=== PATIENT | female | born 2000 | race Caucasian/White ===

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

== ENCOUNTER 2021-03-23 13:09 | Outpatient (CLI) | payer OTHER, MEDICAID, SELFPAY ==
[2021-03-23 13:30] LABS: Basophils Absolute Auto 0.03 K/mm3 (0.00-0.10); Basophils Percent Auto 0.4 % (0.0-1.0); Eosinophils Percent Auto 1.5 % (1.0-6.0); Hematocrit 41.9 % (35.0-49.0); Hemoglobin 14.2 g/dL (12.0-15.0); Immature Granulocyte Absolute 0.02 K/mm3 (0.00-0.00); Immature Granulocyte Percent A 0.3 % (0.0-0.0); Lymphocytes Absolute Auto 1.56 K/mm3 (1.10-4.50); Lymphocytes Percent Auto 22.9 % (18.0-42.0); Mean Corpuscular HGB Conc 33.9 g/dL (32.0-36.0); Mean Corpuscular Hemoglobin 30.7 pg (27.0-31.0); Mean Corpuscular Volume 90.5 fL (78.0-102.0); Mean Platelet Volume 11.2 fl (9.2-11.8); Monocytes Absolute Auto 0.47 K/mm3 (0.10-0.90); Monocytes Percent Auto 6.9 % (2.0-11.0); Neutrophils Absolute Auto 4.6 K/mm3 (1.7-7.2); Platelet Count Result 198 K/mm3 (150-420); Red Blood Count 4.63 M/mm3 (4.20-5.40); Red Cell Distribution Width 12.5 % (11.6-14.4); White Blood Count 6.8 K/mm3 (4.8-10.8)
[2021-03-23 15:42] LABS: Alanine Aminotransferase 19 U/L (14-59); Albumin Level 4.2 g/dL (3.4-5.0); Alkaline Phosphatase 91 U/L (46-116); Anion Gap 11 mmol/L (8-16); Aspartate Amino Transferase 10 U/L (15-37); Bilirubin,Total 0.3 mg/dL (0.00-1.00); Blood Urea Nitrogen 8 mg/dL (7-18); Calcium 8.9 mg/dL (8.5-10.1); Carbon Dioxide 26 mmol/L (21-32); Chloride 103 mmol/L (98-108); Cholesterol 144 mg/dL (0-200); Estimated Glomerular Filt Rate > 60; Free T4 Free Thyroxine 0.88 ng/dL (0.76-1.46); Glucose 93 mg/dL (70-99); HDL Direct 43 mg/dL (40-60); LDL Cholesterol Calculated 93 mg/dL (<130); Osmolality Calculated 288 mOsm/kg (285-295); Potassium 4.1 mmol/L (3.5-5.1); Sodium 140 mmol/L (136-145); Thyroid Stimulating Hormone 1.42 uIU/mL (0.36-3.74); Total Protein 7.2 g/dL (6.4-8.2); Triglycerides 41 mg/dL (0-150); Vitamin B12 376 pg/mL (193-986)
== END 2021-03-23 13:10 | disposition home or self-care (01) ==
LOC: CHSLAB 13:14
DX: N91.2 Amenorrhea, unspecified (principal); R53.83 Other fatigue
CPT/HCPCS: 36415; 80053; 80061; 82607; 82746; 84439; 84443; 84702; 85025

== ENCOUNTER 2021-03-30 12:52 | Outpatient (CLI) | payer OTHER, MEDICAID, SELFPAY | END 2021-03-30 12:53 | disposition home or self-care (01) | LOC: CHSLAB 12:57 | DX: Z32.01 Encounter for pregnancy test, result positive (principal) | CPT/HCPCS: 36415; 84702 ==

== ENCOUNTER 2021-04-10 16:56 | Emergency (ER) | payer OTHER, MEDICAID, SELFPAY ==
[2021-04-10 17:05] VITALS: BP 132/88; PULSE 100; RESP 16; TEMP 36.9; O2SAT 100
--- NOTE | 2021-04-10 17:49 | ED.BACK ---
HPI - Back Pain/Injury General Chief Complaint: Back Pain/Injury Stated Complaint: vaginal and back pain/ unknown weeks Time Seen by Provider: 04/10/21 17:49 Source: patient Mode of arrival: ambulatory Limitations: no limitations History of Present Illness HPI Narrative: 20-year-old woman in the 1st trimester of her 1st comes in today complaining of low back pain and vaginal discomfort with itching. Patient states that she has had no fever, vomiting, discharge, dysuria, hematuria, or frequent urination. She denies vaginal bleeding and abdominal pain. Records from [facility] states that her quantitative hCG on 03/23/2021 was 75 and 1090 on 03/30. elicited complaint: back pain Onset (ago): week(s) (2) Timing: constant Severity: moderate Similar Symptoms Previously: No Quality: aching Location: left lower back Radiation: none Exacerbating factors: none Relieving factors: none Related Data Home Medications Medication Instructions Recorded Confirmed sertraline 50 mg PO DAILY 11/16/19 04/10/21 Allergies Allergy/AdvReac Type Severity Reaction Status Date / Time No Known Allergies Allergy Verified 04/10/21 17:11 Review of Systems Review of Systems: All systems reviewed & are unremarkable except as noted in HPI and below Constitutional: Constitutional: Denies chills, Denies fatigue, Denies fever(s) and Denies weakness Eyes: Eyes: Denies change in vision and Denies photophobia ENT: Denies nasal congestion and Denies sore throat Cardiovascular: Cardiovascular: Denies chest pain and Denies radiating jaw, neck or arm pain Respiratory: Respiratory: Denies cough and Denies dyspnea Gastrointestinal: Gastrointestinal: Denies abdominal pain, Denies diarrhea, Reports nausea (AM) and Denies vomiting Genitourinary: Genitourinary: Denies hematuria, Denies nocturia, Denies dysuria and Reports pelvic pain Musculoskeletal: Musculoskeletal: Denies back pain, Denies arthralgias and Denies joint swelling Integumentary/Breasts: Skin/Breast: Denies pruritus, Denies erythema and Denies rash Neurologic: Denies vertigo, Denies dizziness and Denies syncope Hematologic/Lymphatic: Hematologic/Lymphatic: Denies easy bleeding and Denies easy bruising Allergic/Immunologic: Allergic/Immunologic: Denies lip swelling and Denies throat swelling [facility] Past Medical History Medical History (Updated 04/10/21 @ 22:04 by Duane Lima MD) Depression Social History Social History Smoking status: Never smoker Alcohol intake: never Substance use: never Exam Const: General: healthy appearing, no acute distress and alert Orientation/consciousness: patient oriented x3 Limitations: no limitations HENMT: Head: normal to inspection Mouth: Yes moist mucous membranes Throat: posterior oropharynx normal Eyes: Conjunctivae: conjunctivae normal Pupils: Equal, round and reactive pupils present EOM: EOMs intact bilaterally Resp: Effort & Inspection: normal respiratory effort and not labored Auscultation: clear to auscultation bilaterally, no rales, no rhonchi and no wheezes Cardio: Rate: regular rate Rhythm: regular rhythm Heart sounds: no murmurs GI: GI Palp: Yes Soft to palpation, No Tenderness to palpation present (GI) and No Palpable mass present Auscultation: normal bowel sounds : Speculum Exam - Vagina: abnormal vaginal discharge white and caseous and No vaginal bleeding Speculum Exam - Cervix: normal appearance of the cervix Bimanual exam- vagina & uterus: no cervical motion tenderness Bimanual Exam- Adnexa, other: adnexal mass and no tenderness Skin: General skin exam: normal color, no jaundice and no pallor Rashes: no rashes Neuro: General: patient oriented x3, moves all extremities and no focal motor deficits Speech: normal speech Gait exam (Neuro): Normal gait present Extrem: General: normal to inspection and no clubbing, cyanosis or
[2021-04-10 18:13] LABS: Add Urine Microscopic? YES; Appearance Urine Clear (Clear); Bilirubin Urine Negative (Negative); Blood Urine Negative (Negative); Color Urine Light Yellow (Yellow); Glucose Urine UA Negative (Negative); Ketones Urine Negative (Negative); Leukocyte Esterase Ur 1+ (Negative); Nitrate Urine Negative (Negative); Protein Urine Negative (Negative); Specific Grav Ur 1.015 (1.010-1.020); Urobilinogen Urine 0.2 mg/dL (0.2-1.0)
[2021-04-10 18:19] LABS: Bacteria Urine Trace /hpf; RBC Urine 0-2 /hpf (0-2); Squamous Epithelial Cell Urine Few /hpf (Few); WBC Urine 0-3 /hpf (0-3)
[2021-04-10 19:57] LABS: Basophils Absolute Auto 0.05 K/mm3 (0.00-0.10); Basophils Percent Auto 0.4 % (0.0-1.0); Eosinophils Absolute Auto 0.11 K/mm3 (0.02-0.50); Eosinophils Percent Auto 0.9 % (1.0-6.0); Hematocrit 37.6 % (35.0-49.0); Hemoglobin 12.8 g/dL (12.0-15.0); Immature Granulocyte Absolute 0.04 K/mm3 (0.00-0.00); Immature Granulocyte Percent A 0.3 % (0.0-0.0); Lymphocytes Absolute Auto 2.29 K/mm3 (1.10-4.50); Lymphocytes Percent Auto 18.5 % (18.0-42.0); Mean Corpuscular Hemoglobin 30.4 pg (27.0-31.0); Mean Corpuscular Volume 89.3 fL (78.0-102.0); Mean Platelet Volume 11.1 fl (9.2-11.8); Monocytes Absolute Auto 0.71 K/mm3 (0.10-0.90); Monocytes Percent Auto 5.7 % (2.0-11.0); Neutrophils Absolute Auto 9.2 K/mm3 (1.7-7.2); Neutrophils Percent Auto 74.2 % (50.0-70.0); Platelet Count Result 266 K/mm3 (150-420); Red Blood Count 4.21 M/mm3 (4.20-5.40); Red Cell Distribution Width 12.2 % (11.6-14.4); White Blood Count 12.4 K/mm3 (4.8-10.8)
[2021-04-10 20:13] VITALS: BP 128/88; PULSE 68; RESP 16; O2SAT 98
--- NOTE | 2021-04-10 20:14 | PC.NURSE ---
Albin esparza in [facility] called, labs unable to run. Pelvic exam done with RN supervised
--- NOTE | 2021-04-10 21:13 | PC.NURSE ---
had to call lab & remind to result out Chem & Beta HCG
[2021-04-10 21:48] LABS: Alanine Aminotransferase 16 U/L (14-59); Albumin Level 3.6 g/dL (3.4-5.0); Alkaline Phosphatase 79 U/L (46-116); Anion Gap 8 mmol/L (8-16); Aspartate Amino Transferase 10 U/L (15-37); Bilirubin,Total 0.1 mg/dL (0.00-1.00); Blood Urea Nitrogen 8 mg/dL (7-18); Calcium 8.7 mg/dL (8.5-10.1); Carbon Dioxide 26 mmol/L (21-32); Chloride 103 mmol/L (98-108); Estimated CRCL calculation 96 ml/min; Estimated Glomerular Filt Rate > 60; Glucose 92 mg/dL (70-99); Osmolality Calculated 282 mOsm/kg (285-295); Potassium 3.8 mmol/L (3.5-5.1); Sodium 137 mmol/L (136-145)
== END 2021-04-10 22:17 | disposition home or self-care (01) ==
PROVIDERS: Emergency Provider Emergency Medicine
DX: B37.3 Candidiasis of vulva and vagina (principal); N30.00 Acute cystitis without hematuria
CPT/HCPCS: 36415; 80053; 81001; 84702; 85025; 87077; 87086; 87088; 87186; 87210; 99283; 99284

== ENCOUNTER 2021-06-09 10:35 | Emergency (ER) | payer OTHER, MEDICAID, SELFPAY ==
[2021-06-09 10:42] VITALS: BP 119/88; PULSE 103; RESP 20; TEMP 36.4; O2SAT 100
--- NOTE | 2021-06-09 10:58 | ED.NAVMDI ---
HPI - Nausea/Vomiting/Diarrhea General Chief complaint: Nausea/Vomiting/Diarrhea Stated complaint: 15-16 wks ob, coughed up blood Source: patient Mode of arrival: ambulatory Limitations: no limitations History of Present Illness HPI Narrative: Pt had single episode of emesis this morning. Afterward she spit some saliva that was mixed with bright red blood. Pt has had no further emesis or bleeding and denies abdominal pain. MD elicited complaint: nausea and vomiting Pertinent past history: other () Description of vomiting: food contents Associated nausea: Yes Associated abdominal pain: No Exacerbating factors: none Relieving factors: none Associated symptoms: denies other symptoms Related Data Home Medications Medication Instructions Recorded Confirmed No Home Medications 06/09/21 06/09/21 Allergies Allergy/AdvReac Type Severity Reaction Status Date / Time No Known Allergies Allergy Verified 06/09/21 10:58 Review of Systems Review of Systems: All systems reviewed & are unremarkable except as noted in HPI and below (HPI) PMFSH Past Medical History Medical History (Updated 06/09/21 @ 11:07 by Ivan Dorsey III, DO) Depression Social History Social History Smoking status: Never smoker Alcohol intake: never Substance use: never Exam Const: General: cooperative, healthy appearing, comfortable and no acute distress Orientation/consciousness: patient oriented x3 Limitations: no limitations HENMT: Head: normal to inspection Mouth: Yes Normal oral and palatal mucosa present, Yes oropharynx normal and Yes moist mucous membranes Teeth and gingiva: dentition normal Throat: posterior oropharynx normal Neck: Neck: normal visual inspection and full ROM Resp: Effort & Inspection: normal respiratory effort and able to speak in complete sentences Cardio: Jugular venous distension: no JVD Rate: regular rate Rhythm: regular rhythm GI: Inspection: normal to inspection GI Palp: Yes abdominal tenderness (no tenderness) Auscultation: normal bowel sounds Other: FHT 151 Skin: General skin exam: normal color and no rashes or lesions noted Neuro: General: patient oriented x3 Cognition (Neuro): normal cognition Speech: normal speech Gait exam (Neuro): Normal gait present Extrem: General: normal to inspection, full ROM and no pedal edema Psych: Appearance: grossly normal Mental Status: mental status grossly normal Speech and movement: Normal speech and movement present Affect: normal affect Attitude: cooperative Discharge Plan Discharge Clinical Impression: Hematemesis of fresh blood Patient Disposition: Home, Self-Care Condition: Stable Instructions: Antibiotic Form, Hyperemesis Gravidarum (ED) Prescriptions: No Action No Home Medications RF: 0 Follow-up/Referrals: Shi More MD [Primary Care Provider] - Time of Disposition: 11:07
== END 2021-06-09 11:11 | disposition home or self-care (01) ==
PROVIDERS: Emergency Provider Emergency Medicine; PCP Obstetrics & Gynecology
DX: K92.0 Hematemesis (principal)
CPT/HCPCS: 99281

== ENCOUNTER 2021-08-12 13:54 | Observation (INO) | payer OTHER, MEDICAID, SELFPAY ==
[2021-08-12] VITALS (10 sets, daily range): BP systolic 93–104; BP diastolic 63–68; PULSE 92–105; RESP 16; TEMP 36.9; O2SAT 93–99; BMI 26.6
--- NOTE | 2021-08-12 14:28 | OBADM ---
This patient, Ninfa Rojas, admitted to the OB room 113 for observation for migraine. Patient/family oriented to hospital policies and general routines including ID bracelet, bed and alarms, visiting hours, pain management, procedures, bathroom and other care routines, personal items, smoking policy, room service/diet, and visiting hours. Patient/Family are encouraged to report perceived risks to care and to ask questions if they do not understand what they are told or what they should do.
--- NOTE | 2021-08-12 14:29 | PC.NURSE ---
Desmond Washington CNM informed of pt's arrival with c/o migraine since Tuesday and was unable to keep her Fioricet down this morning when she took it.
--- NOTE | 2021-08-12 14:31 | PC.NURSE ---
Pt denies vaginal leakage of fluid, vaginal bleeding, and abdominal pain, tightening, cramping or pressure. Pt has had back pain for weeks dependent on the position she is in.
[2021-08-12] MEDS: ONDANSETRON HCL ODT 4 MG TABLET PO (15:00)
--- NOTE | 2021-08-12 15:35 | PC.NURSE ---
Nausea has improved.
[2021-08-12] MEDS: ACETAMINOPHEN/BUTALBITAL/CAFFEINE 325-50-40 MG TABLET (FIORICET) 1 TAB PO ×2 (15:41→16:51)
--- NOTE | 2021-08-12 16:51 | PC.NURSE ---
Headache a little better. Minimal nausea. Water and ramona crackers given with Fioricet.
--- NOTE | 2021-08-12 18:20 | PC.NURSE ---
Desmond Washington CNM on unit and informed pt's headache has totally resolved. She had turned her room light on, opened the drapes, and watching TV. OK to discharge to home and may send script for Wan.
--- NOTE | 2021-08-14 07:24 | PM.OBTRLD ---
OB - Triage/Final Diagnosis Visit Information Date of evaluation: 08/12/21 Reason for evaluation: other (nausea ) Comments/Additional reasons for admission: I have assessed the risk for this patient, Ninfa Rojas, and determined that she would benefit from observation care.
== END 2021-08-12 18:40 | disposition home or self-care (01) ==
PROVIDERS: Admitting Provider Obstetrics & Gynecology; Visit Provider Obstetrics & Gynecology
DX: O21.0 Mild hyperemesis gravidarum (principal); Z3A.00 Weeks of gestation of pregnancy not specified
CPT/HCPCS: A9270; G0378; G0379

== ENCOUNTER 2021-11-02 14:07 | Observation (INO) | payer OTHER, MEDICAID, SELFPAY ==
--- NOTE | 2021-11-02 14:07 | OBADM ---
This patient, Ninfa Rojas, admitted to the OB room OB Post 115 for observation. Patient/family oriented to hospital policies and general routines including ID bracelet, bed and alarms, visiting hours, pain management, procedures, bathroom and other care routines, personal items, smoking policy, room service/diet, and visiting hours. Patient/Family are encouraged to report perceived risks to care and to ask questions if they do not understand what they are told or what they should do.
[2021-11-02 14:31] VITALS: BP 105/72; PULSE 115
[2021-11-02 14:45] VITALS: BP 100/59; PULSE 132
[2021-11-02 15:01] VITALS: BP 96/65; PULSE 114
[2021-11-02 15:15] VITALS: BP 105/81; PULSE 111
[2021-11-02 16:26] VITALS: BMI 29.8
--- NOTE | 2021-11-06 06:56 | PM.OBTRLD ---
OB - Triage/Final Diagnosis Visit Information Comments/Additional reasons for admission: I have assessed the risk for this patient, Ninfa Rojas, and determined that she would benefit from observation care. Final Diagnosis (1) Back pain affecting : Code(s): O99.891 - Other specified diseases and conditions complicating ; M54.9 - Dorsalgia, unspecified Status: Acute (2) Decreased movement: Code(s): O36.8190 - Decreased movements, unspecified trimester, not applicable or unspecified Status: Acute
== END 2021-11-02 16:25 | disposition home or self-care (01) ==
PROVIDERS: Admitting Provider Obstetrics & Gynecology; Visit Provider Obstetrics & Gynecology
DX: O99.891 Other specified diseases and conditions complicating pregnancy (principal); M54.9 Dorsalgia, unspecified; O36.8130 Decreased fetal movements, third trimester, not applicable or unspecified; Z3A.35 35 weeks gestation of pregnancy
CPT/HCPCS: G0378; G0379

== ENCOUNTER 2021-11-29 15:57 | Inpatient (IN) | payer OTHER, MEDICAID, SELFPAY ==
[2021-11-29] VITALS (13 sets, daily range): BP systolic 70–143; BP diastolic 33–86; PULSE 77–122; BMI 30.4
--- OUTSIDE RECORDS SUMMARY | 2021-11-29 16:04 | XMS_ITS ---
:2000 Author Care Team Providers Name Role Phone Padmini Debi Mariano Primary Care Provider Unavailable Allergies Code Code System Name Reaction Severity Status Onset NKDA ? Medications Name Status Start Date Stop Date ? ? amoxicillin 500 mg capsule Completed ? 09/17 TAKE 1 CAPSULE BY MOUTH TWICE A DAY FOR 10 DAYS aripiprazole 10 mg tablet Completed ? 2021 aripiprazole 5 mg tablet Completed ? 022 benzonatate 100 mg capsule Completed ? 04/29 buspirone 10 mg tablet Completed ? glartzpbgh-ugmvgdcsxvhqq-wpuzlgxl 50 mg-300 mg-40 mg Completed ? 09/17/2021 capsule clotrimazole 1 % vaginal cream Completed ? 0 04/29/2021 INSERT 1 APPLICATORFUL VAGINALLY AT BEDTIME FOR 7 DAYS FreeStyle [place] Lite kit Active ? Not a vailable CHECK BLOOD SUGAR 4 TIMES A DAY FreeStyle Lancets 28 gauge Active ? Not a vailable FreeStyle Lite Strips Active ? Not availa ble hydrocortisone 1 % topical cream with perineal Active ? Not available applicator methylprednisolone 4 mg tablets in a dose pack Active ? Not available metoclopramide 5 mg tablet Active ? Not a vailable Karen 0.25 mg-35 mcg tablet Completed ? 04/29 nitrofurantoin monohydrate/macrocrystals 100 mg capsule Complete d ? 09/17/2021 ondansetron 4 mg disintegrating tablet Completed ? 04/29/2021 DISSOLVE 1 TABLET ON TONGUE FOLLOWED BY A SIP OF WATER NEEDED EVERY 8 HOURS FOR NAUSEA ondansetron 8 mg disintegrating tablet Completed ? 09/17/2021 Active ? Not available Preparation H Hydrocortisone 1 % topical cream Active ?
--- OUTSIDE RECORDS SUMMARY | 2021-11-29 16:04 | XMS_ITS | Encounter Summary ---
:2000 Author Reason for Visit None recorded. Assessment and Plan 1. Gestational diabetes mellitus, class A>1< ? US, obstetric, biophysical profile + non-stress test Discussion Note: None recorded.Patient educational handouts: No information available. Plan of Care Reminders Provider Appointments Post 12/25/2021 Debi Washington CNM 2:00PM Lab None recorded. ? ? Referral None recorded. ? ? Procedures None recorded. ? ? Surgeries None recorded. ? ? Imaging US, Obstetric, Biophysical 11/18/2021 [facility] Profile + Non-stress Test Medications Name Start Date ? ? FreeStyle [place] Lite kit ? CHECK BLOOD SUGAR 4 TIMES A DAY FreeStyle Lancets 28 gauge ? CHECK BLOOD SUGAR 4 TIMES A DAY FreeStyle Lite Strips ? TEST SUGAR 4 TIMES A DAY hydrocortisone 1 % topical cream with perineal applica tor ? methylprednisolone 4 mg tablets in a dose pack ? metoclopramide 5 mg tablet ? Take 1 tablet every 6 hours by oral route as needed. ? Preparation H Hydrocortisone 1 % topical cream ? APPLY A THIN LAYER TO THE AFFECTED AREA(S) BY TOPICAL ROUTE 2 TIMES PER DAY sertraline 100 mg tablet ? TAKE 2 TABLETS BY MOUTH EVERY DAY Medications Administered None recorded. Vitals None recorded. Results Lab Results None recorded. Allergies Code Code System Name Reaction Severity Onset NKDA ? ? ? Problems Name Status Onset Date Source ? Active 05/26/2021 ? Mixed Anxiety and Depressive Disorder Active ? ?
--- OUTSIDE RECORDS SUMMARY | 2021-11-29 16:04 | XMS_ITS | Encounter Summary ---
:2000 Author Reason for Visit None recorded. Assessment and Plan 1. Gestational diabetes mellitus, class A>1< ? non-stress test Discussion Note: None recorded.Patient educational handouts: No information available. Plan of Care Reminders Provider Appointments Post 12/25/2021 2:00PM Debi vaca CNM Lab None recorded. ? ? Referral None recorded. ? ? Procedures None recorded. ? ? Surgeries None recorded. ? ? Imaging Non-stress Test 11/25/2021 [place] Medications Name Start Date ? ? FreeStyle [place] Lite kit ? CHECK BLOOD SUGAR 4 [...] Anxiety and Depressive Disorder Active ? ? Tobacco User Active ? ? Procedures Date Name Performed by ?
--- OUTSIDE RECORDS SUMMARY | 2021-11-29 16:04 | XMS_ITS | Encounter Summary ---
[...] recorded. ? ? Imaging US, Obstetric, Biophysical 11/11/2021 [facility] Profile + Non-stress Test Medications Name Start Date ? ? FreeStyle [place] Lite kit ? CHECK BLOOD SUGAR 4 [...]
--- OUTSIDE RECORDS SUMMARY | 2021-11-29 16:04 | XMS_ITS | Encounter Summary ---
[...] None recorded. ? ? Imaging Non-stress Test 11/18/2021 [place] Medications Name Start Date ? ? FreeStyle [place] Lite kit ? CHECK BLOOD SUGAR 4 [...]
--- OUTSIDE RECORDS SUMMARY | 2021-11-29 16:04 | XMS_ITS | Encounter Summary ---
:2000 Author Reason for Visit None recorded. Assessment and Plan 1. Gestational diabetes mellitus, class A>1< ? US, obstetric, biophysical profile Discussion Note: None recorded.Patient educational handouts: No information available. Plan of Care Reminders Provider Appointments Post 12/25/2021 Debi Washington CNM 2:00PM Lab None recorded. ? ? Referral None recorded. ? ? Procedures None recorded. ? ? Surgeries None recorded. ? ? Imaging US, Obstetric, Biophysical 11/03/2021 [facility] Profile Medications Name Start Date ? ? FreeStyle [place] Lite kit ? CHECK BLOOD SUGAR 4 [...]
--- OUTSIDE RECORDS SUMMARY | 2021-11-29 16:04 | XMS_ITS | Encounter Summary ---
[...] None recorded. ? ? Imaging Non-stress Test 11/11/2021 [place] Medications Name Start Date ? ? FreeStyle [place] Lite kit ? CHECK BLOOD SUGAR 4 [...]
--- OUTSIDE RECORDS SUMMARY | 2021-11-29 16:04 | XMS_ITS | Encounter Summary ---
[...] None recorded. ? ? Imaging Non-stress Test 11/03/2021 [employer] Medications Name Start Date ? ? FreeStyle [place] Lite kit ? CHECK BLOOD SUGAR 4 [...]
--- OUTSIDE RECORDS SUMMARY | 2021-11-29 16:04 | XMS_ITS | Encounter Summary ---
:2000 Author Reason for Visit OB visit OB [id number] EDC 12/04/2021 LMP 02/22/2021 Assessment and Plan Assessment Note Patient is _38__weeks . Discuss ed plan. 1. Routine care Discussion Note: None recorded.Patient educational handouts: No information available. Plan of Care Reminders Provider Appointments Post 12/25/2021 2:00PM Debi vaca CNM Lab None recorded. ? ? Referral None recorded. ? ? Procedures None recorded. ? ? Surgeries None recorded. ? ? Imaging None recorded. ? ? Medications Name Start Date ? ? FreeStyle [place] Lite kit ? CHECK BLOOD SUGAR 4 [...] EVERY DAY Medications Administered None recorded. Vitals Height Weight BMI Blood Pressure 5 ft 7 in 195 lbs 30.5 kg/m2 114/70 mm[Hg] Results Lab Results None recorded. Allergies Code Code System Name Reaction Severity Onset NKDA ? ? ? Problems Name Status Onset Date Source ? Active
--- OUTSIDE RECORDS SUMMARY | 2021-11-29 16:04 | XMS_ITS | Encounter Summary ---
:2000 Author Reason for Visit OB visit Assessment and Plan Assessment Note Patient is ___weeks . Discussed plan. 1. Routine care Discussion Note: None recorded.Patient educational handouts: No information available. Plan of Care Reminders Provider Appointments Post 12/25/2021 2:00PM Debi vaca CNM Lab None recorded. ? ? Referral None recorded. ? ? Procedures None recorded. ? ? Surgeries None recorded. ? ? Imaging None recorded. ? ? Medications Name Start Date ? ? FreeStyle [place] Lite kit ? CHECK BLOOD SUGAR 4 [...] BMI Blood Pressure 5 ft 7 in 188 lbs 29.4 kg/m2 131/89 mm[Hg] Results Lab Results None recorded. Allergies Code Code System Name Reaction Severity Onset NKDA ? ? ? Problems Name Status Onset Date Source ? Active 05/26/2021 ? Mixed Anxiety and Depressive Disorder Act
--- OUTSIDE RECORDS SUMMARY | 2021-11-29 16:04 | XMS_ITS | Encounter Summary ---
:2000 Author Reason for Visit OB visit OB [id number] EDC 12/04/2021 LMP 02/22/2021 Assessment and Plan Assessment Note Patient is _37__weeks . Discuss ed plan. 1. Routine care Discussion Note: None recorded.Patient educational handouts: No information available. Plan of Care Reminders Provider Appointments Post 12/25/2021 2:00PM Debi vaca CNM Lab None recorded. ? ? Referral None recorded. ? ? Procedures None recorded. ? ? Surgeries None recorded. ? ? Imaging None recorded. ? ? Medications Name Start Date ? ? FreeStyle [place] Lite kit ? CHECK BLOOD SUGAR 4 [...] BMI Blood Pressure 5 ft 7 in 194 lbs 30.4 kg/m2 118/75 mm[Hg] Results Lab Results None recorded. Allergies Code Code System Name Reaction Severity Onset NKDA ? ? ? Problems Name Status Onset Date Source ? Active
--- OUTSIDE RECORDS SUMMARY | 2021-11-29 16:04 | XMS_ITS | Encounter Summary ---
:2000 Author Reason for Visit None recorded. Assessment and Plan 1. COVID-19 ? US, obstetric, follow-up ? US, obstetric, biophysical profile + non-stress test Discussion Note: None recorded.Patient educational handouts: No information available. Plan of Care Reminders Provider Appointments Post 12/25/2021 Debi [place] CNM 2:00PM Lab None recorded. ? ? Referral None recorded. ? ? Procedures None recorded. ? ? Surgeries None recorded. ? ? Imaging US, Obstetric, Follow-up 10/29/2021 [place] ? US, Obstetric, Biophysical 10/29/2021 [place] Profile + Non-stress Test Medications Name Start Date ? ? FreeStyle [place] Lite kit ? CHECK BLOOD SUGAR 4 [...] Problems Name Status Onset Date Source ? Ac
--- OUTSIDE RECORDS SUMMARY | 2021-11-29 16:04 | XMS_ITS | Encounter Summary ---
:2000 Author Reason for Visit OB visit OB [id number] EDC 12/04/2021 LMP 02/22/2021 Assessment and Plan Assessment Note Patient is _34__weeks . Discuss ed plan. 1. Routine care Discussion Note: None recorded.Patient educational handouts: No information available. Plan of Care Reminders Provider Appointments Post 12/25/2021 2:00PM Debi vaca CNM Lab None recorded. ? ? Referral None recorded. ? ? Procedures None recorded. ? ? Surgeries None recorded. ? ? Imaging None recorded. ? ? Medications Name Start Date ? ? FreeStyle [place] Lite kit ? CHECK BLOOD SUGAR 4 [...] BMI Blood Pressure 5 ft 7 in 192 lbs 30.1 kg/m2 125/81 mm[Hg] Results Lab Results None recorded. Allergies Code Code System Name Reaction Severity Onset NKDA ? ? ? Problems Name Status Onset Date Source ? Active
--- OUTSIDE RECORDS SUMMARY | 2021-11-29 16:04 | XMS_ITS | Encounter Summary ---
:2000 Author Reason for Visit None recorded. Assessment and Plan 1. Gestational diabetes mellitus ? non-stress test Discussion Note: None recorded.Patient educational handouts: No information available. Plan of Care Reminders Provider Appointments Post 12/25/2021 2:00PM Debi vaca CNM Lab None recorded. ? ? Referral None recorded. ? ? Procedures None recorded. ? ? Surgeries None recorded. ? ? Imaging Non-stress Test 11/13/2021 [place] Medications Name Start Date ? ? FreeStyle [place] Lite kit ? CHECK BLOOD SUGAR 4 [...]
--- OUTSIDE RECORDS SUMMARY | 2021-11-29 16:04 | XMS_ITS | Encounter Summary ---
[...] recorded. ? ? Imaging US, Obstetric, Biophysical 11/25/2021 [facility] Profile + Non-stress Test Medications Name Start Date ? ? FreeStyle [place] Lite kit ? CHECK BLOOD SUGAR 4 [...]
--- OUTSIDE RECORDS SUMMARY | 2021-11-29 16:04 | XMS_ITS | Encounter Summary ---
:2000 Author Reason for Visit OB visit OB [id number] EDC 12/04/2021 LMP 02/22/2021 Assessment and Plan Assessment Note Patient is _36__weeks . Discuss ed plan. 1. Routine care Discussion Note: None recorded.Patient educational handouts: No information available. Plan of Care Reminders Provider Appointments Post 12/25/2021 2:00PM Debi vaca CNM Lab None recorded. ? ? Referral None recorded. ? ? Procedures None recorded. ? ? Surgeries None recorded. ? ? Imaging None recorded. ? ? Medications Name Start Date ? ? FreeStyle [place] Lite kit ? CHECK BLOOD SUGAR 4 [...] BMI Blood Pressure 5 ft 7 in 191 lbs 29.9 kg/m2 121/83 mm[Hg] Results Lab Results None recorded. Allergies Code Code System Name Reaction Severity Onset NKDA ? ? ? Problems Name Status Onset Date Source ? Active
--- OUTSIDE RECORDS SUMMARY | 2021-11-29 16:05 | XMS_ITS | Encounter Summary ---
:2000 Author Reason for Visit NST [id number] EDC 12/04/2021 Assessment and Plan 1. Gestational diabetes mellitus, class A>1< ? non-stress test Discussion Note: None recorded.Patient educational handouts: No information available. Plan of Care Reminders Provider Appointments Post 12/25/2021 2:00PM Debi vaca CNM Lab None recorded. ? ? Referral None recorded. ? ? Procedures None recorded. ? ? Surgeries None recorded. ? ? Imaging Non-stress Test 10/14/2021 [place] Medications Name Start Date ? ? FreeStyle [place] Lite kit ? CHECK BLOOD SUGAR 4 [...] BMI Blood Pressure 5 ft 7 in 186 lbs 29.1 kg/m2 123/84 mm[Hg] Results Lab Results None recorded. Allergies Code Code System Name Reaction Severity Onset NKDA ? ? ? Problems Name Status Onset Date Source ? Active 05/26/2021 ? Mixed Anxiety and Depressive Disorder Active ? ? [place]
--- OUTSIDE RECORDS SUMMARY | 2021-11-29 16:05 | XMS_ITS | Encounter Summary ---
:2000 Author Reason for Visit None recorded. Assessment and Plan 1. Placental condition affecting manage ment of mother ? US, obstetric, follow-up Discussion Note: None recorded.Patient educational handouts: No information available. Plan of Care Reminders Provider Appointments Post 12/25/2021 2:00PM Debi vaca, KEITH Lab None recorded. ? ? Referral None recorded. ? ? Procedures None recorded. ? ? Surgeries None recorded. ? ? Imaging US, Obstetric, Follow-up 09/30/2021 [place] Medications Name Start Date ? ? FreeStyle [place] Lite kit ? CHECK BLOOD SUGAR 4 [...]
--- OUTSIDE RECORDS SUMMARY | 2021-11-29 16:05 | XMS_ITS | Encounter Summary ---
:2000 Author Reason for Visit None recorded. Assessment and Plan 1. COVID-19 ? US, obstetric, follow-up Discussion Note: None recorded.Patient educational handouts: No information available. Plan of Care Reminders Provider Appointments Post 12/25/2021 2:00PM Debi vaca CNM Lab None recorded. ? ? Referral None recorded. ? ? Procedures None recorded. ? ? Surgeries None recorded. ? ? Imaging US, Obstetric, Follow-up 09/01/2021 [place] Medications Name Start Date ? ? FreeStyle [place] Lite kit ? CHECK BLOOD SUGAR 4 [...]
--- OUTSIDE RECORDS SUMMARY | 2021-11-29 16:05 | XMS_ITS | Encounter Summary ---
:2000 Author Reason for Visit OB visit OB [id number] EDC 12/04/2021 LMP 02/22/2021 Assessment and Plan Assessment Note Patient is 32___weeks . Discuss ed plan. 1. Routine care Discussion Note: None recorded.Patient educational handouts: No information available. Plan of Care Reminders Provider Appointments Post 12/25/2021 2:00PM Debi vaca CNM Lab None recorded. ? ? Referral None recorded. ? ? Procedures None recorded. ? ? Surgeries None recorded. ? ? Imaging None recorded. ? ? Medications Name Start Date ? ? FreeStyle [place] Lite kit ? CHECK BLOOD SUGAR 4 [...]
--- OUTSIDE RECORDS SUMMARY | 2021-11-29 16:05 | XMS_ITS | Encounter Summary ---
[...] recorded. ? ? Imaging US, Obstetric, Biophysical 10/14/2021 [facility] Profile + Non-stress Test Medications Name Start Date ? ? FreeStyle [place] Lite kit ? CHECK BLOOD SUGAR 4 [...]
--- OUTSIDE RECORDS SUMMARY | 2021-11-29 16:05 | XMS_ITS | Encounter Summary ---
:2000 Author Reason for Visit OB visit OB [id number] EDC 12/04/2021 LMP 02/22/2021 Assessment and Plan Assessment Note Patient is _31__weeks . Discuss ed plan. 1. Routine care Discussion Note: None recorded.Patient educational handouts: No information available. Plan of Care Reminders Provider Appointments Post 12/25/2021 2:00PM Debi vaca CNM Lab None recorded. ? ? Referral None recorded. ? ? Procedures None recorded. ? ? Surgeries None recorded. ? ? Imaging None recorded. ? ? Medications Name Start Date ? ? FreeStyle [place] Lite kit ? CHECK BLOOD SUGAR 4 [...] BMI Blood Pressure 5 ft 7 in 183 lbs 28.7 kg/m2 111/74 mm[Hg] Results Lab Results None recorded. Allergies Code Code System Name Reaction Severity Onset NKDA ? ? ? Problems Name Status Onset Date Source ? Active
--- OUTSIDE RECORDS SUMMARY | 2021-11-29 16:05 | XMS_ITS | Encounter Summary ---
[...] None recorded. ? ? Imaging Non-stress Test 10/29/2021 [place] Medications Name Start Date ? ? FreeStyle [place] Lite kit ? CHECK BLOOD SUGAR 4 [...]
--- OUTSIDE RECORDS SUMMARY | 2021-11-29 16:05 | XMS_ITS | Encounter Summary ---
:2000 Author Reason for Visit OB visit OB [id number] EDC 12/04/2021 LMP 02/22/2021 Assessment and Plan Assessment Note Patient is _28__weeks . Discuss ed plan. 1. Routine care 2. Depressive disorder ? Zoloft 100 mg tablet Discussion Note: None recorded.Patient educational handouts: No information available. Plan of Care Reminders Provider Appointments Post 12/25/2021 2:00PM Debi vaca CNM Lab None recorded. ? ? Referral None recorded. ? ? Procedures None recorded. ? ? Surgeries None recorded. ? ? Imaging None recorded. ? ? Medications Name Start Date ? ? FreeStyle [place] Lite kit ? CHECK BLOOD SUGAR 4 [...] BMI Blood Pressure 5 ft 7 in 181 lbs 28.3 kg/m2 (1) 132/92 mm[H g] (2) 128/82 mm[Hg ] Results Lab Results None recorded. Allergies Code Code System Name Reaction Severity Onset
--- OUTSIDE RECORDS SUMMARY | 2021-11-29 16:05 | XMS_ITS ---
:2000 Author Care Team Providers Name Role Phone Nacho Hadley Primary Care Provider Unavailable Allergies Code Code System Name Reaction Severity Status Onset NKDA ? Medications Name Status Start Date Stop Date ? ? amoxicillin 400 mg/5 mL oral suspension Unknown ? Not available amoxicillin 875 mg-potassium clavulanate 125 mg tablet Completed ? 04/23/2019 aripiprazole 10 mg tablet Active ? Not av ailable TAKE 1 TABLET BY MOUTH EVERYDAY AT BEDTIME aripiprazole 5 mg tablet Completed ? 022 azithromycin 500 mg tablet Completed ? 04/23 benzonatate 100 mg capsule Completed ? 03/18 xgnjjdhynj-ubgftuwviykmf-juboeoab 50 mg-300 mg-40 mg capsule Act agus ? Not available TAKE 1 CAPSULE BY MOUTH EVERY 8 HOURS NEEDED cephalexin 500 mg capsule Completed ? 2018 citalopram 20 mg tablet Completed ? 10/21/19 18 clotrimazole 1 % vaginal cream Active ? N ot available INSERT 1 APPLICATORFUL VAGINALLY AT BEDTIME FOR 7 DAYS cyclobenzaprine 10 mg tablet Completed ? dicyclomine 10 mg capsule Completed ? 2020 TAKE 1 CAPSULE BY MOUTH THREE TIMES A DAY NEEDED FOR ABDOMIN AL DISCOMFORT escitalopram 10 mg tablet Completed ? 2017 fluoxetine 20 mg capsule Completed ? 019 guanfacine 1 mg tablet Completed ? 9 ibuprofen 600 mg tablet Completed ? 06/16/19 19 Karen 0.25 mg-35 mcg tablet Completed ? 03/18 naproxen 500 mg tablet Completed ? 9 nitrofurantoin monohydrate/macrocrystals 100 mg capsule Active ? Not available TAKE 1 CAPSULE BY MOUTH EVERY 12 HOURS WITH FOOD FOR 7 DAYS olanzapine 2.5 mg tablet Completed ?
--- OUTSIDE RECORDS SUMMARY | 2021-11-29 16:05 | XMS_ITS | Encounter Summary ---
:2000 Author Reason for Visit OB visit OB [id number] EDC 12/07/2021 LMP 02/22/2021 Assessment and Plan Assessment Note Patient is _33__weeks . Discuss ed plan. 1. Routine care Discussion Note: None recorded.Patient educational handouts: No information available. Plan of Care Reminders Provider Appointments Post 12/25/2021 2:00PM Debi vaca CNM Lab None recorded. ? ? Referral None recorded. ? ? Procedures None recorded. ? ? Surgeries None recorded. ? ? Imaging None recorded. ? ? Medications Name Start Date ? ? FreeStyle [place] Lite kit ? CHECK BLOOD SUGAR 4 [...] ft 7 in 188 lbs 29.4 kg/m2 123/82 mm[Hg] Results Lab Results None recorded. Allergies Code Code System Name Reaction Severity Onset NKDA ? ? ? Problems Name Status Onset Date Source ? Active
--- OUTSIDE RECORDS SUMMARY | 2021-11-29 16:05 | XMS_ITS | Encounter Summary ---
[...] recorded. ? ? Imaging US, Obstetric, Biophysical 10/21/2021 [facility] Profile + Non-stress Test Medications Name Start Date ? ? FreeStyle [place] Lite kit ? CHECK BLOOD SUGAR 4 [...]
--- OUTSIDE RECORDS SUMMARY | 2021-11-29 16:05 | XMS_ITS | Encounter Summary ---
:2000 Author Reason for Visit None recorded. Assessment and Plan 1. Blood glucose abnormal Per SP pt needs diet teaching r/t abnor mal levels while checking BS to see if she rules in for GDM or not. Pts diet teachi ng completed over phone. Went over ideal ranges for FBS and pp BS. Went over carb counting and carb ranges for each meal/snack. Gave ideas for foods to eat for meals/snacks. Discussed drink options and to avoid soda and juice. Pt drinks Dr. Emilee jones with each meal and drinks a lot of milk. Told pt she needs to cut out Dr. Emilee jones and limit milk intake. Mainly water and sugar free water flavors. Told pt to con tinue checking BS QID and adjusting diet to follow low carb diet to try to keep BS w ithin normal range. Pt aware if sugars aren't controlled by diet we would discuss star ting insulin. Will discuss with SP tomorrow to see if we should start NSTs with her sugar levels. Pts questions were answered and pt verbalized understanding. JENNY rutledge Discussion Note: None recorded.Patient educational handouts: No information available. Plan of Care Reminders Provider Appointments Post 12/25/2021 2:00PM Debi vaca CNM Lab None recorded. ? ? Referral None recorded. ? ? Procedures None recorded. ? ? Surgeries None recorded. ? ? Imaging None recorded. ? ? Medications Name Start Date ? ? FreeStyle [place] Lite kit ? CHECK BLOOD SUGAR 4 TIMES A DAY FreeStyle Lancets 28 gauge ? CHECK BLOOD SUGAR 4 TIMES A DAY FreeStyle Lite Strips ? TEST SUGAR 4 TIMES A DAY hydrocortisone 1 % topical cream with perineal applica tor ? methylprednisolone 4 mg tablets in a dose pack ? metoclopramide 5 mg tablet ? Take 1 tablet elizabeth
--- OUTSIDE RECORDS SUMMARY | 2021-11-29 16:05 | XMS_ITS | Encounter Summary ---
[...] None recorded. ? ? Imaging Non-stress Test 10/21/2021 [place] Medications Name Start Date ? ? FreeStyle [place] Lite kit ? CHECK BLOOD SUGAR 4 [...]
--- OUTSIDE RECORDS SUMMARY | 2021-11-29 16:05 | XMS_ITS | Encounter Summary ---
:2000 Author Reason for Visit OB visit OB [id number] EDC 12/04/2021 LMP 02/22/2021 Assessment and Plan Assessment Note Patient is _30__weeks . Discuss ed plan. 1. Routine care Discussion Note: None recorded.Patient educational handouts: No information available. Plan of Care Reminders Provider Appointments Post 12/25/2021 2:00PM Debi vaca CNM Lab None recorded. ? ? Referral None recorded. ? ? Procedures None recorded. ? ? Surgeries None recorded. ? ? Imaging None recorded. ? ? Medications Name Start Date ? ? FreeStyle [place] Lite kit ? CHECK BLOOD SUGAR 4 [...] BMI Blood Pressure 5 ft 7 in 182 lbs 28.5 kg/m2 107/70 mm[Hg] Results Lab Results None recorded. Allergies Code Code System Name Reaction Severity Onset NKDA ? ? ? Problems Name Status Onset Date Source ? Active
--- OUTSIDE RECORDS SUMMARY | 2021-11-29 16:05 | XMS_ITS | Encounter Summary ---
:2000 Author Reason for Visit OB visit Assessment and Plan Assessment Note Patient is ___weeks . Discussed plan. 1. Routine care 2. Umbilical hernia 3. Gestational proteinuria 4. Migraine Discussion Note: None recorded.Patient educational handouts: No information available. Plan of Care Reminders Provider Appointments Post 12/25/2021 2:00PM Debi vaca CNM Lab None recorded. ? ? Referral None recorded. ? ? Procedures None recorded. ? ? Surgeries None recorded. ? ? Imaging None recorded. ? ? Medications Name Start Date ? ? FreeStyle [place] Lite kit ? CHECK BLOOD SUGAR 4 [...] ft 7 in 182 lbs 28.5 kg/m2 121/79 mm[Hg] Results Lab Results None recorded. Allergies Code Code System Name Reaction Severity Onset NKDA ? ? ? Problems
--- NOTE | 2021-11-29 16:20 | LDADM ---
This patient, Ninfa Rojas, was admitted to Labor/Delivery/Recovery 108 on 11/29/21 at 15:57. Plans for labor, pain management and were discussed with patient. Patient/family oriented to hospital policies and general routines including ID bracelet, bed and alarms, visiting hours, pain management, procedures, bathroom and other care routines, personal items, smoking policy, room service/diet and guest tray routines, security routines, and visiting hours. Patient/Family are encouraged to report perceived risks to care and to ask questions if they do not understand what they are told or what they should do. See OBIX for further documentation.
[2021-11-29 16:24] LABS: Basophils Percent Auto 0.3 % (0.2-1.2); Eosinophils Percent Auto 0.4 % (0-4.4); Hematocrit 29.1 % (37.0-47.0); Immature Granulocyte Absolute 0.09 K/mm3 (0.00-0.031); Immature Granulocyte Percent A 1.2 % (0-0.5); Lymphocytes Absolute Auto 1.12 K/mm3 (0.9-3.2); Lymphocytes Percent Auto 14.7 % (18.3-44.2); Mean Corpuscular HGB Conc 34.4 g/dl (32-36); Mean Corpuscular Hemoglobin 31.1 pg (26-34); Mean Corpuscular Volume 90.4 fl (80-100); Mean Platelet Volume 10.8 fl (7.4-10.4); Monocytes Absolute Auto 0.5 K/mm3 (0.1-0.6); Monocytes Percent Auto 6.5 % (2.6-8.5); Neutrophils Absolute Auto 5.9 K/mm3 (1.3-6.7); Neutrophils Percent Auto 76.9 % (45.5-73.1); Platelet Count Result 199 k/mm3 (150-375); Red Blood Count 3.22 M/mm3 (4.2-5.4); Red Cell Distribution Width 12.7 % (11.5-14.5); White Blood Count 7.6 K/mm3 (4.5-10.0)
[2021-11-29 16:49] LABS: Glucose Point of Care 102 mg/dl (65-105)
[2021-11-29] MEDS: DINOPROSTONE 10 MG VAG INSERT VAGINAL (17:02)
--- NOTE | 2021-11-29 18:34 | WPDANESEPP ---
Anes - Eval Pre Procedure Procedure: Labor epidural Date/Time: 11/29/21 18:34 Surgeon: Gabriel Preop Diagnosis: Abd pain with contractions Pre Op Diagnosis: IOL Patient Data Age: 21 Gender: F Height: 1.7 m Weight: 88 kg Last Vital Signs Pulse 98 11/29/21 18:30 BP 98/59 L 11/29/21 18:30 O2 Del Method Room Air 11/29/21 16:15 Allergies Allergy/AdvReac Type Severity Reaction Status Date / Time No Known Allergies Allergy Verified 11/03/21 13:41 Home Medications Medication Instructions Recorded Confirmed Type ondansetron 4 mg disintegrating 4 mg PO Q6H PRN Nausea #30 tabs 08/12/21 11/29/21 Rx tablet sertraline 50 mg tablet 150 mg PO DAILY 08/12/21 11/29/21 History Laboratory Tests 11/29/21 11/29/21 11/29/21 16:12 16:12 16:12 WBC 7.6 K/mm3 K/mm3 (4.5-10.0) RBC 3.22 M/mm3 L M/mm3 (4.2-5.4) Hgb 10.0 g/dL L g/dL (12.0-15.0) Hct 29.1 % L % (37.0-47.0) MCV 90.4 fl fl (80-100) MCH 31.1 pg pg (26-34) MCHC 34.4 g/dl g/dl (32-36) RDW 12.7 % % (11.5-14.5) Plt Count 199 k/mm3 k/mm3 (150-375) MPV 10.8 fl H fl (7.4-10.4) Immature Gran % (Auto) 1.2 % H % (0-0.5) Neut % (Auto) 76.9 % H % (45.5-73.1) Lymph % (Auto) 14.7 % L % (18.3-44.2) Cache % (Auto) 6.5 % % (2.6-8.5) Eos % (Auto) 0.4 % % (0-4.4) Baso % (Auto) 0.3 % % (0.2-1.2) Lymph # (Auto) 1.12 K/mm3 K/mm3 (0.9-3.2) Cache # (Auto) 0.5 K/mm3 K/mm3 (0.1-0.6) Eos # (Auto) 0.0 K/mm3 K/mm3 (0-0.3) Baso # (Auto) 0.0 K/mm3 K/mm3 (0.0-0.1) Abs Immat Gran (auto) 0.09 K/mm3 H K/mm3 (0.00-0.031) Absolute Neuts (auto) 5.9 K/mm3 K/mm3 (1.3-6.7) Absolute Nucleated RBC 0.0 K/mm3 K/mm3 (0.0-0.012) Nucleated RBC % 0.0 % % (0.0-0.2) POC Capillary Glucose RPR Pending Blood Type A Positive Antibody Screen Negative 11/29/21 16:44 WBC RBC Hgb Hct MCV MCH MCHC RDW Plt Count MPV Immature Gran % (Auto) Neut % (Auto) Lymph % (Auto) Cache % (Auto) Eos % (Auto) Baso % (Auto) Lymph # (Auto) Cache # (Auto) Eos # (Auto) Baso # (Auto) Abs Immat Gran (auto) Absolute Neuts (auto) Absolute Nucleated RBC Nucleated RBC % POC Capillary Glucose 102 mg/dl mg/dl (65-105) RPR Blood Type Antibody Screen Patient hx anesthesia problems: none Family hx anesthesia problems: none Results Review: All pre-operative results and documents have been reviewed as part of the pre-operative evaluation. [facility] Past Medical History Medical History Anxiety and depression Depression HTN (hypertension) with goal to be determined Migraines Overweight (BMI 25.0-29.9) and not yet delivered Smoker Family History Family History Grandparent Pneumonia Chronic obstructive pulmonary disease Grandparent Heart attack Social History Social History Smoking packs per day: 2 Smoking cigarettes per day: 40.0 Smoking status: Current every day smoker Tobacco type: cigarettes Alcohol intake: never Substance use: never Spiritual care concerns: No Exam Day of Procedure 11/29/21 18:34 Patient weight: overweight Airway: Mallampati scale class II
[2021-11-29 20:53] LABS: Glucose Point of Care 106 mg/dl (65-105)
[2021-11-29] MEDS: fentaNYL CITRATE INJ (*CRX) 100 MCG/2 ML VIAL 50 MCG IV PUSH (21:58)
[2021-11-29] MEDS: ZOLPIDEM TARTRATE (*CRX) 5 MG TABLET PO (23:44)
[2021-11-29 23:55] LABS: Glucose Point of Care 108 mg/dl (65-105)
[2021-11-30] VITALS (182 sets, daily range): BP systolic 90–142; BP diastolic 52–95; PULSE 55–138; RESP 16–18; TEMP 36.4–37.3; O2SAT 86–100
[2021-11-30] MEDS: fentaNYL CITRATE INJ (*CRX) 100 MCG/2 ML VIAL IV PUSH (00:12)
[2021-11-30 03:16] LABS: Glucose Point of Care 109 mg/dl (65-105)
[2021-11-30] MEDS: ACETAMINOPHEN 500 MG TABLET 1000 MG PO (04:19)
[2021-11-30] MEDS: fentaNYL CITRATE INJ (*CRX) 100 MCG/2 ML VIAL 50 MCG IV PUSH (04:57)
[2021-11-30] MEDS: LACTATED RINGERS 1,000 ML 125 ML IV CONT ×3 (06:29→10:15)
[2021-11-30 07:19] LABS: Glucose Point of Care 93 mg/dl (65-105)
[2021-11-30] MEDS: OXYTOCIN 30 UNITS/NS 500 ML 30 UNITS/500 ML BAG 6 UNITS IV CONT (08:27)
[2021-11-30] MEDS: SERTRALINE HCL 50 MG TABLET 200 MG PO (09:45)
[2021-11-30 11:40] LABS: Glucose Point of Care 93 mg/dl (65-105)
[2021-11-30] MEDS: ONDANSETRON INJ 4 MG/2 ML VIAL IV PUSH ×2 (13:12→16:36)
[2021-11-30 13:48] LABS: Rapid Plasma Reagin Non-Reactive (NonReactive)
[2021-11-30 14:54] LABS: Glucose Point of Care 80 mg/dl (65-105)
--- NOTE | 2021-11-30 17:45 | P.PCNOB_ITS ---
OB - Delivery Note Procedure Delivery date: 11/30/21 Procedure: Events: Gestational Diabetes Induction method: AROM, Per Pitocin Protocol and Per Cervidil Protocol Delivery monitor: External FHT and Internal Uterine Route of delivery: Episiotomy description: None Laceration Description: Labial (left) Delivery repair: vicryl Specimen: Yes Quantitative Blood Loss (ml): 275 Anesthesia type: Epidural Disposition: Floor Narrative: mother and baby skin to skin in stable condition [place] Baby Date of : 11/30/21 Weeks of gestation at delivery: 39 Infant gender: Female Weight (pounds): 7 Weight (ounces): 13 presentation: vertex position: Right Occiput Anterior Placenta delivery description: Spontaneous Cord Vessel Description: 3 Vessels, Clamped/Cut and Delayed Cord Clamping score one minute: 8 score five minutes: 9
--- NOTE | 2021-11-30 17:45 | WPDOBADMIT ---
Obstetrics - Admit Note Admission Note: record reviewed. No pertinent additions to the history and/or any subsequent changes in the physical findings that are not consistent with the expected course of the were found. admit for IOL, GDMA 1, AROM clear fluid Additions to the history and/or subsequent changes in the physical findings follow. None.
[2021-11-30] MEDS: ACETAMINOPHEN 325 MG TABLET 650 MG PO (18:05)
[2021-11-30] MEDS: OXYTOCIN 30 UNITS/NS 500 ML 30 UNITS/500 ML BAG 125 UNITS IV CONT (18:05)
[2021-11-30] MEDS: WITCH HAZEL 40 PADS 1 PAD TOPICAL (20:10)
[2021-11-30] MEDS: BENZOCAINE 20% AER SPR (*SP) 56 GM CAN 1 SPRAY TOPICAL (20:10)
--- NOTE | 2021-11-30 20:33 | OBPPTRN ---
Patient transferred to post room # 281 via wheelchair. Support person present. Oriented to unit, room, information board, rooming in, admission packet and security measures. Patient verbalizes understanding.
[2021-11-30] MEDS: IBUPROFEN 600 MG TABLET PO (20:54)
[2021-12-01] VITALS (7 sets, daily range): BP systolic 109–126; BP diastolic 78–85; PULSE 54–77; RESP 16–18; TEMP 36.4–36.8; O2SAT 98–99
[2021-12-01] MEDS: ACETAMINOPHEN 325 MG TABLET 650 MG PO (04:01)
[2021-12-01] MEDS: IBUPROFEN 600 MG TABLET PO ×4 (04:01→23:27)
[2021-12-01 04:54] LABS: Hematocrit 30.6 % (37.0-47.0); Hemoglobin 9.9 g/dL (12.0-15.0)
--- NOTE | 2021-12-01 08:08 | WPDANLDPN2 ---
Anes-Prog Note L&D Date/Time: 12/01/21 08:08 Comfortable throughout: labor and delivery Neuraxial method: epidural Epidural/Spinal procedure site: tender (localized tenderness at the site) Neuro status: Neuro function grossly intact. Cardiovascular status: normal Respiratory status: normal Airway patency: baseline Mental status: baseline Post-Op hydration status: normal Vital Signs: Last Vital Signs Temp 36.6 C 12/01/21 04:08 Pulse 54 L 12/01/21 04:08 Resp 16 12/01/21 04:08 BP 121/81 12/01/21 04:08 Pulse Ox 99 12/01/21 04:08 O2 Del Method Room Air 11/30/21 20:46 Pain score (VAS): 2/10 I/O: Intake & Output 11/30/21 12/01/21 12/01/21 23:59 07:59 15:59 Intake Total 500 Output Total 275 Balance 225 Post-procedural complaints: none Patient feedback: Patient satisfied with anesthetic care.
--- NOTE | 2021-12-01 08:45 | PC.NURSE ---
[id number] Introductions were made, then consulted with patient to assess needs related to . Mother led the conversation with her?plans to feed?her infant and the?experience so far. Resources provided for inpatient and outpatient services using a resource guide and mom/baby guide. Mother voiced understanding of information and will call if there is a request for assistance. Primary RN is in the room.
--- NOTE | 2021-12-01 08:46 | PC.NURSE ---
[id number] Consulted with patient to assess needs related to . Mother led conversation with her experience with feeding baby so far and has infant latched and effective to the right breast using cross cradle positioning. Educated mother on what signs to watch for to visulized her swallowing and listening for drinking at the breast. Mother denies any pain with . Infant demonstrates mouth opened wide, lips flanged, good rocking motion with sucking, and swallowing frequently. Resources used to facilitate learning were used from the visual handout and mom and baby guide. Mother voiced understanding of the education shared, calling for assistance if the does not latch or if there is discomfort with . Reported to the primary RN.
[2021-12-01] MEDS: POLYSACCHARIDE IRON COMPLEX 150 MG CAPSULE PO ×2 (10:11→16:13)
[2021-12-01] MEDS: MULTIVIT/MIN/PREN/FOL AC/IRON TABLET 1 TAB PO (10:12)
[2021-12-01] MEDS: SERTRALINE HCL 50 MG TABLET 150 MG PO (10:12)
[2021-12-01] MEDS: DOCUSATE SODIUM 100 MG CAPSULE PO ×2 (10:12→16:12)
[2021-12-01] MEDS: HYDROcodone/acetaminophen (*CRX) 5-325 MG TABLET 1 TAB PO ×4 (11:40→23:26)
[2021-12-01] MEDS: SERTRALINE HCL 50 MG TABLET 100 MG PO (20:27)
[2021-12-02] MEDS: HYDROcodone/acetaminophen (*CRX) 5-325 MG TABLET 1 TAB PO (04:52)
[2021-12-02 07:25] VITALS: BP 117/83; PULSE 73; RESP 16; TEMP 36.4; O2SAT 100
[2021-12-02] MEDS: MULTIVIT/MIN/PREN/FOL AC/IRON TABLET 1 TAB PO (07:33)
[2021-12-02] MEDS: IBUPROFEN 600 MG TABLET PO (07:33)
[2021-12-02] MEDS: DOCUSATE SODIUM 100 MG CAPSULE PO (07:34)
[2021-12-02] MEDS: POLYSACCHARIDE IRON COMPLEX 150 MG CAPSULE PO (07:34)
--- NOTE | 2021-12-02 07:34 | PM.OBPNVD ---
OB - PN: Subj Subjective Date/time seen: 12/02/21 07:34 s/p vaginal delivery day 2, c/o zamudio not resolved with ibuprofen or tylenol OB - PN: Obj Data Labs CBC & Chem 7: 12/01/21 04:14 OB - PN A/P Plan day: 2 Plan: routine care and discharge home Comments: if zamudio not resolved with fioricet , please have anesthesia see pt prior to discharge Time Spent With Patient Time: Total time spent is greater than 50% in coordination of care (as documented) at patient's floor/unit and/or counseling patient: Review of Systems Review of Systems: All systems reviewed & are unremarkable except as noted in HPI and below Exam Const: General: cooperative, healthy appearing and comfortable
--- NOTE | 2021-12-02 07:36 | PM.OBDSVD ---
DS: Admitting Diagnosis Discharge Date 12/02/21 Admitting Diagnosis IOL, GDM OB - DS: Summary OB Procedures : None OB Procedures Intrapartum: Spontaneous Vag Delivery OB Procedures: : None Time Spent with Patient Time attestation: Total time spent providing and/or coordinating discharge services: DS: Data Data Completed and Pending Pending studies at discharge: Pending at discharge 11/30/21 18:00 Surgical [PTH] Routine Discharge Plan Discharge Attending physician on discharge: Timothy Rios Discharging Clinician: Debi Washington Patient Disposition: Home, Self-Care Activity: pelvic rest Diet: regular Patient Instructions: Antibiotic Form Stand Alone Forms: General Discharge Information Follow-up/Referrals: Debi Washington, CNM [Certified Nurse Rolling Attendant] - 4 Weeks Discharge Medications: New ibuprofen 600 mg Tablet 600 mg PO Q6H PRN (Reason: Cramping) Qty: 30 0RF Continued sertraline 50 mg Tablet 150 mg PO DAILY Discontinued ondansetron 4 mg Tablet,Disintegrating 4 mg PO Q6H PRN (Reason: Nausea) Qty: 30 0RF Date of admission: 11/29/21 15:57 Primary Care Provider: UNKNOWN,DOCTOR Admitting Provider: Timothy Rios Attending physician on admission: Timothy Rios Condition: Stable
[2021-12-02] MEDS: SERTRALINE HCL 50 MG TABLET 100 MG PO (07:56)
[2021-12-02] MEDS: ACETAMINOPHEN/BUTALBITAL/CAFFEINE 325-50-40 MG TABLET (FIORICET) 2 TAB PO (07:57)
--- NOTE | 2021-12-02 15:09 | PC.NURSE ---
[id number] Mother led the conversation with her experience and plan to feed her so far and her ability to feed infant. Reminded parents to use good handwashing technique to prevent infection. Mother is feeding appropriately for growth of and understands stimulating to eat if needed. Infant has had appropriate feedings in the last 24 hours meets the outcomes for weight, output and jaundice at this time. Mother states she is confident to continue effectively , pumping, supplementing her at home or when to call for assistance and denies any additional assistance or education at this time. Reinforced understanding of milk production, transition of milk, signs of adequate intake, prevention/relief of engorgement, responsive after visualizing feeding cues, the different methods of stimulating to breastfeed 2-3 hours after the start of the last feeding, community resources, medication information reviewed per [employer] and when to call a provider using the resource of the mom and baby guide/[facility] website. Parents voiced understanding of the education shared. Reported to the primary RN.
[2021-12-04 08:59] VITALS: BP 118/76; PULSE 68; RESP 16; TEMP 36.9; O2SAT 99
== END 2021-12-02 11:05 | disposition home or self-care (01) | DRG 807 ==
LOC: ANHLDR 16:01 → ANHOB2 11-30 20:36
PROVIDERS: Advanced Practice Midwife; Admitting Provider Obstetrics & Gynecology; Visit Provider Obstetrics & Gynecology
DX: O24.429 Gestational diabetes mellitus in childbirth, unspecified control (principal); Z37.0 Single live birth; O76 Abnormality in fetal heart rate and rhythm complicating labor and delivery; O70.0 First degree perineal laceration during delivery; Z3A.39 39 weeks gestation of pregnancy
CPT/HCPCS: 36415; 82948; 85014; 85018; 85025; 86592; 86850; 86900; 86901; 88307; A9270; J2405; J2590; J2795; J3010; J7120

== ENCOUNTER 2022-01-26 12:04 | Emergency (ER) | payer OTHER, MEDICAID, SELFPAY ==
[2022-01-26 12:05] VITALS: BP 115/83; PULSE 99; RESP 20; TEMP 36.6; O2SAT 98
[2022-01-26 12:52] LABS: Basophils Absolute Auto 0.03 K/mm3 (0.00-0.10); Basophils Percent Auto 0.5 % (0.0-1.0); Eosinophils Absolute Auto 0.12 K/mm3 (0.02-0.50); Eosinophils Percent Auto 1.9 % (1.0-6.0); Hematocrit 35.3 % (35.0-49.0); Hemoglobin 11.9 g/dL (12.0-15.0); Immature Granulocyte Absolute 0.02 K/mm3 (0.00-0.00); Immature Granulocyte Percent A 0.3 % (0.0-0.0); Lymphocytes Absolute Auto 1.46 K/mm3 (1.10-4.50); Mean Corpuscular HGB Conc 33.7 g/dL (32.0-36.0); Mean Corpuscular Hemoglobin 30.1 pg (27.0-31.0); Mean Corpuscular Volume 89.4 fL (78.0-102.0); Monocytes Absolute Auto 0.39 K/mm3 (0.10-0.90); Monocytes Percent Auto 6.1 % (2.0-11.0); Neutrophils Absolute Auto 4.3 K/mm3 (1.7-7.2); Neutrophils Percent Auto 68.2 % (50.0-70.0); Platelet Count Result 231 K/mm3 (150-420); Red Blood Count 3.95 M/mm3 (4.20-5.40); Red Cell Distribution Width 12.2 % (11.6-14.4); White Blood Count 6.4 K/mm3 (4.8-10.8)
[2022-01-26 13:06] LABS: Partial Thromboplastin Time 25.4 SEC (23.90-30.70)
[2022-01-26 13:07] LABS: Alanine Aminotransferase 62 U/L (14-59); Albumin Level 3.8 g/dL (3.4-5.0); Alkaline Phosphatase 105 U/L (46-116); Anion Gap 9 mmol/L (8-16); Aspartate Amino Transferase 20 U/L (15-37); Bilirubin,Total 0.3 mg/dL (0.00-1.00); Blood Urea Nitrogen 11 mg/dL (7-18); Calcium 8.7 mg/dL (8.5-10.1); Carbon Dioxide 25 mmol/L (21-32); Chloride 109 mmol/L (98-108); Estimated CRCL calculation 77 ml/min; Estimated Glomerular Filt Rate > 60; Glucose 81 mg/dL (70-99); Osmolality Calculated 294 mOsm/kg (285-295); Sodium 143 mmol/L (136-145)
[2022-01-26 13:10] LABS: SPREG INTERNAL CONTROL Positive; Serum Qual hCG Negative
[2022-01-26 13:12] LABS: Lactic Acid Reflex 1.2 mmol/L (0.4-2.0)
[2022-01-26] MEDS: IBUPROFEN 400 MG TABLET 800 MG PO (13:20)
[2022-01-26 13:26] LABS: Add Urine Microscopic? YES; Appearance Urine Slightly Cloudy (Clear); Bilirubin Urine Negative (Negative); Blood Urine 3+ (Negative); Color Urine Yellow (Yellow); Glucose Urine UA Negative (Negative); Ketones Urine Negative (Negative); Leukocyte Esterase Ur Trace LEU/UL (Negative); Nitrate Urine Negative (Negative); Protein Urine Negative (Negative); Specific Grav Ur >= 1.030 (1.010-1.020); Urobilinogen Urine 0.2 mg/dL (0.2-1.0)
[2022-01-26 13:30] LABS: Bacteria Urine Trace /hpf; RBC Urine 51-75 /hpf (0-2); Squamous Epithelial Cell Urine Rare /hpf (Few); WBC Urine 0-3 /hpf (0-3)
--- NOTE | 2022-01-26 13:33 | PC.NURSE ---
PT IS SITTING ON STRETCHER IN EXAM ROOM AT THIS TIME. NAD NOTED. PT DENIES ANY NEEDS OR COMPLAINTS. PT IS AWAITING ERP DECISION AT THIS TIME. WILL CONTINUE TO MONITOR.
--- NOTE | 2022-01-26 13:43 | ED.ABDPAIN ---
HPI - Abdominal Pain General Chief Complaint: Abdominal Pain Stated Complaint: Possible miscarriage Time Seen by Provider: 01/26/22 12:07 Source: patient and RN notes reviewed Mode of arrival: ambulatory Limitations: no limitations History of Present Illness MD elicited complaint: other (vaginal bleeding x 2 weeks, post delivery 3 mos ago.) Onset (ago): week(s) (2) Pain Consistency: constant Location: diffuse Severity: mild Pain scale (0-10): 5 Quality: cramping and aching Radiation: none Migration to: no migration Exacerbating factors: nothing Relieving factors: nothing Related Data Patient : No Home Medications Medication Instructions Recorded Confirmed sertraline 50 mg tablet 200 mg PO DAILY 01/19/22 01/26/22 Allergies Allergy/AdvReac Type Severity Reaction Status Date / Time No Known Allergies Allergy Verified 01/26/22 12:13 Review of Systems Review of Systems: All systems reviewed & are unremarkable except as noted in HPI and below Constitutional: Constitutional: Reports no additional constitutional complaints Eyes: Eyes: Reports no additional eye complaints ENT: Reports system reviewed and no additional complaints, except as documented Cardiovascular: Cardiovascular: Reports no additional cardiovascular complaints Respiratory: Respiratory: Reports no additional respiratory complaints Gastrointestinal: Gastrointestinal: Reports no additional gastrointestinal complaints Genitourinary: Genitourinary: Reports no additional female genitourinary complaints Comments: vaginal bleeding Musculoskeletal: Musculoskeletal: Reports no additional musculoskeletal complaints Integumentary/Breasts: Skin/Breast: Reports system reviewed and no additional complaints, except as docu Neurologic: Reports system reviewed and no additional complaints, except as documented Psychiatric: Psychiatric: Reports no additional psychiatric complaints Endocrine: Endocrine: Reports no additional endocrine complaints Hematologic/Lymphatic: Hematologic/Lymphatic: Reports no additional hematologic/lymphatic complaints Allergic/Immunologic: Allergic/Immunologic: Reports no additional allergic/immunologic complaints [facility] Past Medical History Medical History Anxiety and depression Depression HTN (hypertension) with goal to be determined Menometrorrhagia Migraines Overweight (BMI 25.0-29.9) and not yet delivered Smoker Family History Family History Grandparent Pneumonia Chronic obstructive pulmonary disease Grandparent Heart attack Social History Social History Smoking packs per day: 2 Smoking cigarettes per day: 40.0 Smoking status: Current every day smoker Tobacco type: cigarettes Alcohol intake: never Substance use: never Spiritual care concerns: No Exam Const: General: no acute distress and well nourished Nutritional Appearance: well nourished Orientation/consciousness: patient oriented x3 Limitations: no limitations HENMT: Head: normal to inspection Ears: external ears normal, TM's normal bilaterally and EAC's normal Face/Nose/Sinus: Normal external nose present, Normal nares present, normal facial exam and sinuses nontender Face and sinus: normal facial exam and sinuses nontender Mouth: Yes Normal oral and palatal mucosa present and Yes moist mucous membranes Teeth and gingiva: dentition normal Throat: posterior oropharynx normal Eyes: Conjunctivae: conjunctivae normal Pupils: Equal, round and reactive pupils present EOM: EOMs intact bilaterally Neck: Neck: normal visual inspection, no lymphadenopathy and no meningeal signs Chest: Chest palpation & inspection: normal inspection of the chest Resp: Effort & Inspection: normal respiratory effort Auscultation: clear to auscultation bilaterally Cardio: Rate: regular rate Rhythm: regular rhythm GI:
[2022-01-26 14:00] VITALS: BP 118/62; PULSE 88; RESP 16; TEMP 36.7; O2SAT 98
== END 2022-01-26 14:00 | disposition home or self-care (01) ==
PROVIDERS: Emergency Provider Emergency Medicine; PCP Physician Assistant
DX: N92.1 Excessive and frequent menstruation with irregular cycle (principal)
CPT/HCPCS: 36415; 80053; 81001; 83605; 84703; 85025; 85610; 85730; 99283; A9270

== ENCOUNTER 2022-05-31 01:53 | Emergency (ER) | payer OTHER, MEDICAID, SELFPAY ==
[2022-05-31 01:57] VITALS: BP 120/90; PULSE 89; RESP 20; TEMP 37.1; O2SAT 100
--- NOTE | 2022-05-31 02:23 | ED.DENTAL ---
HPI - Dental/Oral General Chief complaint: Dental/Oral Stated complaint: Right Tooth Pain Source: patient and RN notes reviewed Mode of arrival: ambulatory Limitations: no limitations History of Present Illness Complaint: tooth pain Location: Tooth # (31) Onset (ago): month(s) (2) Duration: intermittent Severity: moderate Relieving factors: prescription analgesics Exacerbating factors: nothing and chewing Context: history of dental caries Treatment prior to arrival: none Related Data Allergies Allergy/AdvReac Type Severity Reaction Status Date / Time No Known Allergies Allergy Verified 01/26/22 12:13 Review of Systems Review of Systems: All systems reviewed & are unremarkable except as noted in HPI and below Constitutional: Constitutional: Denies chills and Denies fever(s) PMFSH Past Medical History Medical History Anxiety and depression Depression HTN (hypertension) with goal to be determined Menometrorrhagia Migraines Overweight (BMI 25.0-29.9) and not yet delivered Smoker Family History Family History Grandparent Pneumonia Chronic obstructive pulmonary disease Grandparent Heart attack Social History Social History Smoking packs per day: 2 Smoking cigarettes per day: 40.0 Smoking status: Current every day smoker Tobacco type: cigarettes Alcohol intake: never Substance use: never Living arrangements: with family Spiritual care concerns: No Exam Const: General: healthy appearing, no acute distress and alert Nutritional Appearance: well nourished Orientation/consciousness: patient oriented x3 Limitations: no limitations Other: Female tech in room during examination HENMT: Head: normal to inspection Ears: external ears normal Face/Nose/Sinus: Normal external nose present Face and sinus: normal facial exam Mouth: Yes moist mucous membranes Teeth image: 1. dental caries with gum swelling tenderness with palpation Throat: posterior oropharynx normal and uvula midline Eyes: Conjunctivae: conjunctivae normal Pupils: Equal, round and reactive pupils present EOM: EOMs intact bilaterally Neck: Neck: normal visual inspection and no lymphadenopathy Resp: Effort & Inspection: normal respiratory effort Auscultation: clear to auscultation bilaterally Cardio: Rate: regular rate Rhythm: regular rhythm GI: GI Palp: Yes Soft to palpation and No Tenderness to palpation present (GI) Auscultation: normal bowel sounds Back/Spine/Pelvis: Cervical Spine: cervical ROM normal Thoracic/Lumbar Spine: thoraco-lumbar ROM normal Skin: General skin exam: normal color Rashes: no rashes Neuro: General: patient oriented x3, moves all extremities, no focal motor deficits and CN's II-XI intact bilaterally Speech: normal speech Gait exam (Neuro): Normal gait present Extrem: General: normal to inspection and no clubbing, cyanosis or edema Psych: Mental Status: mental status grossly normal Affect: normal affect Attitude: cooperative Course Vital Signs Vital signs: Vital Signs Temperature 37.1 C 05/31/22 01:57 Pulse Rate 89 05/31/22 01:57 Respiratory Rate 20 05/31/22 01:57 Blood Pressure 120/90 05/31/22 01:57 Pulse Oximetry 100 05/31/22 01:57 Oxygen Delivery Room Air 05/31/22 01:57 Temperature 36.6 C 05/31/22 02:40 Pulse Rate 100 05/31/22 02:40 Respiratory Rate 20 05/31/22 02:40 Blood Pressure 120/88 05/31/22 02:40 Pulse Oximetry 95 05/31/22 02:40 Oxygen Delivery Room Air 05/31/22 02:40 MDM - Dental/Oral Differential Diagnosis Differential diagnosis: Likely gingival abscess, dental caries, toothache and dental abscess Discharge Plan Discharge Clinical Impression: Toothache Patient Disposition: Home, Self-Care Condition: Stable Instructions: Antibiotic Form, Toothache (ED) Prescriptions: N
--- NOTE | 2022-05-31 02:27 | PC.NURSE ---
Went into the room with Dr. Agosto to examine pt.
[2022-05-31] MEDS: AMOXICILLIN 500 MG CAPSULE PO (02:34)
[2022-05-31] MEDS: KETOROLAC 30 MG/ML VIAL (*BKC) IM (02:35)
[2022-05-31 02:40] VITALS: BP 120/88; PULSE 100; RESP 20; TEMP 36.6; O2SAT 95
== END 2022-05-31 02:43 | disposition home or self-care (01) ==
LOC: CHSED 02:30
PROVIDERS: Emergency Provider Emergency Medicine; PCP Physician Assistant
DX: K08.89 Other specified disorders of teeth and supporting structures (principal); I10 Essential (primary) hypertension; F41.9 Anxiety disorder, unspecified; F32.A Depression, unspecified; F17.210 Nicotine dependence, cigarettes, uncomplicated
CPT/HCPCS: 96372; 99283; A9270; J1885

== ENCOUNTER 2022-11-20 09:15 | Emergency (ER) | payer OTHER, MEDICAID, SELFPAY ==
[2022-11-20 09:18] VITALS: BP 107/77; PULSE 75; RESP 20; TEMP 36.8; O2SAT 96
[2022-11-20 09:19] VITALS: O2SAT 96
--- NOTE | 2022-11-20 09:50 | ED.URI ---
HPI - URI/Sore Throat General Chief Complaint: Upper Respiratory Infection Stated Complaint: Upper resp Time Seen by Provider: 11/20/22 09:50 Source: patient Limitations: no limitations History of Present Illness HPI Narrative: 22-year-old female, smoker presents to the ER with a 3 day history of -- nonproductive cough -- throat pain, sinus pain, ear pain and body ache no fever or chills. MD elicited complaint: cough, sore throat and nasal congestion Onset (ago): day(s) ( Started 3 days ago) Consistency: constant Severity: mild Able to tolerate fluids by mouth: Yes Exacerbating factors: nothing Relieving factors: nothing Associated symptoms: denies other symptoms, myalgias, headache, nasal congestion and sore throat Treatments prior to arrival: none Related Data Allergies Allergy/AdvReac Type Severity Reaction Status Date / Time No Known Allergies Allergy Verified 01/26/22 12:13 Review of Systems Review of Systems: All systems reviewed & are unremarkable except as noted in HPI and below Constitutional: Constitutional: Reports as per HPI, Reports no additional constitutional complaints, Reports fatigue and Reports weakness Eyes: Eyes: Reports as per HPI and Reports no additional eye complaints ENT: Reports system reviewed and no additional complaints, except as documented, Reports as per HPI, Reports nasal congestion and Reports sore throat Cardiovascular: Cardiovascular: Reports as per HPI and Reports no additional cardiovascular complaints Respiratory: Respiratory: Reports as per HPI and Reports no additional respiratory complaints Gastrointestinal: Gastrointestinal: Reports as per HPI and Reports no additional gastrointestinal complaints Genitourinary: Genitourinary: Reports no additional female genitourinary complaints and Reports as per HPI Musculoskeletal: Musculoskeletal: Reports no additional musculoskeletal complaints and Reports as per HPI Integumentary/Breasts: Skin/Breast: Reports system reviewed and no additional complaints, except as docu and Reports as per HPI Neurologic: Reports system reviewed and no additional complaints, except as documented and Reports as per HPI Psychiatric: Psychiatric: Reports no additional psychiatric complaints and Reports as per HPI Endocrine: Endocrine: Reports no additional endocrine complaints and Reports as per HPI Hematologic/Lymphatic: Hematologic/Lymphatic: Reports no additional hematologic/lymphatic complaints and Reports as per HPI PMFSH Past Medical History Medical History Anxiety and depression Depression HTN (hypertension) with goal to be determined Menometrorrhagia Migraines Overweight (BMI 25.0-29.9) and not yet delivered Smoker Family History Family History Grandparent Pneumonia Chronic obstructive pulmonary disease Grandparent Heart attack Social History Social History Smoking packs per day: 2 Smoking cigarettes per day: 40.0 Smoking status: Current every day smoker Tobacco type: cigarettes Alcohol intake: never Substance use: never Living arrangements: with family Spiritual care concerns: No Exam Const: General: no acute distress Nutritional Appearance: well nourished Orientation/consciousness: patient oriented x3 Limitations: no limitations HENMT: Head: normal to inspection Ears: external ears normal Face/Nose/Sinus: Normal external nose present Face and sinus: normal facial exam Mouth: Yes Normal oral and palatal mucosa present Teeth and gingiva: dentition normal Throat: posterior oropharynx normal ( pharyngeal erythema) Eyes: Conjunctivae: conjunctivae normal Pupils: Equal, round and reactive pupils present EOM: EOMs intact bilaterally Direct Ophthalmoscopy: no photophobia Neck: Neck: normal visual inspection, no lymphadenopathy and no meningeal signs Other: tender upper cervi
[2022-11-20 10:03] LABS: Influenza A QL RT-PCR Negative (Negative); Influenza B QL RT-PCR Negative (Negative); RSV RNA, RT-PCR Negative (Negative); SARS-CoV-2 RNA PCR Negative (Negative)
[2022-11-20 10:12] VITALS: BP 110/66; PULSE 84; RESP 20; TEMP 36.8; O2SAT 98
[2022-11-20 11:05] LABS: Appearance Urine Slightly Cloudy (Clear)
[2022-11-20 11:06] LABS: Bilirubin Urine Negative (Negative); Blood Urine 3+ (Negative); Glucose Urine UA Negative (Negative); Ketones Urine Negative (Negative); Leukocyte Esterase Ur Negative LEU/UL (Negative); Nitrate Urine Negative (Negative); Protein Urine Negative (Negative); Specific Grav Ur 1.025 (1.010-1.020); Urobilinogen Urine 0.2 mg/dL (0.2-1.0)
[2022-11-20 11:09] LABS: Pregnancy On Board Control Positive; Urine Pregnancy Test Negative
[2022-11-20 11:13] LABS: Color Urine Dark Yellow (Yellow)
[2022-11-20 11:14] LABS: Add Urine Microscopic? YES; Bacteria Urine 1+ /hpf; Mucus Urine Moderate /lpf; Squamous Epithelial Cell Urine Moderate /hpf (Few); WBC Urine 0-3 /hpf (0-3)
== END 2022-11-20 11:33 | disposition home or self-care (01) ==
PROVIDERS: Emergency Provider Internal Medicine Critical Care Medicine; PCP Physician Assistant
DX: J06.9 Acute upper respiratory infection, unspecified (principal); I10 Essential (primary) hypertension; F17.210 Nicotine dependence, cigarettes, uncomplicated; Z20.822 Contact with and (suspected) exposure to COVID-19
CPT/HCPCS: 81001; 81025; 87637; 99283

== ENCOUNTER 2023-03-15 09:05 | Emergency (ER) | payer OTHER, SELFPAY ==
[2023-03-15 09:05] VITALS: BP 123/83; PULSE 113; RESP 20; O2SAT 98
[2023-03-15 09:14] VITALS: BP 123/83; PULSE 120; RESP 20; TEMP 37.8; O2SAT 99
[2023-03-15 09:16] VITALS: O2SAT 98
--- NOTE | 2023-03-15 09:29 | ED.URI ---
HPI - URI/Sore Throat General Chief Complaint: Upper Respiratory Infection Stated Complaint: URI Time Seen by Provider: 03/15/23 09:21 Source: patient Mode of arrival: ambulatory Limitations: no limitations Related Data Allergies Allergy/AdvReac Type Severity Reaction Status Date / Time No Known Allergies Allergy Verified 03/15/23 09:08 Review of Systems Review of Systems: All systems reviewed & are unremarkable except as noted in HPI and below Constitutional: Constitutional: Reports no additional constitutional complaints Eyes: Eyes: Reports no additional eye complaints ENT: Reports system reviewed and no additional complaints, except as documented Cardiovascular: Cardiovascular: Reports no additional cardiovascular complaints Respiratory: Respiratory: Reports no additional respiratory complaints Gastrointestinal: Gastrointestinal: Reports no additional gastrointestinal complaints Genitourinary: Genitourinary: Reports no additional female genitourinary complaints Musculoskeletal: Musculoskeletal: Reports no additional musculoskeletal complaints Integumentary/Breasts: Skin/Breast: Reports system reviewed and no additional complaints, except as docu Neurologic: Reports system reviewed and no additional complaints, except as documented Psychiatric: Psychiatric: Reports no additional psychiatric complaints Endocrine: Endocrine: Reports no additional endocrine complaints Hematologic/Lymphatic: Hematologic/Lymphatic: Reports no additional hematologic/lymphatic complaints Allergic/Immunologic: Allergic/Immunologic: Reports no additional allergic/immunologic complaints PMFSH Past Medical History Medical History Anxiety and depression Depression HTN (hypertension) with goal to be determined Menometrorrhagia Migraines Overweight (BMI 25.0-29.9) and not yet delivered Smoker Family History Family History Grandparent Pneumonia Chronic obstructive pulmonary disease Grandparent Heart attack Social History Social History Smoking packs per day: 2 Smoking cigarettes per day: 40.0 Smoking status: Current every day smoker Tobacco type: cigarettes Alcohol intake: never Substance use: never Living arrangements: with family Spiritual care concerns: No Exam Const: General: ill appearing Nutritional Appearance: well nourished Orientation/consciousness: patient oriented x3 HENMT: Head: normal to inspection Ears: external ears normal Face/Nose/Sinus: Normal external nose present Eyes: Conjunctivae: conjunctivae normal Pupils: Equal, round and reactive pupils present EOM: EOMs intact bilaterally Neck: Neck: normal visual inspection Chest: Chest palpation & inspection: normal inspection of the chest Resp: Effort & Inspection: normal respiratory effort and not labored Auscultation: clear to auscultation bilaterally and no crackles Cardio: Rate: regular rate Rhythm: regular rhythm Heart sounds: no murmurs GI: Inspection: non-distended GI Palp: Yes Soft to palpation, No Tenderness to palpation present (GI) and No Guarding due to palpation present (GI) Auscultation: normal bowel sounds : General: Yes bladder normal to palpation Back/Spine/Pelvis: Back: no CVA tenderness Skin: General skin exam: normal color Rashes: no rashes Wounds: no wounds Neuro: General: patient oriented x3 Cranial nerves: Yes Nystagmus not present Speech: normal speech Extrem: General: normal to inspection Psych: Mental Status: mental status grossly normal Affect: normal affect Attitude: cooperative Course Vital Signs Vital signs: Vital Signs Pulse Rate 113 H 03/15/23 09:05 Respiratory Rate 20 03/15/23 09:05 Blood Pressure 123/83 03/15/23 09:05 Pulse Oximetry 98 03/15/23 09:05 Oxygen Delivery Room Air 03/15/23 09:05 Temperature 37.8 C H 03/15/23
[2023-03-15 09:56] LABS: SARS-CoV-2 RNA PCR Negative (Negative)
[2023-03-15 09:57] LABS: Influenza A QL RT-PCR Positive (Negative); Influenza B QL RT-PCR Negative (Negative); RSV RNA, RT-PCR Negative (Negative)
[2023-03-15 10:08] LABS: Strep Group A RT-PCR Not Detected (Negative)
[2023-03-15 10:14] VITALS: BP 104/70; PULSE 84; RESP 20; TEMP 37.7; O2SAT 99
== END 2023-03-15 10:17 | disposition home or self-care (01) ==
PROVIDERS: Emergency Provider Emergency Medicine; PCP Physician Assistant
DX: J10.1 Influenza due to other identified influenza virus with other respiratory manifestations (principal); I10 Essential (primary) hypertension; F17.210 Nicotine dependence, cigarettes, uncomplicated; Z20.822 Contact with and (suspected) exposure to COVID-19
CPT/HCPCS: 87637; 87651; 99283

== ENCOUNTER 2023-03-24 15:22 | Outpatient (CLI) | payer OTHER, MEDICAID, SELFPAY ==
--- NOTE | ~2023-03-24 | XR_ITS ---
XR foot LT min 3V DATE: 03/24/2023 15:51 INDICATION: Fall. Dorsal foot pain proximal to ankle TECHNIQUE: 4 views COMPARISON: None FINDINGS: Mild hallux valgus. No fracture or dislocation, periosteal reaction or bone destruction, chilo int space narrowing or erosive change. IMPRESSION: No fracture or dislocation Reviewed, dictated and finalized at location L. 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
== END 2023-03-24 15:23 | disposition home or self-care (01) ==
LOC: CHSIMG 15:26
PROVIDERS: PCP Physician Assistant; Visit Provider Physician Assistant
DX: M79.672 Pain in left foot (principal)
CPT/HCPCS: 73630

== ENCOUNTER 2024-03-18 21:54 | Emergency (ER) | payer OTHER, MEDICAID, SELFPAY ==
--- NOTE | ~2024-03-18 | XR_ITS ---
Portable chest x-ray Comparison: None Clinical History: Cough Findings: Lungs are clear, without focal consolidation or pleural effusion. Cardiomediastinal silho uette is unremarkable. Bones and soft tissues are unremarkable. Impression: Normal chest. Reviewed, dictated and finalized at location . 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
[2024-03-18 22:02] VITALS: BP 133/91; PULSE 80; RESP 20; TEMP 36.9; O2SAT 97
--- NOTE | 2024-03-18 22:02 | ED_ITS ---
HPI - General Adult General Chief complaint: Ear Stated complaint: R Ear Pain Time Seen by Provider: 03/18/24 22:01 Source: patient Mode of arrival: ambulatory Limitations: no limitations History of Present Illness HPI narrative: 23 years old white female came to the ED by private car complaining of right ear pain started yesterday also complaining right upper teeth pain. She denies any fever, chills, nausea, vomiting, trouble breathing or swallowing or headache. Patient reported that her fiance and her 2 kids diagnosed for walking pneumonia and she is concerned about the possibility of having bad pneumonia Related Data Allergies Allergy/AdvReac Type Severity Reaction Status Date / Time No Known Allergies Allergy Verified 03/18/24 22:00 Review of Systems Review of Systems: All systems reviewed & are unremarkable except as noted in HPI and below PMFSH Past Medical History Medical History Menometrorrhagia Anxiety and depression Smoker HTN (hypertension) with goal to be determined Migraines Overweight (BMI 25.0-29.9) and not yet delivered Depression Family History Family History Grandparent Pneumonia Chronic obstructive pulmonary disease Grandparent Heart attack Social History Social History Smoking packs per day: 2 Smoking cigarettes per day: 40.0 Smoking status: Current every day smoker Tobacco type: cigarettes Alcohol intake: never Substance use: never Living arrangements: with family Spiritual care concerns: No Exam Narrative: General appearance: Well-developed, well-nourished Skin: Normal color Head: Normocephalic, nontraumatic Eyes: Clear conjunctiva ENT: Oropharynx normal, ears normal, nose normal dental caries of the right upper teeth, swollen gum, no abscess diffuse tenderness intraoral and externally Neck: Supple, nontender Chest and respiratory: Airway patent, no respiratory distress, no accessory muscle use Heart: Regular rate/rhythm Neurologic: Alert and oriented ?3, SPECIAL EVENTS MANAGER is normal as tested, no gross motor deficit Course Vital Signs Vital signs: Vital Signs Temperature 36.9 C 03/18/24 22:02 Pulse Rate 80 03/18/24 22:02 Respiratory Rate 20 03/18/24 22:02 Blood Pressure 133/91 H 03/18/24 22:02 Pulse Oximetry 97 03/18/24 22:02 Oxygen Delivery Room Air 03/18/24 22:02 Temperature 36.9 C 03/18/24 22:02 Pulse Rate 80 03/18/24 22:02 Respiratory Rate 20 03/18/24 22:02 Blood Pressure 133/91 H 03/18/24 22:02 Pulse Oximetry 97 03/18/24 22:02 Oxygen Delivery Room Air 03/18/24 22:02 Medical Decision Making Vital Signs Vital Signs: Vital Signs Temperature 36.9 C 03/18/24 22:02 Pulse Rate 80 03/18/24 22:02 Respiratory Rate 20 03/18/24 22:02 Blood Pressure 133/91 H 03/18/24 22:02 Pulse Oximetry 97 03/18/24 22:02 Oxygen Delivery Room Air 03/18/24 22:02 Temperature 36.9 C 03/18/24 22:02 Pulse Rate 80 03/18/24 22:02 Respiratory Rate 20 03/18/24 22:02 Blood Pressure 133/91 H 03/18/24 22:02 Pulse Oximetry 97 03/18/24 22:02 Oxygen Delivery Room Air 03/18/24 22:02 Imaging Data Radiologist's impression: chest x-ray showed atelectasis versus pneumonia right lower lobe Critical Care Time Critical Care Time Critical Care Time: No Discharge Plan Discharge Clinical Impression: Pneumonia, Dental infection Patient Disposition: Home, Self-Care Condition: Stable Instructions: Antibiotic Form, Community Acquired Pneumonia (DC), Toothache (ED) Patient Language: French Prescriptions: New amoxicillin 500 mg capsule 1,000 mg PO Q8H Qty: 21 0RF ibuprofen [IBU] 800 mg tablet 800 mg PO TID Qty: 20 0RF No Action oseltamivir [Tamiflu] 75 mg capsule 75 mg PO Q12H 5 Days Qty: 10 0RF Follow-up/Referrals: Betina,BARBARA Moreno [Primary Care Provider] - Stand Alone Forms: Work/School Release IP
[2024-03-18] MEDS: CLINDAMYCIN HCL 150 MG CAP 450 MG PO (22:20)
[2024-03-18] MEDS: IBUPROFEN 400 MG TABLET 800 MG PO (22:20)
[2024-03-18] MEDS: ACETAMINOPHEN 325 MG TABLET 650 MG PO (22:21)
--- NOTE | 2024-03-18 22:24 | PC.NURSE ---
pateint medicated and update provided. patient given crackers to eat with her medication. RN monitoring, patient denies further needs at this time. call light within reach.
[2024-03-18 22:55] VITALS: BP 120/92; PULSE 75; RESP 16
== END 2024-03-18 22:56 | disposition home or self-care (01) ==
LOC: CHSED 22:16
PROVIDERS: Emergency Provider Emergency Medicine; PCP Physician Assistant
DX: J18.9 Pneumonia, unspecified organism (principal); K04.7 Periapical abscess without sinus; I10 Essential (primary) hypertension; F41.8 Other specified anxiety disorders; F17.210 Nicotine dependence, cigarettes, uncomplicated
CPT/HCPCS: 71045; 99283; A9270

== ENCOUNTER 2024-03-29 20:54 | Emergency (ER) | payer OTHER, MEDICAID, SELFPAY ==
[2024-03-29 20:57] VITALS: BP 127/92; PULSE 74; RESP 18; TEMP 36.6; O2SAT 100
--- NOTE | 2024-03-29 21:13 | ED.GENADULT ---
HPI - General Adult General Chief complaint: Unspecified Stated complaint: n/v/d Time Seen by Provider: 03/29/24 21:13 History of Present Illness HPI narrative: Ninfa is a previously healthy 23F that presented to the ED via EMS after an episode of near syncope. She has been having some diarrhea and vomiting. She was having a particularly bad episode of vomiting when she nearly passed out. No CP palpitations Related Data Home Medications ?Medication ?Instructions ?Recorded ?Confirmed ?Last Taken ?Type gabapentin 100 mg capsule mg 03/29/24 Unknown History sumatriptan succinate 50 mg tablet mg PO 03/29/24 Unknown History Allergies Allergy/AdvReac Type Severity Reaction Status Date / Time No Known Allergies Allergy Verified 03/29/24 22:13 Review of Systems Review of Systems: All systems reviewed & are unremarkable except as noted in HPI and below [facility] Past Medical History Medical History Menometrorrhagia Anxiety and depression Smoker HTN (hypertension) with goal to be determined Migraines Overweight (BMI 25.0-29.9) and not yet delivered Depression Family History Family History Grandparent Pneumonia Chronic obstructive pulmonary disease Grandparent Heart attack Social History Social History Smoking packs per day: 2 Smoking cigarettes per day: 40.0 Smoking status: Current every day smoker Tobacco type: cigarettes Alcohol intake: never Substance use: never Living arrangements: with family Spiritual care concerns: No Exam Const: General: cooperative, healthy appearing, comfortable, no acute distress, well developed, alert, awake and Physically active Orientation/consciousness: oriented to person, oriented to place and oriented to time HENMT: Head: normal to inspection, normocephalic and atraumatic Ears: hearing grossly normal bilaterally and external ears normal Face/Nose/Sinus: Normal external nose present Eyes: General: appearance normal, both eyes and all related structures Periorbital: periorbital findings normal Sclera: sclerae normal Pupils: Equal, round and reactive pupils present Neck: Neck: normal visual inspection Chest: Chest palpation & inspection: normal inspection of the chest Resp: Effort & Inspection: normal respiratory effort, able to speak in complete sentences and no respiratory distress Auscultation: clear to auscultation bilaterally Cardio: Jugular venous distension: no JVD Rate: regular rate Rhythm: regular rhythm GI: Inspection: normal to inspection GI Palp: Yes Soft to palpation Auscultation: normal bowel sounds Skin: General skin exam: normal color and no rashes or lesions noted Neuro: General: oriented to person, oriented to place and oriented to time Cranial nerves: Yes Equal, round and reactive pupils present Extrem: General: normal to inspection Course Course Emergency Course: Ordered labs, EKG and fluids EKG showed NSR with a rate of 79, normal axis and no ST elevation/depression Labs are largely unremarkable. Viral testing negative. Vital Signs Vital signs: Vital Signs Oxygen Delivery Room Air 03/29/24 20:54 Temperature 97.9 F 03/29/24 20:57 Pulse Rate 74 03/29/24 20:57 Respiratory Rate 18 03/29/24 20:57 Blood Pressure 127/92 H 03/29/24 20:57 Pulse Oximetry 100 03/29/24 20:57 Oxygen Delivery Room Air 03/29/24 20:57 Medical Decision Making Vital Signs Vital Signs: Vital Signs Oxygen Delivery Room Air 03/29/24 20:54 Temperature 97.9 F 03/29/24 20:57 Pulse Rate 74 03/29/24 20:57 Respiratory Rate 18 03/29/24 20:57 Blood Pressure 127/92 H 03/29/24 20:57 Pulse Oximetry 100 03/29/24 20:57 Oxygen Delivery Room Air 03/29/24 20:57 Lab Data 03/29/24 21:33 03/29/24 21:33 Labs: Lab Results 03/29/24 03/29/24 Range/Units 21:33 21:50 WBC 13.5 H (4.8-10.8) K/mm3 RBC 4.38 (4.20-5.40) M/mm3 Hgb 13.1 (12.0-15.0) g/dL Hct 39.2 (35.0-49.0) % MCV 89.5 (78.0-102.0) fL MCH 29.9 (27.0-31.0) pg MCHC 33.4 (32-36) g/dL RDW 12.2 (11.6-14.4) % Plt Count 236 (150-420) K/mm3 MPV 10.8 (9.2-11.8) fl Immature Gran % (Auto) 1.1 H (0.0-0.0) % Neut % (Auto) 71.7 H (50.0-70.0) % Lymph % (Auto) 19.6 (18.0-42.0) % Mobile % (Auto) 5.5 (2.0-11.0) % Eos % (Auto) 1.7 (1.0-6.0) % Baso % (Auto) 0.4 (0.0-1.0) % Lymph # (Auto) 2.64 (1.10-4.50) K/mm3 Mobile # (Auto) 0.74 (0.10-0.90) K/mm3 Eos # (Auto) 0.23 (0.02-0.50) K/mm3 Baso # (Auto) 0.06 (0.00-0.10) K/mm3 Abs Immat Gran (auto) 0.15 H (0.00-0.00) K/mm3 Absolute Neuts (auto) 9.67 H (1.70-7.20) K/mm3 Absolute Nucleated RBC 0.00 (0.00-0.00) K/mm3 Nucleated RBC % 0.0 (0-0.0) % Sodium 142 (136-145) mmol/L Potassium 4.2 (3.5-5.1) mmol/L Chloride 106 (98-108) mmol/L Carbon Dioxide 27 (21-32) mmol/L Anion Gap 9 (4-12) mmol/L BUN 11 (7-18) mg/dL Creatinine 0.75 (0.55-1.02) mg/dL Estim Creat Clear Calc 117 ml/min Estimated GFR > 60 (59 - ) Glucose 94 (70-99) mg/dL Calculated Osmolality 293 (285-295) mOsm/kg Calcium 8.6 (8.5-10.1) mg/dL Magnesium 2.1 (1.8-2.4) mg/dL Total Bilirubin 0.2 (0.00-1.00) mg/dL AST < 10 L (15-37) U/L ALT 26 (14-59) U/L Alkaline Phosphatase 102 (46-116) U/L Troponin I < 4.0 (0.00-60.4) ng/L NT-Pro-B Natriuret Pep 23 (0-125) pg/mL Total Protein 6.8 (6.4-8.2) g/dL Albumin 3.9 (3.4-5.0) g/dL Influenza A (RT-PCR) Negative (Negative) Influenza B (RT-PCR) Negative (Negative) RSV (RT-PCR) Negative (Negative) SARS-CoV-2 RNA (RT-PCR) Negative (Negative) Discharge Plan Discharge Clinical Impression: Gastroenteritis, Near syncope Patient Disposition: Home, Self-Care Condition: Stable Instructions: Antibiotic Form Patient Language: Beninese Prescriptions: New ondansetron 4 mg tablet,disintegrating 4 mg PO Q8H PRN (Reason: nausea and vomiting) Qty: 20 0RF No Action sumatriptan succinate 50 mg tablet PO gabapentin 100 mg capsule amoxicillin 500 mg capsule 1,000 mg PO Q8H Qty: 21 0RF ibuprofen [IBU] 800 mg tablet 800 mg PO TID Qty: 20 0RF Follow-up/Referrals: Betina,BARBARA Moreno [Primary Care Provider] -
--- NOTE | 2024-03-29 21:15 | ECG_ITS ---
Test Date: 2024-03-29 21:26:39 Measurements Intervals [place] Rate: 79 P: 34 IL: 176 QRS: 31 QRSD: 86 T: 14 QT: 359 QTc: 413 Interpretive Statements SINUS RHYTHM INCOMPLETE RIGHT BUNDLE BRANCH BLOCK NONSPECIFIC T-WAVE ABNORMALITY No previous ECG available for comparison Electronically Signed On 03-30-2024 16:18:33 [employer]ACING [employer] SET UP OPERATOR by Anabel Manzano M.D.
[2024-03-29] MEDS: SODIUM CHLORIDE 0.9% IV 1,000 ML 999 ML IV CONT (21:37)
[2024-03-29 21:38] LABS: Basophils Absolute Auto 0.06 K/mm3 (0.00-0.10); Basophils Percent Auto 0.4 % (0.0-1.0); Eosinophils Absolute Auto 0.23 K/mm3 (0.02-0.50); Eosinophils Percent Auto 1.7 % (1.0-6.0); Hematocrit 39.2 % (35.0-49.0); Hemoglobin 13.1 g/dL (12.0-15.0); Immature Granulocyte Absolute 0.15 K/mm3 (0.00-0.00); Immature Granulocyte Percent A 1.1 % (0.0-0.0); Lymphocytes Absolute Auto 2.64 K/mm3 (1.10-4.50); Lymphocytes Percent Auto 19.6 % (18.0-42.0); Mean Corpuscular HGB Conc 33.4 g/dL (32-36); Mean Corpuscular Hemoglobin 29.9 pg (27.0-31.0); Mean Corpuscular Volume 89.5 fL (78.0-102.0); Mean Platelet Volume 10.8 fl (9.2-11.8); Monocytes Absolute Auto 0.74 K/mm3 (0.10-0.90); Monocytes Percent Auto 5.5 % (2.0-11.0); Neutrophils Absolute Auto 9.67 K/mm3 (1.70-7.20); Neutrophils Percent Auto 71.7 % (50.0-70.0); Platelet Count Result 236 K/mm3 (150-420); Red Blood Count 4.38 M/mm3 (4.20-5.40); Red Cell Distribution Width 12.2 % (11.6-14.4); White Blood Count 13.5 K/mm3 (4.8-10.8)
[2024-03-29 22:00] LABS: Alanine Aminotransferase 26 U/L (14-59); Albumin Level 3.9 g/dL (3.4-5.0); Alkaline Phosphatase 102 U/L (46-116); Anion Gap 9 mmol/L (4-12); Aspartate Amino Transferase < 10 U/L (15-37); Bilirubin,Total 0.2 mg/dL (0.00-1.00); Blood Urea Nitrogen 11 mg/dL (7-18); Calcium 8.6 mg/dL (8.5-10.1); Carbon Dioxide 27 mmol/L (21-32); Chloride 106 mmol/L (98-108); Estimated CRCL calculation 117 ml/min; Estimated Glomerular Filt Rate > 60; Glucose 94 mg/dL (70-99); Magnesium 2.1 mg/dL (1.8-2.4); NT Pro B Type Natriuretic Pept 23 pg/mL (0-125); Osmolality Calculated 293 mOsm/kg (285-295); Potassium 4.2 mmol/L (3.5-5.1); Sodium 142 mmol/L (136-145); Total Protein 6.8 g/dL (6.4-8.2)
[2024-03-29 22:01] LABS: Troponin I < 4.0 ng/L (0.00-60.4)
[2024-03-29 22:29] LABS: SARS-CoV-2 RNA PCR Negative (Negative)
[2024-03-29 22:30] LABS: Influenza A QL RT-PCR Negative (Negative); Influenza B QL RT-PCR Negative (Negative); RSV RNA, RT-PCR Negative (Negative)
--- NOTE | 2024-03-29 22:50 | PC.NURSE ---
ERP attempted to cancel Nitro order. Ordered on wrong pt. Shows cancelled on his screen. Not showing cancelled on MAY. Rejected order as WRONG PATIENT.
[2024-03-29 22:55] VITALS: BP 119/76; PULSE 72; RESP 16; O2SAT 99
== END 2024-03-29 22:55 | disposition home or self-care (01) ==
PROVIDERS: Emergency Provider Family Medicine; PCP Physician Assistant
DX: K52.9 Noninfective gastroenteritis and colitis, unspecified (principal); R55 Syncope and collapse; F17.210 Nicotine dependence, cigarettes, uncomplicated; Z20.822 Contact with and (suspected) exposure to COVID-19
CPT/HCPCS: 36415; 80053; 83735; 83880; 84484; 85025; 87637; 93005; 96360; 99284; J7030

== ENCOUNTER 2024-05-30 13:58 | Emergency (ER) | payer OTHER, MEDICAID, SELFPAY ==
[2024-05-30 14:00] VITALS: BP 128/89; PULSE 93; RESP 16; TEMP 36.3; O2SAT 99
--- NOTE | 2024-05-30 14:01 | ED.DENTAL ---
HPI - Dental/Oral General Chief complaint: Dental/Oral Stated complaint: dental pain Time Seen by Provider: 05/30/24 14:01 Source: patient Mode of arrival: ambulatory Limitations: no limitations History of Present Illness HPI Narrative: 23-year-old female smoker with history of anxiety/ depression, migraine, hypertension presents to the ED with - right upper molar pain. She has had problems with this tooth but could not see a dentist. No fever or chills. MD Complaint: tooth pain Location: Tooth # (2) Onset (ago): day(s) Duration: constant Severity: severe Relieving factors: nothing Exacerbating factors: cold and heat Context: history of dental caries Treatment prior to arrival: none Related Data Home Medications ?Medication ?Instructions ?Recorded ?Confirmed ?Last Taken ?Type gabapentin 100 mg capsule mg 03/29/24 Unknown History sumatriptan succinate 50 mg tablet mg PO 03/29/24 Unknown History Allergies Allergy/AdvReac Type Severity Reaction Status Date / Time No Known Allergies Allergy Verified 05/30/24 14:00 Review of Systems Review of Systems: All systems reviewed & are unremarkable except as noted in HPI and below PMFSH Past Medical History Medical History Menometrorrhagia Anxiety and depression Smoker HTN (hypertension) with goal to be determined Migraines Overweight (BMI 25.0-29.9) and not yet delivered Depression Family History Family History Grandparent Pneumonia Chronic obstructive pulmonary disease Grandparent Heart attack Social History Social History Smoking packs per day: 2 Smoking cigarettes per day: 40.0 Smoking status: Current every day smoker Tobacco type: cigarettes Alcohol intake: never Substance use: never Living arrangements: with family Spiritual care concerns: No Exam Narrative: blood pressure 128/89 Const: General: no acute distress Nutritional Appearance: well nourished Orientation/consciousness: patient oriented x3 Limitations: no limitations HENMT: Head: normal to inspection Ears: external ears normal Face/Nose/Sinus: Normal external nose present Face and sinus: normal facial exam Mouth: Yes Normal oral and palatal mucosa present Teeth and gingiva: dentition normal ( 2. Is carious with erosion) Throat: posterior oropharynx normal Eyes: Conjunctivae: conjunctivae normal Pupils: Equal, round and reactive pupils present EOM: EOMs intact bilaterally Direct Ophthalmoscopy: no photophobia Neck: Neck: normal visual inspection, no lymphadenopathy and no meningeal signs Chest: Chest palpation & inspection: normal inspection of the chest Resp: Effort & Inspection: normal respiratory effort Auscultation: clear to auscultation bilaterally Cardio: Rate: regular rate Rhythm: regular rhythm GI: Auscultation: normal bowel sounds Other: no tenderness/rigidity/rebound. : General: Yes no CVA tenderness Back/Spine/Pelvis: Back: no CVA tenderness Skin: General skin exam: normal color Rashes: no rashes Wounds: no wounds Neuro: General: patient oriented x3, moves all extremities, no meningeal signs, no focal motor deficits and CN's II-XI intact bilaterally Cranial nerves: Yes Nystagmus not present Speech: normal speech Gait exam (Neuro): Normal gait present Extrem: General: normal to inspection and no clubbing, cyanosis or edema Psych: Mental Status: mental status grossly normal Affect: normal affect Attitude: cooperative Course Course Emergency Course: Dental pain dental abscess Vital Signs Vital signs: Vital Signs Temperature 36.3 C L 05/30/24 14:00 Pulse Rate 93 05/30/24 14:00 Respiratory Rate 16 05/30/24 14:00 Blood Pressure 128/89 05/30/24 14:00 Pulse Oximetry 99 05/30/24 14:00 Oxygen Delivery Room Air 05/30/24 14:00 Temperature 36.3 C L 05/30/24 14:00 Pulse Rate 93 05/30/24 14:00 Respiratory Rate 16 05/30/24 14:00 Blood Pressure 128/89 05/30/24 14:00 Pulse Oximetry 99 05/30/24 14:00 Oxygen Delivery Room Air 05/30/24 14:00 MDM - Dental/Oral MDM Narrative Medical decision making narrative: dental pain dental abscess Differential Diagnosis Differential diagnosis: Likely gingival abscess and fracture of tooth Medical Records Attestation: I reviewed the patient's medical records. Discharge Plan Discharge Clinical Impression: Dental caries, Toothache Patient Disposition: Home, Self-Care Condition: Stable Instructions: Antibiotic Form, Dental Abscess (ED), Toothache (ED) Patient Language: Citizen Of [place] Prescriptions: New clindamycin HCl 300 mg capsule 300 mg PO Q8H Qty: 21 0RF hydrocodone-acetaminophen 5-325 mg tablet 1 tablet PO Q12H PRN (Reason: pain) Qty: 5 0RF No Action sumatriptan succinate 50 mg tablet PO gabapentin 100 mg capsule ondansetron 4 mg tablet,disintegrating 4 mg PO Q8H PRN (Reason: nausea and vomiting) Qty: 20 0RF amoxicillin 500 mg capsule 1,000 mg PO Q8H Qty: 21 0RF ibuprofen [IBU] 800 mg tablet 800 mg PO TID Qty: 20 0RF Follow-up/Referrals: UNKNOWN,DOCTOR [Non-Staff] - Stand Alone Forms: Work/School Release IP Time of Disposition: 14:16
[2024-05-30 14:35] VITALS: TEMP 36.7
--- OUTSIDE RECORDS SUMMARY | 2024-05-30 15:46 | XMS_ITS | Data Portability ---
Author Organization [facility] MARCEBeti Address [address] [place] [address] Care Team Providers Care Credit Report Checker Name Role Phone AJ MOFFETT Primary Care Provider Assessment No assessment recorded. Plan of Treatment Reminders Order Date Submit Date Provider Last Modified By Organization Details Last Modified Time Details Appointments None recorded. Lab influenza virus A + B + SARS-CoV-2 (COVID19) Ag panel, rapid IA, upper respirator y specimen 2024 025 [email or web address] In-Office Order, Internal Use Only DO Not Attach Compendium DO Not Attach Compendium, Do Not Delete/merge, [id number] 12:31:08 influenza virus A + B + SARS-CoV-2 (COVID19) Ag panel, rapid IA, upper respirator y specimen 2023 024 [email or web address] In-Office Order, Internal Use Only DO Not Attach Compendium DO Not Attach Compendium, Do Not Delete/merge, [id number] 17:37:32 CBC 2023 024 [facility], [address] [place] [address], [address], 4 10:15:01 CMP, serum or plasma 2023 024 [facility], [address] [place] [address], [place], [address], 4 10:15:00 lipid panel, serum 2023 024 [facility], [address] [place] [address], [address], 4 10:14:59 Referral neurologis t [facility] 2023 [facility] [address] [place], [address], 4 09:56:21 Procedures None recorded. Surgeries None recorded. Imaging None recorded. Medication Orders ondansetro n 4 mg disintegra ting tablet [address] [id number] [address] [place], [address], 5 11:40:45 gabapentin 100 [address] capsule [address] [id number], [address] [place], [address], 5 16:45:07 amoxicilli n 875 mg tablet [address] [id number], [address] [place], [address], 5 11:23:34 sumatripta n 50 mg tablet [address] [id number], [address] [place], [address], 5 16:45:08 azithromyc in 500 mg tablet [address] [id number], [address] [place], [address], 5 16:32:45 Medrol (Mart) 4 mg tablets in a dose pack [address] [id number], [address] [place], [address], 5 16:32:41 medroxypro gesterone 150 mg/mL intramuscu lar suspension 2023 [email or web address] Not available 17:23:46 ondansetro n 4 mg disintegra ting tablet 2023 [facility] #[id number], [address] [place], [address], 18:01:35 sumatripta n 50 mg tablet 2023 [facility] #[id number], [address] [place], [address], 18:01:36 Patient TargetsNo targets recorded. Patient Instructions Encounter Date Encounter Id Patient Instructions Last Modified By Organization Details Last Modified Time 01/10/2024 [id number] nausea and vomiting: care instructions jnanney Not available 01/10/2024 18:01:33 A healthy lifestyle: care instructions jnanney Not available 01/10/2024 17:58:28 03/19/2024 [id number] A healthy lifestyle: care instructions jnanney Not available 03/19/2024 17:37:31 upper respirator y infection (cold): care instructions jnanney Not available 03/19/2024 17:37:31 03/27/2024 [id number] tooth and gum pain: care instructions jnanney Not available 03/27/2024 16:45:01 A healthy lifestyle: care instructions jnanney Not available 03/27/2024 16:45:01 05/11/2024 [id number] A healthy lifestyle: care instructions jnanney Not available 05/11/2024 11:40:44 nausea and vomiting: care instructions jnanney Not available 05/11/2024 12:31:08 Reason for Referral Neurologist 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 Referring Physician: Aj Moffett, Family Medicine, Encounter Date: 01/10/2024 Results Created Date Observation Date Name Description Value Unit Range Abnormal Flag Note LastModifiedBy Organization Detail LastModifiedTime 01/10/2001/12/2024 LIPID PANEL cholesterol, total 164 mg/dL 100-19 9 Not Available [address], [address], 01/12/2024 10:14:59 01/10/2001/12/2024 LIPID PANEL triglyceride s 135 mg/dL 0-149 Not Available [address], [address], 01/12/2024 10:14:59 01/10/2001/12/2024 LIPID PANEL HDL cholesterol 32 mg/dL >39 below low normal Not Available [address], [address], 01/12/2024 10:14:59 01/10/2001/12/2024 LIPID PANEL VLDL cholesterol pierre 24 mg/dL 5-40 Not Available [address], [address], 01/12/2024 10:14:59 01/10/2001/12/2024 LIPID PANEL LDL [facility] 108 mg/dL 0-99 above high normal Not Available [address], [address], 01/12/2024 10:14:59 01/10/2001/12/2024 COMP. METAB OLIC PANEL (14) glucose 86 mg/dL 70-99 Not Available [address], [address], 01/12/2024 10:15:00 01/10/2001/12/2024 COMP. METAB OLIC PANEL (14) BUN 12 mg/dL 6-20 Not Available [address], [address], 01/12/2024 10:15:00 01/10/2001/12/2024 COMP. METAB OLIC PANEL (14) creatinine 0.86 mg/dL 0.57-1 .00 Not Available [address], [address], 01/12/2024 10:15:00 01/10/2001/12/2024 COMP. METAB OLIC PANEL (14) eGFR 97 mL/mi n/1.7 3 >59 Not Available [address], [address], 01/12/2024 10:15:00 01/10/2001/12/2024 COMP. METAB OLIC PANEL (14) BUN/creatini ne ratio 14 9-23 Not Available [address], [facility], 01/12/2024 10:15:00 01/10/2001/12/2024 COMP. METAB OLIC PANEL (14) sodium 141 mmol/ L 134-14 4 Not Available [address], [address], 01/12/2024 10:15:00 01/10/2001/12/2024 COMP. METAB OLIC PANEL (14) potassium 4.1 mmol/ L 3.5-5. 2 Not Available [address], [address], 01/12/2024 10:15:00 01/10/2001/12/2024 COMP. METAB OLIC PANEL (14) chloride 106 mmol/ L 96-106 Not Available [address], [address], 01/12/2024 10:15:00 01/10/2001/12/2024 COMP. METAB OLIC PANEL (14) carbon dioxide, total 22 mmol/ L 20-29 Not Available [address], [address], 01/12/2024 10:15:00 01/10/2001/12/2024 COMP. METAB OLIC PANEL (14) calcium 9.4 mg/dL 8.7-10 .2 Not Available [address], [address], 01/12/2024 10:15:00 01/10/2001/12/2024 COMP. METAB OLIC PANEL (14) protein, total 6.9 g/dL 6.0-8. 5 Not Available [address], [address], 01/12/2024 10:15:00 01/10/2001/12/2024 COMP. METAB OLIC PANEL (14) albumin 4.6 g/dL 4.0-5. 0 Not Available [address], [address], 01/12/2024 10:15:00 01/10/2001/12/2024 COMP. METAB OLIC PANEL (14) globulin, total 2.3 g/dL 1.5-4. 5 Not Available [address], [address], 01/12/2024 10:15:00 01/10/2001/12/2024 COMP. METAB OLIC PANEL (14) bilirubin, total 0.2 mg/dL 0.0-1. 2 Not Available [address], [address], 01/12/2024 10:15:00 01/10/2001/12/2024 COMP. METAB OLIC PANEL (14) alkaline phosphatase 122 IU/L 44-121 above high normal Not Available [address], [address], 01/12/2024 10:15:00 01/10/2001/12/2024 COMP. METAB OLIC PANEL (14) AST (SGOT) 14 IU/L 0-40 Not Available [facility] & [address], [address], 01/12/2024 10:15:00 01/10/2001/12/2024 COMP. METAB OLIC PANEL (14) ALT (SGPT) 16 IU/L 0-32 Not Available [facility] & [address], [address], 01/12/2024 10:15:00 01/10/2001/12/2024 CARDI OVASC ULAR REPOR T interpretati on Note Suppl ement al repor t is avail able. Not Available [address], [address], 01/12/2024 10:15:00 01/10/2001/12/2024 CARDI OVASC ULAR REPOR T pdf . Not Available [facility] & [address], [address], 01/12/2024 10:15:00 01/10/2001/12/2024 CBC, PLATE LET, NO DIFFE RENTI AL WBC 8.0 x10e3 /uL 3.4-10 .8 Not Available [facility] & [address], [address], 01/12/2024 10:15:01 01/10/2001/12/2024 CBC, PLATE LET, NO DIFFE RENTI AL RBC 4.46 x10e6 /uL 3.77-5 .28 Not Available [facility] & [address], [address], 01/12/2024 10:15:01 01/10/2001/12/2024 CBC, PLATE LET, NO DIFFE RENTI AL hemoglobin 13.4 g/dL 11.1-1 5.9 Not Available [facility] & [address], [address], 01/12/2024 10:15:01 01/10/2001/12/2024 CBC, PLATE LET, NO DIFFE RENTI AL hematocrit 40.7 % 34.0-4 6.6 Not Available [address], [address], 01/12/2024 10:15:01 01/10/2001/12/2024 CBC, PLATE LET, NO DIFFE RENTI AL MCV 91 fL 79-97 Not Available [facility] & [address], [address], 01/12/2024 10:15:01 01/10/2001/12/2024 CBC, PLATE LET, NO DIFFE RENTI AL MCH 30.0 pg 26.6-3 3.0 Not Available [address], [address], 01/12/2024 10:15:01 01/10/2001/12/2024 CBC, PLATE LET, NO DIFFE RENTI AL MCHC 32.9 g/dL 31.5-3 5.7 Not Available [address], [address], 01/12/2024 10:15:01 01/10/2001/12/2024 CBC, PLATE LET, NO DIFFE RENTI AL RDW 12.3 % 11.7-1 5.4 Not Available [address], [address], 01/12/2024 10:15:01 01/10/2001/12/2024 CBC, PLATE LET, NO DIFFE RENTI AL platelets 223 x10e3 /uL 150-45 0 Not Available [address], [address], 01/12/2024 10:15:01 03/19/20 24 03/19/2024 influ nehemiah virus A + B + SARS- CoV-2 (COVI D19) Ag panel , rapid IA, upper respi rator y speci men Flu A negati ve Not Available In-Office Order Internal Use Only DO Not Attach Compendium DO Not Attach Compendium, Do Not Delete/merge, [id number] 03/19/2024 17:14:52 03/19/20 24 03/19/2024 influ nehemiah virus A + B + SARS- CoV-2 (COVI D19) Ag panel , rapid IA, upper respi rator y speci men Flu B negati ve Not Available In-Office Order Internal Use Only DO Not Attach Compendium DO Not Attach Compendium, Do Not Delete/merge, [id number] 03/19/2024 17:14:52 03/19/20 24 03/19/2024 influ nehemiah virus A + B + SARS- CoV-2 (COVI D19) Ag panel , rapid IA, upper respi rator y speci men Rapid SARS CoV 2 Ag, QL IA, respiratory specimen negati ve Not Available In-Office Order Internal Use Only DO Not Attach Compendium DO Not Attach Compendium, Do Not Delete/merge, [id number] 03/19/2024 17:14:52 05/11/19 25 05/11/2024 influ nehemiah virus A + B + SARS- CoV-2 (COVI D19) Ag panel , rapid IA, upper respi rator y speci men Flu A negati ve Not Available In-Office Order Internal Use Only DO Not Attach Compendium DO Not Attach Compendium, Do Not Delete/merge, [id number] 05/11/2024 11:28:30 05/11/19 25 05/11/2024 influ nehemiah virus A + B + SARS- CoV-2 (COVI D19) Ag panel , rapid IA, upper respi rator y speci men Flu B negati ve Not Available In-Office Order Internal Use Only DO Not Attach Compendium DO Not Attach Compendium, Do Not Delete/merge, [id number] 05/11/2024 11:28:30 05/11/19 25 05/11/2024 influ nehemiah virus A + B + SARS- CoV-2 (COVI D19) Ag panel , rapid IA, upper respi rator y speci men Rapid SARS CoV 2 Ag, QL IA, respiratory specimen negati ve Not Available In-Office Order Internal Use Only DO Not Attach Compendium DO Not Attach Compendium, Do Not Delete/merge, [id number] 05/11/2024 11:28:30 03/19/20 24 03/18/2024 XR, chest No observ ation record ed. [email or web address] [facility] [address] [place], [address], 03/19/2024 09:26:56 Result Notes None recorded. Problems Name Problem SNOMED Code Status Onset Date Resolution Date Notes Provider Name and Address Organization Details Recorded Time Knee pain Active 2017 Not Available [facility] 0 01:53:12 Headache 91623574 Active 2017 Not Available [facility] 0 01:53:12 Contraception care Active 2019 Not Available [facility] 0 01:53:12 Viral syndrome 971543144 Active 2020 Nacho Hadley [employer] Attn: Accounting ,[address] [place], [address] , [facility] 1 10:19:31 Fatigue 33418594 Active 2020 Nacho Hadley [employer] Attn: Accounting ,[address] [place], [address] , [place] 17:10:07 Vaginal discharge 784670963 Active 2020 Nacho Hadley [employer] Attn: Accounting ,[address] [place], [address] , [place] [facility] 17:10:38 Amenorrhea 20348713 Active 2020 Nacho Hadley [employer] Attn: Accounting ,[address] [place], [address] , [place] 17:11:28 test positive 902134372 Active 2021 Nacho Jomar [employer] Attn: Accounting ,[address] [facility], [place], [address] , [place] [facility] 2 15:29:06 Depressive disorder 96187946 Active Not Available [facility] 0 01:53:11 Ingrowing nail 100854896 Active Not Available [facility] 0 01:53:12 Problem Notes None recorded. Procedures Surgical History Date Name Laterality Status Provider Name and Address Organization Details Recorded Time 2 Date of Last Pap Smear completed Aj Moffett PA-C Attn: Accounting,[address] [place], [address], [place] [facility] 12/31/2021 16:03:16 9 Toenail avulsion completed Nacho VALERIO Attn: Accounting,[address] [place], [address], [place] 03/27/2018 09:28:02 6 Toenail avulsion completed Nacho VALERIO Attn: Accounting,[address] [place], [address], [place] 05/08/2015 22:13:50 Imaging Results Imaging Date Name Status LastModified by Organiz ation Details LastModified Time 03/18/2024 XR, chest completed [facility] [address] [place], [address], 03/19/2024 09:26:56 Procedure Notes None recorded. Medical Equipment None Reported. Allergies No known drug allergies Medications Name Sig Start Date Stop Date Status Note LastModified by Organization Details LastModified Time cyclobenzap rine 10 mg tablet Take 1 tab by mouth every night at bedtime for 7 days, then as needed at bedtime for muscle pain or headache 06/15 completed Not Available Not Available Not Available amoxicillin 500 mg capsule TAKE 2 CAPSULES BY MOUTH EVERY 8 HOURS active Not Available Not Available No t Available ibuprofen 800 mg tablet TAKE 1 TABLET BY MOUTH THREE TIMES A DAY active Not Available Not Available No t Available FreeStyle Lancets 28 gauge CHECK BLOOD SUGAR 4 TIMES A DAY 12/31 completed Not Available Not Available Not Available metronidazo le 0.75 % (37.5 mg/5 gram) vaginal gel INSERT 1 APPLICATO RFUL VAGINALLY EVERY DAY AT BEDTIME FOR 5 DAYS 06/21 completed Not Available Not Available Not Available prednisone 20 mg tablet Take 2 tab by mouth every morning with food for 7 days 04/23 completed Not Available Not Available Not Available sertraline 100 mg tablet TAKE 2 TABLETS BY MOUTH EVERY DAY 06/21 completed Not Available Not Available Not Available sumatriptan 50 mg tablet Take 1 tablet by oral route as directed for 12 days. active Not Available Not Available No t Available clotrimazol e 1 % vaginal cream INSERT 1 APPLICATO RFUL VAGINALLY AT BEDTIME FOR 7 DAYS 12/31 completed Not Available Not Available Not Available metronidazo le 500 mg tablet 03/29 completed Not Available Not Available Not Available sulfamethox azole 800 mg-trimetho prim 160 mg tablet Take 1 tablet every 12 hours by oral route. 03/18 completed Not Available Not Available Not Available olanzapine 2.5 mg tablet Take 1 tab by mouth every night at bedtime with fluoxetin e 12/09 completed Not Available Not Available Not Available ondansetron 8 mg disintegrat ing tablet PLACE 1 TABLET BY TRANSLING UAL ROUTE TWICE A DAY 12/31 completed Not Available Not Available Not Available Depo-Medrol 80 mg/mL suspension for injection Take 1 mL by injection route. 01/09 completed Not Available Not Available Not Available propranolol 10 mg tablet 10/20 completed Not Available Not Available Not Available amoxicillin 875 mg tablet 05/11 completed Not Available Not Available Not Available citalopram 20 mg tablet Take 1 tablet every day by oral route at bedtime for 30 days. 10/20 completed Not Available Not Available Not Available benzonatate 100 mg capsule 03/18 completed Not Available Not Available Not Available cephalexin 500 mg capsule Take 2 capsules every 12 hours by oral route for 10 days. 03/24 completed Not Available Not Available Not Available oseltamivir 75 mg capsule TAKE 1 CAPSULE BY MOUTH EVERY 12 HOURS FOR 5 DAYS 06/21 completed Not Available Not Available Not Available guanfacine 1 mg tablet Take by oral route 2 tab in the morning with breakfast daily 03/24 completed Not Available Not Available Not Available amoxicillin 400 mg/5 mL oral suspension active Not Available Not Available N ot Available gabapentin 100 mg capsule Take 1 capsule 3 times a day by oral route as needed for 30 days. active Not Available Not Available No t Available ibuprofen 600 mg tablet 06/15 completed Not Available Not Available Not Available methylpredn isolone 4 mg tablets in a dose pack TAKE 1 DOSE PACK BY MOUTH DIRECTED 03/27 completed Not Available Not Available Not Available ondansetron 4 mg disintegrat ing tablet may take 1 tab dissolved on the tongue then followed with a sip of water as needed every 8 hours for nausea 2024 active Not Available Not Available Not Avai lable fluoxetine 20 mg capsule Take 1 capsule by mouth every night at bedtime with olanzapin e 12/09 completed Not Available Not Available Not Available sertraline 50 mg tablet TAKE 1 TABLET BY MOUTH EVERYDAY AT BEDTIME 03/18 completed Not Available Not Available Not Available medroxyprog esterone 150 mg/mL intramuscul ar suspension Inject 1 mL every 3 months by intramusc ular route. 2023 active Not Available Not Available Not Avai lable dicyclomine 10 mg capsule TAKE 1 CAPSULE BY MOUTH THREE TIMES A DAY NEEDED FOR ABDOMINAL DISCOMFOR T 03/18 completed Not Available Not Available Not Available naproxen 500 mg tablet May take 1 tab by mouth as needed every 12 hours for pain, may take with 2 tab of Benadryl 06/15 completed Not Available Not Available Not Available amoxicillin 875 mg-potassiu m clavulanate 125 mg tablet TAKE 1 TABLET BY MOUTH 2 TIMES DAILY FOR 7 DAYS. 11/09 completed Not Available Not Available Not Available hydrocortis one 1 % topical cream with perineal applicator APPLY THIN COAT TO AFFECTED AREA TWICE A DAY 12/31 completed Not Available Not Available Not Available azithromyci n 500 mg tablet Take 1 tablet every day by oral route for 5 days. 03/27 completed Not Available Not Available Not Available medroxyprog esterone 150 mg/mL intramuscul ar syringe 04/26 completed Not Available Not Available Not Available escitalopra m 10 mg tablet 10/20 completed Not Available Not Available Not Available aripiprazol e 10 mg tablet TAKE 1 TABLET BY MOUTH EVERY DAY WITH MEALS FOR 30 DAYS 06/21 completed Not Available Not Available Not Available aripiprazol e 5 mg tablet TAKE 1 TABLET BY MOUTH EVERYDAY AT BEDTIME 04/08 completed Not Available Not Available Not Available nitrofurant oin monohydrate /macrocryst als 100 mg capsule TAKE 1 CAPSULE BY MOUTH EVERY 12 HOURS WITH FOOD FOR 7 DAYS 12/31 completed Not Available Not Available Not Available FreeStyle Lite Strips TEST SUGAR 4 TIMES A DAY 12/31 completed Not Available Not Available Not Available FreeStyle Joppa Lite kit CHECK BLOOD SUGAR 4 TIMES A DAY 12/31 completed Not Available Not Available Not Available butalbital- acetaminoph en-caffeine 50 mg-300 mg-40 mg capsule TAKE 1 CAPSULE BY MOUTH EVERY 8 HOURS NEEDED 12/31 completed Not Available Not Available Not Available Karen 0.25 mg-35 mcg tablet TAKE 1 TABLET BY MOUTH EVERY DAY 03/18 completed Not Available Not Available Not Available Vitals Date Recorded Body height Body mass index (BMI) Body weight Oxygen saturation Oxygen saturation in Arterial blood by Pulse oximetry Heart rate Systolic blood pressure Diastolic blood pressure Provider Name and Address Organization Details Last Updated DateTime 4 171.45 cm 30 kg/m2 73829.3 2 g 98 % 98 % 94 /min 110 mm[Hg] 79 mm[Hg] Danae Dunn [place] [facility] 4 17:33:43 Date Recorded Body height Body mass index (BMI) Body weight Oxygen saturation Oxygen saturation in Arterial blood by Pulse oximetry Heart rate Systolic blood pressure Diastolic blood pressure Provider Name and Address Organization Details Last Updated DateTime 4 171.45 cm 30 kg/m2 32192.0 2 g 96 % 96 % 101 /min 145 mm[Hg] 91 mm[Hg] Danae Dunn [place] [facility] 4 17:02:30 Date Recorded Body height Body mass index (BMI) Body weight Oxygen saturation Oxygen saturation in Arterial blood by Pulse oximetry Heart rate Systolic blood pressure Diastolic blood pressure Provider Name and Address Organization Details Last Updated DateTime 5 171.45 cm 29.9 kg/m2 83806.9 2 g 98 % 98 % 83 /min 141 mm[Hg] 91 mm[Hg] Danae Dunn MA [facility] 5 16:34:57 Date Recorded Body height Body mass index (BMI) Body weight Oxygen saturation Oxygen saturation in Arterial blood by Pulse oximetry Heart rate Respiratory rate Body temperature Systolic blood pressure Diastolic blood pressure Provider Name and Address Organization Details Last Updated DateTime 5 171.45 cm 30.9 kg/m2 60063.4 7 g 98 % 98 % 95 /min 16 /min 98.9 [degF] 122 mm[Hg] 84 mm[Hg] Zari Tobin MA [facility] 5 11:26:20 Social History Question Answer Notes LastModified by Organizat ion Details LastModified Time Tobacco Smoking Status Current Every Day Smoker MIREYA Mackey, [facility] 03/18/2021 16:23:56 Do You Have An Advance Directive? No Information not available 03/18/2021 What Is Your Level Of Alcohol Consumption? None Information not available 03/18/2021 Are You Blind Or Do You Have Difficulty Seeing? No Information not available 03/18/2021 What Is Your Level Of Caffeine Consumption? Heavy Information not available 03/18/2021 In The 14 Days Before Symptom Onset, Have You Had Close Contact With A Laboratory-confi rmed COVID-19 While That Case Was Ill? No Information not available 03/18/2021 In The 14 Days Before Symptom Onset, Have You Had Close Contact With A Person Who Is Under Investigation For COVID-19 While That Person Was Ill? No Information not available 03/18/2021 Have You Been To An Area Known To Be High Risk For COVID-19? No Information not available 03/18/2021 Are You Currently Employed? Yes Information not available 03/29/2022 Are You Deaf Or Do You Have Serious Difficulty Hearing? No Information not available 03/18/2021 What Type Of Diet Are You Following? REGULAR Information not available 03/18/2021 What Is Your Occupation? [employer] Information not available 03/29/2022 What Is Your Home Situation? Other Boyfriend Information not available 12/31/2021 What Was The Date Of Your Most Recent Tobacco Screening? 03/27/2024 Information not available 03/27/2024 Do You Use Protection During Sex? No Information not available 03/18/2021 What Is Your Relationship Status? Single Information not available 03/18/2021 Are You Sexually Active? Yes Information not available 03/18/2021 Do You Have Smoke And Carbon Monoxide Detectors In Your Home? Yes Information not available 12/31/2021 Are You Passively Exposed To Smoke? Yes Information not available 12/31/2021 How Much Tobacco Do You Smoke? 1 PPD Information not available 03/29/2022 Do You Feel Stressed (tense, Restless, Nervous, Or Anxious, Or Unable To Sleep At Night)? [id number] Information not available 04/26/2022 Do You Use Any Illicit Or Recreational Drugs? No Information not available 03/18/2021 Has Tobacco Cessation Counseling Been Provided? Yes Information not available 04/26/2022 On What Date Was Tobacco Cessation Counseling Provided? 03/27/2024 Information not available 03/27/2024 Do You Or Have You Ever Used Any Other Forms Of Tobacco Or Nicotine? No Information not available 03/18/2021 Sex: Female Functional Status Question Answer Note LastModified by Organizat ion Details LastModified Time Are you able to care for yourself? Yes Information not available 03/18/2021 What is your exercise level? Occasional Information not available 03/18/2021 Mental Status None recorded. Family History Relationship Description Onset Age of this Age Resolved Age Notes LastModified by Organization Details LastModified Time Mother Migraine Not availabl e 05/02/2015 11:10:56 Maternal Aunt Malignant tumor of breast [id number] Not available 2015 11:10:56 Medical History Condition Response Coronary Artery Disease N Other N Atrial Fibrillation N High Blood Pressure N Kidney or Bladder Problems N Thyroid Problems N GI Problems N Depression Y COPD N Blood Clots N Skin Problems N Anemia N Heart Attack ([place]) N Anxiety Disorder Y Diabetes N Muscle, Joint, or Bone Problems N Seizures/Epilepsy N Acid Reflux (GERD) N Cancer N Stroke N Asthma N Allergies N High Cholesterol N Hepatitis N Liver Disease N Headaches N Heart Failure N Osteoporosis N Gynecological History Statement/Question Response Menses Monthly Y Date of Last Pap Smear 03/25/2021 Current Control Method Depo-Legal Manager a Date of LMP 03/25/2024 LMP Definite Obstetrics History GPAL:G 0 P 0 0 0 0 Past Encounters Encounter ID Performer Location Encounter Start Date Encounter Closed Date Diagnosis/Indication Diagnosis SNOMED-CT Code Diagnosis ICD10 Code Diagnosis Note [id number] Nacho [place] [address] [place] [address] 05/02/2015 10:58:41 05/02/2015 15:45:02 Depressive disorder 62360490 F32.9 Ingrowing nail 158019370 L60.0 [id number] Nacho VALERIO [facility] (IM/) [address] [place] [address] 05/08/2015 15:30:16 05/09/2015 15:07:24 Ingrowing nail 866905564 L60.0 [id number] Nacho Hadley NP-C [facility] (/) [address] [place] [address] 10/20/2017 11:02:50 10/20/2017 17:28:34 Depressive disorder 06949595 F32.9 Knee pain 01079910 M25.5 69 [id number] Nacho Hadley NP-Joselin [facility] (IM/) [address] [place] [address] 12/28/2017 14:48:10 01/02/2018 17:09:27 Knee pain 85863890 M25.569 Ingrowing nail 740795162 L60.0 [id number] Nacho VALERIO [facility] (/) [address] [place] [address] 03/24/2018 16:31:20 03/27/2018 15:20:47 Ingrowing toenail 306806362 L60.0 Depressive disorder 3548 9007 F32.9 Headache 55988653 R51 [id number] THEA [place] [address] [place] [address] 06/15/2018 11:16:49 06/15/2018 12:06:00 Subacute bronchitis 68475758 J20.9 06/15/18: reports 6 weeks of waxing/wan ing cough, rhinitis, sore throat without fever, dyspnea. started on azithromyc in course per PCP two days ago and reports worsening of cough since that time, now productive . has been taking just ibuprofen OTC over this time. exam is reassuring . certainly sputum now could be result of initiating antibiosis . discussed options of completing z pack and continuing to monitor and f/u PCP once complete vs. starting workup with CXR and respirator y virus panel today. pt and mother opt to wait and f/u PCP.recomm end trialing dextrometh orphan and guaifenesi n OTC in meantime. pt and mother amenable to plan [id number] Nacho Hadley NAILER HAND-C [facility] (IM/) [address] [place] [address] 04/23/2019 11:45:58 04/24/2019 16:17:47 Depressive disorder 35110956 F32.9 [id number] Nacho Hadley NAILER HAND-C [facility] (IM/) [address] [place] [address] 05/21/2019 11:02:34 05/22/2019 18:03:25 Depressive disorder 24093441 F33.8 [id number] Nacho Hadley NAILER HAND-C [facility] (IM/) [address] [place] [address] 07/25/2019 08:38:14 07/25/2019 17:29:09 Depressive disorder 80635238 F33.8 [id number] Nacho Hadley NAILER HAND-C [facility] (IM/) [address] [place] [address] 07/26/2019 08:45:49 07/27/2019 17:24:17 Contraception care 747887020 Z30.40 [id number] Nacho Hadley NAILER HAND-C [facility] (IM/) [address] [place] [address] 05/28/2020 09:30:31 05/28/2020 15:15:05 Viral syndrome 692480466 B34.9 [id number] Nacho Hadley -[facility] (/) [address] [place] [address] 03/18/2021 16:01:00 03/19/2021 10:49:22 Amenorrhea 84294512 N91.2 Depressive disorder 3548 9007 F33.8 Fatigue 70397142 R53.83 Vaginal discharge 421262 006 N89.8 [id number] Nacho Hadley -C [facility] (/) [address] [place] [address] 04/08/2021 10:10:28 04/10/2021 07:56:04 Depressive disorder 96258541 F33.8 test positive 378681386 Z32.[id number] [facility] [address] [place] [address] 12/31/2021 15:48:01 12/31/2021 16:41:02 Mixed anxiety and depressive disorder 983384620 F41.8 [id number] Aj Mofeftt PA-C [facility] [address] [place] [address] 03/29/2022 16:45:23 03/29/2022 17:41:35 Viral syndrome 503749117 B34.9 Depressive disorder 3548 9007 F32.A [id number] Aj Moffett PA-C [facility] [address] [place] [address] 04/26/2022 10:44:12 04/26/2022 11:17:12 Sore throat 450202802 J02.8 [facility] 211769106 E66 .3 [id number] Aj Moffett PA-C [facility] [address] [place] [address] 06/22/2023 16:43:12 07/08/2023 15:03:38 Upper respiratory infection 49564926 J00 Acute maxi llary sinusitis 40060934 J01.01 Sore throat 040423837 J0 2.8 [id number] Eva Wynne MA [facility] [address] [place] [address] 08/22/2023 16:49:50 09/03/2023 08:52:45 Contraception care 991966217 Z30.40 [id number] Eva Wynne MA [facility] [address] [place] [address] 11/09/2023 16:42:38 11/14/2023 12:14:47 Contraception care 557069908 Z30.40 [id number] Aj Moffett PA-C [facility] [address] [place] [address] 11/10/2023 15:31:36 11/14/2023 13:21:35 Gestational diabetes mellitus 97693877 O24.410 Contact de rmatitis caused by urushiol from [facility] 566440600 L25.5 [id number] Aj Moffett PA-C [facility] [address] [place] [address] 01/10/2024 17:15:34 01/16/2024 14:18:47 Chronic headache disorder 787679389 G44.89 Overweight 636322497 E66 .3 Nausea 294638558 R11.0 [id number] Eva Wynne ALISA [facility] [address] [place] [address] 02/02/2024 16:56:20 02/10/2024 10:14:27 Contraception care 712415466 Z30.40 [id number] Aj Moffett PA-C [facility] [address] [place] [address] 03/19/2024 16:49:26 03/20/2024 12:55:42 Upper respiratory infection 74451174 J00 Overweight 662223595 E66 .3 Acute bron chitis with bronchospasm 61844685 J20.8 [id number] Aj Moffett PA-C [facility] [address] [place] [address] 03/27/2024 16:29:34 03/30/2024 10:00:29 Toothache 27647581 K08.89 Recurrent acute maxillary sinusitis 4082385789 5337824 J01.01 Overweight 089630956 E66 .3 Chronic he adache disorder 833053602 G44.89 [id number] Aj Moffett PA-C [facility] [address] [facility] [place] [address] 05/11/2024 11:16:01 05/14/2024 12:01:29 Vomiting 097084459 R11.10 Viral daysi roenteritis caused by Proctor-like agent 50705103 A08.11 Overweight 906806807 E66 .3 Nausea 580531982 R11.0 Health Concerns Section Related Observation LastModified by Organization Detai ls LastModified Time None Recorded Concern Status LastModified by Organization Details LastModified Time None Recorded Advance Directives Directive N: Payers Encounter Date Sequence Insurance Name Policy Number Policy Drummond Covered Member ID Drummond Member ID Guarantor Name 01/10/2024 1 [facility] [id number] Yosef Bob [id number] Yosef Bob 01/10/2024 2 [place] [facility] [id number] Yosef Bob 02/02/2024 1 [facility] [id number] Yosef Bob [id number] Yosef Bob 02/02/2024 2 [place] [facility] [id number] Yosef Bob 03/19/2024 1 [facility] [id number] Yosef Bob [id number] Yosef Bob 03/19/2024 2 [place] [facility] [id number] Yosef Bob 03/27/2024 1 [facility] [id number] Yosef Bob [id number] Yosef Bob 03/27/2024 2 [place] [facility] [id number] Yosef Bob 05/11/2024 1 [facility] [id number] Yosef Bob [id number] Yosef Bob 05/11/2024 2 [place] [facility] [id number] Yosef Bob Notes Date Note Type Note Provider Name and Address Organization Details Recorded Time 01/10/2024 text/html ongoing hx of headaches...worse since child was born...is affecting everything...otc dont work...butalbital not effective...hasnt tried triptans...also gets nausea with headache Aj Moffett PA-C Attn: Accounting, [address] [place], [address], [facility] 01/10/2024 18:02:15 03/19/2024 text/html went to Er for e ar pain..was told she was wheezing...says her entire family has walking pneumonia Aj Moffett PA-C Attn: Accounting, [address] [place], [address], [facility] 03/19/2024 17:40:12 03/27/2024 text/html ear pain due to an infected tooth? was feeling good on the 03-19- regimen...was fine until this morning then 3 am the pain came into rt jaw... Aj Moffett PA-C Attn: Accounting, [address] [place], [address], [facility] 03/27/2024 16:46:38 05/11/2024 text/html gastroenteritis symptoms and also exposed tro A at work..throat is raw..cough..fever Aj Moffett PA-C Attn: Accounting, [address] [place], [address], [facility] 05/11/2024 11:42:41 OBGyn Episode No OBEpisode recorded.
--- OUTSIDE RECORDS SUMMARY | 2024-05-30 15:46 | XMS_ITS | Clinical Summary ---
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 10/16/2021 Active Active Problems No known active problems Immunizations Name Administration Dates Next Due Dtap 10/20/2005, 2,08/01/2001,07/2001,03/17/2001 H1N1 Injectable 2009 Influenza 02/06/2009,2008 HPV 11/15/2011 HPV4 (Gardasil) 05/23/2012,01/18/2012 Hepatitis A Vaccine - 2 Dose 05/23/2012,11/15/19 12 Hepatitis B 03/01/2002,05/23/2001,03/17/2001 Hepatitis B (Generic Peds) 03/01/2002,05/23/2001 ,03/17/2001 Hib (Generic) 03/01/2002,05/23/2001,03/17/2001 Influenza (Generic) 12/28/2017 MENINGOCOCCAL A C Y&W-135 oligosaccharide (MENVEO) 09/19/2017,01/18/2012 MMR 10/20/2005,11/21/2001 Meningcoccal Group B (Bexser o)(aka Meningitis) 12/28/2017,09/19/2017 Polio Ipv (Generic) 10/20/2005, 6,08/01/2001,07/19,05/23/2001,05/23/2001,03/17/20,03/17/2001 Tdap (Generic) 11/15/2011 Varicella Vaccine 01/18/2012,10/20/2005 Social History Tobacco Use Types Packs/Day Years Used Date Smoking Tobacco: Every Day Cigarettes Smokeless Tobacco: Never Tobacco Cessation:Ready to Q uit: Not Asked; Counseling Given: Not Answered Comments:PCP to residential youth counselor Alcohol Use Standard Drinks/Week Comments Not Currently 0 (1 standard drink = 0.6 oz pur e alcohol) AUDIT-C Answer Date Recorded Q1: How often do you have a drink containing alc ohol? 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 Gender Identity Not on file Sexual Orientation Not on file Last Filed Vital Signs Vital Sign Reading Time Taken Comments Blood Pressure 128/78 01/18/2023 9:52 AM CDT Pulse 84 01/18/2023 9:52 AM CDT Temperature 36.9 C (98.4 F) 01/18/2023 9:52 AM CDT Respiratory Rate 16 01/18/2023 9:52 AM CDT Oxygen Saturation 99% 01/18/2023 9:52 AM CDT Inhaled Oxygen Concentration - - Weight 79.4 kg (175 lb) 01/18/2023 9:52 AM CDT Height 170.2 cm (5' 7 ) 01/18/2023 9:52 AM CDT Body Mass Index 27.41 01/18/2023 9:52 AM CDT Plan of Treatment Health Maintenance Due Date Last Done Comments Annual Physical 11/18/2003 Pneumococcal Vaccine: Pediatrics (0 to 5 Years) and At-Risk Patients (6 to 64 Years) (1 of 2 - PCV) 2006 DTaP, Tdap and Td Vaccines (7 - Td or Tdap) 11/14/2021 11/15/2011, 10/20/2005, 03/01/2002, Additional history exists Chlamydia Screening Females ages 16-24 06/25/2023 06/24/2022, 04/30/2021 COVID-19 Vaccine ( season) 2023 02/05/2021, 01/08/2021 Influenza Adult (#1) 2023 12/28/2017, 02/06/2009, 01/14/2009 Cervical Cancer Screening Pap Smear (Age 21 to 29) Every 3 Years 06/24/2025 06/24/2022, 06/24/2022, 06/24/2022, Additional history exists Cervical Cancer Screening 06/24/2025 Hepatitis B Vaccines Completed 03/01/2002, 03/01/2002, 03/01/2002, Additional history exists HPV Vaccines Completed 05/23/2012, 12/21, 11/15/2011 Meningococcal Vaccine Completed 09/19/2017, 012 Meningococcal B Vaccine Completed 12/28/2017, 09/19 Hepatitis C Completed 05/26/2021, 05/26/2021 RSV Immunizations Under 20 Months Aged Out No longer eligible based on patient's age to complete this topic Insurance MEDICAID [employer] Care Teams 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
--- OUTSIDE RECORDS SUMMARY | 2024-05-30 15:46 | XMS_ITS | Data Portability ---
Author Organization [facility] Address [address] [place] [address] [place] [address] Assessment Encounter Date Assessment Date Assessment LastModified by Organization Details LastModified Time 06/24/2022 06/24/2022 Annual gynecological exam performed. Patient will come back in a year unless there are new symptoms. [email or web address] Not available 06/24/2022 16:39:00 Plan of Treatment Reminders Order Date Submit Date Provider Last Modified By Organization Details Last Modified Time Details Appointments Injection DEPO 2024 03:45P M RN SCHEDULE Not available Not available Not available Lab test, urine 2024 025 [email or web address] [address], [address], [place], [address], 05/11/2024 13:22:23 Referral psychiatr ist referral 2022 023 [email or web address] [facility], [facility]5 [facility], [facility] [address], [address], 05/18/2023 15:13:15 psychiatr ist referral 2022 023 [email or web address] Florentin Ervin [facility], [address] [facility] [address], [place] [address], [place], [address], 06/24/2022 17:03:11 Procedures None recorded. Surgeries None recorded. Imaging None recorded. Medication Orders fluconazo le 150 mg tablet 2024 025 [facility], [facility] [place], [address], 05/11/2024 13:14:09 metronida zole 0.75 % (37.5 mg/5 gram) vaginal gel 2024 025 [facility], [address] [place] [address], [address], 05/11/2024 13:14:34 Macrobid 100 mg capsule 2024 025 [facility], [address] [place] [address], [address], 05/11/2024 13:13:48 Depo-Prov era 150 mg/mL intramusc ular suspensio n 2024 025 [email or web address] Not available 05/11/2024 18:56:10 Depo-Prov era 150 mg/mL intramusc ular syringe 2024 025 [email or web address] Not available 05/11/2024 18:55:59 Depo-Prov era 150 mg/mL intramusc ular suspensio n 2022 023 [email or web address] Not available 03/03/2023 18:06:02 Depo-Prov era 150 mg/mL intramusc ular suspensio n 2022 023 [email or web address] Not available 12/08/2022 14:26:00 Depo-Prov era 150 mg/mL intramusc ular syringe 2022 023 [id number], [address] [place], [address], 06/24/2022 17:05:00 aripipraz ole 10 mg tablet 2022 023 [email or web address] [id number], [address] [place], [address], 11/03/2022 13:35:14 Patient TargetsNo targets recorded. Patient InstructionsNo instructions recorded. Reason for Referral Psychiatrist Referral for Mi xed anxiety and depressive disorder Referring Physician: Grace Nixon, BUTTERMILK DRIER OPERATOR, Encounter Date: 06/24/2022 Psychiatrist Referral for Mi xed anxiety and depressive disorder Referring Physician: Ya Mauricio, BUTTERMILK DRIER OPERATOR, Encounter Date: 03/03/2023 Results Created Date Observation Date Name Description Value Unit Range Abnormal Flag Note LastModifiedBy Organization Detail LastModifiedTime 09/18/19 23 09/17/2022 pregn jayy test, urine HCG negati ve Not Available [facility] [address], [place], [address], 09/17/2022 14:34:32 05/11/19 25 05/11/2024 pregn jayy test, urine HCG negati ve Not Available [facility] [address], [place], [address], 05/11/2024 13:22:09 Result Notes None recorded. Problems Name Problem SNOMED Code Status Onset Date Resolution Date Notes Provider Name and Address Organization Details Recorded Time Pregnanc y 66789071 Completed 202112/18/2021 Sarai Schwartz null, [facility] 2 16:03:40 Tobacco user 731661114 Completed trying to cut down/trevon t Sarai Schwartz null, [facility] 2 16:03:30 Mixed anxiety and depressi ve disorder 726538884 Completed increase zoloft to 150, off abilify, buspar Sarai Schwartz hl null, [facility] 2 16:03:30 Tobacco user 245191260 Active trying to cut down/trevon t Not Available [facility] 2 09:25:27 Mixed anxiety and depressi ve disorder 755577087 Active increase zoloft to 150, off abilify, buspar Not Available [facility] 2 09:25:26 Urinary tract infectio n in pregnanc y 708195850 Completed Treat 05/29 frequent UTIs per pt Sarai schulz null, [facility] 2 16:03:30 Migraine 16926434 Completed Uncertai n if there is aura, Sarai schulz null, [facility] 2 16:03:30 SARS-CoV -2 Completed 2021 ASA & serial growth Sarai Schwartz null, [facility] 2 16:03:30 Proteinu tracie 65700382 Completed 24 hour urine Sarai Schwartz [facility], [facility] 2 16:03:30 Umbilica l hernia 724623631 Completed Associat ed varicosi ty that changes color as blood leaves and return, Sarai schulz null, [facility] 2 16:03:30 Marginal insertio n of umbilica l cord 00568939 Completed 2021 Serial growth Sarai Schwartz null, [facility] 2 16:03:30 Glucose level outside referenc e range 456004304 Completed Failed 1hr GTT - checking BS QID instead of 3hr GTT! Sarai villa, [facility] 2 16:03:30 Gestatio nal diabetes mellitus 02806730 Completed BS QID & antenata l testing Sarai Schwartz null, [facility] 2 16:03:30 Problem Notes None recorded. Procedures Surgical History Date Name Laterality Status Provider Name and Address Organization Details Recorded Time 06/24/2022 Date of Last Pap Smear completed TATYANA Weston [facility] 05/11/2024 09:29:41 Imaging Results None recorded. Procedure Notes None recorded. Medical Equipment None Reported. Allergies No known drug allergies Medications Name Sig Start Date Stop Date Status Note LastModified by Organization Details LastModified Time amoxicillin 500 mg capsule TAKE 2 CAPSULES BY MOUTH EVERY 8 HOURS 05/11 completed Not Available Not Available Not Available Preparation H Hydrocortis one 1 % topical cream APPLY A THIN LAYER TO THE AFFECTED AREA(S) BY TOPICAL ROUTE 2 TIMES PER DAY 05/11 completed Not Available Not Available Not Available nabumetone 750 mg tablet TAKE 1 TABLET BY MOUTH TWICE A DAY FOR 10 DAYS 06/24 completed Not Available Not Available Not Available ibuprofen 800 mg tablet TAKE 1 TABLET BY MOUTH THREE TIMES A DAY active Not Available Not Available No t Available Lidocaine Viscous 2 % mucosal solution SIWSH AND SPIT 5ML EVERY 1-2 HOURS NEEDED FOR PAIN active Not Available Not Available No t Available fluconazole 150 mg tablet take 1 tablet by mouth now, repeat in 7 days if needed active Not Available Not Available No t Available FreeStyle Lancets 28 gauge CHECK BLOOD SUGAR 4 TIMES A DAY 05/11 completed Not Available Not Available Not Available metronidazo le 0.75 % (37.5 mg/5 gram) vaginal gel Insert 1 applicato rful every day by vaginal route at bedtime for 5 days. active Not Available Not Available No t Available sertraline 100 mg tablet TAKE 2 TABLETS BY MOUTH EVERY DAY 05/11 completed Not Available Not Available Not Available sumatriptan 50 mg tablet TAKE 1 TABLET BY ORAL ROUTE DIRECTED FOR 12 DAYS. active Not Available Not Available No t Available clotrimazol e 1 % vaginal cream INSERT 1 APPLICATO RFUL VAGINALLY AT BEDTIME FOR 7 DAYS 04/29 completed Not Available Not Available Not Available metronidazo le 500 mg tablet Take 1 tablet twice a day by oral route for 7 days. 06/24 completed Not Available Not Available Not Available ondansetron 8 mg disintegrat ing tablet Place 1 tablet twice a day by transling ual route. 09/17 completed Not Available Not Available Not Available amoxicillin 875 mg tablet TAKE 1 TABLET BY MOUTH EVERY 12 HOURS FOR 10 DAYS active Not Available Not Available No t Available metoclopram magi 5 mg tablet Take 1 tablet every 6 hours by oral route as needed. active Not Available Not Available No t Available benzonatate 100 mg capsule 04/29 completed Not Available Not Available Not Available oseltamivir 75 mg capsule TAKE 1 CAPSULE BY MOUTH EVERY 12 HOURS FOR 5 DAYS active Not Available Not Available No t Available buspirone 10 mg tablet Take 1 tablet twice a day by oral route. 09/17 completed Not Available Not Available Not Available gabapentin 100 mg capsule TAKE 1 CAPSULE BY MOUTH THREE TIMES A DAY NEEDED FOR 30 DAYS active Not Available Not Available No t Available methylpredn isolone 4 mg tablets in a dose pack TAKE 1 DOSE PACK BY MOUTH DIRECTED active Not Available Not Available No t Available ondansetron 4 mg disintegrat ing tablet PLEASE SEE ATTACHED FOR DETAILED DIRECTION S active Not Available Not Available No t Available sertraline 50 mg tablet 04/29 completed Not Available Not Available Not Available medroxyprog esterone 150 mg/mL intramuscul ar suspension Inject 1 mL every 3 months by intramusc ular route. active Not Available Not Available No t Available amoxicillin 875 mg-potassiu m clavulanate 125 mg tablet TAKE 1 TABLET BY MOUTH 2 TIMES DAILY FOR 7 DAYS. active Not Available Not Available No t Available hydrocortis one 1 % topical cream with perineal applicator 05/11 completed Not Available Not Available Not Available Depo-Insurance Broker a 150 mg/mL intramuscul ar syringe Inject 1 mL every 3 months by intramusc ular route. 2024 active Not Available Not Available Not Avai lable azithromyci n 500 mg tablet TAKE 1 TABLET BY MOUTH EVERY DAY FOR 5 DAYS 05/11 completed Not Available Not Available Not Available aripiprazol e 10 mg tablet TAKE 1 TABLET BY MOUTH EVERY DAY WITH MEALS FOR 30 DAYS 2022 active Not Available Not Available Not Avai lable aripiprazol e 5 mg tablet 04/29 completed Not Available Not Available Not Available nitrofurant oin monohydrate /macrocryst als 100 mg capsule Take 1 capsule every 12 hours by oral route for 7 days. active Not Available Not Available No t Available 05/11 completed Not Available Not Available Not Available FreeStyle Lite Strips TEST SUGAR 4 TIMES A DAY 05/11 completed Not Available Not Available Not Available FreeStyle Carleton Lite kit CHECK BLOOD SUGAR 4 TIMES A DAY 05/11 completed Not Available Not Available Not Available butalbital- acetaminoph en-caffeine 50 mg-300 mg-40 mg capsule 1 tablet every 8 hours as needed 09/17 completed Not Available Not Available Not Available Karen 0.25 mg-35 mcg tablet 04/29 completed Not Available Not Available Not Available Vitals Date Recorded Body height Body mass index (BMI) Body weight Systolic blood pressure Diastolic blood pressure Provider Name and Address Organization Details Last Updated DateTime 06/24/2022 170.18 cm 29.3 kg/m2 19099.77 g 120 mm[Hg] 82 mm[Hg] Kelly Queen [facility] 3 16:39:11 Date Recorded Body height Provider Name an d Address Organization Details Last Updated DateTime 09/17/2022 170.18 cm Radha Allan [facility] 09/17/2022 14:35:25 Date Recorded Body height Body mass index (BMI) Body weight Systolic blood pressure Diastolic blood pressure Provider Name and Address Organization Details Last Updated DateTime 03/03/2023 170.18 cm 29.4 kg/m2 96657.37 g 128 mm[Hg] 82 mm[Hg] Val Sanchez [facility] 3 16:40:56 Date Recorded Body height Body mass index (BMI) Body weight Systolic blood pressure Diastolic blood pressure Provider Name and Address Organization Details Last Updated DateTime 05/11/2024 170.18 cm 31.5 kg/m2 64593.07 g 135 mm[Hg] 89 mm[Hg] Trista [facility] 5 12:58:54 Social History Question Answer Notes LastModified by Organizat ion Details LastModified Time Tobacco Smoking Status Current Every Day Smoker Zoya villa, [facility] 09/17/2021 11:57:46 Do You Have An Advance Directive? No [email or web address] Information not available 04/30/2021 What Is Your Level Of Alcohol Consumption? None [email or web address] Information not available 04/30/2021 If You Are , What Was Your Level Of Alcohol Consumption Prior To ? Occasional Information not available 09/17/2021 Are You Blind Or Do You Have Difficulty Seeing? No [email or web address] Information not available 04/30/2021 What Is Your Level Of Caffeine Consumption? Occasional [email or web address] Information not available 04/30/2021 How Much Tobacco Do You Chew? None Information not available 04/30/2021 In The 14 Days Before Symptom Onset, Have You Had Close Contact With A Laboratory-confir med COVID-19 While That Case Was Ill? No Information not available 04/30/2021 In The 14 Days Before Symptom Onset, Have You Had Close Contact With A Person Who Is Under Investigation For COVID-19 While That Person Was Ill? No [email or web address] Information not available 04/30/2021 Have You Been To An Area Known To Be High Risk For COVID-19? No [email or web address] Information not available 04/30/2021 Are You Deaf Or Do You Have Serious Difficulty Hearing? No [email or web address] Information not available 04/30/2021 What Type Of Diet Are You Following? REGULAR [email or web address] Information not available 04/30/2021 What Is The Highest Grade Or Level Of School You Have Completed Or The Highest Degree You Have Received? 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 No [email or web address] Information not available 04/30/2021 Do You Use Protection During Sex? No [email or web address] Information not available 04/30/2021 Do You Use Your Seat Belt Or Car Seat Routinely? Yes Information not available 04/30/2021 Do You Have Smoke And Carbon Monoxide Detectors In Your Home? Yes [email or web address] Information not available 04/30/2021 At What Age Did You Start Smoking Tobacco? 15 Information not available 04/30/2021 How Much Tobacco Do You Smoke? 1 PPD [email or web address] Information not available 04/30/2021 Do You Feel Stressed (tense, Restless, Nervous, Or Anxious, Or Unable To Sleep At Night)? [id number] [email or web address] Information not available 04/30/2021 Do You Use Any Illicit Or Recreational Drugs? No [email or web address] Information not available 04/30/2021 Do You Use Sunscreen Routinely? Yes [email or web address] Information not available 04/30/2021 Has Tobacco Cessation Counseling Been Provided? No [email or web address] Information not available 09/17/2021 How Many Years Have You Smoked Tobacco? 5 [email or web address] Information not available 04/30/2021 Have You Used IV Drugs? No Information not available 04/30/2021 Do You Or Have You Ever Used Any Other Forms Of Tobacco Or Nicotine? No [email or web address] Information not available 09/17/2021 Sex: Unknown Functional Status Question Answer Note LastModified by Organizat ion Details LastModified Time Do you have difficulty walking or climbing stairs? No [email or web address] Information not available 09/17/2021 Are you able to walk? YESWOREST [email or web address] Information not available 04/30/2021 Are you able to care for yourself? Yes [email or web address] Information not available 09/17/2021 Do you have difficulty dressing or bathing? No [email or web address] Information not available 09/17/2021 What is your exercise level? Moderate [email or web address] Information not available 04/30/2021 Mental Status None recorded. Family History Relationship Description Onset Age of this Age Resolved Age Notes LastModified by Organization Details LastModified Time Maternal Aunt Malignant tumor of breast [email or web address] Not available 2021 09:40:39 Medical History Condition Response Allergies (Food, seasonal, environmental ) N Other N Breast Cancer N Drug/Latex Allergies/Reactions N Blood Transfusion N Dermatologic Disorders N Lung Disease N Defects or Inherited Disease N Breast Problem N Gestational Diabetes N Hematologic disorders N Anesthesia Complications N History of STI N Deep Vein Thrombosis N Polycystic ovary syndrome N Anxiety Disorder Y Autoimmune disease N Arthritis N Infertility N Polyps N Acid Reflux (GERD) N History of abnormal pap N Cancer N Stroke N Varicosities N Neurologic/Epilepsy N Endometriosis N High Cholesterol N Headaches N Fibromyalgia N Kidney Disease N Heart Problems N Kidney or Bladder Problems N Thyroid Problems N GI Problems N Eating Disorder N Anemia N Art (IVF or FET) N Psychiatric Illness N Ovarian Cancer N Diabetes N Pulmonary (TB, Asthma) Y Hepatitis/Liver Disease N No Past Medical History N Eczema N Urinary Tract Infection N Abuse/Domestic Violence N Asthma N Trauma/Violence N Depression/ depression Y Heart Disease N Pre-Eclampsia N Hypertension N Osteoporosis N Thrombophilias N Gynecological History Statement/Question Response Abnormal Pap N Date of Last Mammogram Flow Moderate Date of LMP 04/09/2024 On BCP's at Conception? N N Was last menstrual period normal Y STIs/STDs N HPV Vaccine Y Duration of Flow (days) 7 Current Control Method Depo-Insurance Broker a Are cycles usually normal Y Sexually Active? Y Menses Monthly Y Date of DEXA bone scan Age of first menstrual cycle 13 Date of Last Pap Smear 06/24/2022 Sexual Problems? N Desired Control Method LMP Approximate N Obstetrics History GPAL:G 1 P 1 0 0 1 Type Value Full Term 1 Living 1 Total 1 Immunizations Vaccine Type Date Status Note Provider Yonas aguilar and Address Organization Details Recorded Time COVID-19, mRNA, LNP-S, bivalent, PF, 30 mcg/0.3 mL dose 02/09/2022 completed TATYANA villa [facility] 05/11/2024 09:30:31 Past Encounters Encounter ID Performer Location Encounter Start Date Encounter Closed Date Diagnosis/Indication Diagnosis SNOMED-CT Code Diagnosis ICD10 Code Diagnosis Note [id number] Tanja Schafer [facility] [address] [address] 04/30/2021 09:23:17 05/01/2021 15:04:47 test positive 998383653 Z32.01 Risk factors addressed: Tobacco Cessation, Safe Sexual Practices, environmen khurram, work hazards, travel restrictio ns, seat belt use.Eat a health well balanced diet, avoid alcohol, tobacco, and street drugs.Enga ge in daily low impact exercise, avoid temperatur e extremes, and cat, rodent, and bird feces.Avoi d travel to areas where zika virus is a concern.Of fered cf/sma/nip tAnn jacinto Handouts given and discussed with patient.Ch ildbirth classes recommende d.New OB sheet given.If previous , counseling .Pt verbalizes that she understand s the importance of above instructio ns.All questions were answered.P atient reminded to have annual well woman examinatio n and address preventati ve healthcare . Migraine 03737489 G43.90 9 Needs neuro referral. Will try fioricet as need. [id number] Renee Enriquez [facility] [address],[place] [address] 04/30/2021 09:27:36 04/30/2021 10:37:[id number] [facility] [address],[place] [address] 05/26/2021 11:22:20 05/26/2021 12:02:06 screening 101845921 Z36.82 [id number] Shi More MD [facility] [address] [address] 05/26/2021 11:23:21 05/26/2021 12:47:40 Routine care 284042088 Z34.91 Mixed anxi ety and depressive disorder 480767958 F41.8 Tobacco user 056884685 Z 72.0 [id number] Quinn Gotti MD [facility] [address],[place] [address] 06/25/2021 16:50:24 06/25/2021 17:57:21 Migraine 29244200 G43.909 Nausea and vomiting 1693 1999 R11.2 [id number] Michelle Blackburn [facility] [address] [address] 07/31/2021 13:47:20 07/31/2021 14:44:03 screening 113703019 Z36.3 [id number] Quinn Gotti MD [facility] [address] [address] 07/31/2021 13:47:49 07/31/2021 16:17:19 Routine care 804679770 Z34.02 [id number] Quinn Gotti MD [facility] [address] [address] 08/31/2021 16:46:41 09/01/2021 13:44:39 Routine care 849470252 Z34.02 Umbilical hernia 7088865 07 K42.9 Gestationa l proteinuria 25410765 O12.12 Migraine 57979843 G43.90 [id number] [facility] [address],[place] [address] 09/01/2021 17:01:43 09/01/2021 17:39:07 COVID-19 582492632 U07.1 [id number] Debi [facility] [address] [address] 09/17/2021 11:45:06 09/17/2021 12:26:35 Routine care 154060322 Z34.93 Depressive disorder 3548 9007 F32.A [id number] Renee Enriquez [facility] [address] [address] 09/30/2021 11:30:00 09/30/2021 12:14:14 Placental condition affecting management of mother 236181166 O43.103 U07.1 Z3A.30 [id number] Debi [facility] [address],[place] [address] 09/30/2021 11:30:58 09/30/2021 12:46:09 Routine care 637187212 Z34.93 [id number] Diane Schwartz [facility] [address] [address] 10/01/2021 14:20:16 10/01/2021 15:17:55 Blood glucose outside reference range 103873822 R73.09 Per SP pt needs diet teaching r/t abnormal levels while checking BS to see if she rules in for GDM or not. Pts diet teaching completed over phone. Went over ideal ranges for FBS and pp BS. Went over carb counting and carb ranges for each meal/snack . Gave ideas for foods to eat for meals/snac ks. Discussed drink options and to avoid soda and juice. Pt drinks Dr. Zuniga with each meal and drinks a lot of milk. Told pt she needs to cut out Dr. Zuniga and limit milk intake. Mainly water and sugar free water flavors. Told pt to continue checking BS QID and adjusting diet to follow low carb diet to try to keep BS within normal range. Pt aware if sugars aren't controlled by diet we would discuss starting insulin. Will discuss with SP tomorrow to see if we should start NSTs with her sugar levels. Pts questions were answered and pt verbalized understand ing. maty, RN [id number] Debi [facility] [address],[place] [address] 10/07/2021 16:02:10 10/07/2021 16:49:43 Routine care 020807492 Z34.93 [id number] Zoya Quinn [facility] [address] [address] 10/14/2021 10:23:59 10/15/2021 15:52:11 Gestational diabetes mellitus class A1 20065454 O24.410 [id number] Michelle Blackburn [facility] [address] [address] 10/14/2021 10:24:21 10/14/2021 11:37:13 Gestational diabetes mellitus class A1 30021839 O24.410 Z3A.32 [id number] Debi [facility] [address],[place] [address] 10/14/2021 10:37:23 10/14/2021 11:57:58 Routine care 878125643 Z34.93 [id number] [facility] [address],[place] [address] 10/21/2021 10:29:28 10/21/2021 11:12:42 Gestational diabetes mellitus class A1 48129831 O24.410 Z3A.32 [id number] [facility] [address] [address] 10/21/2021 10:29:54 10/21/2021 11:36:53 Gestational diabetes mellitus class A1 72265264 O24.410 Z3A.33 [id number] Debi [facility] [address],[place] [address] 10/21/2021 10:30:20 10/21/2021 12:16:16 Routine care 702572709 Z34.93 [id number] [facility] [address] [place] [address] 10/29/2021 11:44:10 10/29/2021 13:08:11 Gestational diabetes mellitus class A1 07400904 O24.410 Z3A.33 [id number] Renee Enriquez [facility] [address] [address] 10/29/2021 11:44:45 10/29/2021 13:36:46 COVID-19 226879248 U07.1 O43.103 O36.8330 Z3A.34 [id number] [facility] [address] [address] 10/29/2021 11:45:08 10/30/2021 15:00:21 Routine care 681053508 Z34.93 [id number] [facility] [address],[place] [address] 11/03/2021 11:46:19 11/03/2021 13:10:49 Gestational diabetes mellitus class A1 18479440 O24.410 Z3A.33 [id number] Diane Schwartz [facility] [address] [address] 11/03/2021 11:47:05 11/03/2021 14:28:55 Gestational diabetes mellitus class A1 54055984 O24.410 Z3A.33 [id number] Quinn Gotti MD [facility] [address] [address] 11/03/2021 11:47:23 11/03/2021 14:28:41 Routine care 065561990 Z34.02 [id number] [facility] [address],[place] [address] 11/11/2021 11:02:10 11/11/2021 15:31:07 Gestational diabetes mellitus class A1 55813604 O24.410 Z3A.33 [id number] Michelle Blackburn [facility] [address] [address] 11/11/2021 11:02:32 11/11/2021 13:43:26 Gestational diabetes mellitus class A1 88450006 O24.410 Z3A.36 [id number] [facility] [address],[place] [address] 11/11/2021 11:02:50 11/11/2021 15:30:10 Routine care [id number] Z34.93 [id number] [facility] [address],[place] [address] 11/13/2021 10:59:02 11/13/2021 12:00:56 Gestational diabetes mellitus [id number] O24.419 [id number] [facility] [address],[place] [address] 11/18/2021 10:35:42 11/18/2021 11:23:15 Gestational diabetes mellitus class A1 [id number] O24.410 Z3A.36 [id number] Michelle Blackburn [facility] [address],[place] [address] 11/18/2021 10:36:07 11/18/2021 11:28:16 Gestational diabetes mellitus class A1 44112812 O24.410 Z3A.36 [id number] Debi [facility] [address],[place] [address] 11/18/2021 10:36:33 11/18/2021 12:55:25 Routine care [id number] Z34.93 [id number] [facility] [address],[place] [address] 11/25/2021 10:34:15 11/25/2021 13:03:57 Gestational diabetes mellitus class A1 [id number] O24.410 Z3A.36 [id number] Michelle Blackburn [facility] [address],[place] [address] 11/25/2021 10:34:35 11/25/2021 12:09:29 Gestational diabetes mellitus class A1 [id number] O24.410 Z3A.38 [id number] Debi [facility] [address],[place] [address] 11/25/2021 10:34:56 11/25/2021 12:09:04 Routine care [id number] Z34.93 [id number] Zoya Quinn [facility] [address],[place] [address] 01/01/2022 12:28:02 01/01/2022 13:38:01 care 262380740 Z39.2 Contracept ion care management [id number] Z30.9 [id number] Miriam Keane [facility] [address],[place] [address] 04/07/2022 16:29:53 04/07/2022 17:00:12 Contraception care management 710122504 Z30.9 [id number] Grace Nixon [facility] [address],[place] [address] 06/24/2022 16:31:38 06/29/2022 15:20:33 Gynecologic examination 62137631 Z01.419 Take Calcium with Vitamin D 1200mg daily if not receiving in daily diet. It is strongly advised to have an annual flu shot and up can obtain at most pharmacies . If you have not had a TDap shot in the last 10 years you should obtain one as well. Discussed with patient & provided with informatio n regarding Gardisil vaccine to prevent the 4 strains for HPV that cause cervical cancer if under age 26. Encourage safe sexual practices, to use condoms and limit partners if not already in a monogamous relationsh ip. Do monthly self breast exams. Have mammogram yearly or every other year depending on family history. BRCA testing is now available for patients with strong genetic history of female cancer. If interested contact the office. Engage in daily exercise of low impact aerobic exercise 45-60 minutes 4-5 times weekly. Avoid tobacco and illicit drugs as well as using moderation with alcohol intake less than 1-2 8 oz beverages daily. This lifestyle behavior pattern will lead to less health conditions and longer life span. If BMI greater than 25 weight watchers or dietary consult advised. Patient received above instructio ns, and questions have been answered. If you have any questions please call or respond to this email. Patient was made aware of the patient portal and may obtain a paper copy of today's plan if desired. Pap sentSTD Screen declinedGe netic Screen discussedC olon Screen naDexa Screen naRoutine Labs na Mixed anxi ety and depressive disorder [id number] F41.8 Does not feel like her current regimen for depression /anxiety is working as well as it did.She is currently taking sertraline 100mg with addition of Aripiprazo le 5mg by her PCP.She was previously on 10mg of this medication to fully help manage her sx'sWe discussed increasing the Aripiprazo le 10mg and f/u in 1-2wks to ensure she is tolerating this increase. Neg suicidal ideations/ thoughts of self harmVERY stressed out with new baby, going back to work & significan t other is not helpful.Fe els very overwhelme d.Not a lot of support. Recommend counseling which she will consider but is unsure how she would find the time to go. We also discussed referral to psychiatry for further management based on her hx of bipolar/de pression/a nxiety. She opts to f/u with her regular provider Desmond Washington. Counseled on r/b's, most common side effects of this therapy with instructio ns to stop medication with any significan t abnormal change in mood especially with thoughts of suicide/se lf-harm/zamudio rm to others. Understand ing verbalized . Contracept ion care management 435912443 Z30.9 [id number] Lisa Tong [facility] [address],[place] [address] 12/08/2022 14:08:12 12/08/2022 14:26:07 Contraception care 574412595 Z30.40 [id number] [facility] [address],[place] [address] 03/03/2023 16:37:06 03/03/2023 17:52:02 Mixed anxiety and depressive disorder 326524979 F41.8 Discussed current medication regimen and worsening symptomsre commended psychiatri st management moving forward as current medication regimen is no longer working as well. Psychiatry can offer additional medication /dosing options. Psychiatry referral placed, she is going to continue current medication regimen - encouraged to f/u with PCP as well until psychiatrtaryn johnson appointmen t. Handout given on [facility] behavioral health urgent care - recommend going there as they offer immediate appointmen t with mental health provider and can manage medication s until psychiatri st is establishe d.Patient verbalized understand ing and is agreeable to this planprecau tions discussed (if thoughts of harming self or others need to call 911/seek help immediatel y) Time spent in visit is a total of 20 mins with at least 50% of visit consisting of counseling and review of plan of care. Contracept ion care management [id number] Z30.9 [id number] KYUNG Yi [facility] [address],[place] [address] 05/11/2024 12:45:50 05/16/2024 05:35:59 Gynecologic examination 48194396 Z01.419 WWEBC - Refills on Depo Provera sent, r/b/a reviewed (including risk of weight gain and possible bone density loss)Pap - done todaySTI screen - gc/ct/tric h testing added to papRoutine labs - PCPRTC in 1 yr or sooner if needed It is strongly advised to have an annual flu shot and up can obtain at most pharmacies . If you have not had a TDap shot in the last 10 years you should obtain one as well. Discussed with patient & provided with informatio n regarding the HPV vaccine if applicable . Encourage safe sexual practices, to use condoms and limit partners if not already in a monogamous relationsh ip. Do monthly self breast exams. BRCA testing is now available for patients with strong genetic history of female cancer. If interested contact the office. Engage in regular exercise. Avoid tobacco and illicit drugs. This lifestyle behavior pattern will lead to less health conditions and longer life span. If BMI greater than 25 dietary consult advised. Questions answered. 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 Screening procedure 2012 5006 Z13.9 Contraception care 43196 5005 Z30.40 Venereal d isease screening 841002256 Z11.3 Health Concerns Section Related Observation LastModified by Organization Detai ls LastModified Time None Recorded Concern Status LastModified by Organization Details LastModified Time None Recorded Advance Directives Directive N: Payers Encounter Date Sequence Insurance Name Policy Number Policy Drummond Covered Member ID Drummond Member ID Guarantor Name 06/24/2022 2 [place] [facility] Ninfa Rojas [id number] Ninfa Bob 06/24/2022 1 [employer] (PPO) [id number] Yosef Archery [id number] Ninfa Bob 12/08/2022 2 [place] [facility] Ninfa Rojas [id number] Ninfa Bob 12/08/2022 1 [employer] (PP[employer]) [id number] Yosef Archery [id number] Ninfa Bob 03/03/2023 1 [employer] ([place]) [id number] Yosef Bob [id number] Ninfa Bob 05/11/2024 2 [place] [facility] Ninfa Rojas [id number] Ninfa Bob 05/11/2024 1 [employer] ([place]) [id number] Yosef Bob [id number] Ninfa Bob Notes Date Note Type Note Provider Name and Address Organization Details Recorded Time 06/24/2022 text/html Annual GYNReport ed bypatient.Menstrual cycle:Normal menses (Light or no menses on Depo injection.) Urinary symptoms:No hematuria; No incontinence Vulva:No genital lesion Vagina:Normal vaginal discharge Breast:No breast pain; No breast lump; No nipple discharge Current Contraception:Satis fied with current contraception; Intramuscular contraceptive injection Sexual complaints:No sexual complaints; No pain during intercourse; Normal libido Menopausal Symptoms:No menopausal symptoms; Normal vaginal lubrication Psychological symptoms:Depression ;Anxiety; Today Ninfa expresses that she feels her medication that she has been on since age 13yo (Sertraline 200mg) is not managing her anxiety/depression as well as it has been; she is feeling more tearful, overwhelmed and easily fatigued; She Grace Nixon, [facility] [address], [place], [address], [facility] 06/29/2022 13:14:26 03/03/2023 text/html 22yo [id number] for worsening depression/anxiety symptomsDoes not feel like her current regimen for depression/anxiety is working as well as it did.She is currently taking sertraline 200mg with addition of Aripiprazole 10mg dailyfeeling increased sadness, worry, less motivationno current thoughts of harming self or others - however has felt indifferent about living in the past. States she would never harm herself or others, states she has never had a plan to induce self harm.she has a 1 yr old at home and a partner she lives withhas seen a psychiatrist in the past but did not continue with care d/t cost. Her PCP was managing her aripiprazole in the past but no longer sees a PCP. KYUNG Yi [address], [place], [address], [facility] 03/03/2023 17:38:19 05/11/2024 text/html Annual GYNReport ed bypatient.Menstrual cycle:Normal menses Urinary symptoms:No hematuria; No incontinence;Burnin g sensation during urination Vulva:No genital lesion Vagina:Foul-smellin g;Vaginal itching Breast:No breast pain; No breast lump; No nipple discharge Current Contraception:Intra muscular contraceptive injection Sexual complaints:No sexual complaints; No pain during intercourse; Normal libido Menopausal Symptoms:No menopausal symptoms; Normal vaginal lubrication Psychological symptoms:No depression; No anxiety; No PMDD Preventive measures:Encourage self breast examination; Encourage regular exercise; Encourage no tobacco use; Encourage regular mammograms starting age 40Notes:23yo wweBC - Depo Provera, has been getting from another office. Missed her last depo injection a few weeks ago. Likes this method of BC and would like to continue. Last IC was 2 months ago.urinary burning/frequencyva ginal odor/itching KYUNG Yi [address], [place], [address], [facility] 05/14/2024 12:48:17 OBGyn Episode Ob Episode Information Episode Created Date Number of Fetuses Patient Bloodtype Patient rh Status Prepregnancy Weight lbs Domestic Partner Domestic Partner Phone Father Name Respiratory Therapist Status 05/27/19 22 1 A Positive 165 CLOSED Fetus Data First Name Last Name Admitted to NICU Weight (g) Sex Living Outcome Pediatric Complications Fetus ID Race Codes Race Delivery Type 3543.68 75 F true Full Term [id number] Vaginal Delivery Problems Problem Notes Level II u/s only 10/07 - Per MFM, Cistera Magna is WNL!Umbilical Varicosity assoc. with hernia Problem Name Start Date End Date Resolution Snomed Code Not e Urinary tract infection in 346842095 Treat 05/29 frequent UTIs per pt Tobacco user [id number] trying to cut down/quit Mixed anxiety and depressive disorder 874365501 increase zoloft to 150, off abilify, buspar Marginal insertion of umbilical cord 09/02/2021 79096249 Serial growth Proteinuria 66704344 24 hour urine Umbilical hernia 122310689 Ass ociated varicosity that changes color as blood leaves and return, SARS-CoV-2 08/20/2021 784559577 ASA & se rial growth Migraine 04547110 Uncertain if there is aura, Glucose level outside reference range 287553876 Failed 1hr G TT - checking BS QID instead of 3hr GTT! Gestational diabetes mellitus 75677681 BS QID & antena khurram testing Darius Calculation Initial Darius Date Initial Exam Date Initial Exam Provider Initial Ultrasound Date Last Menstrual Period Date Ultra Sound Weeks Gestation 12/04/2021 05/26/2021 04/30/2021 02/27/2021 9 Eighteen To Twenty Week Darius Update Ultra Sound Date Fundal Height At Umbil Quickening Date Ultra Sound Latest Weeks Gestation Final Darius Confirmed By Final Darius Confirmed Date Final Darius Date Ultra Sound Latest Days Gestation 0 [email or web address] 05/26/2021 12/05/19 22 0 Pre-miesha Flowsheet Flowsheet Date 05/26/2021 Travis Score Blood Edema Fundus Height Fundus Units Glucose Ketones Leukocytes Nitrite Labor Signs Protein Cervic Dilation Cervic Effacement Cervic Station neg none none trace Type Weight in lbs Pre/Post Dialysis Refused Weight 162.709488483772 BP Diastolic BP Location Tested BP Systolic BP Type 79 117 Fetus Heart Rate Present A 140 Fetus Movement A No Comments Ninfa is a 20yo G1 at 12.4 for care. She has anxiety and depression that have gotten worse since stopping abilify. Will increase zoloft to 150 and start buspar. EPDS next visit. She is a smoker and has cut down from 1ppd to 1/2 ppd. We discussed the risks of smoking in and with a . Will try to cut down further and stop. US today normal NT. Labs and NIPT today. Discuss vaccines next visit. Flowsheet Date 06/25/2021 Travis Score Blood Edema Fundus Height Fundus Units Glucose Ketones Leukocytes Nitrite Labor Signs Protein Cervic Dilation Cervic Effacement Cervic Station Type Weight in lbs Pre/Post Dialysis Refused Weight 169.122957302558 BP Diastolic BP Location Tested BP Systolic BP Type 87 R arm 127 sitting Fetus Heart Rate Present Fetus Movement Comments discussed migraine, agreed i f Fioricet for migraine, patient has never had a detailed conversation about migraine with . She appears at migraine. Not sure if there is aura. There is some blurriness of vision Prior to migraine, no changes in sensation.. She has phonophobia and photophobia. She has 3 episodes per month. I offered her migraine treatment. We agreed to treat for nausea. She has have an nausea vomiting with certain odors is in meals. Flowsheet Date 07/31/2021 Travis Score Blood Edema Fundus Height Fundus Units Glucose Ketones Leukocytes Nitrite Labor Signs Protein Cervic Dilation Cervic Effacement Cervic Station Type Weight in lbs Pre/Post Dialysis Refused BP Diastolic BP Location Tested BP Systolic BP Type Fetus Heart Rate Present Fetus Movement Comments Flowsheet Date 07/31/2021 Travis Score Blood Edema Fundus Height Fundus Units Glucose Ketones Leukocytes Nitrite Labor Signs Protein Cervic Dilation Cervic Effacement Cervic Station 22 Type Weight in lbs Pre/Post Dialysis Refused Weight 172.287370314312 BP Diastolic BP Location Tested BP Systolic BP Type 72 R arm 107 sitting Fetus Heart Rate Present A 145 Fetus Movement Comments NO complaints, migraine TX w as effective. mood stable Flowsheet Date 08/31/2021 Travis Score Blood Edema Fundus Height Fundus Units Glucose Ketones Leukocytes Nitrite Labor Signs Protein Cervic Dilation Cervic Effacement Cervic Station 27 Type Weight in lbs Pre/Post Dialysis Refused Weight 182.831548696514 BP Diastolic BP Location Tested BP Systolic BP Type 79 R arm 121 sitting Fetus Heart Rate Present A 145 Fetus Movement Comments Evaluation of proteinuria-24 hour urine protein to start today, umbilical hernia was examined. She states that it changes colors. There is a varicosity over the umbilical hernia that seems to be cutaneous or shallow subcutaneous. Stable anxiety, migraine now will treated with Excedrin tension headache. Flowsheet Date 09/01/2021 Travis Score Blood Edema Fundus Height Fundus Units Glucose Ketones Leukocytes Nitrite Labor Signs Protein Cervic Dilation Cervic Effacement Cervic Station Type Weight in lbs Pre/Post Dialysis Refused BP Diastolic BP Location Tested BP Systolic BP Type Fetus Heart Rate Present Fetus Movement Comments Flowsheet Date 09/17/2021 Travis Score Blood Edema Fundus Height Fundus Units Glucose Ketones Leukocytes Nitrite Labor Signs Protein Cervic Dilation Cervic Effacement Cervic Station neg trace none trace Type Weight in lbs Pre/Post Dialysis Refused Weight 181.131202813837 BP Diastolic BP Location Tested BP Systolic BP Type 92 132 82 128 Fetus Heart Rate Present Fetus Movement A Yes Comments patient is having pressure, back pain and swelling. increase in depressive sxs, zoloft was working prior, no suicidal thoughts will increase to max dose of 200 mg daily currently at 150mg f/u med check next visit, Tdap ok, doing glucose today f/u growth next visit as scheduled Flowsheet Date 09/30/2021 Travis Score Blood Edema Fundus Height Fundus Units Glucose Ketones Leukocytes Nitrite Labor Signs Protein Cervic Dilation Cervic Effacement Cervic Station Type Weight in lbs Pre/Post Dialysis Refused BP Diastolic BP Location Tested BP Systolic BP Type Fetus Heart Rate Present Fetus Movement Comments Flowsheet Date 09/30/2021 Travis Score Blood Edema Fundus Height Fundus Units Glucose Ketones Leukocytes Nitrite Labor Signs Protein Cervic Dilation Cervic Effacement Cervic Station neg trace trace Type Weight in lbs Pre/Post Dialysis Refused Weight 182.896470857617 BP Diastolic BP Location Tested BP Systolic BP Type 70 107 Fetus Heart Rate Present Fetus Movement A Yes Comments patient is having some tende rness, pain and swelling. forgot bs log, will call this afternoon if rules in disc additional need for testing mild heriberto cisterna magna f/u 4 weeks or pending final read by dr gotti, precautions reviewed disc increase in proteins lost job worried about having enough baby items, signed up for [facility] 75% Flowsheet Date 10/01/2021 Travis Score Blood Edema Fundus Height Fundus Units Glucose Ketones Leukocytes Nitrite Labor Signs Protein Cervic Dilation Cervic Effacement Cervic Station Type Weight in lbs Pre/Post Dialysis Refused BP Diastolic BP Location Tested BP Systolic BP Type Fetus Heart Rate Present Fetus Movement Comments Flowsheet Date 10/07/2021 Travis Score Blood Edema Fundus Height Fundus Units Glucose Ketones Leukocytes Nitrite Labor Signs Protein Cervic Dilation Cervic Effacement Cervic Station neg none none trace Type Weight in lbs Pre/Post Dialysis Refused Weight 183.745976017428 BP Diastolic BP Location Tested BP Systolic BP Type 74 111 Fetus Heart Rate Present A 160 Fetus Movement A Yes Comments patient is having some co ntractions. ruled in GDM, reviewed lunches and ways to cut carbs and add protein, us today at [facility] report not yet available, reviewed risks of GDM including LGA, immature lung development, , precautions reviewed f/u shceduled Flowsheet Date 10/14/2021 Travis Score Blood Edema Fundus Height Fundus Units Glucose Ketones Leukocytes Nitrite Labor Signs Protein Cervic Dilation Cervic Effacement Cervic Station Type Weight in lbs Pre/Post Dialysis Refused Weight 186.280697582118 BP Diastolic BP Location Tested BP Systolic BP Type 84 123 Fetus Heart Rate Present Fetus Movement Comments Flowsheet Date 10/14/2021 Travis Score Blood Edema Fundus Height Fundus Units Glucose Ketones Leukocytes Nitrite Labor Signs Protein Cervic Dilation Cervic Effacement Cervic Station Type Weight in lbs Pre/Post Dialysis Refused BP Diastolic BP Location Tested BP Systolic BP Type Fetus Heart Rate Present Fetus Movement Comments Flowsheet Date 10/14/2021 Travis Score Blood Edema Fundus Height Fundus Units Glucose Ketones Leukocytes Nitrite Labor Signs Protein Cervic Dilation Cervic Effacement Cervic Station neg trace none trace Type Weight in lbs Pre/Post Dialysis Refused Weight 186.781214640609 BP Diastolic BP Location Tested BP Systolic BP Type 84 123 Fetus Heart Rate Present Fetus Movement A Yes Comments patient states that having s ome swelling. did not bring blood sugar log will have rn call, bpp 10/26 , reviewed precautions , preadmit scheduled, pt not with BF may not want in delivery room Flowsheet Date 10/21/2021 Travis Score Blood Edema Fundus Height Fundus Units Glucose Ketones Leukocytes Nitrite Labor Signs Protein Cervic Dilation Cervic Effacement Cervic Station Type Weight in lbs Pre/Post Dialysis Refused BP Diastolic BP Location Tested BP Systolic BP Type Fetus Heart Rate Present Fetus Movement Comments Flowsheet Date 10/21/2021 Travis Score Blood Edema Fundus Height Fundus Units Glucose Ketones Leukocytes Nitrite Labor Signs Protein Cervic Dilation Cervic Effacement Cervic Station Type Weight in lbs Pre/Post Dialysis Refused BP Diastolic BP Location Tested BP Systolic BP Type Fetus Heart Rate Present Fetus Movement Comments Flowsheet Date 10/21/2021 Travis Score Blood Edema Fundus Height Fundus Units Glucose Ketones Leukocytes Nitrite Labor Signs Protein Cervic Dilation Cervic Effacement Cervic Station neg trace none trace Type Weight in lbs Pre/Post Dialysis Refused Weight 188.891243531421 BP Diastolic BP Location Tested BP Systolic BP Type 82 123 Fetus Heart Rate Present Fetus Movement A Yes Comments patient is having BH contrac tions, vaginal pain, swelling legs. reviewed blood sugars some low in am talked about hypoglycemia, precautions reviewed bpp 10/26, preadmission scheduled Flowsheet Date 10/29/2021 Travis Score Blood Edema Fundus Height Fundus Units Glucose Ketones Leukocytes Nitrite Labor Signs Protein Cervic Dilation Cervic Effacement Cervic Station Type Weight in lbs Pre/Post Dialysis Refused BP Diastolic BP Location Tested BP Systolic BP Type Fetus Heart Rate Present Fetus Movement Comments Flowsheet Date 10/29/2021 Travis Score Blood Edema Fundus Height Fundus Units Glucose Ketones Leukocytes Nitrite Labor Signs Protein Cervic Dilation Cervic Effacement Cervic Station Type Weight in lbs Pre/Post Dialysis Refused BP Diastolic BP Location Tested BP Systolic BP Type Fetus Heart Rate Present Fetus Movement Comments Flowsheet Date 10/29/2021 Travis Score Blood Edema Fundus Height Fundus Units Glucose Ketones Leukocytes Nitrite Labor Signs Protein Cervic Dilation Cervic Effacement Cervic Station neg none none trace Type Weight in lbs Pre/Post Dialysis Refused Weight 192.195533282993 BP Diastolic BP Location Tested BP Systolic BP Type 81 125 Fetus Heart Rate Present Fetus Movement A Yes Comments patient is having some nause a and vomiting. did not bring blood sugars to visit. pt very upset about breech position. afraid of gave stretches to do at home, reviewed precautions, plan gbs at next visit with us Flowsheet Date 11/03/2021 Travis Score Blood Edema Fundus Height Fundus Units Glucose Ketones Leukocytes Nitrite Labor Signs Protein Cervic Dilation Cervic Effacement Cervic Station Type Weight in lbs Pre/Post Dialysis Refused BP Diastolic BP Location Tested BP Systolic BP Type Fetus Heart Rate Present Fetus Movement Comments Flowsheet Date 11/03/2021 Travis Score Blood Edema Fundus Height Fundus Units Glucose Ketones Leukocytes Nitrite Labor Signs Protein Cervic Dilation Cervic Effacement Cervic Station Type Weight in lbs Pre/Post Dialysis Refused BP Diastolic BP Location Tested BP Systolic BP Type Fetus Heart Rate Present Fetus Movement Comments Flowsheet Date 11/03/2021 Travis Score Blood Edema Fundus Height Fundus Units Glucose Ketones Leukocytes Nitrite Labor Signs Protein Cervic Dilation Cervic Effacement Cervic Station Type Weight in lbs Pre/Post Dialysis Refused Weight [id number] BP Diastolic BP Location Tested BP Systolic BP Type 89 R arm 131 sitting Fetus Heart Rate Present Fetus Movement Comments Reassuring testing , reasonable glucose values, most recent glucose numbers are not available Flowsheet Date 11/11/2021 Travis Score Blood Edema Fundus Height Fundus Units Glucose Ketones Leukocytes Nitrite Labor Signs Protein Cervic Dilation Cervic Effacement Cervic Station Type Weight in lbs Pre/Post Dialysis Refused BP Diastolic BP Location Tested BP Systolic BP Type Fetus Heart Rate Present Fetus Movement Comments Flowsheet Date 11/11/2021 Travis Score Blood Edema Fundus Height Fundus Units Glucose Ketones Leukocytes Nitrite Labor Signs Protein Cervic Dilation Cervic Effacement Cervic Station Type Weight in lbs Pre/Post Dialysis Refused BP Diastolic BP Location Tested BP Systolic BP Type Fetus Heart Rate Present Fetus Movement Comments Flowsheet Date 11/11/2021 Travis Score Blood Edema Fundus Height Fundus Units Glucose Ketones Leukocytes Nitrite Labor Signs Protein Cervic Dilation Cervic Effacement Cervic Station neg none none trace Type Weight in lbs Pre/Post Dialysis Refused Weight [id number] BP Diastolic BP Location Tested BP Systolic BP Type 83 121 Fetus Heart Rate Present Fetus Movement A Yes Comments patient is having some pain, discharge and BH contractions. bpp 10/28, rpt nst tuesday, blood sugars are in good control IOL for 10/27 cervadil at 39 weeks Flowsheet Date 11/13/2021 Travis Score Blood Edema Fundus Height Fundus Units Glucose Ketones Leukocytes Nitrite Labor Signs Protein Cervic Dilation Cervic Effacement Cervic Station Type Weight in lbs Pre/Post Dialysis Refused BP Diastolic BP Location Tested BP Systolic BP Type Fetus Heart Rate Present Fetus Movement Comments Flowsheet Date 11/18/2021 Travis Score Blood Edema Fundus Height Fundus Units Glucose Ketones Leukocytes Nitrite Labor Signs Protein Cervic Dilation Cervic Effacement Cervic Station Type Weight in lbs Pre/Post Dialysis Refused BP Diastolic BP Location Tested BP Systolic BP Type Fetus Heart Rate Present Fetus Movement Comments Flowsheet Date 11/18/2021 Travis Score Blood Edema Fundus Height Fundus Units Glucose Ketones Leukocytes Nitrite Labor Signs Protein Cervic Dilation Cervic Effacement Cervic Station Type Weight in lbs Pre/Post Dialysis Refused BP Diastolic BP Location Tested BP Systolic BP Type Fetus Heart Rate Present Fetus Movement Comments Flowsheet Date 11/18/2021 Travis Score Blood Edema Fundus Height Fundus Units Glucose Ketones Leukocytes Nitrite Labor Signs Protein Cervic Dilation Cervic Effacement Cervic Station neg trace none trace Type Weight in lbs Pre/Post Dialysis Refused Weight 194.686124788190 BP Diastolic BP Location Tested BP Systolic BP Type 75 118 Fetus Heart Rate Present Fetus Movement A Yes Comments patient states t hat having some swelling. bpp 8/8 doing well desires induction of labor at 39 weeks forgot blood sugar log will have rn call Flowsheet Date 11/25/2021 Travis Score Blood Edema Fundus Height Fundus Units Glucose Ketones Leukocytes Nitrite Labor Signs Protein Cervic Dilation Cervic Effacement Cervic Station Type Weight in lbs Pre/Post Dialysis Refused BP Diastolic BP Location Tested BP Systolic BP Type Fetus Heart Rate Present Fetus Movement Comments Flowsheet Date 11/25/2021 Travis Score Blood Edema Fundus Height Fundus Units Glucose Ketones Leukocytes Nitrite Labor Signs Protein Cervic Dilation Cervic Effacement Cervic Station Type Weight in lbs Pre/Post Dialysis Refused BP Diastolic BP Location Tested BP Systolic BP Type Fetus Heart Rate Present Fetus Movement Comments Flowsheet Date 11/25/2021 Travis Score Blood Edema Fundus Height Fundus Units Glucose Ketones Leukocytes Nitrite Labor Signs Protein Cervic Dilation Cervic Effacement Cervic Station neg trace none trace Type Weight in lbs Pre/Post Dialysis Refused Weight 195.258680933179 BP Diastolic BP Location Tested BP Systolic BP Type 70 114 Fetus Heart Rate Present Fetus Movement A Yes Comments patient is having contractio ns and swelling. bpp /, sugar this am in 30's with zamudio, hypoglycemia reviewed, plan iol at 39 weeks, precautions reviewed Menstrual History Last Menstrual Date Menses Monthly On Bcp Conception Prior Menses Frequency Hcg Plus Date Menarche Onset Age 1202/27/2021 Genetic Screening And Infection History Question Response Note Mental Retardation/Autism false Patient's Age Will Be 35 Years Or Older At Estim ated Date of Delivery false Thalassemia (Finnish, Mongolian, Mediterranean, Or Background): MCV < 80 false Neural Tube Defect (Meningomyelocele, Spina Bifi da, Or Anencephaly) false Congenital Heart Defect false Down Syndrome false Kayode-Sachs (eg, Mosque, Cajun, Turkmen-Bahraini) f alse Britta Disease false Sickle Cell Disease Or Trait () false Hemophilia Or Other Blood Disorders false Muscular Dystrophy false Cystic Fibrosis false Byron's Chorea false Intellectual Disability/Autism false If Yes, Was Person Tested For Fragile X? false Other Inherited Genetic Or Chromosomal Disorder false Maternal Metabolic Disorder (eg, Type 1 Diabetes , PKU) false Patient Or Baby's Father Had A Child With Defects Not Listed Above false Recurrent Loss, Or A Stillbirth false Medications (including Suppl ements, Vitamins, Herbs, OTC Drugs), Illicit/Recreational Drugs, Alcohol true If Yes, Agent(s) And Strength/Dosage false Any Other Genetic History false Live With Someone With TB Or Exposed To TB false Patient Or Partner Has History Of Genital Herpes false Rash Or Viral Illness Since Last Menstrual Perio d false History Of STD, Gonorrhea, Chlamydia, HPV, Syphi lis false Other Infection History false History of HIV false History of Hepatitis false Prior GBS-infected child false Hemoglobinopathy Or Carrier false Other Structural Defect false Recent Travel History Outside of Country false Delivery Information Delivery Date Delivery Type Labor Anesthesia Weeks Gestation Incision Type Labor Labor Length Hrs Delivered By Post Complications Tubal Sterilization Discharge Date Comments 2 Induce d Regional-Ep idural 39.3 false Debi [place] CNM GDM Discharge Information Feeding Method Contraceptive Method Maternal HG B and HCT Levels
--- OUTSIDE RECORDS SUMMARY | 2024-05-30 16:21 | XMS_ITS | Clinical Summary ---
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
== END 2024-05-30 14:35 | disposition home or self-care (01) ==
PROVIDERS: Emergency Provider Internal Medicine Critical Care Medicine; PCP Physician Assistant
DX: K02.9 Dental caries, unspecified (principal); I10 Essential (primary) hypertension; F17.210 Nicotine dependence, cigarettes, uncomplicated
CPT/HCPCS: 99283

== ENCOUNTER 2024-08-06 19:34 | Emergency (ER) | payer OTHER, SELFPAY ==
--- OUTSIDE RECORDS SUMMARY | 2024-08-06 19:37 | XMS_ITS | Clinical Summary ---
Author Organization [facility] Address [facility] [place] [address] Care Team Providers Care Chief Business Development Officer Name Role Phone Quinn Rios MD Primary Care Provider [phone]- [phone] Allergies No known active allergies Medications sertraline (ZOLOFT) 100 MG tablet Take 200 mg by mouth daily. 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 Gender Identity Not on file Sexual Orientation [...] 5 Years) and At-Risk Patients (6 to 49 Years) (1 of 2 - PCV) 11/18/2019 DTaP, Tdap and Td Vaccines (7 - Td or Tdap) 11/14/2021 11/15/2011, 10/20/2005, 03/01/2002, Additional history exists Chlamydia Screening Females ages 16-24 06/25/2023 06/24/2022, 04/30/2021 COVID-19 Vaccine ( season) 2023 02/05/2021, 01/08/2021 Cervical Cancer Screening Pap Smear (Age 21 [...] age to complete this topic Insurance MEDICAID [address] [place], [place] [id number] Care Teams Chief Business Development Officer Relationship Specialty Start Date End Date Quinn Rios MD [address] [place] [id number] PCP - General CABLE RESPOOLER ONCOLOGY 10/28/21
--- OUTSIDE RECORDS SUMMARY | 2024-08-06 19:37 | XMS_ITS | Data Portability ---
Author Organization [facility] Address [address] [place] [address] Care Team Providers Care [employer] Founder Name Role Phone AJ MOFFETT Primary Care Provider [phone] Assessment No assessment recorded. Plan of Treatment Reminders Order Date Submit Date Provider Last Modified By Organization Details Last Modified Time Details Appointments None recorded. Lab influenza virus A + B + SARS-CoV-2 (COVID19) Ag panel, rapid IA, upper respiratory specimen 2024 025 [email or web address] In-Office Order, Internal Use Only DO Not Attach Compendium DO Not Attach Compendium, Do Not Delete/merge, [id number] 5 12:31:08 influenza virus A + B + SARS-CoV-2 (COVID19) Ag panel, rapid IA, upper respiratory specimen 2023 024 [email or web address] In-Office Order, Internal Use Only DO Not Attach Compendium DO Not Attach Compendium, Do Not Delete/merge, [id number] 4 17:37:32 Referral None recorded. Procedures None recorded. Surgeries None recorded. Imaging None recorded. Medication Orders neomycin-po lymyxin-hyd rocort 3.5 mg-10,000 unit/mL-1 % ear drops,susp 2024 025 [facility] #[id number], [address] [place], [address], 5 14:22:16 ondansetron 4 mg disintegrat ing tablet 2024 025 [facility] #[id number], [address] [place], [address], 5 11:40:45 gabapentin 100 mg capsule 2024 025 [id number] [address] [place], [address], 5 16:45:07 amoxicillin 875 mg tablet 2024 025 [id number], [address] [place], [address], 5 11:23:34 sumatriptan 50 mg tablet 2024 025 [id number] [address] [place], [address], 5 16:45:08 azithromyci n 500 mg tablet 2023 024 [id number] [address] [place], [address], 5 16:32:45 Medrol (Mart) 4 mg tablets in a dose pack 2023 024 [id number] [address] [place], [address], 5 16:32:41 medroxyprog esterone 150 mg/mL intramuscul ar suspension 2023 024 [email or web address] Not available 17:23:46 Patient TargetsNo targets recorded. Patient Instructions Encounter Date Encounter Id Patient Instructions Last Modified By Organization Details Last Modified Time 03/19/2024 [id number] A healthy lifestyle: care instructions [email or web address] Not available 03/19/2024 17:37:31 upper respirator y infection (cold): care instructions [email or web address] Not available 03/19/2024 17:37:31 03/27/2024 [id number] tooth and gum pain: care instructions [email or web address] Not available 03/27/2024 16:45:01 A healthy lifestyle: care instructions anney Not available 03/27/2024 16:45:01 05/11/2024 [id number] A healthy lifestyle: care instructions jnanney Not available 05/11/2024 11:40:44 nausea and vomiting: care instructions jnanney Not available 05/11/2024 12:31:08 06/25/2024 [id number] A healthy lifestyle: care instructions anney Not available 06/25/2024 14:22:30 Reason for Referral None Reported. Results Created Date Observation Date Name Description Value Unit Range Abnormal Flag Note LastModifiedBy Organization Detail LastModifiedTime 01/10/2001/12/2024 LIPID PANEL cholesterol, total 164 mg/dL 100-19 9 Not Available [address], [address], 01/12/2024 10:14:59 01/10/2001/12/2024 LIPID PANEL triglyceride s 135 mg/dL 0-149 Not Available [address], [address], 01/12/2024 10:14:59 01/10/2001/12/2024 LIPID PANEL HDL cholesterol 32 mg/dL >39 below low normal Not Available [address], [address], 01/12/2024 10:14:59 01/10/2001/12/2024 LIPID PANEL VLDL cholesterol pierre 24 mg/dL 5-40 Not Available [address], [address], 01/12/2024 10:14:59 01/10/2001/12/2024 LIPID PANEL LDL chol calc ([facility]) 108 mg/dL 0-99 above high normal Not Available [address], [address], 01/12/2024 10:14:59 01/10/2001/12/2024 COMP. METAB OLIC PANEL (14) glucose 86 mg/dL 70-99 Not Available [address], [address], 01/12/2024 10:15:00 01/10/2001/12/2024 COMP. METAB OLIC PANEL (14) BUN 12 mg/dL 6-20 Not Available [address], [address], 01/12/2024 10:15:00 01/10/2001/12/2024 COMP. METAB OLIC PANEL (14) creatinine 0.86 mg/dL 0.57-1 .00 Not Available [address], [address], 01/12/2024 10:15:00 01/10/2001/12/2024 COMP. METAB OLIC PANEL (14) eGFR 97 mL/mi n/1.7 3 >59 Not Available [address], [address], 01/12/2024 10:15:00 01/10/2001/12/2024 COMP. METAB OLIC PANEL (14) BUN/creatini ne ratio 14 9-23 Not Available [address], [address], 01/12/2024 10:15:00 01/10/2001/12/2024 COMP. METAB OLIC PANEL (14) sodium 141 mmol/ L 134-14 4 Not Available [address], [address], 01/12/2024 10:15:00 01/10/2001/12/2024 COMP. METAB OLIC PANEL (14) potassium 4.1 mmol/ L 3.5-5. 2 Not Available [address], [address], 01/12/2024 10:15:00 01/10/2001/12/2024 COMP. METAB OLIC PANEL (14) chloride 106 mmol/ L 96-106 Not Available [address], [address], 01/12/2024 10:15:00 01/10/2001/12/2024 COMP. METAB OLIC PANEL (14) carbon dioxide, total 22 mmol/ L 20-29 Not Available [address], [address], 01/12/2024 10:15:00 01/10/2001/12/2024 COMP. METAB OLIC PANEL (14) calcium 9.4 mg/dL 8.7-10 .2 Not Available [address], [address], 01/12/2024 10:15:00 01/10/2001/12/2024 COMP. METAB OLIC PANEL (14) protein, total 6.9 g/dL 6.0-8. 5 Not Available [address], [address], 01/12/2024 10:15:00 01/10/2001/12/2024 COMP. METAB OLIC PANEL (14) albumin 4.6 g/dL 4.0-5. 0 Not Available [address], [address], 01/12/2024 10:15:00 01/10/2001/12/2024 COMP. METAB OLIC PANEL (14) globulin, total 2.3 g/dL 1.5-4. 5 Not Available [address], [address], 01/12/2024 10:15:00 01/10/2001/12/2024 COMP. METAB OLIC PANEL (14) bilirubin, total 0.2 mg/dL 0.0-1. 2 Not Available [address], [address], 01/12/2024 10:15:00 01/10/2001/12/2024 COMP. METAB OLIC PANEL (14) alkaline phosphatase 122 IU/L 44-121 above high normal Not Available [address], [address], 01/12/2024 10:15:00 01/10/2001/12/2024 COMP. METAB OLIC PANEL (14) AST (SGOT) 14 IU/L 0-40 Not Available [address], [address], 01/12/2024 10:15:00 01/10/2001/12/2024 COMP. METAB OLIC PANEL (14) ALT (SGPT) 16 IU/L 0-32 Not Available [address], [address], 01/12/2024 10:15:00 01/10/2001/12/2024 CARDI OVASC ULAR REPOR T interpretati on Note Suppl ement al repor t is avail able. Not Available [address], [address], 01/12/2024 10:15:00 01/10/2001/12/2024 CARDI OVASC ULAR REPOR T pdf . Not Available [address], [address], 01/12/2024 10:15:00 01/10/2001/12/2024 CBC, PLATE LET, NO DIFFE RENTI AL WBC 8.0 x10e3 /uL 3.4-10 .8 Not Available [address], [address], 01/12/2024 10:15:01 01/10/2001/12/2024 CBC, PLATE LET, NO DIFFE RENTI AL RBC 4.46 x10e6 /uL 3.77-5 .28 Not Available [address], [address], 01/12/2024 10:15:01 01/10/2001/12/2024 CBC, PLATE LET, NO DIFFE RENTI AL hemoglobin 13.4 g/dL 11.1-1 5.9 Not Available [address], [address], 01/12/2024 10:15:01 01/10/2001/12/2024 CBC, PLATE LET, NO DIFFE RENTI AL hematocrit 40.7 % 34.0-4 6.6 Not Available [address], [address], 01/12/2024 10:15:01 01/10/2001/12/2024 CBC, PLATE LET, NO DIFFE RENTI AL MCV 91 fL 79-97 Not Available [address], [address], 01/12/2024 10:15:01 01/10/2001/12/2024 CBC, PLATE LET, NO DIFFE RENTI AL MCH 30.0 pg 26.6-3 3.0 Not Available [address], [address], 01/12/2024 10:15:01 01/10/2001/12/2024 CBC, PLATE LET, NO DIFFE RENTI AL MCHC 32.9 g/dL 31.5-3 5.7 Not Available [address], [address], 01/12/2024 10:15:01 01/10/20 24 01/12/2024 CBC, PLATE LET, NO DIFFE RENTI AL RDW 12.3 % 11.7-1 5.4 Not Available [facility] [address] [place], [address], 01/12/2024 10:15:01 01/10/20 24 01/12/2024 CBC, PLATE LET, NO DIFFE RENTI AL platelets 223 x10e3 /uL 150-45 0 Not Available [address], [address], 01/12/2024 10:15:01 03/19/20 24 03/19/2024 influ nehemiah virus A + B + SARS- CoV-2 (COVI D19) Ag panel , rapid IA, upper respi rator y speci men Flu A negati ve Not Available In-Office Order Internal Use Only DO Not Attach Compendium DO Not Attach Compendium, Do Not Delete/merge, [id number] 03/19/2024 17:14:52 03/19/20 24 03/19/2024 influ nehemiah virus A + B + SARS- CoV-2 (COVI D19) Ag panel , rapid IA, upper respi rator y speci men Flu B negati ve Not Available In-Office Order Internal Use Only DO Not Attach Compendium DO Not Attach Compendium, Do Not Delete/merge, [id number] 03/19/2024 17:14:52 03/19/20 24 03/19/2024 influ nehemiah virus A + B + SARS- CoV-2 (COVI D19) Ag panel , rapid IA, upper respi rator y speci men Rapid SARS CoV 2 Ag, QL IA, respiratory specimen negati ve Not Available In-Office Order Internal Use Only DO Not Attach Compendium DO Not Attach Compendium, Do Not Delete/merge, [id number] 03/19/2024 17:14:52 05/11/19 25 05/11/2024 influ nehemiah virus A + B + SARS- CoV-2 (COVI D19) Ag panel , rapid IA, upper respi rator y speci men Flu A negati ve Not Available In-Office Order Internal Use Only DO Not Attach Compendium DO Not Attach Compendium, Do Not Delete/merge, [id number] 05/11/2024 11:28:30 05/11/19 25 05/11/2024 influ nehemiah virus A + B + SARS- CoV-2 (COVI D19) Ag panel , rapid IA, upper respi rator y speci men Flu B negati ve Not Available In-Office Order Internal Use Only DO Not Attach Compendium DO Not Attach Compendium, Do Not Delete/merge, [id number] 05/11/2024 11:28:30 05/11/19 25 05/11/2024 influ nehemiah virus A + B + SARS- CoV-2 (COVI D19) Ag panel , rapid IA, upper respi rator y speci men Rapid SARS CoV 2 Ag, QL IA, respiratory specimen negati ve Not Available In-Office Order Internal Use Only DO Not Attach Compendium DO Not Attach Compendium, Do Not Delete/merge, [id number] 05/11/2024 11:28:30 03/19/20 24 03/18/2024 XR, chest [facility] [address] [place], [address], 03/19/2024 09:26:56 Result Notes None recorded. Problems Name Problem SNOMED Code Status Onset Date Resolution Date Notes Provider Name and Address Organization Details Recorded Time Knee pain Active 2017 Not Available [facility] 0 01:53:12 Headache 04435295 Active 2017 Not Available [facility] 0 01:53:12 Contraception care Active 2019 Not Available [facility] 0 01:53:12 Viral syndrome 446726283 Active 2020 Nacho Hadley [employer]LL[employer] INSTRUCTORGayatriC Attn: Accounting ,[address] [place], [address] , [place] [facility] 1 10:19:31 Fatigue 78284207 Active 2020 Nacho PAINTINGC Attn: Accounting ,[address] [place], [address] , [facility] 1 17:10:07 Vaginal discharge 671540688 Active 2020 Nacho Hadley [employer] WELLNESS INSTRUCTOR-C Attn: Accounting ,[address] [place], [address] , [facility] 1 17:10:38 Amenorrhea 42919513 Active 2020 Nacho Hadley [employer] WELLNESS INSTRUCTOR-C Attn: Accounting ,[address] [facility], [place], [address] , [facility] 1 17:11:28 test positive 911034761 Active 2021 Nacho Hadley [employer] WELLNESS INSTRUCTOR-C Attn: Accounting ,[address] [place], [address] , [facility] 2 15:29:06 Depressive disorder 17758231 Active Not Available [facility] 0 01:53:11 Ingrowing nail 051911024 Active Not Available [facility] 0 01:53:12 Problem Notes None recorded. Procedures Surgical History Date Name Laterality Status Provider Name and Address Organization Details Recorded Time 2 Date of Last Pap Smear completed Aj Moffett PA-C Attn: Accounting,[address] [place], [address], [facility] 12/31/2021 16:03:16 9 Toenail avulsion completed Nacho PAINTINGC Attn: Accounting,[address] [place], [address], [place] [facility] 03/27/2018 09:28:02 6 Toenail avulsion completed Nacho Hadley NP-C Attn: Accounting,[address] [place], [address], [facility] 05/08/2015 22:13:50 Imaging Results Imaging Date Name Status LastModified by Organiz ation Details LastModified Time 03/18/2024 [facility] [address] [place], [address], 03/19/2024 09:26:56 Procedure Notes None recorded. Medical [...] injection Take 1 mL by injection route. 08/22/ 2024 10/22 /2024 completed Not Available Not Available Not Available [...] completed Not Available Not Available Not Available neomycin-po lymyxin-hyd rocort 3.5 mg-10,000 unit/mL-1 % ear drops,susp INSTILL 4 DROPS INTO AFFECTED EAR(S) BY OTIC ROUTE 3 TIMES PER DAY 2024 active Not Available Not Available Not Avai lable hydrocortis one 1 % topical cream with [...] Not Available Not Available Not Available [employer]Style [place] Lite kit CHECK BLOOD SUGAR 4 TIMES A DAY 12/31 completed Not Available Not Available Not Available butalbital- acetaminoph en-caffeine 50 mg-300 mg-40 mg capsule TAKE 1 CAPSULE BY MOUTH EVERY 8 HOURS NEEDED 12/31 completed Not Available Not Available Not Available Karen 0.25 mg-0.035 mg tablet TAKE 1 TABLET BY MOUTH EVERY DAY 03/18 completed Not Available Not Available Not Available Vitals Date Recorded Body height Body mass index (BMI) Body weight Oxygen saturation Oxygen saturation in Arterial blood by Pulse oximetry Heart rate Systolic blood pressure Diastolic blood pressure Provider Name and Address Organization Details Last Updated DateTime 4 171.45 cm 30 kg/m2 84019.0 2 g 96 % 96 % 101 /min 145 mm[Hg] 91 mm[Hg] Danae Dunn MA [facility] 4 17:02:30 Date Recorded Body height Body mass index (BMI) Body weight Oxygen saturation Oxygen saturation in Arterial blood by Pulse oximetry Heart rate Systolic blood pressure Diastolic blood pressure Provider Name and Address Organization Details Last Updated DateTime 5 171.45 cm 29.9 kg/m2 95131.9 2 g 98 % 98 % 83 /min 141 mm[Hg] 91 mm[Hg] Danae Dunn MA [facility] 5 16:34:57 Date Recorded Body height Body mass index (BMI) Body weight Oxygen saturation Oxygen saturation in Arterial blood by Pulse oximetry Heart rate Respiratory rate Body temperature Systolic blood pressure Diastolic blood pressure Provider Name and Address Organization Details Last Updated DateTime 5 171.45 cm 30.9 kg/m2 32485.4 7 g 98 % 98 % 95 /min 16 /min 98.9 [degF] 122 mm[Hg] 84 mm[Hg] Zari Tobin MA [facility] 5 11:26:20 Date Recorded Body height Body mass index (BMI) Body weight Oxygen saturation Oxygen saturation in Arterial blood by Pulse oximetry Heart rate Respiratory rate Systolic blood pressure Diastolic blood pressure Provider Name and Address Organization Details Last Updated DateTime 5 171.45 cm 30.6 kg/m2 97163.0 1 g 97 % 97 % 102 /min 16 /min 118 mm[Hg] 78 mm[Hg] Zari Tobin MA [facility] 5 14:08:02 Social History Question Answer Notes LastModified by Organizat ion Details LastModified Time Tobacco Smoking Status Current Every Day Smoker Claribel Katz LPN [facility], [facility] 03/18/2021 16:23:56 Do You Have An Advance Directive? No Information not available 03/18/2021 Are You Blind [...] No Information not available 03/18/2021 Are You Deaf Or Do You Have Serious Difficulty Hearing? No Information not available 03/18/2021 What Type Of Diet Are You Following? REGULAR Information not available 03/18/2021 What Is Your Home Situation? Other Boyfriend Information not available 12/31/2021 What Was The Date Of Your Most Recent Tobacco Screening? 06/25/2024 Information not available 06/25/2024 Do You Use Protection During Sex? No Information not available 03/18/2021 What Is Your Relationship Status? Single Information not available 03/18/2021 Are You Sexually Active? Yes Information not available 03/18/2021 Do You Have Smoke And Carbon Monoxide Detectors In Your Home? Yes Information not available 12/31/2021 Are You Passively Exposed To Smoke? Yes Information no t available 12/31/2021 How Much Tobacco Do You Smoke? 1 PPD Information not available 03/29/2022 Has Tobacco Cessation Counseling Been Provided? Yes Information not available 04/26/2022 On What Date Was Tobacco Cessation Counseling Provided? 06/25/2024 Information not available 06/25/2024 Sex: Female Functional Status Question Answer Note LastModified by Organizat ion Details LastModified Time Do you use any illicit or recreational drugs? No Information not available 03/18/2021 Do you or have you ever used any other forms of tobacco or nicotine? No Information not available 03/18/2021 What is your level of alcohol consumption? None Information not available 03/18/2021 Are you currently employed? Yes Information not available 03/29/2022 Are you able to care for yourself? Yes Information not available 03/18/2021 What is your occupation? [employer] Information not available 03/29/2022 What is your exercise level? Occasional Information not available 03/18/2021 Mental Status Question Answer Note LastModified by Organization D etails LastModified Time Do you feel stressed (tense, restless, nervous, or anxious, or unable to sleep at night)? [id number] Information not available 04/26/2022 Family History Relationship Description Onset Age of this Age Resolved Age Notes LastModified by Organization Details LastModified Time Mother Migraine [id number] Not availabl e 05/02/2015 11:10:56 Maternal Aunt Malignant tumor of breast [id number] Not available 2015 11:10:56 Medical History Condition Response Coronary Artery Disease N Other N Atrial Fibrillation N High Blood Pressure N Depression Y COPD N Blood Clots N Anxiety Disorder Y Muscle, Joint, or Bone Problems N Acid Reflux (GERD) N Cancer N Stroke N [id number]|2024-08-06 20:16:00|2024-08-06 20:16:00|XMS_ITS|BKG DAEMON|External Medical Summaries|[id number]|" Clinical Summary Created on: August 06, 2024 Ninfa Rojas : 2000 Sex: Female Author Organization 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
--- OUTSIDE RECORDS SUMMARY | 2024-08-06 19:37 | XMS_ITS | Data Portability ---
Author Organization [facility] Address [address] [place] [address] [place] [address] Assessment Encounter Date Assessment Date Assessment LastModified by Organization Details LastModified Time 06/24/2022 06/24/2022 Annual gynecological exam performed. Patient will come back in a year unless there are new symptoms. [email or web address] Not available 06/24/2022 16:39:00 Plan of Treatment Reminders Order Date Submit Date Provider Last Modified By Organization Details Last Modified Time Details Appointments None recorded. Lab test, urine 2024 025 [email or web address] [place] [facility] [address], [address], [place], [address], 5 13:22:23 Referral psychiatris t referral 2022 023 [facility], [address] [facility], [address], [address], 4 15:13:15 psychiatris t referral 2022 023 [facility] Florentin Ervin [facility], [address] [facility] [address], [address], [place], [address], 3 17:03:11 Procedures None recorded. Surgeries None recorded. Imaging None recorded. Medication Orders fluconazole 150 mg tablet 2024 025 [facility], [facility], [place], [address], 5 13:14:09 metronidazo le 0.75 % (37.5 mg/5 gram) vaginal gel 2024 025 [facility], [address] [place] [address], [address], 5 13:14:34 Macrobid 100 mg capsule 2024 025 [facility], [address] [place] [address], [address], 5 13:13:48 Depo-Polls Or Surveys Interviewer a 150 mg/mL intramuscul ar suspension 2024 025 [email or web address] 1 Not available 5 18:56:10 Depo-Polls Or Surveys Interviewer a 150 mg/mL intramuscul ar syringe 2024 025 [email or web address] 1 Not available 5 18:55:59 Depo-Polls Or Surveys Interviewer a 150 mg/mL intramuscul ar suspension 2022 023 [email or web address] 4 Not available 3 18:06:02 Depo-Polls Or Surveys Interviewer a 150 mg/mL intramuscul ar suspension 2022 023 [email or web address] Not available 3 14:26:00 Depo-Polls Or Surveys Interviewer a 150 mg/mL intramuscul ar syringe 2022 023 [facility][id number], [address] [place], [address], 3 17:05:00 aripiprazol e 10 mg tablet 2022 023 [email or web address] [facility] #[id number], [address] [place], [address], 3 13:35:14 Patient TargetsNo targets recorded. Patient InstructionsNo instructions recorded. Reason for Referral Psychiatrist Referral for [place] xed anxiety and depressive disorder Referring Physician: Grace Nixon, BENEFIT DIRECTOR, Encounter Date: 06/24/2022 Psychiatrist Referral for [place] xed anxiety and depressive disorder Referring Physician: Ya Mauricio, BENEFIT DIRECTOR, Encounter Date: 03/03/2023 Results Created Date Observation Date Name Description Value Unit Range Abnormal Flag Note LastModifiedBy Organization Detail LastModifiedTime 09/18/1909/17/2022 pregn jayy test, urine HCG negati ve Not Available [place] [address], [place], [address], 09/17/2022 14:34:32 05/11/19 25 05/11/2024 pregn jayy test, urine HCG negati ve Not Available [place] [address], [place], [address], 05/11/2024 13:22:09 Result Notes None recorded. Problems Name Problem SNOMED Code Status Onset Date Resolution Date Notes Provider Name and Address Organization Details Recorded Time Pregnanc y 34908636 Completed 202112/18/2021 Sarai Schwartz null, [facility] 2 16:03:40 Tobacco user 813251993 Completed trying to cut down/trevon t Sarai Schwartz hl null, [facility] 2 16:03:30 Mixed anxiety and depressi ve disorder 598385343 Completed increase zoloft to 150, off abilify, buspar Sarai Schwartz hl null, [facility] 2 16:03:30 Tobacco user 963369820 Active trying to cut down/trevon t Not Available [facility] 2 09:25:27 Mixed anxiety and depressi ve disorder 202713834 Active increase zoloft to 150, off abilify, buspar Not Available [facility] 2 09:25:26 Urinary tract infectio n in pregnanc y 297772105 Completed Treat 05/29 frequent UTIs per pt Sarai Schwartz hl null, [facility] 2 16:03:30 Migraine 17333025 Completed Uncertai n if there is aura, Sarai schulz null, [facility] 2 16:03:30 SARS-CoV -2 Completed 2021 ASA & serial growth Sarai Schwartz null, [facility] 2 16:03:30 Proteinu tracie 15617479 Completed 24 hour urine Sarai Schwartz null, [facility] 2 16:03:30 Umbilica l hernia 384939686 Completed Associat ed varicosi ty that changes color as blood leaves and return, Sarai schulz null, [facility] 2 16:03:30 Marginal insertio n of umbilica l cord 45559925 Completed 2021 Serial growth Sarai Schwartz null, [facility] 2 16:03:30 Glucose level outside referenc e range 468108177 Completed Failed 1hr GTT - checking BS QID instead of 3hr GTT! Sarai schulz null, [facility] 2 16:03:30 Gestatio nal diabetes mellitus 17515620 Completed BS QID & antenata l testing Sarai Schwartz [facility], [facility] 2 16:03:30 Problem Notes None recorded. Procedures Surgical History Date Name Laterality Status Provider Name and Address Organization Details Recorded Time 06/24/2022 Date of Last Pap Smear completed TATYANA Weston [facility] 05/11/2024 09:29:41 Imaging Results None recorded. [...] completed Not Available Not Available Not Available Depo-Polls Or Surveys Interviewer a 150 mg/mL intramuscul ar syringe Inject [...] Not Available Not Available Not Available FreeStyle [place] Lite kit CHECK BLOOD SUGAR 4 TIMES A DAY 05/11 completed Not Available Not Available Not Available butalbital- acetaminoph en-caffeine 50 mg-300 mg-40 mg capsule 1 tablet every 8 hours as needed 09/17 completed Not Available Not Available Not Available Karen 0.25 mg-0.035 mg tablet 04/29 completed Not Available Not Available Not Available Vitals Date Recorded Body height Body mass index (BMI) Body weight Systolic blood pressure Diastolic blood pressure Provider Name and Address Organization Details Last Updated DateTime 06/24/2022 170.18 cm 29.3 kg/m2 13841.77 g 120 mm[Hg] 82 mm[Hg] Kelly Queen [facility] 3 16:39:11 Date Recorded Body height Provider Name an d Address Organization Details Last Updated DateTime 09/17/2022 170.18 cm Radha Lemus [facility] 09/17/2022 14:35:25 Date Recorded Body height Body mass index (BMI) Body weight Systolic blood pressure Diastolic blood pressure Provider Name and Address Organization Details Last Updated DateTime 03/03/2023 170.18 cm 29.4 kg/m2 12435.37 g 128 mm[Hg] 82 mm[Hg] Val Laura [facility] 3 16:40:56 Date Recorded Body height Body mass index (BMI) Body weight Systolic blood pressure Diastolic blood pressure Provider Name and Address Organization Details Last Updated DateTime 05/11/2024 170.18 cm 31.5 kg/m2 94573.07 g 135 mm[Hg] 89 mm[Hg] TATYANA Weston [facility] 5 12:58:54 Social History Question Answer Notes LastModified by Organizat ion Details LastModified Time Tobacco Smoking Status Current Every Day Smoker Zoya villa, [facility] 09/17/2021 11:57:46 Do You Have An Advance Directive? No Information not available 04/30/2021 If You Are , What Was Your Level Of Alcohol Consumption Prior To ? Occasional [email or web address] Information not available 09/17/2021 Are You Blind Or Do You Have Difficulty Seeing? No [email or web address] Information not available 04/30/2021 What Is Your Level Of Caffeine Consumption? Occasional [email or web address] Information not available 04/30/2021 How Much Tobacco Do You Chew? None [email or web address] Information not available 04/30/2021 In The 14 Days Before Symptom Onset, Have You Had Close Contact With A Laboratory-confir med COVID-19 While That Case Was Ill? No [email or web address] Information not available 04/30/2021 In The 14 Days Before Symptom Onset, Have You Had Close Contact With A Person Who Is Under Investigation For COVID-19 While That Person Was Ill? No [email or web address] Information not available 04/30/2021 Have You Been To An Area Known To Be High Risk For COVID-19? No [email or web address] Information not available 04/30/2021 Are You Deaf Or Do You Have Serious Difficulty Hearing? No [email or web address] Information not available 04/30/2021 What Type Of Diet Are You Following? REGULAR [email or web address] Information not available 04/30/2021 What Is The Highest Grade Or Level Of School You Have Completed Or The Highest Degree You Have Received? [id number] [email or web address] Information not available 04/30/2021 Are There Any Guns Present In Your Home? No [email or web address] Information not available 04/30/2021 Do You Use Protection During Sex? No [email or web address] Information not available 04/30/2021 Do You Use Your Seat Belt Or Car Seat Routinely? Yes Information not available 04/30/2021 Do You Have Smoke And Carbon Monoxide Detectors In Your Home? Yes Information not available 04/30/2021 At What Age Did You Start Smoking Tobacco? 15 [email or web address] Information not available 04/30/2021 How Much Tobacco Do You Smoke? 1 PPD [email or web address] Information not available 04/30/2021 Do You Use Sunscreen Routinely? Yes [email or web address] Information not available 04/30/2021 Has Tobacco Cessation Counseling Been Provided? No [email or web address] Information not available 09/17/2021 How Many Years Have You Smoked Tobacco? 5 [email or web address] Information not available 04/30/2021 Have You Used IV Drugs? No [email or web address] Information not available 04/30/2021 Do You Have Difficulty Walking Or Climbing Stairs? No [email or web address] Information not available 09/17/2021 Sex: Unknown Functional Status Question Answer Note LastModified by Organizat ion Details LastModified Time Do you use any illicit or recreational drugs? No Information not available 04/30/2021 Do you or have you ever used any other forms of tobacco or nicotine? No [email or web address] Information not available 09/17/2021 What is your level of alcohol consumption? None [email or web address] Information not available 04/30/2021 Are you able to walk? YESWOREST [email or web address] Information not available 04/30/2021 Are you able to care for yourself? 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 No [email or web address] Information not available 09/17/2021 What is your exercise level? Moderate [email or web address] Information not available 04/30/2021 Mental Status Question Answer Note LastModified by Organization D etails LastModified Time Do you feel stressed (tense, restless, nervous, or anxious, or unable to sleep at night)? [id number] [email or web address] Information not available 04/30/2021 Family History Relationship Description Onset Age of this Age Resolved Age Notes LastModified by Organization Details LastModified Time Maternal Aunt Malignant tumor of breast [email or web address] Not available 2021 09:40:39 Medical History Condition Response Allergies (Food, seasonal, environmental ) N Other N Drug/Latex Allergies/Reactions N Blood Transfusion N Breast Cancer N Dermatologic Disorders N Lung Disease N Defects or Inherited Disease N Breast Problem N Gestational Diabetes N Hematologic disorders N Anesthesia Complications N History of STI N Deep Vein Thrombosis N Polycystic ovary syndrome N Anxiety Disorder Y Autoimmune disease N Arthritis N Polyps N Infertility N Acid Reflux (GERD) N History of abnormal pap N Cancer N Varicosities N Stroke N Neurologic/Epilepsy N Endometriosis N High Cholesterol N Fibromyalgia N Headaches N Kidney Disease N Heart Problems N Thyroid Problems N Kidney or Bladder Problems N GI Problems N Eating Disorder [...] of Flow (days) 7 Current Control Method Depo-Polls Or Surveys Interviewer a Are cycles usually normal Y Sexually Active? Y Menses Monthly Y Date of DEXA bone scan Age of first menstrual cycle 13 Date of Last Pap Smear 06/24/2022 Sexual Problems? N Desired Control Method LMP Approximate N Obstetrics History GPAL:G 1 P 1 0 0 1 Type Value Full Term 1 Living 1 Total 1 Immunizations Vaccine Type Date Status Note Provider Nam e and Address Organization Details Recorded Time COVID-19, mRNA, LNP-S, bivalent, PF, 30 mcg/0.3 mL dose 02/09/2022 completed TATYANA Weston [facility] 05/11/2024 09:30:31 Past Encounters Encounter ID Performer Location Encounter Start Date Encounter Closed Date Diagnosis/Indication Diagnosis SNOMED-CT Code Diagnosis ICD10 Code Diagnosis Note [id number] Tanja Schafer CNM [place] [address] [address] 04/30/2021 09:23:17 05/01/2021 15:04:47 test positive 403697826 Z32.01 Risk factors addressed: Tobacco Cessation, Safe [...] and address preventati ve healthcare . Migraine 49906818 G43.90 9 Needs neuro referral. Will try fioricet as need. [id number] Quinn Rios MD [place] [address],[place] [address] 04/30/2021 09:27:36 04/30/2021 10:37:22 [id number] Shi More MD [place] [address],[place] [address] 05/26/2021 11:22:20 05/26/2021 12:02:06 screening 022530856 Z36.82 [id number] Shi More MD [place] [address],[place] [address] 05/26/2021 11:23:21 05/26/2021 12:47:40 Routine care 482514668 Z34.91 Mixed anxi ety and depressive disorder 458825418 F41.8 Tobacco user 666522649 Z 72.0 [id number] MD Cali Del Real [address],[place] [address] 06/25/2021 16:50:24 06/25/2021 17:57:21 Migraine 39046133 G43.909 Nausea and vomiting 1693 2000 R11.2 [id number] Quinn Rios MD [place] [address],[place] [address] 07/31/2021 13:47:20 07/31/2021 14:44:03 screening 574754221 Z36.3 [id number] MD Cali Del Real [address],[place] [address] 07/31/2021 13:47:49 07/31/2021 16:17:19 Routine care 487841969 Z34.02 [id number] Quinn Rios MD [place] [address],[place] [address] 08/31/2021 16:46:41 09/01/2021 13:44:39 Routine care 856372241 Z34.02 Umbilical hernia 2056321 07 K42.9 Gestationa l proteinuria 88399047 O12.12 Migraine 02679266 G43.90 [id number] MD Cali Del Real [address],[place] [address] 09/01/2021 17:01:43 09/01/2021 17:39:07 COVID-19 860032873 U07.1 [id number] Debi [place] [facility] [address],[place] [address] 09/17/2021 11:45:06 09/17/2021 12:26:35 Routine care 436728935 Z34.93 Depressive disorder 3548 9007 F32.A [id number] Quinn Rios MD [place] [address],[place] [address] 09/30/2021 11:30:00 09/30/2021 12:14:14 Placental condition affecting management of mother 307638794 O43.103 U07.1 Z3A.30 [id number] Debi [place] [facility] [address],[place] [address] 09/30/2021 11:30:58 09/30/2021 12:46:09 Routine care 809974262 Z34.93 [id number] Quinn Rios MD [place] [address],[place] [address] 10/01/2021 14:20:16 10/01/2021 15:17:55 Blood glucose outside reference range 186055837 R73.09 Per SP pt needs diet teaching [...] were answered and pt verbalized understand ing. JENNY rutledge [id number] Debi [place] [facility] [address],[place] [address] 10/07/2021 16:02:10 10/07/2021 16:49:43 Routine care 580733544 Z34.93 [id number] Debi [facility] [address],[place] [address] 10/14/2021 10:23:59 10/15/2021 15:52:11 Gestational diabetes mellitus class A1 15401093 O24.410 [id number] Quinn Rios MD [place] [address],[place] [address] 10/14/2021 10:24:21 10/14/2021 11:37:13 Gestational diabetes mellitus class A1 97474182 O24.410 Z3A.32 [id number] Debi [facility] [address],[place] [address] 10/14/2021 10:37:23 10/14/2021 11:57:58 Routine care 042104834 Z34.93 [id number] Quinn Rios MD [place] [address],[place] [address] 10/21/2021 10:29:28 10/21/2021 11:12:42 Gestational diabetes mellitus class A1 47862429 O24.410 Z3A.32 [id number] Quinn Rios MD [place] [address],[place] [address] 10/21/2021 10:29:54 10/21/2021 11:36:53 Gestational diabetes mellitus class A1 16761868 O24.410 Z3A.33 [id number] Debi [place] [facility] [address],[place] [address] 10/21/2021 10:30:20 10/21/2021 12:16:16 Routine care 699097040 Z34.93 [id number] MD Cali Del Real [address],[place] [address] 10/29/2021 11:44:10 10/29/2021 13:08:11 Gestational diabetes mellitus class A1 39249659 O24.410 Z3A.33 [id number] MD Cali Del Real [address],[place] [address] 10/29/2021 11:44:45 10/29/2021 13:36:46 COVID-19 460208305 U07.1 O43.103 O36.8330 Z3A.34 [id number] [facility] [address],[place] [address] 10/29/2021 11:45:08 10/30/2021 15:00:21 Routine care 899528655 Z34.93 [id number] Quinn Rios MD [place] [address],[place] [address] 11/03/2021 11:46:19 11/03/2021 13:10:49 Gestational diabetes mellitus class A1 48342558 O24.410 Z3A.33 [id number] MD Cali Del Real [address],[place] [address] 11/03/2021 11:47:05 11/03/2021 14:28:55 Gestational diabetes mellitus class A1 18588331 O24.410 Z3A.33 [id number] MD Cali Del Real [address],[place] [address] 11/03/2021 11:47:23 11/03/2021 14:28:41 Routine care 553193214 Z34.02 [id number] MD Cali Del Real [address],[place] [address] 11/11/2021 11:02:10 11/11/2021 15:31:07 Gestational diabetes mellitus class A1 88082036 O24.410 Z3A.33 [id number] MD Cali Del Real [address] [address] 11/11/2021 11:02:32 11/11/2021 13:43:26 Gestational diabetes mellitus class A1 64751690 O24.410 Z3A.36 [id number] Debi Anderson [id number]|2024-08-06 20:38:39|2024-08-06 20:38:39|ED.GENADULT||||"HPI - General Adult General Chief complaint: Abdominal Pain Stated complaint: abd pain History of Present Illness HPI narrative: 23-year-old white female was doing some moderately heavy lifting today and then started having some supraumbilical swelling and tenderness when she stood up she felt like she felt a mass. Would go away when she laid down. Otherwise she had no problems eating or drinking voiding or stooling bleeding or bruising lumps or bumps elsewhere or other swelling dizziness lightheadedness pain elsewhere or any other complaints. Related Data Home Medications Medication Instructions Recorded Confirmed Last Taken Type gabapentin 100 mg capsule mg 03/29/24 Unknown History sumatriptan succinate 50 mg tablet mg PO 03/29/24 Unknown History Allergies Allergy/AdvReac Type Severity Reaction Status Date / Time No Known Allergies Allergy Verified 08/06/24 20:25 Review of Systems Review of Systems: All systems reviewed & are unremarkable except as noted in HPI and below PMFSH Past Medical History Medical History Menometrorrhagia Anxiety and depression Smoker HTN (hypertension) with goal to be determined Migraines Overweight (BMI 25.0-29.9) and not yet delivered Depression Family History Family History Grandparent Pneumonia Chronic obstructive pulmonary disease Grandparent Heart attack Social History Social History Smoking packs per day: 2 Smoking cigarettes per day: 40.0 Smoking status: Current every day smoker Tobacco type: cigarettes Alcohol intake: never Substance use: never Living arrangements: with family Spiritual care concerns: No Exam Narrative: White female patient with Mild distress. slightly anxious. Head normocephalic, atraumatic. Eyes conjunctiva pink sclera nonicteric. Extraocular movements are intact. Ears externally normal. Oropharynx is clear with moist mucous membranes without exudates. Neck is supple nontender no lymphadenopathy. Back is nontender. Lungs are clear. Heart is regular rate and rhythm without murmurs gallops or rubs. Chest wall nontender. Back is nontender. Abdomen is soft and Mildly tender suprapubically with obvious diastasis recti formation. Her umbilicus has tiny hernia about 1 cm in diameter. There is no hepatosplenomegaly or masses no CVA tenderness no abdominal bruits. Extremities no cyanosis clubbing or edema. Skin is warm and dry without rashes or lesions. Neurological patient is alert and oriented x4. Motor and sensory grossly intact. Gait is normal. Course Vital Signs Vital signs: Vital Signs Temperature 36.8 C 08/06/24 19:42 Pulse Rate 88 08/06/24 19:42 Respiratory Rate 18 08/06/24 19:42 Blood Pressure 119/88 08/06/24 19:42 Pulse Oximetry 100 08/06/24 19:42 Oxygen Delivery Room Air 08/06/24 19:42 Temperature 36.8 C 08/06/24 19:42 Pulse Rate 88 08/06/24 19:42 Respiratory Rate 18 08/06/24 19:42 Blood Pressure 119/88 08/06/24 19:42 Pulse Oximetry 100 08/06/24 19:42 Oxygen Delivery Room Air 08/06/24 19:42 Medical Decision Making [facility] Narrative Medical decision making narrative: Patient was placed in Room # 6 History and physical was performed. Independent Historian: patient External Source Review: Differential Dx includes but not limited to: hernia diastasis recti gallbladder issue acute pancreatitis acute appendicitis Medications were Reviewed: home meds reviewed Independently Interpreted by me: Meds, treatment, ED course: none Social Situation Impacting Patients Care: Shared decision Making: evaluation was discussed with the patient all questions were asked and answered patient agreed with the plan. She would follow up with her primary care provider and return if she got worse or develops any new symptoms. Discussed with Dr. MORENO DIAGNOSIS: Diastasis recti DISPOSITION: discharge CONDITION AT DISCHARGE: stable Vital Signs Vital Signs: Vital Signs Temperature 36.8 C 08/06/24 19:42 Pulse Rate 88 08/06/24 19:42 Respiratory Rate 18 08/06/24 19:42 Blood Pressure 119/88 08/06/24 19:42 Pulse Oximetry 100 08/06/24 19:42 Oxygen Delivery Room Air 08/06/24 19:42 Temperature 36.8 C 08/06/24 19:42 Pulse Rate 88 08/06/24 19:42 Respiratory Rate 18 08/06/24 19:42 Blood Pressure 119/88 08/06/24 19:42 Pulse Oximetry 100 08/06/24 19:42 Oxygen Delivery Room Air 08/06/24 19:42 Discharge Plan Discharge Clinical Impression: Diastasis recti Patient Disposition: Home Condition: Stable Instructions: Abdominal Pain (ED), Diastasis Recti and (ED) Additional Instructions: Tylenol as needed for pain return if you get worse or develops any new symptoms. Follow up with primary care provider. Patient Language: Bulgarian Prescriptions: No Action sumatriptan succinate 50 mg tablet PO gabapentin 100 mg capsule ondansetron 4 mg tablet,disintegrating 4 mg PO Q8H PRN (Reason: nausea and vomiting) Qty: 20 0RF clindamycin HCl 300 mg capsule 300 mg PO Q8H Qty: 21 0RF hydrocodone-acetaminophen 5-325 mg tablet 1 tablet PO Q12H PRN (Reason: pain) Qty: 5 0RF amoxicillin 500 mg capsule 1,000 mg PO Q8H Qty: 21 0RF ibuprofen [IBU] 800 mg tablet 800 mg PO TID Qty: 20 0RF Follow-up/Referrals: Betina,BARBARA Moreno [Primary Care Provider] - Time of Disposition: 20:54"
[2024-08-06 19:42] VITALS: BP 119/88; PULSE 88; RESP 18; TEMP 36.8; O2SAT 100
--- NOTE | 2024-08-06 20:38 | ED_ITS ---
HPI - General Adult General Chief complaint: Abdominal Pain Stated complaint: abd pain History of Present Illness HPI narrative: 23-year-old white female was doing some moderately heavy lifting today and then started having some supraumbilical swelling and tenderness when she stood up she felt like she felt a mass. Would go away when she laid down. Otherwise she had no problems eating or drinking voiding or stooling bleeding or bruising lumps or bumps elsewhere or other swelling dizziness lightheadedness pain elsewhere or any other complaints. Related Data Home Medications Medication Instructions Recorded Confirmed Last Taken Type gabapentin 100 mg capsule mg 03/29/24 Unknown History sumatriptan succinate 50 mg tablet mg PO 03/29/24 Unknown History Allergies Allergy/AdvReac Type Severity Reaction Status Date / Time No Known Allergies Allergy Verified 08/06/24 20:25 Review of Systems Review of Systems: All systems reviewed & are unremarkable except as noted in HPI and below PMFSH Past Medical History Medical History Menometrorrhagia Anxiety and depression Smoker HTN (hypertension) with goal to be determined Migraines Overweight (BMI 25.0-29.9) and not yet delivered Depression Family History Family History Grandparent Pneumonia Chronic obstructive pulmonary disease Grandparent Heart attack Social History Social History Smoking packs per day: 2 Smoking cigarettes per day: 40.0 Smoking status: Current every day smoker Tobacco type: cigarettes Alcohol intake: never Substance use: never Living arrangements: with family Spiritual care concerns: No Exam Narrative: White female patient with Mild distress. slightly anxious. Head normocephalic, atraumatic. Eyes conjunctiva pink sclera nonicteric. Extraocular movements are intact. Ears externally normal. Oropharynx is clear with moist mucous membranes without exudates. Neck is supple nontender no lymphadenopathy. Back is nontender. Lungs are clear. Heart is regular rate and rhythm without murmurs gallops or rubs. Chest wall nontender. Back is nontender. Abdomen is soft and Mildly tender suprapubically with obvious diastasis recti formation. Her umbilicus has tiny hernia about 1 cm in diameter. There is no hepatosplenomegaly or masses no CVA tenderness no abdominal bruits. Extremities no cyanosis clubbing or edema. Skin is warm and dry without rashes or lesions. Neurological patient is alert and oriented x4. Motor and sensory grossly intact. Gait is normal. Course Vital Signs Vital signs: Vital Signs Temperature 36.8 C 08/06/24 19:42 Pulse Rate 88 08/06/24 19:42 Respiratory Rate 18 08/06/24 19:42 Blood Pressure 119/88 08/06/24 19:42 Pulse Oximetry 100 08/06/24 19:42 Oxygen Delivery Room Air 08/06/24 19:42 Temperature 36.8 C 08/06/24 19:42 Pulse Rate 88 08/06/24 19:42 Respiratory Rate 18 08/06/24 19:42 Blood Pressure 119/88 08/06/24 19:42 Pulse Oximetry 100 08/06/24 19:42 Oxygen Delivery Room Air 08/06/24 19:42 Medical Decision Making MDM Narrative Medical decision making narrative: Patient was placed in Room # 6 History and physical was performed. Independent Historian: patient External Source Review: Differential Dx includes but not limited to: hernia diastasis recti gallbladder issue acute pancreatitis acute appendicitis Medications were Reviewed: home meds reviewed Independently Interpreted by me: Meds, treatment, ED course: none Social Situation Impacting Patients Care: Shared decision Making: evaluation was discussed with the patient all questions were asked and answered patient agreed with the plan. She would follow up with her primary care provider and return if she got worse or develops any new symptoms. Discussed with Dr. MORENO DIAGNOSIS: Diastasis recti DISPOSITION: discharge CONDITION AT DISCHARGE: stable Vital Signs Vital Signs: Vital Signs Temperature 36.8 C 08/06/24 19:42 Pulse Rate 88 08/06/24 19:42 Respiratory Rate 18 08/06/24 19:42 Blood Pressure 119/88 08/06/24 19:42 Pulse Oximetry 100 08/06/24 19:42 Oxygen Delivery Room Air 08/06/24 19:42 Temperature 36.8 C 08/06/24 19:42 Pulse Rate 88 08/06/24 19:42 Respiratory Rate 18 08/06/24 19:42 Blood Pressure 119/88 08/06/24 19:42 Pulse Oximetry 100 08/06/24 19:42 Oxygen Delivery Room Air 08/06/24 19:42 Discharge Plan Discharge Clinical Impression: Diastasis recti Patient Disposition: Home Condition: Stable Instructions: Abdominal Pain (ED), Diastasis Recti and (ED) Additional Instructions: Tylenol as needed for pain return if you get worse or develops any new symptoms. Follow up with primary care provider. Patient Language: Nepali Prescriptions: No Action sumatriptan succinate 50 mg tablet PO gabapentin 100 mg capsule ondansetron 4 mg tablet,disintegrating 4 mg PO Q8H PRN (Reason: nausea and vomiting) Qty: 20 0RF clindamycin HCl 300 mg capsule 300 mg PO Q8H Qty: 21 0RF hydrocodone-acetaminophen 5-325 mg tablet 1 tablet PO Q12H PRN (Reason: pain) Qty: 5 0RF amoxicillin 500 mg capsule 1,000 mg PO Q8H Qty: 21 0RF ibuprofen [IBU] 800 mg tablet 800 mg PO TID Qty: 20 0RF Follow-up/Referrals: Betina,BARBARA Moreno [Primary Care Provider] - Time of Disposition: 20:54
[2024-08-06 21:02] VITALS: BP 116/87; PULSE 85; RESP 16; TEMP 36.7; O2SAT 100
== END 2024-08-06 21:03 | disposition home or self-care (01) ==
PROVIDERS: Emergency Provider Emergency Medicine; PCP Physician Assistant
DX: S39.011A Strain of muscle, fascia and tendon of abdomen, initial encounter (principal); X50.0XXA Overexertion from strenuous movement or load, initial encounter; F41.8 Other specified anxiety disorders; F17.210 Nicotine dependence, cigarettes, uncomplicated
CPT/HCPCS: 99281

== ENCOUNTER 2024-08-25 19:14 | Emergency (ER) | payer OTHER, SELFPAY ==
--- OUTSIDE RECORDS SUMMARY | 2024-08-25 19:17 | XMS_ITS | Data Portability ---
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 Plan of Treatment Reminders Order Date Submit Date Provider Last Modified By Organization Details Last Modified Time Details Appointments None recorded. Lab influenza virus A + B + SARS-CoV-2 (COVID19) Ag panel, rapid IA, upper respiratory specimen 2024 025 [email or web address] In-Office Order, Internal Use Only DO Not Attach Compendium DO Not Attach Compendium, Do Not Delete/merge, [id number] 5 12:31:08 influenza virus A + B + SARS-CoV-2 (COVID19) Ag panel, rapid IA, upper respiratory specimen 2023 024 [email or web address] In-Office Order, Internal Use Only DO Not Attach Compendium DO Not Attach Compendium, Do Not Delete/merge, [id number] 4 17:37:32 Referral None recorded. Procedures None recorded. Surgeries None recorded. Imaging None recorded. Medication Orders neomycin-po lymyxin-hyd rocort 3.5 mg-10,000 unit/mL-1 % ear drops,susp 2024 025 [facility] #[id number], [address] [place], [address], 5 14:22:16 ondansetron 4 mg disintegrat ing tablet 2024 025 [facility]acy #[id number], [address] [place], [address], 5 11:40:45 gabapentin 100 mg capsule 2024 025 [id number], [address] [place], [address], 5 16:45:07 amoxicillin 875 mg tablet 2024 025 [id number], [address] [place], [address], 5 11:23:34 sumatriptan 50 mg tablet 2024 025 [id number], [address] [place], [address], 5 16:45:08 azithromyci n 500 mg tablet 2023 024 [id number], [address] [place], [address], 5 16:32:45 Medrol (Mart) 4 mg tablets in a dose pack 2023 024 [id number], [address] [place], [address], 5 16:32:41 medroxyprog esterone 150 mg/mL intramuscul ar suspension 2023 024 [email or web address] Not available 17:23:46 Patient TargetsNo targets recorded. Patient Instructions Encounter Date Encounter Id Patient Instructions Last Modified By Organization Details Last Modified Time 03/19/2024 [id number] A healthy lifestyle: care instructions [email or web address] Not available 03/19/2024 17:37:31 upper respirator y infection (cold): care instructions jnanney Not available 03/19/2024 17:37:31 03/27/2024 [id number] tooth and gum pain: care instructions jnanney Not available 03/27/2024 16:45:01 A healthy lifestyle: care instructions jnanney Not available 03/27/2024 16:45:01 05/11/2024 [id number] A healthy lifestyle: care instructions jnanney Not available 05/11/2024 11:40:44 nausea and vomiting: care instructions jnanney Not available 05/11/2024 12:31:08 06/25/2024 [id number] A healthy lifestyle: care instructions anney Not available 06/25/2024 14:22:30 Reason for Referral None Reported. Results Created Date Observation Date Name Description Value Unit Range Abnormal Flag Note LastModifiedBy Organization Detail LastModifiedTime 01/10/2001/12/2024 LIPID PANEL cholesterol, total 164 mg/dL 100-19 9 Not Available [address], [address], 01/12/2024 10:14:59 01/10/2001/12/2024 LIPID PANEL triglyceride s 135 mg/dL 0-149 Not Available [address], [address], 01/12/2024 10:14:59 01/10/2001/12/2024 LIPID PANEL HDL cholesterol 32 mg/dL >39 below low normal Not Available [address], [address], 01/12/2024 10:14:59 01/10/2001/12/2024 LIPID PANEL VLDL cholesterol pierre 24 mg/dL 5-40 Not Available [address], [address], 01/12/2024 10:14:59 01/10/2001/12/2024 LIPID PANEL LDL chol calc ([facility]) 108 mg/dL 0-99 above high normal Not Available [address], [address], 01/12/2024 10:14:59 01/10/2001/12/2024 COMP. METAB OLIC PANEL (14) glucose 86 mg/dL 70-99 Not Available [address], [address], 01/12/2024 10:15:00 01/10/2001/12/2024 COMP. METAB OLIC PANEL (14) BUN 12 mg/dL 6-20 Not Available [address], [address], 01/12/2024 10:15:00 01/10/2001/12/2024 COMP. METAB OLIC PANEL (14) creatinine 0.86 mg/dL 0.57-1 .00 Not Available [address], [address], 01/12/2024 10:15:00 01/10/2001/12/2024 COMP. METAB OLIC PANEL (14) eGFR 97 mL/mi n/1.7 3 >59 Not Available [address], [address], 01/12/2024 10:15:00 01/10/2001/12/2024 COMP. METAB OLIC PANEL (14) BUN/creatini ne ratio 14 9-23 Not Available [address], [address], 01/12/2024 10:15:00 01/10/2001/12/2024 COMP. METAB OLIC PANEL (14) sodium 141 mmol/ L 134-14 4 Not Available [address], [address], 01/12/2024 10:15:00 01/10/2001/12/2024 COMP. METAB OLIC PANEL (14) potassium 4.1 mmol/ L 3.5-5. 2 Not Available [address], [address], 01/12/2024 10:15:00 01/10/2001/12/2024 COMP. METAB OLIC PANEL (14) chloride 106 mmol/ L 96-106 Not Available [address], [address], 01/12/2024 10:15:00 01/10/2001/12/2024 COMP. METAB OLIC PANEL (14) carbon dioxide, total 22 mmol/ L 20-29 Not Available [address], [address], 01/12/2024 10:15:00 01/10/2001/12/2024 COMP. METAB OLIC PANEL (14) calcium 9.4 mg/dL 8.7-10 .2 Not Available [address], [address], 01/12/2024 10:15:00 01/10/2001/12/2024 COMP. METAB OLIC PANEL (14) protein, total 6.9 g/dL 6.0-8. 5 Not Available [address], [address], 01/12/2024 10:15:00 01/10/2001/12/2024 COMP. METAB OLIC PANEL (14) albumin 4.6 g/dL 4.0-5. 0 Not Available [address], [address], 01/12/2024 10:15:00 01/10/2001/12/2024 COMP. METAB OLIC PANEL (14) globulin, total 2.3 g/dL 1.5-4. 5 Not Available [address], [address], 01/12/2024 10:15:00 01/10/2001/12/2024 COMP. METAB OLIC PANEL (14) bilirubin, total 0.2 mg/dL 0.0-1. 2 Not Available [address], [address], 01/12/2024 10:15:00 01/10/2001/12/2024 COMP. METAB OLIC PANEL (14) alkaline phosphatase 122 IU/L 44-121 above high normal Not Available [address], [address], 01/12/2024 10:15:00 01/10/2001/12/2024 COMP. METAB OLIC PANEL (14) AST (SGOT) 14 IU/L 0-40 Not Available [address], [address], 01/12/2024 10:15:00 01/10/2001/12/2024 COMP. METAB OLIC PANEL (14) ALT (SGPT) 16 IU/L 0-32 Not Available [address], [address], 01/12/2024 10:15:00 01/10/2001/12/2024 CARDI OVASC ULAR REPOR T interpretati on Note Suppl ement al repor t is avail able. Not Available [address], [address], 01/12/2024 10:15:00 01/10/2001/12/2024 CARDI OVASC ULAR REPOR T pdf . Not Available [address], [address], 01/12/2024 10:15:00 01/10/2001/12/2024 CBC, PLATE LET, NO DIFFE RENTI AL WBC 8.0 x10e3 /uL 3.4-10 .8 Not Available [address], [address], 01/12/2024 10:15:01 01/10/2001/12/2024 CBC, PLATE LET, NO DIFFE RENTI AL RBC 4.46 x10e6 /uL 3.77-5 .28 Not Available [address], [address], 01/12/2024 10:15:01 01/10/2001/12/2024 CBC, PLATE LET, NO DIFFE RENTI AL hemoglobin 13.4 g/dL 11.1-1 5.9 Not Available [address], [address], 01/12/2024 10:15:01 01/10/2001/12/2024 CBC, PLATE LET, NO DIFFE RENTI AL hematocrit 40.7 % 34.0-4 6.6 Not Available [address], [address], 01/12/2024 10:15:01 01/10/2001/12/2024 CBC, PLATE LET, NO DIFFE RENTI AL MCV 91 fL 79-97 Not Available [facility] & [address], [address], 01/12/2024 10:15:01 01/10/2001/12/2024 CBC, PLATE LET, NO DIFFE RENTI AL MCH 30.0 pg 26.6-3 3.0 Not Available [facility] & [address], [address], 01/12/2024 10:15:01 01/10/2001/12/2024 CBC, PLATE LET, NO DIFFE RENTI AL MCHC 32.9 g/dL 31.5-3 5.7 Not Available [facility] & [address], [address], 01/12/2024 10:15:01 01/10/20 24 01/12/2024 CBC, PLATE LET, NO DIFFE RENTI AL RDW 12.3 % 11.7-1 5.4 Not Available [address], [address], 01/12/2024 10:15:01 01/10/20 24 01/12/2024 CBC, PLATE LET, NO DIFFE RENTI AL platelets 223 x10e3 /uL 150-45 0 Not Available [address], [address], 01/12/2024 10:15:01 03/19/20 24 03/19/2024 influ nehemiah virus A + B + SARS- CoV-2 (COVI D19) Ag panel , rapid IA, upper respi rator y speci men Flu A negati ve Not Available In-Office Order Internal Use Only DO Not Attach Compendium DO Not Attach Compendium, Do Not Delete/merge, [id number] 03/19/2024 17:14:52 03/19/20 24 03/19/2024 influ nehemiah virus A + B + SARS- CoV-2 (COVI D19) Ag panel , rapid IA, upper respi rator y speci men Flu B negati ve Not Available In-Office Order Internal Use Only DO Not Attach Compendium DO Not Attach Compendium, Do Not Delete/merge, [id number] 03/19/2024 17:14:52 03/19/20 24 03/19/2024 influ nehemiah virus A + B + SARS- CoV-2 (COVI D19) Ag panel , rapid IA, upper respi rator y speci men Rapid SARS CoV 2 Ag, QL IA, respiratory specimen negati ve Not Available In-Office Order Internal Use Only DO Not Attach Compendium DO Not Attach Compendium, Do Not Delete/merge, [id number] 03/19/2024 17:14:52 05/11/19 25 05/11/2024 influ nehemiah virus A + B + SARS- CoV-2 (COVI D19) Ag panel , rapid IA, upper respi rator y speci men Flu A negati ve Not Available In-Office Order Internal Use Only DO Not Attach Compendium DO Not Attach Compendium, Do Not Delete/merge, [id number] 05/11/2024 11:28:30 05/11/19 25 05/11/2024 influ nehemiah virus A + B + SARS- CoV-2 (COVI D19) Ag panel , rapid IA, upper respi rator y speci men Flu B negati ve Not Available In-Office Order Internal Use Only DO Not Attach Compendium DO Not Attach Compendium, Do Not Delete/merge, [id number] 05/11/2024 11:28:30 05/11/19 25 05/11/2024 influ nehemiah virus A + B + SARS- CoV-2 (COVI D19) Ag panel , rapid IA, upper respi rator y speci men Rapid SARS CoV 2 Ag, QL IA, respiratory specimen negati ve Not Available In-Office Order Internal Use Only DO Not Attach Compendium DO Not Attach Compendium, Do Not Delete/merge, [id number] 05/11/2024 11:28:30 03/19/20 24 03/18/2024 XR, chest No observ ation record ed. [facility] [address] [place], [address], 03/19/2024 09:26:56 Result Notes None recorded. Problems Name Problem SNOMED Code Status Onset Date Resolution Date Notes Provider Name and Address Organization Details Recorded Time Knee pain Active 2017 Not Available [facility] 0 01:53:12 Headache 30023553 Active 2017 Not Available [facility] 0 01:53:12 Contraception care Active 2019 Not Available [facility] 0 01:53:12 Viral syndrome 915066472 Active 2020 Nacho PAINTINGC Attn: Accounting ,[address] [place], [address] , [place] [facility] 1 10:19:31 Fatigue 22301706 Active 2020 Nacho PAINTINGC Attn: Accounting ,[address] [facility], [place], [address] , [facility] 1 17:10:07 Vaginal discharge 861280094 Active 2020 Nacho Hadley NP-C Attn: Accounting ,[address] [place], [address] , [facility] 1 17:10:38 Amenorrhea 67441188 Active 2020 Nacho Hadley NP-C Attn: Accounting ,[address] [facility], [place], [address] , [facility] 1 17:11:28 test positive 957595834 Active 2021 Nacho PAINTINGC Attn: Accounting ,[address] [place], [address] , [facility] 2 15:29:06 Depressive disorder 83145022 Active Not Available [facility] 0 01:53:11 Ingrowing nail 827790947 Active Not Available [facility] 0 01:53:12 Problem Notes None recorded. Procedures Surgical History Date Name Laterality Status Provider Name and Address Organization Details Recorded Time 2 Date of Last Pap Smear completed Aj Moffett PA-C Attn: Accounting,[address] [place], [address], [facility] 12/31/2021 16:03:16 9 Toenail avulsion completed Nacho VALERIO Attn: Accounting,[address] [place], [address], [facility] 03/27/2018 09:28:02 6 Toenail avulsion completed Nacho VALERIO Attn: Accounting,[address] [place], [address], [facility] 05/08/2015 22:13:50 Imaging Results None recorded. Procedure Notes None [...] Not Available Not Available Not Available [employer] [place] Lite kit CHECK BLOOD SUGAR 4 TIMES [...] Updated DateTime 5 171.45 cm 29.9 kg/m2 30607.9 2 g 98 % 98 % 83 /min 141 mm[Hg] 91 mm[Hg] Danae Dunn [place] [facility] 5 16:34:57 Date Recorded Body height Body mass index (BMI) Body weight Oxygen saturation Oxygen saturation in Arterial blood by Pulse oximetry Heart rate Respiratory rate Body temperature Systolic blood pressure Diastolic blood pressure Provider Name and Address Organization Details Last Updated DateTime 5 171.45 cm 30.9 kg/m2 97990.4 7 g 98 % 98 % 95 /min 16 /min 98.9 [degF] 122 mm[Hg] 84 mm[Hg] Zari Tobin MA [facility] 5 11:26:20 Date Recorded Body height Body mass index (BMI) Body weight Oxygen saturation Oxygen saturation in Arterial blood by Pulse oximetry Heart rate Respiratory rate Systolic blood pressure Diastolic blood pressure Provider Name and Address Organization Details Last Updated DateTime 5 171.45 cm 30.6 kg/m2 90864.0 1 g 97 % 97 % 102 /min 16 /min 118 mm[Hg] 78 mm[Hg] Zari Tobin MA [facility] 5 14:08:02 Date Recorded Body height Body mass index (BMI) Body weight Oxygen saturation Oxygen saturation in Arterial blood by Pulse oximetry Heart rate Systolic blood pressure Diastolic blood pressure Provider Name and Address Organization Details Last Updated DateTime 4 171.45 cm 30 kg/m2 13337.0 2 g 96 % 96 % 101 /min 145 mm[Hg] 91 mm[Hg] Danae Dunn MA [facility] 4 17:02:30 Social History Question Answer Notes LastModified by Organizat ion Details LastModified Time Tobacco Smoking Status Current Every Day Smoker Claribel Katz LPN null, [facility] 03/18/2021 16:23:56 Do You Have An [...] anxious, or unable to sleep at night)? [id number] Information not available 04/26/2022 Family History Relationship Description Onset Age of this Age Resolved Age Notes LastModified by Organization Details LastModified Time Mother Migraine [email or web address] Not availabl e 05/02/2015 11:10:56 Maternal Aunt Malignant tumor of breast Not available 2015 11:10:56 Medical History Condition Response Coronary Artery Disease N Other N Atrial Fibrillation N High Blood Pressure N Depression Y COPD N Blood Clots N Anxiety Disorder Y Muscle, Joint, or Bone Problems N Acid Reflux (GERD) N Cancer N Stroke N High Cholesterol N Liver Disease N Headaches N Kidney or Bladder Problems N Thyroid Problems N GI Problems N Skin Problems N Anemia N Heart Attack (DE) N Diabetes N Seizures/Epilepsy N Asthma N Allergies N Hepatitis N Osteoporosis N Heart Failure N Gynecological History Statement/Question Response Menses Monthly Y Date of Last Pap Smear 03/25/2021 Current Control Method [employer]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 Date of LMP 06/23/2024 LMP Definite Obstetrics History GPAL:G 0 P 0 0 0 0 Immunizations Vaccine Type Date Status Note Provider Yonas aguilar and Address Organization Details Recorded Time Hib, unspecified formulation 2 completed Eva Wynne [place], [place] [facility] 06/25/2024 08:49:48 Hib, unspecified formulation 2 elizabet Wyn[place] [facility] 06/25/2024 08:49:48 Hib, unspecified formulation 1 ALISA [place] [facility] 06/25/2024 08:49:48 meningococcal B, OMV 8 AL[place] [facility] 06/25/2024 08:49:48 meningococcal B, OMV 8 AL[place] [facility] 06/25/2024 08:49:48 MMR 6 completed Eva Wyn[place] [facility] 06/25/2024 08:49:48 MMR 2 completed [place] [facility] 06/25/2024 08:49:48 DTaP-IPV 2 completed [place] [facility] 06/25/2024 08:49:48 DTaP-IPV 2 completed [place] [facility] 06/25/2024 08:49:48 DTaP-IPV 2 completed [place] [facility] 06/25/2024 08:49:48 DTaP-IPV 2 completed [place] [facility] 06/25/2024 08:49:48 DTaP-IPV 6 completed [place] [facility] 06/25/2024 08:49:48 DTaP-IPV 6 completed [place] [facility] 06/25/2024 08:49:48 DTaP-IPV 1 completed [place] [facility] 06/25/2024 08:49:48 DTaP-IPV 1 completed [place] [facility] 06/25/2024 08:49:48 influenza, unspecified formulation 8 completed [place] [facility] 06/25/2024 08:49:48 Tdap 2 completed [place] [facility] 06/25/2024 08:49:48 varicella 6 completed [place] [facility] 06/25/2024 08:49:48 varicella 2 completed [place] [facility] 06/25/2024 08:49:48 Hep B, unspecified formulation 2 completed [place] [facility] 06/25/2024 08:49:48 Hep B, unspecified formulation 2 completed [place] [facility] 06/25/2024 08:49:48 Hep B, unspecified formulation 1 completed [place] [facility] 06/25/2024 08:49:48 HPV, unspecified formulation 2 completed [place] [facility] 06/25/2024 08:49:48 Novel [id number] 9 completed Eva [place] [facility] 06/25/2024 08:49:48 Novel [id number] 9 completed [place] [facility] 06/25/2024 08:49:48 HPV, quadrivalent 3 completed [place] [facility] 06/25/2024 08:49:48 HPV, quadrivalent 2 completed [place] [facility] 06/25/2024 08:49:48 Hep A, ped/adol, 2 dose 3 completed [place] [facility] 06/25/2024 08:49:48 Hep A, ped/adol, 2 dose 2 completed [place] [facility] 06/25/2024 08:49:48 Meningococcal MCV4O 8 completed [place] [facility] 06/25/2024 08:49:48 Meningococcal MCV4O 2 completed [place] [facility] 06/25/2024 08:49:48 DTaP 2 completed [place] [facility] 06/25/2024 08:49:48 DTaP 2 completed [place] [facility] 06/25/2024 08:49:48 DTaP 6 completed [place] [facility] 06/25/2024 08:49:49 DTaP 2 completed Eva Wynne MA da[place], [place] - [facility] 06/25/2024 08:49:49 DTaP 1 completed Eva Wynne MA [place], [place] - [facility] 06/25/2024 08:49:49 Past Encounters Encounter ID Performer Location Encounter Start Date Encounter Closed Date Diagnosis/Indication Diagnosis SNOMED-CT Code Diagnosis ICD10 Code Diagnosis Note [id number] MD Fredo Hackett [address] [place] [address] 05/02/2015 10:58:41 05/02/2015 15:45:02 Depressive disorder 31976932 F32.9 Ingrowing nail 874945090 L60.0 [id number] Nacho VALERIO [facility] (/) [address] [place] [address] 05/08/2015 15:30:16 05/09/2015 15:07:24 Ingrowing nail 631316726 L60.0 [id number] Edgardo Varela MD [facility] (/) [address] [place] [address] 10/20/2017 11:02:50 10/20/2017 17:28:34 Depressive disorder 52387500 F32.9 Knee pain 30414117 M25.5 69 [id number] Edgardo Varela MD [facility] (/) [address] [place] [address] 12/28/2017 14:48:10 01/02/2018 17:09:27 Knee pain 31083844 M25.569 Ingrowing nail 945608501 L60.0 [id number] Edgardo Varela MD [facility] (/) [address] [place] [address] 03/24/2018 16:31:20 03/27/2018 15:20:47 Ingrowing toenail 295873218 L60.0 Depressive disorder 3548 9007 F32.9 Headache 75692571 R51 [id number] MD Fredo Bates [address] [place] [address] 06/15/2018 11:16:49 06/15/2018 12:06:00 Subacute bronchitis 40155700 J20.9 06/15/18: reports 6 weeks of waxing/wan [...] meantime. pt and mother amenable to plan [id number] Edgardo Varela MD [facility] (/) [address] [place] [address] 04/23/2019 11:45:58 04/24/2019 16:17:47 Depressive disorder 23602467 F32.9 [id number] Edgardo Varela MD [facility] (/) [address] [place] [address] 05/21/2019 11:02:34 05/22/2019 18:03:25 Depressive disorder 69916477 F33.8 [id number] Edgardo Varela MD [facility] (/) [address] [place] [address] 07/25/2019 08:38:14 07/25/2019 17:29:09 Depressive disorder 86336729 F33.8 [id number] Edgardo Varela MD [facility] (/) [address] [place] [address] 07/26/2019 08:45:49 07/27/2019 17:24:17 [facility] care 420129280 Z30.40 [id number] Edgardo Varela MD [facility] (/) [address] [place] [address] 05/28/2020 09:30:31 05/28/2020 15:15:05 Viral syndrome 653209033 B34.9 [id number] Edgardo Varela MD [facility] (/) [address] [place] [address] 03/18/2021 16:01:00 03/19/2021 10:49:22 Amenorrhea 34074937 N91.2 Depressive disorder 3548 9007 F33.8 Fatigue 21401434 R53.83 Vaginal discharge 943320 006 N89.8 [id number] Edgardo Varela MD [facility] (/) [address] [place] [address] 04/08/2021 10:10:28 04/10/2021 07:56:04 Depressive disorder 34602521 F33.8 test positive 549275982 Z32.01 [id number] Aj Moffett PA-C [facility] [address] [place] [address] 12/31/2021 15:48:01 12/31/2021 16:41:02 Mixed anxiety and depressive disorder 079934937 F41.8 [id number] Aj Moffett PA-C [facility] [address] [place] [address] 03/29/2022 16:45:23 03/29/2022 17:41:35 Viral syndrome 908607770 B34.9 Depressive disorder 3548 9007 F32.A [id number] Aj Moffett PA-C [facility] [address] [place] [address] 04/26/2022 10:44:12 04/26/2022 11:17:12 Sore throat 406632785 J02.8 [facility] 600868354 E66 .3 [id number] Aj Moffett PA-C [facility] [address] [place] [address] 06/22/2023 16:43:12 07/08/2023 15:03:38 Upper respiratory infection 17565141 J00 Acute maxi llary sinusitis 08786854 J01.01 Sore throat 775952672 J0 2.8 [id number] Leopoldo Valdez MD [facility] [address] [place] [address] 08/22/2023 16:49:50 09/03/2023 08:52:45 Contraception care 099086277 Z30.40 [id number] Aj Moffett PA-C [facility] [address] [place] [address] 11/09/2023 16:42:38 11/14/2023 12:14:47 Contraception care 375356156 Z30.40 [id number] Aj Moffett PA-C [facility] [address] [place] [address] 11/10/2023 15:31:36 11/14/2023 13:21:35 Gestational diabetes mellitus 52353163 O24.410 Contact de rmatitis caused by urushiol from [facility] mayur 734247985 L25.5 [id number] Leopoldo Valdez MD [facility] [address] [place] [address] 01/10/2024 17:15:34 01/16/2024 14:18:47 Chronic headache disorder 857641869 G44.89 Overweight 666340515 E66 .3 Nausea 770291564 R11.0 [id number] Leopoldo Valdez MD [facility] [address] [place] [address] 02/02/2024 16:56:20 02/10/2024 10:14:27 Contraception care 042215684 Z30.40 [id number] Leopoldo Valdez MD [facility] [address] [place] [address] 03/19/2024 16:49:26 03/20/2024 12:55:42 Upper respiratory infection 59175664 J00 Overweight 509206744 E66 .3 Acute bron chitis with bronchospasm 11612286 J20.8 [id number] Leopoldo Valdez MD [facility] [address] [place] [address] 03/27/2024 16:29:34 03/30/2024 10:00:29 Toothache 42108896 K08.89 Recurrent acute maxillary sinusitis 5356205878 4691162 J01.01 Overweight 674288072 E66 .3 Chronic he adache disorder 989521856 G44.89 [id number] Leopoldo Valdez MD [facility] [address] [place] [address] 05/11/2024 11:16:01 05/14/2024 12:01:29 Vomiting 076636216 R11.10 Viral daysi roenteritis caused by Paramus-like agent 81791768 A08.11 Overweight 413550870 E66 .3 Nausea 823274724 R11.0 [id number] Leopoldo Valdez MD [facility] [address] [place] [address] 06/25/2024 14:00:29 06/27/2024 13:19:00 Acute otitis externa of right ear 6945930024 611264 H60.511 Overweight 346889867 E66 .3 Health Concerns Section Related Observation LastModified by Organization Detai ls LastModified Time None Recorded Concern Status LastModified by Organization Details LastModified Time None Recorded Advance Directives Directive N: Payers Encounter Date Sequence Insurance Name Policy Number Policy Drummond Covered Member ID Drummond Member ID Guarantor Name 02/02/2024 1 [employer] [id number] Yosef Bob [id number] Yosef Bob 02/02/2024 2 [place] [facility] [id number] Yosef Bob 03/19/2024 1 [employer] [id number] Yosef Bob [id number] Yosef Bob 03/19/2024 2 [place] [facility] Ninfa Bob [id number] Yosef Bob 03/27/2024 1 [employer] [id number] Yosef Bob [id number] Yosef Bob 03/27/2024 2 [place] [facility] Ninfa Bob [id number] Yosef Bob 05/11/2024 1 [employer] [id number] Yosef Bob [id number] Yosef Bob 05/11/2024 2 [place] [facility] Bob [id number] Yosef Bob 06/25/2024 1 [employer] [id number] Yosef Bob [id number] Yosef Bob Notes Date Note Type Note Provider Name and Address Organization Details Recorded Time 03/19/2024 text/html went to Er for e ar pain..was told she was wheezing...says her entire family has walking pneumonia Aj Moffett PA-C Attn: Accounting[address] [place], [address], [facility] 03/19/2024 17:40:12 03/27/2024 text/html ear pain due to an infected tooth? was feeling good on the 03-19-24 regimen...was fine until this morning then 3 am the pain came into rt jaw... Aj Moffett PA-C Attn: [employer],[address] [place], [address], [facility] 03/27/2024 16:46:38 05/11/2024 text/html gastroenteritis symptoms and also exposed tro A at work..throat is raw..cough..fever Aj Moffett PA-C Attn: [employer] [place], [address], [facility] 05/11/2024 11:42:41 06/25/2024 text/html rt ear canal lena n 3 days ago..says a home camera otoscope showed a raw patch.. Aj Moffett PA-C Attn: [employer] [place], [address], [facility] 06/25/2024 14:24:29 OBGyn Episode No OBEpisode recorded.
--- OUTSIDE RECORDS SUMMARY | 2024-08-25 19:17 | XMS_ITS | Data Portability ---
Author Organization [facility] [place] Address [address] [place] [address] [place] [address] Assessment Encounter Date Assessment Date Assessment LastModified by Organization Details LastModified Time 06/24/2022 06/24/2022 Annual gynecological exam performed. Patient will come back in a year unless there are new symptoms. [email or web address] Not available 06/24/2022 16:39:00 Plan of Treatment Reminders Order Date Submit Date Provider Last Modified By Organization Details Last Modified Time Details Appointments None recorded. Lab test, urine 2024 025 [email or web address] [place] [facility] [address], [address], [place], [address], 5 13:22:23 Referral psychiatris t referral 2022 023 [email or web address], [address], [place], [address], 4 15:13:15 psychiatris t referral 2022 023 [email or web address] Florentin Ervin [facility], [address] [facility] [address], [place], [address], 3 17:03:11 Procedures None recorded. Surgeries None recorded. Imaging None recorded. Medication Orders fluconazole 150 mg tablet 2024 025 [facility], [facility], [place], [address], 5 13:14:09 metronidazo le 0.75 % (37.5 mg/5 gram) vaginal gel 2024 025 [facility], [address] [place] [address], [address], 5 17:15:18 Macrobid 100 mg capsule 2024 025 [facility], [address] [place] [address], [address], 5 13:13:48 Depo-Cable Installation Technician a 150 mg/mL intramuscul ar suspension 2024 025 [email or web address] 1 Not available 5 18:56:10 Depo-Cable Installation Technician a 150 mg/mL intramuscul ar syringe 2024 025 [email or web address] 1 Not available 5 18:55:59 Depo-Cable Installation Technician a 150 mg/mL intramuscul ar suspension 2022 023 [email or web address] 4 Not available 3 18:06:02 Depo-Cable Installation Technician a 150 mg/mL intramuscul ar suspension 2022 023 [email or web address] Not available 3 14:26:00 Depo-Cable Installation Technician a 150 mg/mL intramuscul ar syringe 2022 023 [email or web address] [id number], [address] [place], [address], 3 17:05:00 aripiprazol e 10 mg tablet 2022 023 [email or web address] [id number], [address] [place], [address], 3 13:35:14 Patient TargetsNo targets recorded. Patient InstructionsNo instructions recorded. Reason for Referral Psychiatrist Referral for Mi xed anxiety and depressive disorder Referring Physician: Grace Nixon, SYSTEM TRAINER, Encounter Date: 06/24/2022 Psychiatrist Referral for Mi xed anxiety and depressive disorder Referring Physician: Ya Mauricio, SYSTEM TRAINER, Encounter Date: 03/03/2023 Results Created Date Observation Date Name Description Value Unit Range Abnormal Flag Note LastModifiedBy Organization Detail LastModifiedTime 09/18/1909/17/2022 pregn jayy test, urine HCG negati ve Not Available [place] [address], [place], [address], 09/17/2022 14:34:32 05/11/19 25 05/11/2024 CULTU RE: URINE result report SEE RESULT S BELOW Test: Cultu re: Urine Speci men Sourc e: Urine - Clean Catch Speci men Type: Urine Speci men Date: 2024 1330 Resul t Date: 2024 0052 Resul t Statu s: Final resul t Abnor mal: No Resul ting Lab: [facility] [address] [facility] [address] Tel: CULTU RE ----- ----- ----- --- Organ ism(s ) consi stent with uroge nital or skin wilder . Repea t cultu re if sympt oms indic ate. Not Available [facility] (Lab) [address], [place], [address], 05/16/2024 19:11:06 05/11/19 25 05/11/2024 IMAGE GUIDE D PAP, REFLE X HPV IF ASCUS ONLY image guided Pap, reflex HPV ASCUS only SEE RESULT S BELOW CASE REPOR T: Cytol ogy Gynec ologi pierre Repor t Case: [id number] Autho rizin g Provi citlali: Ya Mauricio NP Colle cted: 05/11 1330 Order ing Locat ion: [place] [facility] Recei aide: 05/14 0724 First Scree n: Noora ni, Moham ed, CT Rescr een: Talya Whipple ay, CT Speci men: Scree casimiro Pap - Image d, Cervi x STATE MENT OF ADEQU ACY: Satis facto ry for evalu ation Trans forma tion zone compo nent absen t The absen ce of an endoc ervic al compo nent was confi rmed by an addit ional scree ner. ----- ----- ----- ----- ----- ----- ----- ----- ----- ----- ----- ----- ----- ----- ----- ----- ----- ---- FINAL DIAGN OSIS: Negat agus for Intra epith elial Luis Miguel hendrickson or Johan reid (NIL) . 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 CLINI PIERRE INFOR MATIO N: Menst rual Statu s: LMP (if appli cable ): Clini pierre Histo ry/Pr eviou s Pap: Type of Neopl celia (if appli cable ): Signi fican t Clini pierre Findi ngs: Other Histo ry: Hormo shon (if appli cable ): PAP EDUCA NILDA L NOTE: The Pap Test is a scree casimiro test with an inher ent false negat agus rate. Liqui d-bas ed sampl ing may decre ase, but will not elimi bhavya, false negat agus resul ts. A negat agus resul t does not precl ude the prese nce and/o r devel opmen t of disea se, since the prese nce of abnor mal cells in the sampl e depen ds on the locat ion of the lesio n and sampl ing techn ique. Feng nued regul ar scree casimiro is the best metho d of cance r preve ntion . If repor lilly cytol ogic findi ng do not corre late with physi pierre and/o r histo rical findi ngs, furth er inves tigat ion is recom kristina d, as clini kiah warrtamara nted. Not Available [facility] (Lab) [address], [place], [address], 05/16/2024 19:11:06 05/11/19 25 05/11/2024 pregn jayy test, urine HCG negati ve Not Available [place] [address], [place], [address], 05/11/2024 13:22:09 Result Notes None recorded. Problems Name Problem SNOMED Code Status Onset Date Resolution Date Notes Provider Name and Address Organization Details Recorded Time Pregnanc y 37765591 Completed 202112/18/2021 Sarai Schwartz hl null, [facility] 2 16:03:40 Tobacco user 183348180 Completed trying to cut down/trevon t Sarai Schwartz hl null, [facility] 2 16:03:30 Mixed anxiety and depressi ve disorder 954763477 Completed increase zoloft to 150, off abilify, buspar Sarai Schwartz hl null, [facility] 2 16:03:30 Tobacco user 664111455 Active trying to cut down/trevon t Not Available [facility] 2 09:25:27 Mixed anxiety and depressi ve disorder 416754926 Active increase zoloft to 150, off abilify, buspar Not Available [facility] 2 09:25:26 Urinary tract infectio n in pregnanc y 259775382 Completed Treat 05/29 frequent UTIs per pt Sarai Schwartz null, [facility] 2 16:03:30 Migraine 11947805 Completed Uncertai n if there is aura, Sarai schulz null, [facility] 2 16:03:30 SARS-CoV -2 Completed 2021 ASA & serial growth Sarai Schwartz null, [facility] 2 16:03:30 Proteinu tracie 15451830 Completed 24 hour urine Sarai Schwartz [facility] 2 16:03:30 Umbilica l hernia 575467653 Completed Associat ed varicosi ty that changes color as blood leaves and return, Sarai Schwartz null, [facility] 2 16:03:30 Marginal insertio n of umbilica l cord 16929547 Completed 2021 Serial growth Sarai Schwartz null, [facility] 2 16:03:30 Glucose level outside referenc e range 832279822 Completed Failed 1hr GTT - checking BS QID instead of 3hr GTT! Sarai Schwartz null, [facility] 2 16:03:30 Gestatio nal diabetes mellitus 89039136 Completed BS QID & antenata l testing Sarai Schwartz null, [facility] 2 16:03:30 Problem Notes None recorded. Procedures Surgical History Date Name Laterality Status Provider Name and Address Organization Details Recorded Time 05/11/2024 Date of Last Pap Smear completed TATYANA Weston [facility] 08/08/2024 15:46:44 Imaging Results None recorded. Procedure Notes None [...] TABLET BY MOUTH THREE TIMES A DAY 08/08 completed Not Available Not Available Not Available Lidocaine Viscous 2 % mucosal solution SIWSH AND SPIT 5ML EVERY 1-2 HOURS NEEDED FOR PAIN 08/08 completed Not Available Not Available Not Available fluconazole 150 mg tablet take 1 [...] vaginal route at bedtime for 5 days. 08/08 completed Not Available Not Available Not Available [...] MOUTH EVERY 12 HOURS FOR 10 DAYS 08/08 completed Not Available Not Available Not Available metoclopram magi 5 mg tablet Take [...] MOUTH 2 TIMES DAILY FOR 7 DAYS. 08/08 completed Not Available Not Available Not Available hydrocortis one 1 % topical cream with perineal applicator 05/11 completed Not Available Not Available Not Available Depo-Cable Installation Technician a 150 mg/mL intramuscul ar syringe Inject [...] Not Available Not Available Not Available FreeStyle Garfield Lite kit CHECK BLOOD SUGAR 4 TIMES [...] Updated DateTime 05/11/2024 170.18 cm 31.5 kg/m2 58213.07 g 135 mm[Hg] 89 mm[Hg] TATYANA Weston [facility] 5 12:58:54 Date Recorded Body height Body mass index (BMI) Body weight Systolic blood pressure Diastolic blood pressure Provider Name and Address Organization Details Last Updated DateTime 06/24/2022 170.18 cm 29.3 kg/m2 74149.77 g 120 mm[Hg] 82 mm[Hg] Kelly Queen [facility] 3 16:39:11 Date Recorded Body height Provider Name an d Address Organization Details Last Updated DateTime 09/17/2022 170.18 cm Radha Lemus [facility] 09/17/2022 14:35:25 Date Recorded Body height Body mass index (BMI) Body weight Systolic blood pressure Diastolic blood pressure Provider Name and Address Organization Details Last Updated DateTime 03/03/2023 170.18 cm 29.4 kg/m2 96240.37 g 128 mm[Hg] 82 mm[Hg] Val Sanchez [facility] 3 16:40:56 Social History Question Answer Notes LastModified by Organizat ion Details LastModified Time Tobacco Smoking Status Current Every Day Smoker Zoya villa [facility] 09/17/2021 11:57:46 Do You Have An Advance Directive? No [email or web address] Information not available 04/30/2021 If You Are , What Was Your Level Of Alcohol Consumption Prior To ? Occasional [email or web address] Information not available 09/17/2021 Are You Blind Or Do You Have Difficulty Seeing? No Information not available 04/30/2021 What Is Your Level Of Caffeine Consumption? Occasional [email or web address] Information not available 04/30/2021 How Much Tobacco Do You Chew? None [email or web address] Information not available 04/30/2021 In The 14 Days Before Symptom Onset, Have You Had Close Contact With A Laboratory-confir med COVID-19 While That Case Was Ill? No [email or web address] Information not available 04/30/2021 In The 14 Days Before Symptom Onset, Have You Had Close Contact With A Person Who Is Under Investigation For COVID-19 While That Person Was Ill? No [email or web address] Information not available 04/30/2021 Have You Been To An Area Known To Be High Risk For COVID-19? No [email or web address] Information not available 04/30/2021 Are You Deaf Or Do You Have Serious Difficulty Hearing? No [email or web address] Information not available 04/30/2021 What Type Of Diet Are You Following? REGULAR [email or web address] Information not available 04/30/2021 What Is The Highest Grade Or Level Of School You Have Completed Or The Highest Degree You Have Received? [id number] [email or web address] Information not available 04/30/2021 Are There Any Guns Present In Your Home? No [email or web address] Information not available 04/30/2021 Do You Use Protection During Sex? No [email or web address] Information not available 04/30/2021 Do You Use Your Seat Belt Or Car Seat Routinely? Yes [email or web address] Information not available 04/30/2021 Do You Have Smoke And Carbon Monoxide Detectors In Your Home? Yes [email or web address] Information not available 04/30/2021 At What Age Did You Start Smoking Tobacco? 15 Information not available 04/30/2021 How Much Tobacco Do You Smoke? 1 PPD [email or web address] Information not available 04/30/2021 Do You Use Sunscreen Routinely? Yes [email or web address] Information not available 04/30/2021 Has Tobacco Cessation Counseling Been Provided? No [email or web address] Information not available 09/17/2021 How Many Years Have You Smoked Tobacco? 5 [email or web address] Information not available 04/30/2021 Have You Used IV Drugs? No [email or web address] Information not available 04/30/2021 Do You Have Difficulty Walking Or Climbing Stairs? No [email or web address] Information not available 09/17/2021 Sex: Unknown Functional Status Question Answer Note LastModified by Organizat ion Details LastModified Time Do you use any illicit or recreational drugs? No [email or web address] Information not available 04/30/2021 Do you or have you ever used any other forms of tobacco or nicotine? No Information not available 09/17/2021 What is your level of alcohol consumption? None [email or web address] Information not available 04/30/2021 Are you able to walk? YESWOREST [email or web address] Information not available 04/30/2021 Are you able to care for yourself? 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 No [email or web address] Information not available 09/17/2021 What is your exercise level? Moderate [email or web address] Information not available 04/30/2021 Mental Status Question Answer Note LastModified by Organization D etails LastModified Time Do you feel stressed (tense, restless, nervous, or anxious, or unable to sleep at night)? [id number] [email or web address] Information not available 04/30/2021 Family History Relationship Description Onset Age of this Age Resolved Age Notes LastModified by Organization Details LastModified Time Maternal Aunt Malignant tumor of breast [email or web address] Not available 2021 09:40:39 Medical History Condition [...] of Flow (days) 7 Current Control Method Depo-Cable Installation Technician a Are cycles usually normal Y Sexually Active? Y Menses Monthly Y Date of DEXA bone scan Age of first menstrual cycle 13 Date of Last Pap Smear 05/11/2024 Sexual Problems? N Desired Control Method LMP Approximate N Obstetrics History GPAL:G 1 P 1 0 0 1 Type Value Full Term 1 Living 1 Total 1 Immunizations Vaccine Type Date Status Note Provider Yonas aguilar and Address Organization Details Recorded Time COVID-19, mRNA, LNP-S, bivalent, PF, 30 mcg/0.3 mL dose 02/09/2022 completed TATYANA Weston [facility] 05/11/2024 09:30:31 Past Encounters Encounter ID Performer Location Encounter Start Date Encounter Closed Date Diagnosis/Indication Diagnosis SNOMED-CT Code Diagnosis ICD10 Code Diagnosis Note [id number] Tanja Schafer, [facility] [address] [address] 04/30/2021 09:23:17 05/01/2021 15:04:47 test positive [id number] Z32.01 Risk factors addressed: Tobacco Cessation, Safe Sexual Practices, environmen khurram, work hazards, travel restrictio ns, seat belt use.Eat a health well balanced diet, avoid alcohol, tobacco, and street drugs.Enga ge in daily low impact exercise, avoid temperatur e extremes, and cat, rodent, and bird feces.Avoi d travel to areas where zika virus is a concern.Of nikos cf/sma/nip bradley jacinto Handouts given and discussed with patient.Ch ildbirth classes recommende d.New OB sheet given.If previous , counseling .Pt verbalizes that she understand s the importance of above instructio ns.All questions were answered.P atient reminded to have annual well woman examinatio n and address [facility] . Migraine 54465529 G43.90 9 Needs neuro referral. Will try fioricet as need. [id number] Quinn Gotti MD [place] [address],[place] [address] 04/30/2021 09:27:36 04/30/2021 10:37:22 [id number] Shi More MD [place] [address],[place] [address] 05/26/2021 11:22:20 05/26/2021 12:02:06 screening 397758437 Z36.82 [id number] Shi More MD [place] [address],[place] [address] 05/26/2021 11:23:21 05/26/2021 12:47:40 Routine care 037741447 Z34.91 Mixed anxi ety and depressive disorder 621924445 F41.8 Tobacco user 340656268 Z 72.0 [id number] Quinn Gtoti MD [place] [address],[place] [address] 06/25/2021 16:50:24 06/25/2021 17:57:21 Migraine 96014773 G43.909 Nausea and vomiting 1693 1999 R11.2 [id number] MD Cali Del Real [address] [address] 07/31/2021 13:47:20 07/31/2021 14:44:03 screening 642568290 Z36.3 [id number] MD Cali Del Real [address] [address] 07/31/2021 13:47:49 07/31/2021 16:17:19 Routine care 548676841 Z34.02 [id number] MD Cali Del Real [address],[place] [address] 08/31/2021 16:46:41 09/01/2021 13:44:39 Routine care 347888773 Z34.02 Umbilical hernia 2993989 07 K42.9 Gestationa l proteinuria 08713720 O12.12 Migraine 48030685 G43.90 9 [id number] Quinn Gotti MD [place] [address],[place] [address] 09/01/2021 17:01:43 09/01/2021 17:39:07 COVID-19 432494510 U07.1 [id number] Debi Washington [facility] [address],[place] [address] 09/17/2021 11:45:06 09/17/2021 12:26:35 Routine care 821252215 Z34.93 Depressive disorder 3548 9007 F32.A [id number] Quinn Gotti MD [place] [address],[place] [address] 09/30/2021 11:30:00 09/30/2021 12:14:14 Placental condition affecting management of mother 447119720 O43.103 U07.1 Z3A.30 [id number] Debi Washington [facility] [address],[place] [address] 09/30/2021 11:30:58 09/30/2021 12:46:09 Routine care 530563209 Z34.93 [id number] Quinn Gotti MD [place] [address],[place] [address] 10/01/2021 14:20:16 10/01/2021 15:17:55 Blood glucose outside reference range 563368608 R73.09 Per SP pt needs diet teaching [...] and pt verbalized understand ing. JENNY rutledge [id number] [facility] [address],[place] [address] 10/07/2021 16:02:10 10/07/2021 16:49:43 Routine care 254039436 Z34.93 [id number] [facility] [address],[place] [address] 10/14/2021 10:23:59 10/15/2021 15:52:11 Gestational diabetes mellitus class A1 93612651 O24.410 [id number] Quinn Gotti MD [place] [address],[place] [address] 10/14/2021 10:24:21 10/14/2021 11:37:13 Gestational diabetes mellitus class A1 35081988 O24.410 Z3A.32 [id number] [facility] [address],[place] [address] 10/14/2021 10:37:23 10/14/2021 11:57:58 Routine care 810754684 Z34.93 [id number] Quinn Gotti MD [place] [address],[place] [address] 10/21/2021 10:29:28 10/21/2021 11:12:42 Gestational diabetes mellitus class A1 80587661 O24.410 Z3A.32 [id number] Quinn Gotti MD [place] [address],[place] [address] 10/21/2021 10:29:54 10/21/2021 11:36:53 Gestational diabetes mellitus class A1 43370644 O24.410 Z3A.33 [id number] [facility] [address],[place] [address] 10/21/2021 10:30:20 10/21/2021 12:16:16 Routine care 711464592 Z34.93 [id number] MD Cali Del Real [address],[place] [address] 10/29/2021 11:44:10 10/29/2021 13:08:11 Gestational diabetes mellitus class A1 36851887 O24.410 Z3A.33 [id number] MD Cali Del Real [address],[place] [address] 10/29/2021 11:44:45 10/29/2021 13:36:46 COVID-19 103493396 U07.1 O43.103 O36.8330 Z3A.34 [id number] Debi Washington [facility] [address],[place] [address] 10/29/2021 11:45:08 10/30/2021 15:00:21 Routine care 713121766 Z34.93 [id number] MD Cali Del Real [address],[place] [address] 11/03/2021 11:46:19 11/03/2021 13:10:49 Gestational diabetes mellitus class A1 55376367 O24.410 Z3A.33 [id number] MD Cali Del Real [address],[place] [address] 11/03/2021 11:47:05 11/03/2021 14:28:55 Gestational diabetes mellitus class A1 62489901 O24.410 Z3A.33 [id number] MD Cali Del Real [address],[place] [address] 11/03/2021 11:47:23 11/03/2021 14:28:41 Routine care 321116340 Z34.02 [id number] MD Cali Del Real [address],[place] [address] 11/11/2021 11:02:10 11/11/2021 15:31:07 Gestational diabetes mellitus class A1 85226846 O24.410 Z3A.33 [id number] Quinn Gotti MD [place] [address],[place] [address] 11/11/2021 11:02:32 11/11/2021 13:43:26 Gestational diabetes mellitus class A1 28632769 O24.410 Z3A.36 [id number] [facility] [address],[place] [address] 11/11/2021 11:02:50 11/11/2021 15:30:10 Routine care 325238840 Z34.93 [id number] Quinn Gotti MD [place] [address],[place] [address] 11/13/2021 10:59:02 11/13/2021 12:00:56 Gestational diabetes mellitus 68487439 O24.419 [id number] MD Cali Del Real [address],[place] [address] 11/18/2021 10:35:42 11/18/2021 11:23:15 Gestational diabetes mellitus class A1 45826638 O24.410 Z3A.36 [id number] Quinn Gotti MD [place] [address],[place] [address] 11/18/2021 10:36:07 11/18/2021 11:28:16 Gestational diabetes mellitus class A1 62838525 O24.410 Z3A.36 [id number] [facility] [address],[place] [address] 11/18/2021 10:36:33 11/18/2021 12:55:25 Routine care 176943175 Z34.93 [id number] Quinn Gotti MD [place] [address],[place] [address] 11/25/2021 10:34:15 11/25/2021 13:03:57 Gestational diabetes mellitus class A1 92771199 O24.410 Z3A.36 [id number] Quinn Gotti MD [place] [address],[place] [address] 11/25/2021 10:34:35 11/25/2021 12:09:29 Gestational diabetes mellitus class A1 76769307 O24.410 Z3A.38 [id number] Debi Washington [facility] [address],[place] [address] 11/25/2021 10:34:56 11/25/2021 12:09:04 Routine care 637606036 Z34.93 [id number] Debi Washington [facility] [address],[place] [address] 01/01/2022 12:28:02 01/01/2022 13:38:01 care 508041237 Z39.2 Contracept ion care management 051679461 Z30.9 [id number] Debi Washington [facility] [address],[place] [address] 04/07/2022 16:29:53 04/07/2022 17:00:12 Contraception care management 190621389 Z30.9 [id number] Grace Nixon [facility] [address],[place] [address] 06/24/2022 16:31:38 06/29/2022 15:20:33 Gynecologic examination 27496166 Z01.419 Take Calcium with Vitamin D 1200mg [...] na Mixed anxi ety and depressive disorder 808475271 F41.8 Does not feel like her current [...] & significan t other is not helpful.Fe alberto very overwhelme d.Not a lot of support. [...] ing verbalized . Contracept ion care management 105041802 Z30.9 [id number] KYUNG [facility] [address] [address] 12/08/2022 14:08:12 12/08/2022 14:26:07 Contraception care 184861900 Z30.40 [id number] KYUNG Yi [place] [address] [address] 03/03/2023 16:37:06 03/03/2023 17:52:02 Mixed anxiety and depressive disorder 000594826 F41.8 Discussed current medication regimen and worsening symptomsre commended psychiatri st management moving forward as current medication regimen is no longer working as well. Psychiatry can offer additional medication /dosing options. Psychiatry referral placed, she is going to continue current medication regimen - encouraged to f/u with PCP as well until psychiatri st appointmen t. Handout given on [facility] behavioral health urgent care - recommend going [...] plan of care. Contracept ion care management 544172764 Z30.9 [id number] Ya Mauricio SUKHJINDER [place] [address] [address] 1 05/11/2024 12:45:50 05/16/2024 05:35:59 Gynecologic examination 74769886 Z01.419 WWEBC - Refills on Depo Provera [...] advised. Questions answered. Contracept ion care management 710979821 Z30.9 last IC 2 monthsUPT (-) todayrx sent for Depocan sweet pickle maker from pharmacy and return today for administra tion Urinary symptoms 1562732 08 R39.9 rx sent for macrobid, r/b/a reviewedur ine cx sent Vaginitis 83967690 N76.0 rx sent for BV/yeastvu lvar care guidelines discussed Time spent in visit is a total of 35 mins with at least 50% of visit consisting of counseling and review of plan of care. Screening procedure 2012 5006 Z13.9 Contraception care 52552 5005 Z30.40 Venereal d isease screening 555022577 Z11.3 Health Concerns Section Related Observation LastModified by Organization Detai ls LastModified Time None Recorded Concern Status LastModified by Organization Details LastModified Time None Recorded Advance Directives Directive N: Payers Encounter Date Sequence Insurance Name Policy Number Policy Drummond Covered Member ID Drummond Member ID Guarantor Name 06/24/2022 2 [place] [facility] Ninfa Bob [id number] Ninfa Bob 06/24/2022 1 [employer] ([place]O) [id number] Yosef Roy [id number] Ninfa Bob 12/08/2022 2 [place] [facility] Ninfa Bob [id number] Ninfa Bob 12/08/2022 1 [employer] ([place]) [id number] Yosef Bob [id number] Ninfa Bob 03/03/2023 1 [employer] [place]) [id number] Yosef Bob [id number] Ninfa Bob 05/11/2024 2 [place] [facility] Ninfa Bob [id number] Ninfa Bob 05/11/2024 1 [employer] ([place]) [id number] Yosef Bob [id number] Ninfa Bob Notes Date Note Type Note [...] more tearful, overwhelmed and easily fatigued; She KYUNG Salmeron- [address], [place], [address], [facility] 06/29/2022 13:14:26 03/03/2023 text/html 22yo [id number] for worsening depression/anxiety symptomsDoes not feel like [...] a PCP. KYUNG Yi [address], [place], [address], [facility] 03/03/2023 17:38:19 05/11/2024 text/html Annual GYNReport [...] ginal odor/itching KYUNG Yi [address], [place], [address], [place] [facility] 05/14/2024 12:48:17 OBGyn Episode Ob Episode Information Episode Created Date Number of Fetuses Patient Bloodtype Patient rh Status Prepregnancy Weight lbs Domestic Partner Domestic Partner Phone Father Name Grinding Wheel Facer Status 05/27/19 22 1 A Positive 165 CLOSED Fetus Data First Name Last Name Admitted to NICU Weight (g) Sex Living Outcome Pediatric Complications Fetus ID Race Codes Race Delivery Type 3543.68 75 F true Full Term 97110 Vaginal Delivery Problems Problem Notes Level II u/s only 10/07 - Per MFM, Cistera Magna is WNL!Umbilical Varicosity assoc. with hernia Problem Name Start Date End Date Resolution Snomed Code Not e Urinary tract infection in 305469695 Treat / frequent UTIs per pt Tobacco user 316437118 trying to cut down/quit Mixed anxiety and depressive disorder 289623310 increase zoloft to 150, off abilify, buspar Marginal insertion of umbilical cord 09/02/2021 63749618 Serial growth Proteinuria 51680657 24 hour urine Umbilical hernia 228701711 Ass ociated varicosity that changes color as blood leaves and return, SARS-CoV-2 08/20/2021 900636065 ASA & se rial growth Migraine 00959900 Uncertain if there is aura, Glucose level outside reference range 818245093 Failed 1hr G TT - checking BS QID instead of 3hr GTT! Gestational diabetes mellitus 01808391 BS QID & antena khurram testing Darius [...] Date Ultra Sound Latest Days Gestation 0 [id number] 05/26/2021 12/05/19 22 0 Pre- Flowsheet Flowsheet Date 05/26/2021 Travis Score Blood Edema Fundus Height Fundus Units Glucose Ketones Leukocytes Nitrite Labor Signs Protein Cervic Dilation Cervic Effacement Cervic Station neg none none trace Type Weight in lbs Pre/Post Dialysis Refused Weight 162.419333110117 BP Diastolic BP Location Tested BP Systolic [...] Weight in lbs Pre/Post Dialysis Refused Weight 169.151449092781 BP Diastolic BP Location Tested BP Systolic [...] Weight in lbs Pre/Post Dialysis Refused Weight 172.595015593657 BP Diastolic BP Location Tested BP Systolic [...] Weight in lbs Pre/Post Dialysis Refused Weight 182.911655578342 BP Diastolic BP Location Tested BP Systolic [...] Weight in lbs Pre/Post Dialysis Refused Weight 181.148251631364 BP Diastolic BP Location Tested BP Systolic [...] Weight in lbs Pre/Post Dialysis Refused Weight 182.185549603696 BP Diastolic BP Location Tested BP Systolic [...] having enough baby items, signed up for WIC EFW 75% Flowsheet Date 10/01/2021 Travis Score [...] Weight in lbs Pre/Post Dialysis Refused Weight 183.014544442869 BP Diastolic BP Location Tested BP Systolic BP Type 74 111 Fetus Heart Rate Present A 160 Fetus Movement A Yes Comments patient is having some BH co ntractions. ruled in GDM, reviewed lunches and ways to cut carbs and add protein, us today at [facility] report not yet available, reviewed risks of GDM including LGA, immature lung development, , precautions reviewed f/u shceduled Flowsheet Date 10/14/2021 Travis Score Blood Edema Fundus Height Fundus Units Glucose Ketones Leukocytes Nitrite Labor Signs Protein Cervic Dilation Cervic Effacement Cervic Station Type Weight in lbs Pre/Post Dialysis Refused Weight 186.057432753234 BP Diastolic BP Location Tested BP Systolic [...] Weight in lbs Pre/Post Dialysis Refused Weight 186.100957522252 BP Diastolic BP Location Tested BP Systolic [...] Weight in lbs Pre/Post Dialysis Refused Weight 188.676605937230 BP Diastolic BP Location Tested BP Systolic [...] Weight in lbs Pre/Post Dialysis Refused Weight 192.324233463752 BP Diastolic BP Location Tested BP Systolic [...] Weight in lbs Pre/Post Dialysis Refused Weight 188.886459757144 BP Diastolic BP Location Tested BP Systolic [...] Weight in lbs Pre/Post Dialysis Refused Weight 191.658695690723 BP Diastolic BP Location Tested BP Systolic [...] Weight in lbs Pre/Post Dialysis Refused Weight 194.219252732874 BP Diastolic BP Location Tested BP Systolic BP Type 75 118 Fetus Heart Rate Present Fetus Movement A Yes Comments patient states t hat having some swelling. bpp 10/26 doing well desires induction of labor at [...] Weight in lbs Pre/Post Dialysis Refused Weight 195.473696862689 BP Diastolic BP Location Tested BP Systolic [...] Estim ated Date of Delivery false Thalassemia (Serbian, Mohawk, Mediterranean, Or Background): MCV < 80 false Neural Tube Defect (Meningomyelocele, Spina Bifi da, Or Anencephaly) false Congenital Heart Defect false Down Syndrome false Kayode-Sachs (eg, Faith, Cajun, Kinyarwanda-Montrose) f alse Britta Disease false Sickle Cell Disease Or Trait () false Hemophilia Or Other Blood Disorders false Muscular Dystrophy false Cystic Fibrosis false [place]'s Chorea false Intellectual Disability/Autism false If Yes, [...] Sterilization Discharge Date Comments 2 Induce [facility]- idural 39.3 false Debi Washington CNM GDM Discharge Information Feeding Method Contraceptive Method Maternal HG B and HCT Levels
[2024-08-25 19:18] VITALS: BP 142/81; PULSE 112; RESP 18; TEMP 36.4; O2SAT 100
--- NOTE | 2024-08-25 19:32 | ED.DENTAL ---
HPI - Dental/Oral General Chief complaint: Dental/Oral Stated complaint: dental Time Seen by Provider: 08/25/24 19:27 Source: patient Mode of arrival: ambulatory Limitations: no limitations History of Present Illness HPI Narrative: 23-year-old female with a history of smoking, anxiety /depression, migraine, hypertension presents to the ED with -- left upper dental pain. Patient had caries of tooth # 2. The patient was scheduled to see the dentist but was unable to do so for financial reasons. Pain has increased and is radiating to the right ear. Swelling of the right upper jaw. No fever or chills. Complaint: tooth pain Location: Tooth # (2) Onset (ago): day(s) Duration: constant Severity: severe Relieving factors: nothing Exacerbating factors: cold and heat Context: history of dental caries Associated symptoms: ear pain Treatment prior to arrival: none Related Data Home Medications ?Medication ?Instructions ?Recorded ?Confirmed ?Last Taken ?Type gabapentin 100 mg capsule mg 03/29/24 Unknown History sumatriptan succinate 50 mg tablet mg PO 03/29/24 Unknown History Allergies Allergy/AdvReac Type Severity Reaction Status Date / Time No Known Allergies Allergy Verified 08/25/24 19:25 Review of Systems Review of Systems: All systems reviewed & are unremarkable except as noted in HPI and below PMFSH Past Medical History Medical History Menometrorrhagia Anxiety and depression Smoker HTN (hypertension) with goal to be determined Migraines Overweight (BMI 25.0-29.9) and not yet delivered Depression Family History Family History Grandparent Pneumonia Chronic obstructive pulmonary disease Grandparent Heart attack Social History Social History Smoking packs per day: 2 Smoking cigarettes per day: 40.0 Smoking status: Current every day smoker Tobacco type: cigarettes Alcohol intake: never Substance use: never Living arrangements: with family Spiritual care concerns: No Exam Narrative: Blood pressure 142/81. Pulse of 112. Const: General: ill appearing Nutritional Appearance: well nourished Orientation/consciousness: patient oriented x3 Limitations: no limitations HENMT: Head: normal to inspection Ears: external ears normal Face/Nose/Sinus: Normal external nose present Face and sinus: normal facial exam Mouth: Yes Normal oral and palatal mucosa present Teeth and gingiva: abnormal tooth and associated gingiva Other: tooth # 2-- Tooth is carious with erosion of the lateral surface of the tooth. Eyes: Conjunctivae: conjunctivae normal Pupils: Equal, round and reactive pupils present EOM: EOMs intact bilaterally Direct Ophthalmoscopy: no photophobia Neck: Neck: normal visual inspection, no lymphadenopathy and no meningeal signs Chest: Chest palpation & inspection: normal inspection of the chest Resp: Effort & Inspection: normal respiratory effort Auscultation: clear to auscultation bilaterally Cardio: Rate: tachycardic Rhythm: regular rhythm GI: Auscultation: normal bowel sounds Other: No tenderness/ rigidity / rebound. : General: Yes no CVA tenderness Back/Spine/Pelvis: Back: no CVA tenderness Skin: General skin exam: normal color Rashes: no rashes Wounds: no wounds Neuro: General: patient oriented x3, moves all extremities, no meningeal signs, no focal motor deficits and CN's II-XI intact bilaterally Speech: normal speech Extrem: General: normal to inspection and no clubbing, cyanosis or edema Psych: Mental Status: mental status grossly normal Affect: normal affect Attitude: cooperative Course Course Emergency Course: Dental pain dental caries Vital Signs Vital signs: Vital Signs Temperature 36.4 C 08/25/24 19:18 Pulse Rate 112 H 08/25/24 19:18 Respiratory Rate 08/25/24 19:18 Blood Pressure 142/81 H 08/25/24 19:18 Pulse Oximetry 100 08/25/24 19:18 Oxygen Delivery Room Air 08/25/24 19:18 Temperature 36.4 C 08/25/24 19:18 Pulse Rate 112 H 08/25/24 19:18 Respiratory Rate 18 08/25/24 19:18 Blood Pressure 142/81 H 08/25/24 19:18 Pulse Oximetry 100 08/25/24 19:18 Oxygen Delivery Room Air 08/25/24 19:18 MDM - Dental/Oral MDM Narrative Medical decision making narrative: dental pain dental caries Differential Diagnosis Differential diagnosis: Likely dental caries and toothache Medical Records Attestation: I reviewed the patient's medical records. Discharge Plan Discharge Clinical Impression: Dental abscess, Toothache Patient Disposition: Home Condition: Stable Instructions: Antibiotic Form, Dental Abscess (ED), Toothache (ED) Patient Language: Upper Sorbian Prescriptions: New clindamycin HCl [Cleocin HCl] 300 mg capsule 300 mg PO Q8H Qty: 21 0RF No Action sumatriptan succinate 50 mg tablet PO gabapentin 100 mg capsule ondansetron 4 mg tablet,disintegrating 4 mg PO Q8H PRN (Reason: nausea and vomiting) Qty: 20 0RF hydrocodone-acetaminophen 5-325 mg tablet 1 tablet PO Q12H PRN (Reason: pain) Qty: 5 0RF ibuprofen [IBU] 800 mg tablet 800 mg PO TID Qty: 20 0RF Follow-up/Referrals: Betina,BARBARA Moreno [Primary Care Provider] - Stand Alone Forms: Work/School Release IP Time of Disposition: 19:45
[2024-08-25] MEDS: KETOROLAC 30 MG/ML VIAL (*BKC) IM (19:52)
[2024-08-25] MEDS: HYDROcodone/acetaminophen (*CRX) 5-325 MG TABLET 1 TAB PO (19:53)
[2024-08-25 20:37] VITALS: BP 125/85; PULSE 90; RESP 16; O2SAT 100
== END 2024-08-25 20:37 | disposition home or self-care (01) ==
LOC: CHSED 19:49
PROVIDERS: Emergency Provider Internal Medicine Critical Care Medicine; PCP Physician Assistant
DX: K04.7 Periapical abscess without sinus (principal); I10 Essential (primary) hypertension; F17.210 Nicotine dependence, cigarettes, uncomplicated
CPT/HCPCS: 96372; 99283; A9270; J1885

== ENCOUNTER 2024-11-22 21:02 | Emergency (ER) | payer OTHER, MEDICAID, SELFPAY ==
[2024-11-22 21:03] VITALS: BP 129/88; PULSE 97; RESP 16; TEMP 38.2; O2SAT 99
--- OUTSIDE RECORDS SUMMARY | 2024-11-22 21:04 | XMS_ITS | Patient Health Record ---
Author Organization [facility] As [employer] [facility] Address [address] [place] [address] Care Team Providers Care Press Worker Helper Name Role Phone Griffin Webster Unavailable [phone] Reason For Referral No Information Medications Medication SIG (Take, Route, Frequency, Duration) Notes Start Date End Date Status Pgewnbreoa-SJZY-Rbhmbuzf 50-300-40 MG Capsule Oral Active Lidocaine (Anorectal) 5 % Cream External Active Ondansetron 8 MG Tablet Disintegrating Oral Active Sertraline HCl 100 MG Tablet Oral Active FreeStyle [place] Lite KIT MISCELLANEOUS Active Ondansetron 4 MG Tablet Disintegrating Oral Active FreeStyle Lancets 28 gauge EACH MISCELLANEOUS Active metroNIDAZOLE 500 MG Tablet Oral Active ARIPiprazole 10 MG Tablet Oral Active FreeStyle Lite Test Strip In Vitro Active Hydrocortisone 1 % Cream Rectal Active Amoxicillin-Pot Clavulanate 875-125 MG Tablet Oral Active Amoxicillin 500 MG Capsule Oral Active Nabumetone 750 MG Tablet Oral Active metroNIDAZOLE 0.75 % Gel Vaginal Active medroxyPROGESTERone Acetate 150 MG/ML Suspension Intramuscular Active Oseltamivir Phosphate 75 MG Capsule Oral Active Ibuprofen 800 MG Tablet Oral Active Plan Of Treatment No Information Insurance Providers Payer Name Payer Address Payer Phone Subscriber Number Group Number Insured Name Patient Relationship to Insured Coverage Start Date Coverage End Date Cigna [address] [place] [phone] [id number] SABRINA IRINASARA Suarez Child - Insured has Financial Responsibility Medicaid-[place] Medicaid [address] [address] [place] [phone] [id number] CAMPBELL BENNETT Self - patient is the insured
--- OUTSIDE RECORDS SUMMARY | 2024-11-22 21:04 | XMS_ITS | Clinical Summary ---
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
--- NOTE | 2024-11-22 21:10 | PC.NURSE ---
covid swab sent to lab
--- NOTE | 2024-11-22 21:14 | ED_ITS ---
HPI - Fever General Chief Complaint: Upper Respiratory Infection Stated Complaint: fever/nausea Time Seen by Provider: 11/22/24 21:05 Source: patient Mode of arrival: ambulatory Limitations: no limitations History of Present Illness HPI Narrative: this is a 24-year-old female with no significant past medical history presents with low-grade fevers with some episode of nausea and vomiting has a tender painful right lower molar with some right submandibular gland swelling and enlargement temperature 100.7? with no shortness of breath no nasal congestion does have a headache and pain radiating to her right ear. No nasal congestion or drainage no sore throat. MD elicited complaint: fever Onset (ago): hour(s) Related Data Home Medications ?Medication ?Instructions ?Recorded ?Confirmed ?Last Taken ?Type gabapentin 100 mg capsule mg 03/29/24 Unknown History sumatriptan succinate 50 mg tablet mg PO 03/29/24 Unk nown History Allergies Allergy/AdvReac Type Severity Reaction Status Date / Time No Known Allergies Allergy Verified 11/22/24 21:05 Review of Systems Review of Systems: All systems reviewed & are unremarkable except as noted in HPI and below PMFSH Past Medical History Medical History Menometrorrhagia Anxiety and depression Smoker HTN (hypertension) with goal to be determined Migraines Overweight (BMI 25.0-29.9) and not yet delivered Depression Family History Family History Grandparent Pneumonia Chronic obstructive pulmonary disease Grandparent Heart attack Social History Social History Smoking packs per day: 2 Smoking cigarettes per day: 40.0 Smoking status: Current every day smoker Tobacco type: cigarettes Alcohol intake: never Substance use: never Living arrangements: with family Spiritual care concerns: No Exam Const: General: healthy appearing and no acute distress Nutritional Appearance: well nourished Orientation/consciousness: patient oriented x3 Limitations: no limitations HENMT: Head: normal to inspection Other: Right lower molar tenderness with surrounding gum inflammation with right submandibular gland swelling and tender Neck: Neck: normal visual inspection and lymphadenopathy Chest: Chest palpation & inspection: normal inspection of the chest Resp: Effort & Inspection: normal respiratory effort Auscultation: clear to auscultation bilaterally Cardio: Rate: regular rate Rhythm: regular rhythm GI: GI Palp: Yes Soft to palpation Skin: General skin exam: normal color Rashes: no rashes Course COLLECTION SYSTEMS WORKER/PA Physician Supervision COVID RSV influenza performed and reviewed with patient as long as well as rapid strep, patient received Zofran and 600mg PO Motrin. Vital Signs Vital signs: Vital Signs Temperature 38.2 C H 11/22/24 21:03 Pulse Rate 97 11/22/24 21:03 Respiratory Rate 16 11/22/24 21:03 Blood Pressure 129/88 11/22/24 21:03 Pulse Oximetry 99 11/22/24 21:03 Oxygen Delivery Room Air 11/22/24 21:03 Temperature 38.2 C H 11/22/24 21:03 Pulse Rate 97 11/22/24 21:03 Respiratory Rate 16 11/22/24 21:03 Blood Pressure 129/88 11/22/24 21:03 Pulse Oximetry 99 11/22/24 21:03 Oxygen Delivery Room Air 11/22/24 21:03 Critical Care Time Critical Care Time Critical Care Time: No Discharge Plan Discharge Clinical Impression: Dental abscess Patient Disposition: Home Condition: Stable Instructions: Antibiotic Form, Dental Abscess (ED) Patient Language: Ukrainian Prescriptions: No Action sumatriptan succinate 50 mg tablet PO gabapentin 100 mg capsule ondansetron 4 mg tablet,disintegrating 4 mg PO Q8H PRN (Reason: nausea and vomiting) Qty: 20 0RF hydrocodone-acetaminophen 5-325 mg tablet 1 tablet PO Q12H PRN (Reason: pain) Qty: 5 0RF ibuprofen [IBU] 800 mg tablet 800 mg PO TID Qty: 20 0RF clindamycin HCl [Cleocin HCl] 300 mg capsule 300 mg PO Q8H Qty: 21 0RF Follow-up/Referrals: Betina,BARBARA Moreno [Primary Care Provider]
[2024-11-22] MEDS: ONDANSETRON HCL ODT 4 MG TABLET PO (21:19)
[2024-11-22] MEDS: IBUPROFEN 600 MG TABLET PO (21:19)
--- OUTSIDE RECORDS SUMMARY | 2024-11-22 21:43 | XMS_ITS | Clinical Summary ---
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
[2024-11-22 21:46] LABS: Strep Group A RT-PCR Not Detected (Negative)
[2024-11-22 21:48] LABS: Influenza A QL RT-PCR Negative (Negative); Influenza B QL RT-PCR Negative (Negative); RSV RNA, RT-PCR Negative (Negative); SARS-CoV-2 RNA PCR Positive (Negative)
[2024-11-22 21:49] VITALS: TEMP 37.1
[2024-11-22 22:01] VITALS: BP 122/77; PULSE 81; RESP 18; TEMP 37.1; O2SAT 97
== END 2024-11-22 22:01 | disposition home or self-care (01) ==
PROVIDERS: Emergency Provider Emergency Medicine; PCP Physician Assistant
DX: K04.7 Periapical abscess without sinus (principal); I10 Essential (primary) hypertension; F17.210 Nicotine dependence, cigarettes, uncomplicated; Z20.822 Contact with and (suspected) exposure to COVID-19
CPT/HCPCS: 87637; 87651; 99283; A9270

== ENCOUNTER 2025-01-28 19:37 | Emergency (ER) | payer OTHER, MEDICAID, SELFPAY ==
--- NOTE | 2025-01-28 19:41 | ED_ITS ---
HPI - General Adult General Chief complaint: Weakness Stated complaint: , feels weak, URI Time Seen by Provider: 01/28/25 19:40 Source: patient Mode of arrival: ambulatory Limitations: no limitations History of Present Illness HPI narrative: 24 YEARS OLD WHITE FEMALE CAME TO THE ED BY PRIVATE CAR FROM HOME COMPLAINING OF FEELING ACHY FROM HEAD TO TOES STARTED 3 DAYS AGO, FEELING TIRED AND WEAK, DECREASED APPETITE. PATIENT IS TELLING ME LAST MENSTRUAL PERIOD WAS AND TESTED POSITIVE FOR AT HOME. PATIENT IS 2 PARA 1 0. SHE DENIES ANY FEVER OR CHILLS OR NAUSEA OR VOMITING OR SHORTNESS OF BREATH OR COUGHING. POSITIVE SICK CONTACT TO HER DAUGHTER 1 WEEK AGO. PATIENT DOES SMOKE CIGARETTES, DENIED ALCOHOL OR DRUG USE PATIENT DENIES ANY VAGINAL BLEEDING OR DISCHARGE Related Data Home Medications ?Medication ?Instructions ?Recorded ?Confirmed ?Last Taken ?Type gabapentin 100 mg capsule mg 03/29/24 Unknown History sumatriptan succinate 50 mg tablet mg PO 03/29/24 Unk nown History Allergies Allergy/AdvReac Type Severity Reaction Status Date / Time No Known Allergies Allergy Verified 11/22/24 21:05 Review of Systems Review of Systems: All systems reviewed & are unremarkable except as noted in HPI and below PMFSH Past Medical History Medical History Menometrorrhagia Anxiety and depression Smoker HTN (hypertension) with goal to be determined Migraines Overweight (BMI 25.0-29.9) and not yet delivered Depression Family History Family History Grandparent Pneumonia Chronic obstructive pulmonary disease Grandparent Heart attack Social History Social History Smoking packs per day: 2 Smoking cigarettes per day: 40.0 Tobacco type: cigarettes Alcohol intake: never Substance use: never Living arrangements: with family Spiritual care concerns: No Exam Narrative: GENERAL APPEARANCE: WELL-DEVELOPED, WELL-NOURISHED SKIN: NORMAL COLOR HEAD: NORMOCEPHALIC, NONTRAUMATIC EYES: CLEAR CONJUNCTIVA ENT: OROPHARYNX NORMAL, EARS NORMAL, NOSE NORMAL NECK: SUPPLE, NONTENDER CHEST AND RESPIRATORY: AIRWAY PATENT, NO RESPIRATORY DISTRESS, NO ACCESSORY MUSCLE USE HEART: REGULAR RATE/RHYTHM ABDOMEN: SOFT, NONTENDER, NO ORGANOMEGALY, QUIET BOWEL SOUNDS VASCULAR: NORMAL PERIPHERAL PULSES, NORMAL CAPILLARY REFILL. MUSCULOSKELETAL: NORMAL RANGE OF MOTION, NONTENDER BACK NEUROLOGIC: ALERT AND ORIENTED ?3, TERRAZZO JOURNEYMAN IS NORMAL TESTED, NO GROSS MOTOR DEFICIT Medical Decision Making MDM Narrative Medical decision making narrative: DIFFERENTIAL DIAGNOSIS INCLUDE VIRAL INFECTION AND OR URINARY TRACT INFECTION URINALYSIS SHOWED NO EVIDENCE OF INFECTION, PATIENT TESTED NEGATIVE FOR COVID FLU AND RSV. DIAGNOSIS VIRAL SYNDROME THE PT WAS DISCHARGED TO HOME.THE PT,S CONDITION UPON DISCHARGE WAS FAIR,EDUCATION WAS PROVIDED TO THE PT IN REFERENCE TO THE FINAL IMPRESSION,DISCHARGE STUDY RESULTS,TREATMENT,PROGNOSIS AND NEED FOR FOLLOW UP . Differential Diagnosis Differential Diagnosis: ABOVE Lab Data Labs: Lab Results 01/28/25 Range/Units 19:41 Urine Color Light yellow (Yellow) Urine Appearance Clear (Clear) Urine pH 6.0 (5.0-8.0) Ur Specific G[place]ord 1.015 (1.010-1.020) Urine Protein Negative (Negative) Urine Glucose (UA) Negative (Negative) Urine Ketones Negative (Negative) Ur Blood (Man) Negative (Negative) Urine Nitrate Negative (Negative) Urine Bilirubin Negative (Negative) Urine Urobilinogen 0.2 (0.2-1.0) mg/dL Leukocyte Esterase Rfl Negative (Negative) MISSY/UL Influenza A (RT-PCR) Pending Influenza B (RT-PCR) Pending RSV (RT-PCR) Pending SARS-CoV-2 RNA (RT-PCR) Pending Critical Care Time Critical Care Time Critical Care Time: No Discharge Plan Discharge Clinical Impression: Acute viral syndrome, Nausea Patient Disposition: Home Condition: Stable Instructions: Viral Syndrome (ED) Patient Language: Frisian Prescriptions: New ondansetron 4 mg tablet,disintegrating 4 mg PO Q4H PRN (Reason: nausea and vomiting) 3 Days Qty: 10 0RF No Action sumatriptan succinate 50 mg tablet PO gabapentin 100 mg capsule ondansetron 4 mg tablet,disintegrating 4 mg PO Q8H PRN (Reason: nausea and vomiting) Qty: 20 0RF hydrocodone-acetaminophen 5-325 mg tablet 1 tablet PO Q12H PRN (Reason: pain) Qty: 5 0RF Paxlovid 300 mg (150 mg x 2)-100 mg tablets,dose pack See Rx Instructions .ROUTE .COMPLEX Qty: 30 0RF Rx Instructions: take TWO 150 mg tablets of nirmatrelvir with ONE 100 mg tablet of ritonavir twice daily for 5 days ibuprofen [IBU] 800 mg tablet 800 mg PO TID Qty: 20 0RF clindamycin HCl [Cleocin HCl] 300 mg capsule 300 mg PO Q8H Qty: 21 0RF Follow-up/Referrals: Leydi,THEA Meneses [Primary Care Provider]
[2025-01-28 19:45] VITALS: BP 134/90; PULSE 87; RESP 18; TEMP 36.4; O2SAT 100
[2025-01-28 20:03] LABS: Add Urine Microscopic? NO; Appearance Urine Clear (Clear); Glucose Urine UA Negative (Negative); Leukocyte Esterase Ur Negative LEU/UL (Negative); Nitrate Urine Negative (Negative); Specific Grav Ur 1.015 (1.010-1.020)
--- OUTSIDE RECORDS SUMMARY | 2025-01-28 20:07 | XMS_ITS | Clinical Summary ---
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 Gender Identity Not on file Sexual [...] COVID-19 Vaccine ( season) 2024 02/05/2021, 01/08/2021 Influenza Adult (#1) 2024 12/28/2017, 02/06/2009, 01/14/2009 Cervical Cancer Screening Pap Smear (Age 21 to 29) Every 3 Years 06/24/2025 06/24/2022, 06/24/2022, 06/24/2022, Additional history exists Cervical Cancer Screening 06/24/2025 Hepatitis B Vaccines Completed 03/01/2002, 03/01/2002, 03/01/2002, Additional history exists HPV Vaccines Completed 05/23/2012, 12/21, 11/15/2011 Hepatitis A Vaccines Completed 05/23/2012, 11/15/19 12 Meningococcal Vaccine Completed 09/19/2017, 012 Meningococcal B Vaccine Completed 12/28/2017, 09/19 Hepatitis C Completed 05/26/2021 RSV Immunizations Under 20 Months Aged Out No longer eligible based on patient's age to complete this topic Insurance MEDICAID [employer] Care Teams Provider Scribe Relationship Specialty Start Date End Date Quinn Rios MD [address] [place] [address] PCP - General PSYCHOLOGIST CHIEF ONCOLOGY 10/28/21
--- OUTSIDE RECORDS SUMMARY | 2025-01-28 20:08 | XMS_ITS | Data Portability ---
Author Organization [facility] Address [address] [place] [address] [place] [address] Assessment Encounter Date Assessment Date Assessment LastModified by Organization Details LastModified Time 06/24/2022 06/24/2022 Annual gynecological exam performed. Patient will come back in a year unless there are new symptoms. [email or web address] Not available 06/24/2022 16:39:00 Plan of Treatment Reminders Order Date Submit Date Provider Last Modified By Organization Details Last Modified Time Details Appointments U/S OB SNEAK PEAK 2024 02:00P M ULTRASOUND Not available Not available Not available OB SCREEN 2024 02:30P M Debi Washington CNM Not available Not available Not available Lab pregnan cy test, urine 2024 025 [email or web address] [address], [address], [place], [address], 05/11/2024 13:22:23 Referral psychia trist referra l 2022 023 [email or web address] [facility], [address], [address], [place], [address], 05/18/2023 15:13:15 psychia trist referra l 2022 023 [email or web address] Florentin Ervin [facility], [address], [address], [place], [address], 06/24/2022 17:03:11 Procedures None recorde d. Surgeries None recorde d. Imaging None recorde d. Medication Orders flucona zole 150 mg tablet 2024 025 [facility], [address] [place] [address], [address], 05/11/2024 13:14:09 metroni dazole 0.75 % (37.5 mg/5 gram) vaginal gel 2024 025 [facility], [address] [place] [address], [id number], 08/08/2024 17:15:18 Macrobi d 100 mg capsule 2024 025 [facility], [address] [place] [address], [id number], 05/11/2024 13:13:48 Depo-Pr overa 150 mg/mL intramu scular suspens ion 2024 025 Not available 05/11/2024 18:56:10 Depo-Pr overa 150 mg/mL intramu scular syringe 2024 025 [email or web address] Not available 05/11/2024 18:55:59 Depo-Pr overa 150 mg/mL intramu scular suspens ion 2022 023 [email or web address] Not available 03/03/2023 18:06:02 Depo-Pr overa 150 mg/mL intramu scular suspens ion 2022 023 [email or web address] Not available 12/08/2022 14:26:00 Depo-Pr overa 150 mg/mL intramu scular syringe 2022 023 [email or web address] [id number], [address] [place], [address], 06/24/2022 17:05:00 aripipr azole 10 mg tablet 2022 023 [email or web address] [id number], [address] [place], [address], 11/03/2022 13:35:14 Patient TargetsNo targets recorded. Patient InstructionsNo instructions recorded. Reason for Referral Psychiatrist Referral for Mi xed anxiety and depressive disorder Referring Physician: Grace Nixon, SPECIAL ASSETS OFFICER, Encounter Date: 06/24/2022 Psychiatrist Referral for Mi xed anxiety and depressive disorder Referring Physician: Ya Mauricio [employer] ASSETS OFFICER, Encounter Date: 03/03/2023 Results Created Date Observation Date Name Description Value Unit Range Abnormal Flag Note LastModifiedBy Organization Detail LastModifiedTime 06/25/19 23 06/24/2022 IMAGE GUIDE D PAP, REFLE X HPV IF ASCUS ONLY image guided Pap, reflex HPV ASCUS only SEE RESULT S BELOW CASE REPOR T: Cytol ogy Gynec ologi pierre Repor t Case: [id number] Autho eloina ghislaine Provi citlali: Petar Marinelli Colle cted: 06/24 1629 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 Lashonda virk d by Sandrine Garcia on 2022 at 1:55 PM ----- ----- ----- ----- ----- ----- ----- [...] is recom kristina d, as clini kiah pemberton nted. Not Available [facility] (Lab) [address] [facility], [place], [address], 06/29/2022 14:58:20 06/25/19 23 06/24/2022 TRICH OMONA S VAGIN CAR (RRNA ) trichomonas vaginalis ribosomal RNA (rrna) Negati ve negati ve Not Available [facility] (Lab) [address] [place], [address], 06/29/2022 14:58:21 06/25/19 23 06/24/2022 CT/GC (STEFANY) , THINP REP VIAL chlamydia trachomatis, PCR Negati ve negati ve Not Available [facility] (Lab) [address] [place], [address], 06/29/2022 14:58:21 06/25/19 23 06/24/2022 CT/GC (STEFANY) , THINP REP VIAL neisseria gonorrhoeae, PCR Negati ve negati ve Not Available [facility] (Lab) [address] [facility], [place], [address], 06/29/2022 14:58:21 09/18/19 23 09/17/2022 pregn jayy test, urine HCG negati ve Not Available [place] [address], [place], [address], 09/17/2022 14:34:32 05/11/19 25 05/11/2024 CULTU RE: URINE result report SEE RESULT S BELOW Test: Cultu re: Urine Speci men Sourc e: Urine - Clean Catch Speci men Type: Urine Speci men Date: 2024 1330 Resul t Date: 2024 0052 Resul t Statu s: Final resul t Abnor mal: No Resul ting Lab: [facility] [address] [facility] [address] Tel: CULTU RE ----- ----- ----- --- Organ ism(s ) consi stent with uroge nital or skin wilder . Repea t cultu re if sympt oms indic ate. Not Available [facility] (Lab) [address], [place], [address], 05/16/2024 19:11:06 05/11/19 25 05/11/2024 IMAGE GUIDE D PAP, REFLE X HPV IF ASCUS ONLY image guided Pap, reflex HPV ASCUS only SEE RESULT S BELOW CASE REPOR T: Cytol ogy Gynec ologi pierre Repor t Case: [id number] Autho eloina g Provi citlali: Ya Mauricio, SUKHJINDER Colle cted: 05/11 1330 Order ing Locat ion: [place] [facility] [place] Recei aide: 05/14 0724 First Scree n: Jocelyne ni, Mohnessa ed, CT Rescr een: Talya Whipple ay, [...] DIAGN OSIS: Negat agus for Intra epith elipaulina hendrickson or Johan reid (NIL) . 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 Not Available [facility] (Lab) [address], [place], [address], 05/16/2024 19:11:06 05/11/19 25 05/11/2024 TRICH OMONA S VAGIN CAR (RRNA ) trichomonas vaginalis ribosomal RNA (rrna) Negati ve negati ve Not Available [facility] (Lab) [address] [facility], [place], [address], 05/16/2024 19:11:07 05/11/19 25 05/11/2024 CT/GC (STEFANY) , THINP REP VIAL chlamydia trachomatis, PCR Negati ve negati ve Not Available [facility] (Lab) [address], [place], [address], 05/16/2024 19:11:07 05/11/19 25 05/11/2024 CT/GC (STEFANY) , THINP REP VIAL neisseria gonorrhoeae, PCR Negati ve negati ve Not Available [facility] (Lab) [address], [place], [address], 05/16/2024 19:11:07 05/11/19 25 05/11/2024 pregn jayy test, urine HCG negati ve Not Available [address], [place], [address], 05/11/2024 13:22:09 Result Notes None recorded. Problems Name Problem SNOMED Code Status Onset Date Resolution Date Notes Provider Name and Address Organization Details Recorded Time Tobacco user 570762275 Completed trying to cut down/trevon t Sarai Schwartz hl null, [facility] 2 16:03:30 Mixed anxiety and depressi ve disorder 790456026 Completed increase zoloft to 150, off abilify, buspar Sarai Schwartz hl null, [facility] 2 16:03:30 Tobacco user 529792367 Active trying to cut down/trevon t Not Available [facility] 2 09:25:27 Mixed anxiety and depressi ve disorder 064820476 Active increase zoloft to 150, off abilify, buspar Not Available [facility] 2 09:25:26 Urinary tract infectio n in pregnanc y 515253853 Completed Treat 05/29 frequent UTIs per pt Sarai Schwartz hl null, [facility] 2 16:03:30 Migraine 11918223 Completed Uncertai n if there is aura, Sarai Schwartz hl null, [facility] 2 16:03:30 Proteinu tracie 38263182 Completed 24 hour urine Sarai Schwartz null, [facility] 2 16:03:30 Umbilica l hernia 869219974 Completed Associat ed varicosi ty that changes color as blood leaves and return, Sarai Schwartz hl null, [facility] 2 16:03:30 Glucose level outside referenc e range 167739296 Completed Failed 1hr GTT - checking BS QID instead of 3hr GTT! Sarai Schwartz hl null, [facility] 2 16:03:30 Gestatio nal diabetes mellitus 82198111 Completed BS QID & antenata l testing Sarai Schwartz hl null, [facility] 2 16:03:30 Pregnanc y 92323256 Completed 202112/18/2021 Sarai Schwartz null, [facility] 2 16:03:40 SARS-CoV -2 Completed 2021 ASA & serial growth Sarai Schwartz hl null, [facility] 2 16:03:30 Marginal insertio n of umbilica l cord 63859872 Completed 2021 Serial growth Sarai Schwartz null, [facility] 2 16:03:30 Problem Notes None recorded. Procedures Surgical History Date Name Laterality Status Provider Name and Address Organization Details Recorded Time 05/11/2024 Date of Last Pap Smear completed TATYANA Weston [facility] 08/08/2024 15:46:44 Imaging Results None recorded. [...] completed Not Available Not Available Not Available Depo-Recreational Counselor a 150 mg/mL intramuscul ar syringe Inject [...] Not Available Not Available Not Available FreeStyle Lynch Lite kit CHECK BLOOD SUGAR 4 TIMES A DAY 05/11 completed Not Available Not Available Not Available Fioricet 50 mg-300 mg-40 mg capsule 1 tablet every 8 hours as needed 2024 active Not Available Not Available Not Avai lable Karen 0.25 mg-0.035 mg tablet 04/29 completed Not Available Not Available Not Available Vitals Date Recorded Body height Body mass index (BMI) Body weight Systolic And Diastolic Provider Name and Address Organization Details Last Updated DateTime 05/11/2024 170.18 cm 31.5 kg/m2 61077.07 g 135/89 mm[Hg] TATYANA Weston [facility] 05/11/2024 12:58:54 Date Recorded Body height Body mass index (BMI) Body weight Systolic And Diastolic Provider Name and Address Organization Details Last Updated DateTime 06/24/2022 170.18 cm 29.3 kg/m2 33678.77 g 120/82 mm[Hg] Kelly Queen [facility] 06/24/2022 16:39:11 Date Recorded Body height Provider Name an d Address Organization Details Last Updated DateTime 09/17/2022 170.18 cm Radha Lemus [facility] 09/17/2022 14:35:25 Date Recorded Body height Body mass index (BMI) Body weight Systolic And Diastolic Provider Name and Address Organization Details Last Updated DateTime 03/03/2023 170.18 cm 29.4 kg/m2 09388.37 g 128/82 mm[Hg] Val Sanchez [facility] 03/03/2023 16:40:56 Social History Question Answer Notes LastModified by Organizat ion Details LastModified Time Tobacco Smoking Status Current Every Day Smoker Zoya villa, [facility] 09/17/2021 11:57:46 Do You Have An Advance Directive? No [email or web address] Information not available 04/30/2021 If You Are , What Was Your Level Of Alcohol Consumption Prior To ? Occasional [email or web address] Information not available 09/17/2021 Are You Blind Or Do You Have Difficulty Seeing? No [email or web address] Information not available 04/30/2021 What Is Your Level Of Caffeine Consumption? Occasional [email or web address] Information not available 04/30/2021 How Much Tobacco Do You Chew? None [email or web address] Information not available 04/30/2021 In The 14 Days Before Symptom Onset, Have You Had Close Contact With A Laboratory-confir med COVID-19 While That Case Was Ill? No [email or web address] Information not available 04/30/2021 In The 14 Days Before Symptom Onset, Have You Had Close Contact With A Person Who Is Under Investigation For COVID-19 While That Person Was Ill? No [email or web address] Information not available 04/30/2021 Have You Been To An Area Known To Be High Risk For COVID-19? No [email or web address] Information not available 04/30/2021 Are You Deaf Or Do You Have Serious Difficulty Hearing? No Information not available 04/30/2021 What Type Of Diet Are You Following? REGULAR [email or web address] Information not available 04/30/2021 What Is The Highest Grade Or Level Of School You Have Completed Or The Highest Degree You Have Received? [id number] [email or web address] Information not available 04/30/2021 Are There Any Guns Present In Your Home? No [email or web address] Information not available 04/30/2021 Do You Use Protection During Sex? No [email or web address] Information not available 04/30/2021 Do You Use Your Seat Belt Or Car Seat Routinely? Yes [email or web address] Information not available 04/30/2021 Do You Have Smoke And Carbon Monoxide Detectors In Your Home? Yes [email or web address] Information not available 04/30/2021 At What Age Did You Start Smoking Tobacco? 15 [email or web address] Information not available 04/30/2021 How Much Tobacco Do You Smoke? 1 PPD [email or web address] Information not available 04/30/2021 Do You Use Sunscreen Routinely? Yes [email or web address] Information not available 04/30/2021 Has Tobacco Cessation Counseling Been Provided? No [email or web address] Information not available 09/17/2021 How Many Years Have You Smoked Tobacco? 5 [email or web address] Information not available 04/30/2021 Have You Used IV Drugs? No [email or web address] Information not available 04/30/2021 Do You Have Difficulty Walking Or Climbing Stairs? No [email or web address] Information not available 09/17/2021 Sex: Unknown Functional Status Question Answer Note LastModified by Organizat ion Details LastModified Time Do you use any illicit or recreational drugs? No [email or web address] Information not available 04/30/2021 Do you or have you ever used any other forms of tobacco or nicotine? No [email or web address] Information not available 09/17/2021 What is your level of alcohol consumption? None [email or web address] Information not available 04/30/2021 Are you able to walk independently without assistance or assistive devices? [email or web address] Information not available 04/30/2021 Are you able to care for yourself independently? 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 No [email or web address] Information not available 09/17/2021 What is your exercise level? Moderate [email or web address] Information not available 04/30/2021 Mental Status Question Answer Note LastModified by Organization D etails LastModified Time Do you feel stressed (tense, restless, nervous, or anxious, or unable to sleep at night)? [id number] [email or web address] Information not available 04/30/2021 Family History Relationship Description Onset Age of this Age Resolved Age Notes LastModified by Organization Details LastModified Time Maternal Aunt Malignant neoplasm of breast [email or web address] Not available 2021 09:40:39 Medical History Condition [...] of Flow (days) 7 Current Control Method Depo-Recreational Counselor a Are cycles usually normal Y Sexually [...] mcg/0.3 mL dose 02/09/2022 [facility] 05/11/2024 09:30:31 Past Encounters Encounter ID Performer Location Encounter Start Date Encounter Closed Date Diagnosis/Indication Diagnosis SNOMED-CT Code Diagnosis ICD10 Code Diagnosis IMO Codes Diagnosis Note [id number] [facility] [address] [address] 04/30/2021 09:23:17 05/01/2021 15:04:47 test positive 602658939 Z32.01 Risk factors addressed: Tobacco Cessation, Safe Sexual Practices, environmen khurram, work hazards, travel restrictio ns, seat belt use.Eat a health well balanced diet, avoid alcohol, tobacco, and street drugs.Enga ge in daily low impact exercise, avoid temperatur e extremes, and cat, rodent, and bird feces.Avoi d travel to areas where zika virus is a concern.Of fered cf/sma/nip t. Oscar g. Handouts given and discussed with patient.Ch ildbirth classes recommende d.New OB sheet given.If previous , counseling .Pt verbalizes that she understand s the importance of above instructio ns.All questions were answered.P atient reminded to have annual well woman examinatio n and address preventati ve healthcare . Migraine 83344163 G43.90 9 Needs neuro referral. Will try fioricet as need. [id number] Quinn Gotti MD [place] [address],[place] [address] 04/30/2021 09:27:36 04/30/2021 10:37:22 [id number] Shi More MD [place] [address],[place] [address] 05/26/2021 11:22:20 05/26/2021 12:02:06 screening 282075685 Z36.82 [id number] Shi More MD [place] [address] [address] 05/26/2021 11:23:21 05/26/2021 12:47:40 Routine care 385081858 Z34.91 Mixed anxi ety and depressive disorder 928835056 F41.8 Tobacco user 487929497 Z 72.0 [id number] Quinn Gotti MD [place] [address],[place] [address] 06/25/2021 16:50:24 06/25/2021 17:57:21 Migraine 45812255 G43.909 Nausea and vomiting 1693 2000 R11.2 [id number] Quinn Gotti MD [place] [address] [address] 07/31/2021 13:47:20 07/31/2021 14:44:03 screening 038311636 Z36.3 [id number] MD [facility] [place] [address] [address] 07/31/2021 13:47:49 07/31/2021 16:17:19 Routine care 362368510 Z34.02 [id number] MD [place]i [place] [address] [address] 08/31/2021 16:46:41 09/01/2021 13:44:39 Routine care 085513899 Z34.02 Umbilical hernia 1274454 07 K42.9 Gestationa l proteinuria 76258866 O12.12 Migraine 51851698 G43.90 9 [id number] Quinn Gotti MD [place] [address],[place] [address] 09/01/2021 17:01:43 09/01/2021 17:39:07 COVID-19 284224693 U07.1 [id number] [facility] [address] [address] 09/17/2021 11:45:06 09/17/2021 12:26:35 Routine care 880474922 Z34.93 Depressive disorder 3548 9007 F32.A [id number] Quinn Gotti MD [place] [address] [address] 09/30/2021 11:30:00 09/30/2021 12:14:14 Placental condition affecting management of mother 100842722 O43.103 U07.1 Z3A.30 [id number] Debi Washington [facility] [address] [address] 09/30/2021 11:30:58 09/30/2021 12:46:09 Routine care 809398895 Z34.93 [id number] Quinn Gotti MD [place] [address],[place] [address] 10/01/2021 14:20:16 10/01/2021 15:17:55 Blood glucose outside reference range 999941084 R73.09 Per SP pt needs diet teaching [...] and pt verbalized understand ing. JENNY rutledge [id number] Debi Washington [facility] [address],[place] [address] 10/07/2021 16:02:10 10/07/2021 16:49:43 Routine care 058602104 Z34.93 [id number] Debi Washington [facility] [address],[place] [address] 10/14/2021 10:23:59 10/15/2021 15:52:11 Gestational diabetes mellitus class A1 86804701 O24.410 [id number] Quinn Gotti MD [place] [address] [address] 10/14/2021 10:24:21 10/14/2021 11:37:13 Gestational diabetes mellitus class A1 38350326 O24.410 Z3A.32 [id number] [facility] [address] [address] 10/14/2021 10:37:23 10/14/2021 11:57:58 Routine care 182294516 Z34.93 [id number] MD [place]i [place] [address] [address] 10/21/2021 10:29:28 10/21/2021 11:12:42 Gestational diabetes mellitus class A1 13941289 O24.410 Z3A.32 [id number] Quinn Gotti MD [place] [address],[place] [address] 10/21/2021 10:29:54 10/21/2021 11:36:53 Gestational diabetes mellitus class A1 33508808 O24.410 Z3A.33 [id number] Debi Washington CNM [place] [address],[place] [address] 10/21/2021 10:30:20 10/21/2021 12:16:16 Routine care 908825634 Z34.93 [id number] MD [place] [address] [address] 10/29/2021 11:44:10 10/29/2021 13:08:11 Gestational diabetes mellitus class A1 68753114 O24.410 Z3A.33 [id number] MD [place]i [place] [address] [address] 10/29/2021 11:44:45 10/29/2021 13:36:46 COVID-19 130875680 U07.1 O43.103 O36.8330 Z3A.34 [id number] [facility] [address] [address] 10/29/2021 11:45:08 10/30/2021 15:00:21 Routine care 315794212 Z34.93 [id number] Quinn Gotti MD [place] [address],[place] [address] 11/03/2021 11:46:19 11/03/2021 13:10:49 Gestational diabetes mellitus class A1 54114501 O24.410 Z3A.33 [id number] MD [place]i [place] [address],[place] [address] 11/03/2021 11:47:05 11/03/2021 14:28:55 Gestational diabetes mellitus class A1 11011322 O24.410 Z3A.33 [id number] Quinn Gotti MD [place] [address] [address] 11/03/2021 11:47:23 11/03/2021 14:28:41 Routine care 426411565 Z34.02 [id number] Quinn Gotti MD [place] [address],[place] [address] 11/11/2021 11:02:10 11/11/2021 15:31:07 Gestational diabetes mellitus class A1 30300100 O24.410 Z3A.33 [id number] Quinn Gotti MD [place] [address],[place] [address] 11/11/2021 11:02:32 11/11/2021 13:43:26 Gestational diabetes mellitus class A1 29330649 O24.410 Z3A.36 [id number] Debi Washington [facility] [address],[place] [address] 11/11/2021 11:02:50 11/11/2021 15:30:10 Routine care 484745560 Z34.93 [id number] MD [place] [address],[place] [address] 11/13/2021 10:59:02 11/13/2021 12:00:56 Gestational diabetes mellitus 67812271 O24.419 [id number] MD [place] [address],[place] [address] 11/18/2021 10:35:42 11/18/2021 11:23:15 Gestational diabetes mellitus class A1 02139420 O24.410 Z3A.36 [id number] MD [place] [address],[place] [address] 11/18/2021 10:36:07 11/18/2021 11:28:16 Gestational diabetes mellitus class A1 02238571 O24.410 Z3A.36 [id number] [facility] [address],[place] [address] 11/18/2021 10:36:33 11/18/2021 12:55:25 Routine care 700729500 Z34.93 [id number] Quinn Gotti MD [place] [address],[place] [address] 11/25/2021 10:34:15 11/25/2021 13:03:57 Gestational diabetes mellitus class A1 51579057 O24.410 Z3A.36 [id number] Quinn Gotti MD [place] [address],[place] [address] 11/25/2021 10:34:35 11/25/2021 12:09:29 Gestational diabetes mellitus class A1 79456321 O24.410 Z3A.38 [id number] Debi Washington CNM [place] [address],[place] [address] 11/25/2021 10:34:56 11/25/2021 12:09:04 Routine care 819565323 Z34.93 [id number] Debi Washington CNM [place] [address],[place] [address] 01/01/2022 12:28:02 01/01/2022 13:38:01 care 058452683 Z39.2 Contracept ion care management 472620481 Z30.9 [id number] Debi Washington CNM [place] [address],[place] [address] 04/07/2022 16:29:53 04/07/2022 17:00:12 Contraception care management 410743530 Z30.9 [id number] [facility] [address] [address] 06/24/2022 16:31:38 06/29/2022 15:20:33 Gynecologic examination 69628273 Z01.419 Take Calcium with Vitamin D 1200mg [...] na Mixed anxi ety and depressive disorder 374368616 F41.8 Does not feel like her current [...] ing verbalized . Contracept ion care management 077688627 Z30.9 [id number] KY[facility]G [facility] [address],[place] [address] 12/08/2022 14:08:12 12/08/2022 14:26:07 Contraception care 953562495 Z30.40 [id number] KYUNG Yi [place] [address],[place] [address] 03/03/2023 16:37:06 03/03/2023 17:52:02 Mixed anxiety and depressive disorder 391620295 F41.8 Discussed current medication regimen and worsening symptomsre commended psychiatri st management moving forward as current medication regimen is no longer working as well. Psychiatry can offer additional medication /dosing options. Psychiatry referral placed, she is going to continue current medication regimen - encouraged to f/u with PCP as well until psychiatri st appointmen t. Handout given on [facility] behavioral health urgent care - [...] plan of care. Contracept ion care management [id number] Z30.9 [id number] KYUNG Yi [place] [address] [address] 05/11/2024 12:45:50 05/16/2024 05:35:59 Gynecologic examination 78602538 Z01.419 WWEBC - Refills on Depo Provera [...] advised. Questions answered. Contracept ion care management 126207944 Z30.9 last IC 2 monthsUPT (-) todayrx sent for Depocan sisal picker from pharmacy and return today for administra tion Urinary symptoms 3545995 08 R39.9 rx sent for macrobid, r/b/a reviewedur ine cx sent Vaginitis 32435908 N76.0 rx sent for BV/yeastvu lvar care guidelines discussed Time spent in visit is a total of 35 mins with at least 50% of visit consisting of counseling and review of plan of care. Screening procedure 2012 5006 Z13.9 Contraception care 28432 5005 Z30.40 Venereal d isease screening 535953391 Z11.3 Health Concerns Section Related Observation LastModified by Organization Detai ls LastModified Time None Recorded Concern Status LastModified by Organization Details LastModified Time None Recorded Advance Directives Directive N: Payers Insurance Date Sequence Insurance Name Policy Number Policy Drummond Covered Member ID Drummond Member ID Guarantor Name 01/28/2025 2 [place] [employer] [employer] Ninfa Rojas [id number] Ninfa Rojas 01/27/2025 1 [employer] (PP[employer]) [id number] Yosef Rojas [id number] Ninfa Rojas Notes Date Note Type Note Provider Name and Address Organization Details Recorded Time 023 text/ht ml Annual GYNReported by PatientGenitourinary symptomsFor menstrual cycle, patient reportsnormal menses (light or no menses on depo injection.). For urinary symptoms, patient reportsno hematuriaandno incontinence. For vulva, patient reportsno genital lesion. For vagina, patient reportsnormal vaginal discharge.Breast symptomsFor breast, patient reportsno breast pain,no breast lump, andno nipple discharge.ContraceptionFor current contraception, patient reportssatisfied with current contraceptionandintramuscular contraceptive injection.Endocrine symptomsFor sexual complaints, patient reportsno sexual complaints,no pain during intercourse, andnormal libido. For menopausal symptoms, patient reportsno menopausal symptomsandnormal vaginal lubrication.Psychological symptomsFor psychological symptoms, patient reportsdepressionandanxiety(antolin ramirez expresses that she feels her medication that she has been on since age 13yo (sertraline 200mg) is not managing her anxiety/depression as well as it has been; she is feeling more tearful, overwhelmed and easily fatigued;she). Grace Nixon, SUKHJINDER- [address], [place], [address], [facility] 06/29/2022 13:14:26 023 text/ht ml 22yo [id number] for worsening depression/anxiety symptomsDoes not feel like [...] a PCP. KYUNG Yi [address], [place], [address], [facility] 03/03/2023 17:38:19 025 text/ht ml Annual GYNReported by PatientGenitourinary symptomsFor urinary symptoms, patient reportsburning sensation during urinationbut reportsno hematuriaandno incontinence. For vagina, patient reportsfoul-smellingandvaginal itching. For menstrual cycle, patient reportsnormal menses. For vulva, patient reportsno genital lesion.Breast symptomsFor breast, patient reportsno breast pain,no breast lump, andno nipple discharge.ContraceptionFor current contraception, patient reportsintramuscular contraceptive injection.Endocrine symptomsFor sexual complaints, patient reportsno sexual complaints,no pain during intercourse, andnormal libido. For menopausal symptoms, patient reportsno menopausal symptomsandnormal vaginal lubrication.Psychological symptomsFor psychological symptoms, patient reportsno depression,no anxiety, andno pmdd.Preventative measuresFor preventive measures, patient reportsencourage self breast examination,encourage regular exercise,encourage no tobacco use, andencourage regular mammograms starting age [age]yo wweBC - Depo Provera, has been getting from another office. Missed her last depo injection a few weeks ago. Likes this method of BC and would like to continue. Last IC was 2 months ago.urinary burning/frequencyvaginal odor/itching KYUNG Yi [address], [place], [address], [facility] 05/14/2024 12:48:17 OBGyn Episode Ob Episode Information Episode Created Date Number of Fetuses Patient Bloodtype Patient rh Status Prepregnancy Weight lbs Domestic Partner Domestic Partner Phone Father Name Blood Collector Status 05/27/19 22 1 A Positive 165 CLOSED Fetus Data First Name Last Name Admitted to NICU Weight (g) Sex Living Outcome Pediatric Complications Fetus ID Race Codes Race Delivery Type 3543.68 75 F true Full Term 12073 Vaginal Delivery Problems Problem Notes Level II u/s only 10/07 - Per MFM, Cistera Magna is WNL!Umbilical Varicosity assoc. with hernia Problem Name Start Date End Date Resolution Snomed Code Not e Urinary tract infection in 846798903 Treat 05/29 frequent UTIs per pt Tobacco user [id number] trying to cut down/quit Mixed anxiety and depressive disorder 581934849 increase zoloft to 150, off abilify, buspar Marginal insertion of umbilical cord 09/02/2021 19232397 Serial growth Proteinuria 77447760 24 hour urine Umbilical hernia 671316357 Ass ociated varicosity that changes color as blood leaves and return, SARS-CoV-2 08/20/2021 379174194 ASA & se rial growth Migraine 42635399 Uncertain if there is aura, Glucose level outside reference range 397245366 Failed 1hr G TT - checking BS QID instead of 3hr GTT! Gestational diabetes mellitus 28413218 BS QID & antena khurram testing Darius Calculation Initial Darius Date Initial Exam Date Initial Exam Provider Initial Ultrasound Date Last Menstrual Period Date Ultra Sound Weeks Gestation 12/04/2021 05/26/2021 04/30/2021 02/27/2021 9 Eighteen To Twenty Week Dairus Update Ultra Sound Date Fundal Height At Umbil Quickening Date Ultra Sound Latest Weeks Gestation Final Darius Confirmed By Final Darius Confirmed Date Final Darius Date Ultra Sound Latest Days Gestation 0 05/26/2021 12/05/19 22 0 Pre-miesha Flowsheet Flowsheet Date 05/26/2021 Travis Score Blood Edema Fundus Height Fundus Units Glucose Ketones Leukocytes Nitrite Labor Signs Protein Cervic Dilation Cervic Effacement Cervic Station neg none none trace Type Weight in lbs Pre/Post Dialysis Refused Weight 162.492513768729 BP Diastolic BP Location Tested BP Systolic [...] Weight in lbs Pre/Post Dialysis Refused Weight 169.226856179919 BP Diastolic BP Location Tested BP Systolic [...] Weight in lbs Pre/Post Dialysis Refused Weight 172.616792777673 BP Diastolic BP Location Tested BP Systolic [...] Weight in lbs Pre/Post Dialysis Refused Weight 182.898258097130 BP Diastolic BP Location Tested BP Systolic [...] Weight in lbs Pre/Post Dialysis Refused Weight 181.221412778561 BP Diastolic BP Location Tested BP Systolic [...] Weight in lbs Pre/Post Dialysis Refused Weight 182.054140718442 BP Diastolic BP Location Tested BP Systolic [...] having enough baby items, signed up for [facility] 75% Flowsheet Date 10/01/2021 Travis Score [...] Weight in lbs Pre/Post Dialysis Refused Weight 183.312470748365 BP Diastolic BP Location Tested BP Systolic BP Type 74 111 Fetus Heart Rate Present A 160 Fetus Movement A Yes Comments patient is having some BH co ntractions. ruled in GDM, reviewed lunches and ways to cut carbs and add protein, us today at [facility] report not yet available, reviewed risks of GDM including LGA, immature lung development, , precautions reviewed f/u shceduled Flowsheet Date 10/14/2021 Travis Score Blood Edema Fundus Height Fundus Units Glucose Ketones Leukocytes Nitrite Labor Signs Protein Cervic Dilation Cervic Effacement Cervic Station Type Weight in lbs Pre/Post Dialysis Refused Weight 186.147095230321 BP Diastolic BP Location Tested BP Systolic [...] Weight in lbs Pre/Post Dialysis Refused Weight 186.665063048527 BP Diastolic BP Location Tested BP Systolic [...] Weight in lbs Pre/Post Dialysis Refused Weight 188.099404693041 BP Diastolic BP Location Tested BP Systolic [...] Weight in lbs Pre/Post Dialysis Refused Weight 192.080253393502 BP Diastolic BP Location Tested BP Systolic [...] Weight in lbs Pre/Post Dialysis Refused Weight 188.447458764168 BP Diastolic BP Location Tested BP Systolic [...] Weight in lbs Pre/Post Dialysis Refused Weight 191.450921565392 BP Diastolic BP Location Tested BP Systolic [...] Weight in lbs Pre/Post Dialysis Refused Weight 194.458389488605 BP Diastolic BP Location Tested BP Systolic [...] Weight in lbs Pre/Post Dialysis Refused Weight 195.049329932461 BP Diastolic BP Location Tested BP Systolic BP Type 70 114 Fetus Heart Rate Present Fetus Movement A Yes Comments patient is having contractio ns and swelling. bpp 10/26, sugar this am in 30's with zamudio, hypoglycemia reviewed, plan iol at 39 weeks, precautions reviewed Menstrual History Last Menstrual Date Menses Monthly On Bcp Conception Prior Menses Frequency Hcg Plus Date Menarche Onset Age 1202/27/2021 Genetic Screening And Infection History Question Response Note Mental Retardation/Autism false Patient's Age Will Be 35 Years Or Older At Estim ated Date of Delivery false Thalassemia (Vietnamese, Macedonian, Mediterranean, Or Background): MCV < 80 false Neural Tube Defect (Meningomyelocele, Spina Bifi da, Or Anencephaly) false Congenital Heart Defect false Down Syndrome false Kayode-Sachs (eg, Sabianism, Cajun, Greek-Quinault) f alse Britta Disease false Sickle Cell Disease Or Trait () false Hemophilia Or Other Blood Disorders false Muscular Dystrophy false Cystic Fibrosis false Dallas's Chorea false Intellectual Disability/Autism false If Yes, [...]
--- NOTE | 2025-01-28 20:15 | PC.NURSE ---
Pt resting, fluids given to drink, pt refused HIV testing at this time, consent signed.
[2025-01-28 20:40] LABS: Influenza A QL RT-PCR Negative (Negative); Influenza B QL RT-PCR Negative (Negative); RSV RNA, RT-PCR Negative (Negative); SARS-CoV-2 RNA PCR Negative (Negative)
[2025-01-28] MEDS: ONDANSETRON HCL ODT 4 MG TABLET PO (21:03)
[2025-01-28 21:18] VITALS: BP 128/84; PULSE 72; RESP 18; TEMP 36.5; O2SAT 99
== END 2025-01-28 21:18 | disposition home or self-care (01) ==
PROVIDERS: Emergency Provider Emergency Medicine; PCP Physician Assistant
DX: B34.9 Viral infection, unspecified (principal); R11.0 Nausea; I10 Essential (primary) hypertension; F17.210 Nicotine dependence, cigarettes, uncomplicated; Z20.822 Contact with and (suspected) exposure to COVID-19
CPT/HCPCS: 81003; 87637; 99283; A9270

== ENCOUNTER 2025-02-15 00:50 | Emergency (ER) | payer OTHER, MEDICAID, SELFPAY ==
[2025-02-15 00:50] VITALS: BP 109/76; PULSE 61; RESP 18; TEMP 36.3; O2SAT 100
--- OUTSIDE RECORDS SUMMARY | 2025-02-15 00:52 | XMS_ITS | Continuity of Care Document ---
Author Organization [facility] Address [address] [place] [address] Assessment No assessment recorded. Plan of Treatment Reminders Order Date Submit Date Provider Last Modified By Organization Details Last Modified Time Details Appointments U/S OB FIRST LOOK 2024 03:30P M ULTRASOUND Not available Not available Not available OB NEW 2024 04:15P M Timothy BECKER MD Not available Not available Not available Lab None recorde d. Referral None recorde d. Procedures None recorde d. Surgeries None recorde d. Imaging None recorde d. Medication Orders ondanse carlos 4 mg disinte grating tablet 2024 025 [facility] #[id number], [address] [place], [address], 01/30/2025 16:18:37 prometh azine 25 mg rectal supposi tory 2024 025 [facility]acy #[id number], [address] [place], [address], 01/30/2025 16:18:37 Patient TargetsNo targets recorded. Patient InstructionsNo instructions recorded. Reason for Referral None Reported. Results Created Date Observation Date Name Description Value Unit Range Abnormal Flag Note LastModifiedBy Organization Detail LastModifiedTime 01/31/2001/30/2025 US, obste tric, 1st trime ster No observ ation record ed. [facility] [address], [place], [address], 01/30/2025 18:18:56 01/31/20 25 01/30/2025 US, obste tric, follo w-up No observ ation record ed. [place] [address], [place], [address], 01/31/2025 09:20:44 Result Notes None recorded. Problems Name Problem SNOMED Code Status Onset Date Resolution Date Notes Provider Name and Address Organization Details Recorded Time Tobacco user 571361491 Completed trying to cut down/trevon t Sarai Schwartz hl null, [facility] 2 16:03:30 Mixed anxiety and depressi ve disorder 039449368 Completed increase zoloft to 150, off abilify, buspar Sarai Schwartz hl null, [facility] 2 16:03:30 Tobacco user 012048909 Active trying to cut down/trevon t Not Available [facility] 2 09:25:27 Mixed anxiety and depressi ve disorder 766030785 Active increase zoloft to 150, off abilify, buspar Not Available [facility] 2 09:25:26 Urinary tract infectio n in pregnanc y 399110328 Completed Treat 05/29 frequent UTIs per pt Sarai Schwartz hl null, [facility] 2 16:03:30 Migraine 20344025 Completed Uncertai n if there is aura, Sarai Schwartz hl null, [facility] 2 16:03:30 Proteinu tracie 75775611 Completed 24 hour urine Sarai Schwartz null, [facility] 2 16:03:30 Umbilica l hernia 224397415 Completed Associat ed varicosi ty that changes color as blood leaves and return, Sarai Schwartz hl null, [facility] 2 16:03:30 Glucose level outside referenc e range 338942305 Completed Failed 1hr GTT - checking BS QID instead of 3hr GTT! Sarai Schwartz null, [facility] 2 16:03:30 Gestatio nal diabetes mellitus 31960344 Completed BS QID & antenata l testing Sarai Schwartz null, [facility] 2 16:03:30 Pregnanc y 78854266 Completed 202112/18/2021 Sarai Schwartz null, [facility] 2 16:03:40 SARS-CoV -2 Completed 2021 ASA & serial growth Sarai Schwartz null, [facility] 2 16:03:30 Marginal insertio n of umbilica l cord 54936072 Completed 2021 Serial growth Sarai Schwartz null, [facility] 2 16:03:30 Problem Notes None recorded. Procedures Surgical History Date Name Laterality Status Provider Name and Address Organization Details Recorded Time 05/11/2024 Date of Last Pap Smear completed TATYANA Weston [facility] 08/08/2024 15:46:44 Imaging Results None recorded. [...] Available Lidocaine Viscous 2 % mucosal solution SIWSRaquel AND SPIT 5ML EVERY 1-2 HOURS NEEDED FOR PAIN 08/08 completed Not Available Not Available Not Available fluconazole 150 mg tablet take 1 tablet by mouth now, repeat in 7 days if needed 01/30 completed Not Available Not Available Not Available promethazin e 25 mg rectal suppository Insert 1 supposito ry by rectal route as needed. 2024 active Not Available Not Available Not Avai lable FreeStyle Lancets 28 gauge CHECK BLOOD SUGAR [...] BY ORAL ROUTE DIRECTED FOR 12 DAYS. 01/30 completed Not Available Not Available Not Available clotrimazol e 1 % vaginal cream [...] 6 hours by oral route as needed. 01/30 completed Not Available Not Available Not Available benzonatate 100 mg capsule 04/29 completed Not Available Not Available Not Available oseltamivir 75 mg capsule TAKE 1 CAPSULE BY MOUTH EVERY 12 HOURS FOR 5 DAYS 01/30 completed Not Available Not Available Not Available buspirone 10 mg tablet Take 1 tablet twice a day by oral route. 09/17 completed Not Available Not Available Not Available gabapentin 100 mg capsule TAKE 1 CAPSULE BY MOUTH THREE TIMES A DAY NEEDED FOR 30 DAYS 01/30 completed Not Available Not Available Not Available methylpredn isolone 4 mg tablets in a dose pack TAKE 1 DOSE PACK BY MOUTH DIRECTED 01/30 completed Not Available Not Available Not Available ondansetron 4 mg disintegrat ing tablet Place 1 tablet every 6 hours by transling ual route. 2024 active Not Available Not Available Not Avai lable sertraline 50 mg tablet 04/29 completed Not Available Not Available Not Available medroxyprog esterone 150 mg/mL intramuscul ar suspension Inject 1 mL every 3 months by intramusc ular route. 01/30 completed Not Available Not Available Not Available amoxicillin 875 mg-potassiu m clavulanate 125 mg tablet TAKE 1 TABLET BY MOUTH 2 TIMES DAILY FOR 7 DAYS. 08/08 completed Not Available Not Available Not Available hydrocortis one 1 % topical cream with perineal applicator 05/11 completed Not Available Not Available Not Available Depo-Paper Cup Handle Machine Operator a 150 mg/mL intramuscul ar syringe Inject 1 mL every 3 months by intramusc ular route. 01/30 completed Not Available Not Available Not Available azithromyci n 500 mg tablet TAKE 1 TABLET BY MOUTH EVERY DAY FOR 5 DAYS 05/11 completed Not Available Not Available Not Available aripiprazol e 10 mg tablet TAKE 1 TABLET BY MOUTH EVERY DAY WITH MEALS FOR 30 DAYS 01/30 completed Not Available Not Available Not Available aripiprazol e 5 mg tablet 04/29 completed Not Available Not Available Not Available nitrofurant oin monohydrate /macrocryst als 100 mg capsule Take 1 capsule every 12 hours by oral route for 7 days. 01/30 completed Not Available Not Available Not Available 05/11 completed Not Available Not Available Not Available FreeStyle Lite Strips TEST SUGAR 4 TIMES A DAY 05/11 completed Not Available Not Available Not Available FreeStyle [place] Lite kit CHECK BLOOD SUGAR 4 TIMES A DAY 05/11 completed Not Available Not Available Not Available Fioricet 50 mg-300 mg-40 mg capsule 1 tablet every 8 hours as needed 2024 active Not Available Not Available Not Avai lable Karen 0.25 mg-0.035 mg tablet 04/29 completed Not Available Not Available Not Available Gummies active Not Available Not Available Not Available Vitals Date Recorded Body height Body mass index (BMI) Body weight Systolic And Diastolic Provider Name and Address Organization Details Last Updated DateTime 01/30/2025 170.18 cm 30.2 kg/m2 53742.33 g 114/75 mm[Hg] Radha Lemus [facility] 01/30/2025 15:53:57 Social History Question Answer Notes LastModified by Organizat ion Details LastModified Time Tobacco Smoking Status Current Every Day Smoker Zoya villa, [facility] 09/17/2021 11:57:46 Do You Have An Advance Directive? No Information not available 04/30/2021 If You Are , What Was Your Level Of Alcohol Consumption Prior To ? Occasional [email or web address] Information not available 09/17/2021 Are You Blind Or Do You Have Difficulty Seeing? No Information not available 04/30/2021 What Is Your Level Of Caffeine Consumption? Occasional Information not available 04/30/2021 How Much Tobacco Do You Chew? None [email or web address] Information not available 04/30/2021 In The 14 Days Before Symptom Onset, Have You Had Close Contact With A Laboratory-confir med COVID-19 While That Case Was Ill? No [email or web address] Information not available 04/30/2021 In The 14 Days Before Symptom Onset, Have You Had Close Contact With A Person Who Is Under Investigation For COVID-19 While That Person Was Ill? No [email or web address] Information not available 04/30/2021 Have You Been To An Area Known To Be High Risk For COVID-19? No Information not available 04/30/2021 Are You Deaf Or Do You Have Serious Difficulty Hearing? No [email or web address] Information not available 04/30/2021 What Type Of Diet Are You Following? REGULAR Information not available 04/30/2021 What Is The Highest Grade Or Level Of School You Have Completed Or The Highest Degree You Have Received? [id number] Information not available 04/30/2021 Are There Any Guns Present In Your Home? No [email or web address] Information not available 04/30/2021 Do You Use Protection During Sex? No [email or web address] Information not available 04/30/2021 Do You Use Your Seat Belt Or Car Seat Routinely? Yes [email or web address] Information not available 04/30/2021 Do You Have Smoke And Carbon Monoxide Detectors In Your Home? Yes [email or web address] Information not available 04/30/2021 At What Age Did You Start Smoking Tobacco? 15 [email or web address] Information not available 04/30/2021 How Much Tobacco Do You Smoke? 1 PPD [email or web address] Information not available 04/30/2021 Do You Use Sunscreen Routinely? Yes [email or web address] Information not available 04/30/2021 Has Tobacco Cessation Counseling Been Provided? No Information not available 09/17/2021 How Many Years Have You Smoked Tobacco? 5 [email or web address] Information not available 04/30/2021 Have You Used IV Drugs? No Information not available 04/30/2021 Do You Have Difficulty Walking Or Climbing Stairs? No Information not available 09/17/2021 Sex: Unknown Functional Status Question Answer Note LastModified by Organizat ion Details LastModified Time Do you use any illicit or recreational drugs? No [email or web address] Information not available 04/30/2021 Do you or have you ever used any other forms of tobacco or nicotine? No [email or web address] Information not available 09/17/2021 What is your level of alcohol consumption? None [email or web address] Information not available 04/30/2021 Are you able to walk independently without assistance or assistive devices? [email or web address] Information not available 04/30/2021 Are you able to care for yourself independently? 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 No [email or web address] Information not available 09/17/2021 What is your exercise level? Moderate [email or web address] Information not available 04/30/2021 Mental Status Question Answer Note LastModified by Organization D etails LastModified Time Do you feel stressed (tense, restless, nervous, or anxious, or unable to sleep at night)? [id number] [email or web address] Information not available 04/30/2021 Family History Relationship Description Onset Age of this Age Resolved Age Notes LastModified by Organization Details LastModified Time Maternal Aunt Malignant neoplasm of breast [email or web address] Not available 2021 09:40:39 Medical History Condition Response Other N Blood Transfusion N Dermatologic Disorders N Gestational Diabetes N Anxiety Disorder Y Autoimmune disease N Arthritis N Polyps N Infertility N Acid Reflux (GERD) N Cancer N Varicosities N Stroke N Neurologic/Epilepsy N Fibromyalgia N Headaches N Kidney Disease N Heart Problems N Kidney or Bladder Problems N Eating Disorder N Art (IVF or FET) N Hepatitis/Liver Disease N No Past Medical History N Urinary Tract Infection N Asthma N Trauma/Violence N Thrombophilias N Allergies (Food, seasonal, environmental ) N Breast Cancer N Drug/Latex Allergies/Reactions N Lung Disease N Defects or Inherited Disease N Breast Problem N Hematologic disorders N Anesthesia Complications N History of STI N Deep Vein Thrombosis N Polycystic ovary syndrome N History of abnormal pap N Endometriosis N High Cholesterol N Thyroid Problems N GI Problems N Anemia N Psychiatric Illness N Ovarian Cancer N Diabetes N Pulmonary (TB, Asthma) Y Eczema N Abuse/Domestic Violence N Depression/ depression Y Heart Disease N Pre-Eclampsia N Hypertension N Osteoporosis N Gynecological History Statement/Question Response Abnormal Pap N Flow Moderate Date of Last Mammogram Date of LMP On BCP's at Conception? N N Was last menstrual period normal Y STIs/STDs N HPV Vaccine Y Duration of Flow (days) 7 Current Control Method Are cycles usually normal Y Frequency of Cycle (Q days) 28 Sexually Active? Y Menses Monthly Y Date of DEXA bone scan Age of first menstrual cycle 13 Date of Last Pap Smear 05/11/2024 Sexual Problems? N LMP Approximate N Obstetrics History GPAL:G 1 P 1 0 0 1 Type Value Full Term 1 Living 1 Total 1 Immunizations Vaccine Type Date Status Note Provider Yonas aguilar and Address Organization Details Recorded Time COVID-19, mRNA, LNP-S, bivalent, PF, 30 mcg/0.3 mL dose 02/09/2022 completed TATYANA villa [facility] 05/11/2024 09:30:31 Past Encounters Encounter ID Performer Location Encounter Start Date Encounter Closed Date Diagnosis/Indication Diagnosis SNOMED-CT Code Diagnosis ICD10 Code Diagnosis IMO Codes Diagnosis Note [id number] Quinn Becker MD [facility] [address] [address] 01/30/2025 15:12:14 01/30/2025 15:50:24 Finding of menstrual bleeding 042729393 Z36.87 Z3A.01 [id number] Debi Washington CNM [facility] [address] [address] 01/30/2025 15:26:19 01/30/2025 16:27:11 Amenorrhea 89753057 N91.2 04127 take pnv dailyrevie wed usplan zofran q 6 hoursphene rgan 25mg suppositor y for emergencie sf/u 12 week new ob and first lookeducat ion and precaution s Nausea 723718952 R11.0 96505 Health Concerns Section Related Observation LastModified by Organization Detai ls LastModified Time None Recorded Concern Status LastModified by Organization Details LastModified Time None Recorded Payers Encounter Date Sequence Insurance Name Policy Number Policy Drummond Covered Member ID Drummond Member ID Guarantor Name 01/30/2025 2 MEDICAID-[place]: [place] [employer] Ninfa Rojas [id number] Ninfa Rojas 01/30/2025 1 [employer] ([place]) [id number] Yosef Bob [id number] Ninfa Rojas Notes Date Note Type Note Provider Name and Address Organization Details Recorded Time 01/30/2025 text/html ROS as noted in the HPI regular cycles, amenorrhea +UPT, lots of nausea, zofran prn, no other meds, dizzinesscraving very rich foodshx gdm last Debi Washington CNM [address], [place], [address], [facility] 01/30/2025 16:23:58 OBGyn Episode No OBEpisode recorded.
--- OUTSIDE RECORDS SUMMARY | 2025-02-15 00:52 | XMS_ITS | Clinical Summary ---
Author Organization [facility] Address [facility] [place] [address] Care Team Providers Care Termite Control Servicer Name Role Phone Quinn Rios MD Primary Care Provider [phone] Allergies No known active allergies Medications sertraline [...] Asked; Counseling Given: Not Answered Comments:PCP to counseling case manager Alcohol Use Standard Drinks/Week Comments Not Currently [...] on file Legal Sex Female 10:56 PM [employer] Gender Identity Not on file Sexual Orientation [...] this topic Insurance MEDICAID [employer] Care Teams Termite Control Servicer Relationship Specialty Start Date End Date Quinn Rios MD [address] [place] [address] PCP - General [facility] 10/28/21
--- OUTSIDE RECORDS SUMMARY | 2025-02-15 00:52 | XMS_ITS | Data Portability ---
Author Organization [facility] Beti Raquel Address [address] [place] [address] Care Team Providers Care Youth Probation Officer Name Role Phone AJ MOFFETT Primary Care Provider Assessment No assessment recorded. Plan of Treatment Reminders Order Date Submit Date Provider Last Modified By Organization Details Last Modified Time Details Appointments None recorded. Lab influenza virus A + B + SARS-CoV-2 (COVID19) Ag panel, rapid IA, upper respiratory specimen 2024 025 [email or web address] In-Office Order, Internal Use Only DO Not Attach Compendium DO Not Attach Compendium, Do Not Delete/merge, [id number] 5 12:31:08 influenza virus A + B + SARS-CoV-2 (COVID19) Ag panel, rapid IA, upper respiratory specimen 2023 024 [email or web address] In-Office Order, Internal Use Only DO Not Attach Compendium DO Not Attach Compendium, Do Not Delete/merge, [id number] 4 17:37:32 Referral None recorded. Procedures None recorded. Surgeries None recorded. Imaging None recorded. Medication Orders neomycin-po lymyxin-hyd rocort 3.5 mg-10,000 unit/mL-1 % ear drops,susp 2024 025 [facility] #[id number], [address] [place], [address], 5 14:22:16 ondansetron 4 mg disintegrat ing tablet 2024 025 [facility]acy #[id number], [address] [place], [address], 5 11:40:45 gabapentin 100 mg capsule 2024 025 [id number] [address] [place], [address], 5 16:45:07 amoxicillin 875 mg tablet 2024 025 [id number], [address] [place], [address], 5 11:23:34 sumatriptan 50 mg tablet 2024 025 [id number], [address] [place], [address], 5 16:45:08 azithromyci n 500 mg tablet 2023 024 [id number] [address] [place], [address], 5 16:32:45 Medrol (Mart) 4 mg tablets in a dose pack 2023 024 [id number], [address] [place], [address], 5 16:32:41 medroxyprog esterone 150 mg/mL intramuscul ar suspension 2023 024 [email or web address] Not available 17:23:46 Patient TargetsNo targets recorded. Patient Instructions Encounter Date Encounter Id Patient Instructions Last Modified By Organization Details Last Modified Time 03/19/2024 [id number] A healthy lifestyle: care instructions [email or web address] Not available 03/19/2024 17:37:31 upper respirator y infection (cold): care instructions [email or web address] Not available 03/19/2024 17:37:31 03/27/2024 [id number] tooth and gum pain: care instructions [email or web address] Not available 03/27/2024 16:45:01 A healthy lifestyle: care instructions jnanney Not available 03/27/2024 16:45:01 05/11/2024 [id number] A healthy lifestyle: care instructions jnanney Not available 05/11/2024 11:40:44 nausea and vomiting: care instructions jnanney Not available 05/11/2024 12:31:08 06/25/2024 [id number] A healthy lifestyle: care instructions anney Not available 06/25/2024 14:22:30 Reason for Referral None Reported. Results Created Date Observation Date Name Description Value Unit Range Abnormal Flag Note LastModifiedBy Organization Detail LastModifiedTime 01/10/2001/12/2024 LIPID PANEL cholesterol, total 164 mg/dL 100-19 9 Not Available [address], [address], 01/12/2024 10:14:59 01/10/2001/12/2024 LIPID PANEL triglyceride s 135 mg/dL 0-149 Not Available [address], [address], 01/12/2024 10:14:59 01/10/2001/12/2024 LIPID PANEL HDL cholesterol 32 mg/dL >39 below low normal Not Available [address], [address], 01/12/2024 10:14:59 01/10/2001/12/2024 LIPID PANEL VLDL cholesterol pierre 24 mg/dL 5-40 Not Available [address], [address], 01/12/2024 10:14:59 01/10/2001/12/2024 LIPID PANEL LDL chol calc ([facility]) 108 mg/dL 0-99 above high normal Not Available [address], [address], 01/12/2024 10:14:59 01/10/2001/12/2024 COMP. METAB OLIC PANEL (14) glucose 86 mg/dL 70-99 Not Available [address], [address], 01/12/2024 10:15:00 01/10/2001/12/2024 COMP. METAB OLIC PANEL (14) BUN 12 mg/dL 6-20 Not Available [address], [address], 01/12/2024 10:15:00 01/10/2001/12/2024 COMP. METAB OLIC PANEL (14) creatinine 0.86 mg/dL 0.57-1 .00 Not Available [address], [address], 01/12/2024 10:15:00 01/10/2001/12/2024 COMP. METAB OLIC PANEL (14) eGFR 97 mL/mi n/1.7 3 >59 Not Available [address], [address], 01/12/2024 10:15:00 01/10/2001/12/2024 COMP. METAB OLIC PANEL (14) BUN/creatini ne ratio 14 9-23 Not Available [address], [address], 01/12/2024 10:15:00 01/10/2001/12/2024 COMP. METAB OLIC PANEL (14) sodium 141 mmol/ L 134-14 4 Not Available [address], [address], 01/12/2024 10:15:00 01/10/2001/12/2024 COMP. METAB OLIC PANEL (14) potassium 4.1 mmol/ L 3.5-5. 2 Not Available [address], [address], 01/12/2024 10:15:00 01/10/2001/12/2024 COMP. METAB OLIC PANEL (14) chloride 106 mmol/ L 96-106 Not Available [address], [address], 01/12/2024 10:15:00 01/10/2001/12/2024 COMP. METAB OLIC PANEL (14) carbon dioxide, total 22 mmol/ L 20-29 Not Available [address], [address], 01/12/2024 10:15:00 01/10/2001/12/2024 COMP. METAB OLIC PANEL (14) calcium 9.4 mg/dL 8.7-10 .2 Not Available [address], [address], 01/12/2024 10:15:00 01/10/2001/12/2024 COMP. METAB OLIC PANEL (14) protein, total 6.9 g/dL 6.0-8. 5 Not Available [address], [address], 01/12/2024 10:15:00 01/10/2001/12/2024 COMP. METAB OLIC PANEL (14) albumin 4.6 g/dL 4.0-5. 0 Not Available [address], [address], 01/12/2024 10:15:00 01/10/2001/12/2024 COMP. METAB OLIC PANEL (14) globulin, total 2.3 g/dL 1.5-4. 5 Not Available [address], [address], 01/12/2024 10:15:00 01/10/2001/12/2024 COMP. METAB OLIC PANEL (14) bilirubin, total 0.2 mg/dL 0.0-1. 2 Not Available [address], [address], 01/12/2024 10:15:00 01/10/2001/12/2024 COMP. METAB OLIC PANEL (14) alkaline phosphatase 122 IU/L 44-121 above high normal Not Available [address], [address], 01/12/2024 10:15:00 01/10/2001/12/2024 COMP. METAB OLIC PANEL (14) AST (SGOT) 14 IU/L 0-40 Not Available [address], [address], 01/12/2024 10:15:00 01/10/2001/12/2024 COMP. METAB OLIC PANEL (14) ALT (SGPT) 16 IU/L 0-32 Not Available [address], [address], 01/12/2024 10:15:00 01/10/2001/12/2024 CARDI OVASC ULAR REPOR T interpretati on Note Suppl ement al repor t is avail able. Not Available [address], [address], 01/12/2024 10:15:00 01/10/2001/12/2024 CARDI OVASC ULAR REPOR T pdf . Not Available [address], [address], 01/12/2024 10:15:00 01/10/2001/12/2024 CBC, PLATE LET, NO DIFFE RENTI AL WBC 8.0 x10e3 /uL 3.4-10 .8 Not Available [address] [place], [address], 01/12/2024 10:15:01 01/10/2001/12/2024 CBC, PLATE LET, NO DIFFE RENTI AL RBC 4.46 x10e6 /uL 3.77-5 .28 Not Available [address], [address], 01/12/2024 10:15:01 01/10/2001/12/2024 CBC, PLATE LET, NO DIFFE RENTI AL hemoglobin 13.4 g/dL 11.1-1 5.9 Not Available [address], [address], 01/12/2024 10:15:01 01/10/2001/12/2024 CBC, PLATE LET, NO DIFFE RENTI AL hematocrit 40.7 % 34.0-4 6.6 Not Available [address], [address], 01/12/2024 10:15:01 01/10/2001/12/2024 CBC, PLATE LET, NO DIFFE RENTI AL MCV 91 fL 79-97 Not Available [address], [address], 01/12/2024 10:15:01 01/10/2001/12/2024 CBC, PLATE LET, NO DIFFE RENTI AL MCH 30.0 pg 26.6-3 3.0 Not Available [address], [address], 01/12/2024 10:15:01 01/10/2001/12/2024 CBC, PLATE LET, NO DIFFE RENTI AL MCHC 32.9 g/dL 31.5-3 5.7 Not Available [address], [address], 01/12/2024 10:15:01 01/10/20 24 01/12/2024 CBC, PLATE LET, NO DIFFE ALEKSANDR AL RDW 12.3 % 11.7-1 5.4 Not Available [facility] [address] [place], [address], 01/12/2024 10:15:01 01/10/20 24 01/12/2024 CBC, PLATE LET, NO DIFFE ANNATI AL platelets 223 x10e3 /uL 150-45 0 Not Available [address], [address], 01/12/2024 10:15:01 03/19/20 24 03/19/2024 influ nehemiah virus A + B + SARS- CoV-2 (COVI D19) Ag panel , rapid IA, upper respi rator y speci men Flu A negati ve Not Available In-Office Order Internal Use Only DO Not Attach Compendium DO Not Attach Compendium, Do Not Delete/merge, [id number] 03/19/2024 17:14:52 03/19/20 24 03/19/2024 influ nehemiah virus A + B + SARS- CoV-2 (COVI D19) Ag panel , rapid IA, upper respi rator y speci men Flu B negati ve Not Available In-Office Order Internal Use Only DO Not Attach Compendium DO Not Attach Compendium, Do Not Delete/merge, [id number] 03/19/2024 17:14:52 03/19/20 24 03/19/2024 influ nehemiah virus A + B + SARS- CoV-2 (COVI D19) Ag panel , rapid IA, upper respi rator y speci men Rapid SARS CoV 2 Ag, QL IA, respiratory specimen negati ve Not Available In-Office Order Internal Use Only DO Not Attach Compendium DO Not Attach Compendium, Do Not Delete/merge, [id number] 03/19/2024 17:14:52 05/11/19 25 05/11/2024 influ nehemiah virus A + B + SARS- CoV-2 (COVI D19) Ag panel , rapid IA, upper respi rator y speci men Flu A negati ve Not Available In-Office Order Internal Use Only DO Not Attach Compendium DO Not Attach Compendium, Do Not Delete/merge, [id number] 05/11/2024 11:28:30 05/11/19 25 05/11/2024 influ nehemiah virus A + B + SARS- CoV-2 (COVI D19) Ag panel , rapid IA, upper respi rator y speci men Flu B negati ve Not Available In-Office Order Internal Use Only DO Not Attach Compendium DO Not Attach Compendium, Do Not Delete/merge, [id number] 05/11/2024 11:28:30 05/11/19 25 05/11/2024 influ nehemiah virus A + B + SARS- CoV-2 (COVI D19) Ag panel , rapid IA, upper respi rator y speci men Rapid SARS CoV 2 Ag, QL IA, respiratory specimen negati ve Not Available In-Office Order Internal Use Only DO Not Attach Compendium DO Not Attach Compendium, Do Not Delete/merge, [id number] 05/11/2024 11:28:30 05/11/1905/11/2024 CT + NG RNA, PCR, unspe cifie d speci men chlamydia trachomatis, PCR Negati ve text: negati ve Not Available Not Available 01/04/2025 16:31:19 05/11/19 25 05/11/2024 CT + NG RNA, PCR, unspe cifie d speci men neisseria gonorrhoeae, PCR Negati ve text: negati ve Not Available Not Available 01/04/2025 16:31:19 05/11/19 25 05/11/2024 trich omona s vagin paulette RNA trichomonas vaginalis ribosomal RNA (rrna) Negati ve text: negati ve Not Available Not Available 01/04/2025 16:31:19 05/11/19 25 05/11/2024 cultu re, urine result report SEE RESULT S BELOW Test: Cultu re: Urine Speci men Sourc e: Urine - Clean Catch Speci men Type: Urine Speci men Date: 2024 1330 Resul t Date: 2024 0052 Resul t Statu s: Final resul t Abnor mal: No Resul ting Lab: [facility] [address] [facility] [address] Tel: CULTU RE ----- ----- ----- --- Organ ism(s ) consi stent with uroge nital or skin wilder . Repea t cultu re if sympt oms indic ate. Not Available Not Available 01/04/2025 16:31:19 03/19/20 24 03/18/2024 XR, chest No observ [facility]ion [facility] [address] [place], [address], 03/19/2024 09:26:56 Result Notes None recorded. Problems Name Problem SNOMED Code Status Onset Date Resolution Date Notes Provider Name and Address Organization Details Recorded Time Depressive disorder 49777527 Active Not Available [facility] 0 01:53:11 Ingrowing nail 257513418 Active Not Available [facility] 0 01:53:12 Knee pain Active 2017 Not Available [facility] 0 01:53:12 Headache 88086252 Active 2017 Not Available [facility] 0 01:53:12 Contraception care Active 2019 Not Available [facility] 0 01:53:12 Viral syndrome 353214305 Active 2020 Nacho Hadley SCREENER OPERATOR-C Attn: Accounting ,[address] [facility], [place], [address] , [place] - [place] 10:19:31 Fatigue 32491287 Active 2020 Nacho Hadley SCREENER OPERATOR-C Attn: Accounting ,[address] [facility], [place], [address] , [place] - [place] 17:10:07 Vaginal discharge 154740337 Active 2020 Nacho Hadley SCREENER OPERATOR-C Attn: Accounting ,[address] [facility], [place], [address] , [place] 17:10:38 Amenorrhea 19165220 Active 2020 Nacho Hadley NP-C Attn: Accounting ,[address] [facility], [place], [address] , [facility] - SIF 1 17:11:28 test positive 800364144 Active 2021 Nacho Hadley SCREENER OPERATOR-C Attn: Accounting ,[address] [facility], [place], [address] , [facility] - SIF 2 15:29:06 Problem Notes None recorded. Procedures Surgical History Date Name Laterality Status Provider Name and Address Organization Details Recorded Time 2 Date of Last Pap Smear completed Aj Moffett PA-C Attn: Accounting,[address] [facility], [place], [address], [facility] - SIF 12/31/2021 16:03:16 9 Toenail avulsion completed Nacho PAINTINGC Attn: Accounting,[address] [facility], [place], [address], [facility] - SIF 03/27/2018 09:28:02 6 Toenail avulsion completed Nacho PAINTINGC Attn: Accounting,[address] [facility], [place], [address], [facility] - S[facility] 05/08/2015 22:13:50 Imaging Results None recorded. Procedure [...] EVERY DAY AT BEDTIME FOR 5 DAYS 04/03 /2024 completed Not Available Not Available Not [...] Available Not Available amoxicillin 875 mg tablet Take 1 tablet every 12 hours by oral route for 10 days. 05/11 completed Not Available Not Available Not [...] 875 mg-potassiu m clavulanate 125 mg tablet Take 1 tablet every 12 hours by oral route for 10 days. 11/09 completed Not Available Not Available Not [...] Not Available Not Available Not Available FreeStyle [place] Lite kit CHECK BLOOD SUGAR 4 TIMES [...] mass index (BMI) Body weight Oxygen saturation Heart rate Systolic And Diastolic Provider Name and Address Organization Details Last Updated DateTime 5 171.45 cm 29.9 kg/m2 54643.9 2 g 98 % 83 /min 141/91 mm[Hg] Danae Dunn [place] [facility] 5 16:34:57 Date Recorded Body height Body mass index (BMI) Body weight Oxygen saturation Heart rate Respiratory rate Body temperature Systolic And Diastolic Provider Name and Address Organization Details Last Updated DateTime 5 171.45 cm 30.9 kg/m2 55611.4 7 g 98 % 95 /min 16 /min 98.9 [degF] 122/84 mm[Hg] Zari Tobin [place] - [facility] 5 11:26:20 Date Recorded Body height Body mass index (BMI) Body weight Oxygen saturation Heart rate Respiratory rate Systolic And Diastolic Provider Name and Address Organization Details Last Updated DateTime 5 171.45 cm 30.6 kg/m2 36407.0 1 g 97 % 102 /min 16 /min 118/78 mm[Hg] Zari Tobin [place] 5 14:08:02 Date Recorded Body height Body mass index (BMI) Body weight Oxygen saturation Heart rate Systolic And Diastolic Provider Name and Address Organization Details Last Updated DateTime 4 171.45 cm 30 kg/m2 68073.0 2 g 96 % 101 /min 145/91 mm[Hg] Danae Dunn [place] 4 17:02:30 Social History Question Answer Notes LastModified by Organizat ion Details LastModified Time Tobacco Smoking Status Current Every Day Smoker Claribel Katz LPN null, [place] 03/18/2021 16:23:56 Do You Have An Advance [...] 03/29/2022 Are you able to care for yourself independently? Yes Information not available 03/18/2021 What is your occupation? [employer] Information not available 03/29/2022 What is your exercise level? Occasional Information not available 03/18/2021 Mental Status Question Answer Note LastModified by Organization D etails LastModified Time Do you feel stressed (tense, restless, nervous, or anxious, or unable to sleep at night)? [id number] Information not available 04/26/2022 Family History Relationship Description Onset Age of this Age Resolved Age Notes LastModified by Organization Details LastModified Time Mother Migraine [email or web address] Not availabl e 05/02/2015 11:10:56 Maternal Aunt Malignant neoplasm of breast [id number] Not available 2015 11:10:56 Medical History Condition Response Coronary Artery Disease N Other N Atrial Fibrillation N High Blood Pressure N Kidney or Bladder Problems N Thyroid Problems N GI Problems N Depression Y COPD N Blood Clots N Skin Problems N Anemia N Heart Attack (OK) N Diabetes N Anxiety Disorder Y Muscle, Joint, or Bone Problems N Seizures/Epilepsy N Acid Reflux (GERD) N Cancer N Stroke N Asthma N Allergies N High Cholesterol N Hepatitis N Liver Disease N Headaches N Osteoporosis N Heart Failure N Gynecological History Statement/Question Response Menses Monthly Y Date of Last Pap Smear 03/25/2021 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 06/23/2024 LMP Definite Obstetrics History GPAL:G 0 P 0 0 0 0 Immunizations Vaccine Type Date Status Note Provider Nam e and Address Organization Details Recorded Time Hib, unspecified formulation 2 completed Eva Wynne [place], [place] [facility] 06/25/2024 08:49:48 Hib, unspecified formulation 2 completed Eva Wyn[place] [facility] 06/25/2024 08:49:48 Hib, unspecified formulation 1 completed Eva Wyn[place] [facility] 06/25/2024 08:49:48 meningococcal B, OMV 8 completed Eva Wyn[place] [facility] 06/25/2024 08:49:48 meningococcal B, OMV 8 completed Eva [place] [facility] 06/25/2024 08:49:48 MMR 6 completed Eav [place] [facility] 06/25/2024 08:49:48 MMR 2 completed Eva Wyn[place] [facility] 06/25/2024 08:49:48 DTaP-IPV 2 completed Eva [place] [facility] 06/25/2024 08:49:48 DTaP-IPV 2 completed Eva [place] [facility] 06/25/2024 08:49:48 DTaP-IPV 2 completed Eva [place] [facility] 06/25/2024 08:49:48 DTaP-IPV 2 elizabet Wynne [place] [...] [place] [facility] 06/25/2024 08:49:48 Novel [id number] 9 completed Eva Wyn[place] [facility] 06/25/2024 08:49:48 Novel [id number]-[id number] 9 completed Eva Wyn[place] [facility] 06/25/2024 08:49:48 HPV, quadrivalent 3 completed Eva Wyn[place] [facility] 06/25/2024 08:49:48 HPV, quadrivalent 2 completed [place] Wyn[place] [facility] 06/25/2024 08:49:48 Hep A, ped/adol, 2 dose 3 completed Eva Wyn[place] [facility] 06/25/2024 08:49:48 Hep A, ped/adol, 2 dose 2 completed Eva Wyn[place] [facility] 06/25/2024 08:49:48 Meningococcal MCV4O 8 completed Eva [place] [facility] 06/25/2024 08:49:48 Meningococcal MCV4O 2 completed [place] [facility] 06/25/2024 08:49:48 DTaP 2 completed Eva [place] [facility] 06/25/2024 08:49:48 DTaP 2 completed Eva Ricci [place] [facility] 06/25/2024 08:49:48 DTaP 6 completed Eva AL[place] [facility] 06/25/2024 08:49:49 DTaP 2 completed Eva AL[place] [facility] 06/25/2024 08:49:49 DTaP 1 completed Eva Wyn[place], [place] [facility] 06/25/2024 08:49:49 Past Encounters Encounter ID Performer Location Encounter Start Date Encounter Closed Date Diagnosis/Indication Diagnosis SNOMED-CT Code Diagnosis ICD10 Code Diagnosis IMO Codes Diagnosis Note [id number] MD Fredo Hackett [facility] [address] [place] [address] 05/02/2015 10:58:41 05/02/2015 15:45:02 Depressive disorder 36303438 F32.9 Ingrowing nail 203979277 L60.0 [id number] Nacho Serna [facility] (/) [address] [place] [address] 05/08/2015 15:30:16 05/09/2015 15:07:24 Ingrowing nail 204395067 L60.0 [id number] Edgardo Varela MD [facility] (IM/) [address] [place] [address] 10/20/2017 11:02:50 10/20/2017 17:28:34 Depressive disorder 78050758 F32.9 Knee pain 38251162 M25.5 69 [id number] Edgardo Varela MD [facility] (IM/BH) [address] [place] [address] 12/28/2017 14:48:10 01/02/2018 17:09:27 Knee pain 52441437 M25.569 Ingrowing nail 125091364 L60.0 [id number] Edgardo Varela MD [facility] (IM/) [address] [place] [address] 03/24/2018 16:31:20 03/27/2018 15:20:47 Ingrowing toenail 388313023 L60.0 Depressive disorder 3548 9007 F32.9 Headache 42466276 R51 [id number] MD Luther [facility] [address] [place] [address] 06/15/2018 11:16:49 06/15/2018 12:06:00 Subacute bronchitis 51102787 J20.9 06/15/18: reports 6 weeks of waxing/wan [...] meantime. pt and mother amenable to plan [id number] Edgardo Varela MD [facility] (IM/BH) [address] [place] [address] 04/23/2019 11:45:58 04/24/2019 16:17:47 Depressive disorder 57830419 F32.9 [id number] Edgardo Varela MD [facility] (/) [address] [place] [address] 05/21/2019 11:02:34 05/22/2019 18:03:25 Depressive disorder 81850507 F33.8 [id number] Edgardo Varela MD [facility] (/) [address] [place] [address] 07/25/2019 08:38:14 07/25/2019 17:29:09 Depressive disorder 69568848 F33.8 [id number] Edgardo Varela MD [facility] (/) [address] [place] [address] 07/26/2019 08:45:49 07/27/2019 17:24:17 Contraception care 864657047 Z30.40 [id number] Edgardo Varela MD [facility] (IM/) [address] [place] [address] 05/28/2020 09:30:31 05/28/2020 15:15:05 Viral syndrome 927395428 B34.9 [id number] Edgardo Varela MD [facility] (/) [address] [place] [address] 03/18/2021 16:01:00 03/19/2021 10:49:22 Amenorrhea 39290688 N91.2 Depressive disorder 3548 9007 F33.8 [facility] 94128152 R53.83 Vaginal discharge 779477 006 N89.8 [id number] Edgardo Varela MD [facility] (IM/) [address] [place] [address] 04/08/2021 10:10:28 04/10/2021 07:56:04 Depressive disorder 03491363 F33.8 test positive 904960542 Z32.01 [id number] Aj Moffett PA-C [facility] [address] [place] [address] 12/31/2021 15:48:01 12/31/2021 16:41:02 Mixed anxiety and depressive disorder 771875981 F41.8 [id number] Aj Moffett PA-C [facility] [address] [place] [address] 03/29/2022 16:45:23 03/29/2022 17:41:35 Viral syndrome 602522224 B34.9 Depressive disorder 3548 9007 F32.A [id number] Aj Moffett PA-C [facility] [address] [place] [address] 04/26/2022 10:44:12 04/26/2022 11:17:12 Sore throat 068322193 J02.8 [facility] 789728490 E66 .3 [id number] Aj Moffett PA-C [facility] [address] [place] [address] 06/22/2023 16:43:12 07/08/2023 15:03:38 Upper respiratory infection 31417096 J00 Acute maxi llary sinusitis 89038542 J01.01 Sore throat 616262549 J0 2.8 [id number] Leopoldo Valdez MD [facility] [address] [place] [address] 08/22/2023 16:49:50 09/03/2023 08:52:45 Contraception care 697083086 Z30.40 [id number] Aj Moffett PA-C [facility] [address] [place] [address] 11/09/2023 16:42:38 11/14/2023 12:14:47 Contraception care 499130120 Z30.40 [id number] Aj Moffett PA-C [facility] [address] [place] [address] 11/10/2023 15:31:36 11/14/2023 13:21:35 Gestational diabetes mellitus 93341595 O24.410 Contact de rmatitis caused by urushiol from [facility] 343125544 L25.5 [id number] Leopoldo Valdez MD [facility] [address] [place] [address] 01/10/2024 17:15:34 01/16/2024 14:18:47 Chronic headache disorder 715504024 G44.89 Overweight 117723279 E66 .3 Nausea 695326137 R11.0 [id number] Leopoldo Valdez MD [facility] [address] [place] [address] 02/02/2024 16:56:20 02/10/2024 10:14:27 [facility] 856539017 Z30.40 [id number] Leopoldo Valdez MD [facility] [address] [place] [address] 03/19/2024 16:49:26 03/20/2024 12:55:42 Upper respiratory infection 25110744 J00 Overweight 049286638 E66 .3 Acute bron chitis with bronchospasm 46149047 J20.8 [id number] Leopoldo Valdez MD [facility] [address] [place] [address] 03/27/2024 16:29:34 03/30/2024 10:00:29 Toothache 84556770 K08.89 Recurrent acute maxillary sinusitis 0077790293 0706211 J01.01 Overweight 435852618 E66 .3 Chronic he adache disorder 127482730 G44.89 [id number] Leopoldo Valdez MD [facility] [address] [place] [address] 05/11/2024 11:16:01 05/14/2024 12:01:29 Vomiting 848211861 R11.10 Viral daysi roenteritis caused by [place]-like agent 12253748 A08.11 Overweight 976829573 E66 .3 Nausea 961703897 R11.0 [id number] Leopoldo Valdez MD [facility] [address] [place] [address] 06/25/2024 14:00:29 06/27/2024 13:19:00 Acute otitis externa of right ear 7360879045 346019 H60.511 Overweight 635877388 E66 .3 Health Concerns Section Related Observation LastModified by Organization Detai ls LastModified Time None Recorded Concern Status LastModified by Organization Details LastModified Time None Recorded Advance Directives Directive N: Payers Insurance Date Sequence Insurance Name Policy Number Policy Drummond Covered Member ID Drummond Member ID Guarantor Name 06/25/2024 2 [place] [facility] Ninfa Rojas [id number] Yosef Rojas 06/25/2024 2 [place] [facility] Ninfa Rojas [id number] Yosef Rojas 11/14/2024 1 [employer]IG[employer] [id number] Yosef Rojas [id number] Yosef Rojas 11/14/2024 2 [place] [facility] Ninfa Rojas [id number] Yosef Rojas Notes Date Note Type Note Provider Name and Address Organization Details Recorded Time 03/19/2024 text/html ROS as noted in the HPI went to Er for ear pain..was told she was wheezing...says her entire family has walking pneumonia Aj Moffett PA-C Attn: Accounting,[address] [place], [address], [facility] [place] 03/19/2024 17:40:12 03/27/2024 text/html ROS as noted in the HPI ear pain due to an infected tooth? was feeling good on the -- regimen...was fine until this morning then 3 am the pain came into rt jaw... Aj Moffett PA-C Attn: [address]ing,[address] [place], [address], [facility] 03/27/2024 16:46:38 05/11/2024 text/html ROS as noted in the HPI gastroenteritis symptoms and also exposed tro A at work..throat is raw..cough..fev er Aj Moffett PA-C Attn: [address]ing,[address] [place], [address], [place] [facility] 05/11/2024 11:42:41 06/25/2024 text/html ROS as noted in the HPI rt ear canal pain 3 days ago..says a home camera otoscope showed a raw patch.. Aj Moffett PA-C Attn: Accounting,[address] [place], [address], [facility] 06/25/2024 14:24:29 OBGyn Episode No OBEpisode recorded.
--- OUTSIDE RECORDS SUMMARY | 2025-02-15 00:52 | XMS_ITS | Continuity of Care Document ---
Author Organization [facility] [place] Address [address] [place] [address] Assessment No assessment recorded. Plan of Treatment [...] recorde d. Surgeries None recorde d. Imaging US, obstetr ic, 1st trimest er 2024 025 [email or web address] [place], [address], [place], [address], 01/31/2025 17:14:12 Medication Orders None recorde d. Patient TargetsNo targets recorded. Patient InstructionsNo instructions recorded. Reason for Referral None Reported. Results Created Date Observation Date Name Description Value Unit Range Abnormal Flag Note LastModifiedBy Organization Detail LastModifiedTime 01/31/2001/30/2025 US, obste tric, 1st trime ster No observ ation record ed. [facility] [address], [place], [address], 01/30/2025 18:18:56 01/31/2001/30/2025 US, obste tric, follo w-up No observ ation record ed. [email or web address] [address], [place], [address], 01/31/2025 09:20:44 Result Notes None recorded. Problems Name Problem SNOMED Code Status Onset Date Resolution Date Notes Provider Name and Address Organization Details Recorded Time Tobacco user [id number] Completed trying to cut down/trevon t Sarai Schwartz hl null, [facility] 2 16:03:30 Mixed anxiety and depressi ve disorder 208923597 Completed increase zoloft to 150, off abilify, buspar Sarai Schwartz null, [facility] 2 16:03:30 Tobacco user 966696777 Active trying to cut down/trevon t Not Available [facility] 2 09:25:27 Mixed anxiety and depressi ve disorder 153165303 Active increase zoloft to 150, off abilify, buspar Not Available [facility] 2 09:25:26 Urinary tract infectio n in pregnanc y 348140322 Completed Treat 05/29 frequent UTIs per pt Sarai Schwartz null, [facility] 2 16:03:30 Migraine 47348508 Completed Uncertai n if there is aura, Sarai Schwartz null, [facility] 2 16:03:30 Proteinu tracie 14482056 Completed 24 hour urine Sarai Schwartz null, [facility] 2 16:03:30 Umbilica l hernia 944675943 Completed Associat ed varicosi ty that changes color as blood leaves and return, Sarai Schwartz null, [facility] 2 16:03:30 Glucose level outside referenc e range 619032748 Completed Failed 1hr GTT - checking BS QID instead of 3hr GTT! Sarai Schwartz null, [facility] 2 16:03:30 Gestatio nal diabetes mellitus 46394964 Completed BS QID & antenata l testing Sarai Schwartz hl null, [facility] 2 16:03:30 Pregnanc y 66645075 Completed 202112/18/2021 Sarai Schwartz hl null, [facility] 2 16:03:40 SARS-CoV -2 Completed 2021 ASA & serial growth Sarai Schwartz hl null, [facility] 2 16:03:30 Marginal insertio n of umbilica l cord 99651287 Completed 2021 Serial growth Sarai Schwartz null, [facility] 2 16:03:30 Problem Notes None recorded. Procedures Surgical History Date Name Laterality Status Provider Name and Address Organization Details Recorded Time 05/11/2024 Date of Last Pap Smear completed TATYANA Weston [facility] 08/08/2024 15:46:44 Imaging Results None [...] active Not Available Not Available Not Avai labphilippe FreeStyle Lancets 28 gauge CHECK BLOOD SUGAR [...] completed Not Available Not Available Not Available Depo-Helminthologist a 150 mg/mL intramuscul ar syringe Inject [...] Not Available Not Available Not Available FreeStyle [place] Lite kit CHECK BLOOD SUGAR 4 TIMES [...] Updated DateTime 01/30/2025 170.18 cm 30.2 kg/m2 99177.33 g 114/75 mm[Hg] Radha Allan [facility] 01/30/2025 15:53:57 Social History Question Answer Notes LastModified by Organizat ion Details LastModified Time Tobacco Smoking Status Current Every Day Smoker Zoya Cheyenne villa, [facility] 09/17/2021 11:57:46 Do You Have An Advance Directive? No [email or web address] Information not available 04/30/2021 If You Are , What Was Your Level Of Alcohol Consumption Prior To ? Occasional [email or web address] Information not available 09/17/2021 Are You Blind Or Do You Have Difficulty Seeing? No [email or web address] Information not available 04/30/2021 What Is Your Level Of Caffeine Consumption? Occasional [email or web address] Information not available 04/30/2021 How Much Tobacco Do You Chew? None [email or web address] Information not available 04/30/2021 In The 14 Days Before Symptom Onset, Have You Had Close Contact With A Laboratory-confir med COVID-19 While That Case Was Ill? No [email or web address] Information not available 04/30/2021 In The 14 Days Before Symptom Onset, Have You Had Close Contact With A Person Who Is Under Investigation For COVID-19 While That Person Was Ill? No [email or web address] Information not available 04/30/2021 Have You Been To An Area Known To Be High Risk For COVID-19? No Information not available 04/30/2021 Are You Deaf Or Do You Have Serious Difficulty Hearing? No [email or web address] Information not available 04/30/2021 What Type Of Diet Are You Following? REGULAR [email or web address] Information not available 04/30/2021 What Is The Highest Grade Or Level Of School You Have Completed Or The Highest Degree You Have Received? [id number] Information not available 04/30/2021 Are There Any Guns Present In Your Home? No [email or web address] Information not available 04/30/2021 Do You Use Protection During Sex? No Information not available 04/30/2021 Do You Use Your Seat Belt Or Car Seat Routinely? Yes [email or web address] Information not available 04/30/2021 Do You Have Smoke And Carbon Monoxide Detectors In Your Home? Yes Information not available 04/30/2021 At What Age Did You Start Smoking Tobacco? 15 [email or web address] Information not available 04/30/2021 How Much Tobacco Do You Smoke? 1 PPD [email or web address] Information not available 04/30/2021 Do You Use Sunscreen Routinely? Yes [email or web address] Information not available 04/30/2021 Has Tobacco Cessation Counseling Been Provided? No [email or web address] Information not available 09/17/2021 How Many Years Have You Smoked Tobacco? 5 [email or web address] Information not available 04/30/2021 Have You Used IV Drugs? No [email or web address] Information not available 04/30/2021 Do You Have Difficulty Walking Or Climbing Stairs? No [email or web address] Information not available 09/17/2021 Sex: Unknown Functional Status Question Answer Note LastModified by Organizat ion Details LastModified Time Do you use any illicit or recreational drugs? No [email or web address] Information not available 04/30/2021 Do you or have you ever used any other forms of tobacco or nicotine? No [email or web address] Information not available 09/17/2021 What is your level of alcohol consumption? None [email or web address] Information not available 04/30/2021 Are you able to walk independently without assistance or assistive devices? [email or web address] Information not available 04/30/2021 Are you able to care for yourself independently? 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 No [email or web address] Information not available 09/17/2021 What is your exercise level? Moderate [email or web address] Information not available 04/30/2021 Mental Status Question Answer Note LastModified by Organization D etails LastModified Time Do you feel stressed (tense, restless, nervous, or anxious, or unable to sleep at night)? [id number] [email or web address] Information not available 04/30/2021 Family History Relationship Description Onset Age of this Age Resolved Age Notes LastModified by Organization Details LastModified Time Maternal Aunt Malignant neoplasm of breast [email or web address] Not available 2021 09:40:39 Medical History Condition [...] mcg/0.3 mL dose 02/09/2022 completed [place]NA [place] [facility] 05/11/2024 09:30:31 Past Encounters Encounter ID Performer Location Encounter Start Date Encounter Closed Date Diagnosis/Indication Diagnosis SNOMED-CT Code Diagnosis ICD10 Code Diagnosis IMO Codes Diagnosis Note [id number] Quinn Becker MD [place] [address] [address] 01/30/2025 15:12:14 01/30/2025 15:50:24 Finding of menstrual bleeding [id number] Z36.87 Z3A.01 [id number] Debi Washington CNM [place] [address] [address] 01/30/2025 15:26:19 01/30/2025 16:27:11 Amenorrhea 21158415 N91.2 97310 take pnv dailyrevie wed usplan zofran q 6 hoursphene rgan 25mg suppositor y for emergencie sf/u 12 week new ob and first lookeducat ion and precaution s Nausea 650963514 R11.0 77010 Health Concerns Section Related Observation LastModified by Organization Detai ls LastModified Time None Recorded Concern Status LastModified by Organization Details LastModified Time None Recorded Payers Encounter Date Sequence Insurance Name Policy Number Policy Drummond Covered Member ID Drummond Member ID Guarantor Name 01/30/2025 2 [place] [facility] Ninfa Rojas [id number] Ninfa Rojas 01/30/2025 1 [employer] ([place] [id number] Yosef Rojas [id number] Ninfa Rojas Notes Date Note Type Note Provider Name and Address Organization Details Recorded Time 01/30/2025 text/html ROS as noted in the HPI regular cycles, amenorrhea +UPT, lots of nausea, zofran prn, no other meds, dizzinesscraving very rich foodshx gdm last Debi Washington CNM [address], [place], [address], [facility] 01/30/2025 16:23:58 OBGyn Episode No OBEpisode recorded.
--- NOTE | 2025-02-15 00:57 | ED_ITS ---
HPI - General Adult General Chief complaint: Ear Stated complaint: LEFT SIDE MOUTH PAIN Time Seen by Provider: 02/15/25 00:55 History of Present Illness HPI narrative: Ninfa is a 24F at 10 weeks gestation that presented to the ED not feeling well. Related Data Home Medications ?Medication ?Instructions ?Recorded ?Confirmed ?Last Taken ?Type sumatriptan succinate 50 mg tablet mg PO 03/29/24 Unk nown History Allergies Allergy/AdvReac Type Severity Reaction Status Date / Time No Known Allergies Allergy Verified 02/15/25 00:57 Review of Systems Review of Systems: All systems reviewed & are unremarkable except as noted in HPI and below PMFSH Past Medical History Medical History Menometrorrhagia Anxiety and depression Smoker HTN (hypertension) with goal to be determined Migraines Overweight (BMI 25.0-29.9) and not yet delivered Depression Family History Family History Grandparent Pneumonia Chronic obstructive pulmonary disease Grandparent Heart attack Social History Social History Smoking packs per day: 2 Smoking cigarettes per day: 40.0 Smoking status: Current every day smoker Tobacco type: cigarettes Alcohol intake: never Substance use: never Living arrangements: with family Spiritual care concerns: No Exam Const: General: cooperative, healthy appearing, comfortable, no acute distress, well developed, alert, awake and Physically active Orientation/consciousness: oriented to person, oriented to place and oriented to time HENMT: Head: normal to inspection, normocephalic and atraumatic Ears: hearing grossly normal bilaterally and external ears normal Face/Nose/Sinus: Normal external nose present Other: left ear was very tender with manipulation. Pre-auricular and anterior cervical lymphadenopathy Left upper molars wre red and TTP Eyes: General: appearance normal, both eyes and all related structures Mikki orbital: periorbital findings normal Sclera: sclerae normal Pupils: Equal, round and reactive pupils present Neck: Neck: normal visual inspection Chest: Chest palpation & inspection: normal inspection of the chest Resp: Effort & Inspection: normal respiratory effort, able to speak in complete sentences and no respiratory distress Auscultation: clear to auscultation bilaterally Cardio: Jugular venous distension: no JVD Rate: regular rate Rhythm: regular rhythm Skin: General skin exam: normal color and no rashes or lesions noted Neuro: General: oriented to person, oriented to place and oriented to time Cranial nerves: Yes Equal, round and reactive pupils present Extrem: General: normal to inspection Course Course Emergency Course: DDx includes strep, otitis externa, dental infection, lymphadenitis and URI She declined strep and viral testing as she may need abx either way. Discharge Plan Discharge Clinical Impression: Pharyngitis Patient Disposition: Home Condition: Stable Instructions: Antibiotic Form Patient Language: Surinamese Prescriptions: New amoxicillin 875 mg tablet 875 mg PO Q12H Qty: 10 0RF No Action sumatriptan succinate 50 mg tablet PO ondansetron 4 mg tablet,disintegrating 4 mg PO Q4H PRN (Reason: nausea and vomiting) 3 Days Qty: 10 0RF Follow-up/Referrals: Betina,BARBARA Moreno [Primary Care Provider] Stand Alone Forms: Work/School Release IP
[2025-02-15] MEDS: AMOXICILLIN 500 MG CAPSULE PO (01:15)
== END 2025-02-15 01:22 | disposition home or self-care (01) ==
PROVIDERS: Emergency Provider Family Medicine; PCP Physician Assistant; Referring Provider Family Medicine
DX: O26.891 Other specified pregnancy related conditions, first trimester (principal); J02.9 Acute pharyngitis, unspecified; O99.331 Smoking (tobacco) complicating pregnancy, first trimester; F17.210 Nicotine dependence, cigarettes, uncomplicated; Z3A.10 10 weeks gestation of pregnancy
CPT/HCPCS: 99283; A9270

== ENCOUNTER 2025-03-19 03:02 | Emergency (ER) | payer OTHER, MEDICAID, SELFPAY ==
[2025-03-19 03:10] VITALS: BP 120/80; PULSE 70; RESP 18; TEMP 36.4; O2SAT 99
--- NOTE | 2025-03-19 03:19 | ED_ITS ---
HPI - Dental/Oral General Chief complaint: Dental/Oral Stated complaint: dental infection Time Seen by Provider: 03/19/25 03:15 Source: patient Mode of arrival: ambulatory Limitations: no limitations History of Present Illness HPI Narrative: 24 years old white female 14 weeks complaining of dental pain for a while. Finished a course of amoxicillin over 1 week, 10 days ago without improvement Patient denies any fever, chills, nausea, vomiting, trouble swallowing or breathing or headache Complaint: tooth pain Location: Tooth # (14 and 15) Related Data Home Medications ?Medication ?Instructions ?Recorded ?Confirmed ?Last Taken ?Type sumatriptan succinate 50 mg tablet mg PO 03/29/24 Unk nown History Allergies Allergy/AdvReac Type Severity Reaction Status Date / Time No Known Allergies Allergy Verified 03/19/25 03:09 Review of Systems Review of Systems: All systems reviewed & are unremarkable except as noted in HPI and below PMFSH Past Medical History Medical History Menometrorrhagia Anxiety and depression Smoker HTN (hypertension) with goal to be determined Migraines Overweight (BMI 25.0-29.9) and not yet delivered Depression Family History Family History Grandparent Pneumonia Chronic obstructive pulmonary disease Grandparent Heart attack Social History Social History Smoking packs per day: 2 Smoking cigarettes per day: 40.0 Smoking status: Current every day smoker Tobacco type: cigarettes Alcohol intake: never Substance use: never Living arrangements: with family Spiritual care concerns: No Exam Narrative: General appearance: Well-developed, well-nourished Skin: Normal color Head: Normocephalic, nontraumatic Eyes: Clear conjunctiva ENT: Oropharynx normal, ears normal, nose normal, dental decay left upper and left lower teeth, no abscess formation no discharge no swelling Neck: Supple, nontender Chest and respiratory: Airway patent, no respiratory distress, no accessory muscle use Heart: Regular rate/rhythm Musculoskeletal: Normal range of motion, nontender back Neurologic: Alert and oriented ?3, Course Vital Signs Vital signs: Vital Signs Temperature 36.4 C 03/19/25 03:10 Pulse Rate 70 03/19/25 03:10 Respiratory Rate 18 03/19/25 03:10 Blood Pressure 120/80 03/19/25 03:10 Pulse Oximetry 99 03/19/25 03:10 Oxygen Delivery Room Air 03/19/25 03:10 Temperature 36.4 C 03/19/25 03:10 Pulse Rate 70 03/19/25 03:10 Respiratory Rate 18 03/19/25 03:10 Blood Pressure 120/80 03/19/25 03:10 Pulse Oximetry 99 03/19/25 03:10 Oxygen Delivery Room Air 03/19/25 03:10 MDM Differential Diagnosis Differential Diagnosis: Dental caries, infection Discharged on clindamycin and Tylenol as needed Critical Care Time Critical Care Time Critical Care Time: No Discharge Plan Discharge Clinical Impression: Dental caries Patient Disposition: Home Condition: Stable Instructions: Antibiotic Form, Toothache (ED) Additional Instructions: Return if symptoms are worsening , call your dentist, family physician for appointment, take Tylenol as as needed for aches and pain, continue home medications. Patient Language: South African Prescriptions: New clindamycin HCl [Cleocin HCl] 150 mg capsule 450 mg PO Q8H 10 Days Qty: 90 0RF No Action sumatriptan succinate 50 mg tablet PO ondansetron 4 mg tablet,disintegrating 4 mg PO Q4H PRN (Reason: nausea and vomiting) 3 Days Qty: 10 0RF amoxicillin 875 mg tablet 875 mg PO Q12H Qty: 10 0RF Follow-up/Referrals: Betina,BARBARA Moreno [Primary Care Provider] Stand Alone Forms: Work/School Release IP
[2025-03-19] MEDS: CLINDAMYCIN HCL 150 MG CAP 450 MG PO (03:22)
[2025-03-19] MEDS: IBUPROFEN 400 MG TABLET 800 MG PO (03:24)
--- NOTE | 2025-03-19 03:26 | PC.NURSE ---
Pt signed HIV refusal form
[2025-03-19 03:40] VITALS: BP 119/73; PULSE 70; RESP 18; O2SAT 98
== END 2025-03-19 03:40 | disposition home or self-care (01) ==
PROVIDERS: Emergency Provider Emergency Medicine; PCP Physician Assistant
DX: O26.892 Other specified pregnancy related conditions, second trimester (principal); K02.9 Dental caries, unspecified; I10 Essential (primary) hypertension; F17.210 Nicotine dependence, cigarettes, uncomplicated; Z3A.14 14 weeks gestation of pregnancy
CPT/HCPCS: 99283; A9270